=== PATIENT | female | born 1935 | race Caucasian/White ===

== ENCOUNTER 2016-09-25 17:58 | Inpatient (IN) ==
[2016-09-25] MEDS ORDERED: PANTOPRAZOLE 40 MG VIAL IV STA (21:19)
[2016-09-25] MEDS ORDERED: SODIUM CHLORIDE 0.9% 1,000 ML IV STA (21:19)
[2016-09-25] MEDS ORDERED: ONDANSETRON 4 MG/2 ML VIAL IV STA (21:19)
[2016-09-25] MEDS ORDERED: DICYCLOMINE 20 MG/2 ML AMP IM ONE ×2 (21:19→22:34)
--- NOTE | 2016-09-25 21:25 | Emergency Department Note ---
Arrival - Arrival Chief Complaint: Weakness Stated Complaint: in bed all day/weak/possible impaction ED Nursing Triage Note: pt c/o weakness, confusion, and ?impaction Last BM 5 days ago. Pt seen in ER yesterday for confusion. Mode of Arrival: Wheelchair Limitations: Altered Mental Status Source: Family Time Seen by Provider: 09/25/16 21:19 - History of Present Illness HPI Narrative: This 80-year-old white female presents for the second, 24 hours with complaints of persistent disorientation and confusion associated with visual hallucinations. Likewise she continues to have complaints of abdominal cramping and nausea but no vomiting as well as flare of her external hemorrhoids. The patient was seen here yesterday with an extensive workup with a normal head CT at that time as well as an ultrasound report of the right lower extremity which revealed no DVT but a Jiménez's cyst and plain films that reflected the possibility of constipation. Although it was felt that Bactrim was giving her hallucinations, with cessation of the drug the family states she has not cleared. They have discussed this with Dr. Love who referred the patient back to the emergency room. Onset (ago): day(s) (Patient presents several days post onset of symptoms) Allergies/Adverse Reactions: Allergies Allergy/AdvReac Type Severity Reaction Status Date / Time Shrimp Allergy ITCHING Verified 09/24/16 10:29 Home Medications: Home Medications Medication Instructions Recorded Confirmed Type Acebutolol [Sectral] 400 mg PO BID 11/23/14 09/25/16 History Baclofen Tab [Lioresal] 10 mg PO TID 11/23/14 09/25/16 History Clopidogrel [Plavix] 75 mg PO DAILY 11/23/14 09/25/16 History Estradiol Tab [Estrace Tab] 2 mg PO DAILY 11/23/14 09/25/16 History HYDROcodone/ACETAMIN 10-325 [[place] 1 tablet PO TID PRN 11/23/14 09/25/16 History 10-325] Morphine Sulfate [Morphine Sulfate 15 mg PO BID 11/23/14 09/25/16 History ER] Omeprazole [Prilosec] 20 mg PO DAILY 11/23/14 09/25/16 History Simvastatin [Zocor] 10 mg PO DAILY 11/23/14 09/25/16 History dilTIAZem HCl [Cartia XT] 120 mg PO DAILY 11/23/14 09/25/16 History metFORMIN [Glucophage] 500 mg PO BID W/MEALS 11/23/14 09/25/16 History Glimepiride 4 mg PO BID 08/13/16 09/25/16 History hydroCHLOROthiazide 25 mg PO DAILY PRN 08/13/16 09/25/16 History [Hydrochlorothiazide] Insulin Aspart [NovoLOG FlexPen] 15 unit SUBCUT BID 09/03/16 09/25/16 History Insulin Glargine,Hum.rec.anlog 40 unit SUBCUT BEDTIME 09/03/16 09/25/16 History [Toujeo SoloStar] Insulin Detemir [Levemir FlexPen] 40 unit SUBCUT QPM 09/24/16 09/25/16 History Review of System - Review of System 12 point system: reviewed and no additional remarkable complaints except as stated - Review of System Gastrointestinal: Present: as per HPI Neurological: Present: as per HPI Medical,Surgical,& Family Hx - Medical History Cardio: History of: Hypertension Psychological: History of: Depression Neurology: History of: Cerebrovascular Accident HEENT: History of: Eye Problem (cataract) Endocrine: History of: Diabetes Mellitus (IDDM), Dyslipidemia Gastrointestinal: History of: GERD Musculoskeletal: History of: Back/Neck Problems, Musculoskeletal Problems Hematology: History of: Anemia Other: History of: MRSA - Surgical History HEENT Surgeries: Surgical HX of: Eye Surgery (cataracts) Abdominal Surgeries: Surgical HX of: Abdominal Surgery, Appendectomy, Cholecystectomy, Colonoscopy, EGD Reproductive Surgeries: Surgical HX of;: Gynecologic Surgery, Hysterectomy Orthopedic Surgeries: Surgical HX of;: Total Hip Replacement - Family History Family History: Reports;: Family Cancer (brother, sister), Family Diabetes ( mother), Family Heart Disease (mother and dad), Family Hypertension - Social History Smoking Status: Never smoker Exam Physical Examination: GENERAL: Well developed, well nourished elderly white female groaning on the gurney but in no acute distress. HEENT: Normocephalic. No trauma. Moist mucous membranes. EOMI. PERRLA. ENT NML NECK: Supple. No adenopathy. CARDIAC: Regular. No murmurs. Heart rate 71 CHEST: Clear to auscultation. No respiratory distress. O2 sat 96% ABDOMEN: Soft. Diffusely tender with hyperactive bowel sounds. EXTREMITIES: No trauma. Normal ROM. No pedal edema. Area of cellulitis right lower extremity medially SKIN: No diaphoresis. No rash. NEURO: Alert. Oriented to person place but not so time motor sensory vibratory intact. No focal deficits. Vital Signs: Vital Signs Temperature 97.3 F L 09/25/16 23:56 Pulse Rate 71 09/25/16 23:56 Respiratory Rate 22 09/25/16 23:58 Blood Pressure 110/53 09/25/16 23:56 O2 Sat by Pulse Oximetry 96 09/25/16 18:00 Course - Reevaluation(s) Reevaluation #1: Discussed with family the results of her studies and the need for hospitalization to straighten out metal confusion and constipation. - Consultations Consultation #1: Discussed with Dr. Langston who will admit for Dr. Ramirez. Results - Labs CBC & BMP: 09/25/16 21:43 09/25/16 21:43 Labs: I reviewed the laboratory and noted the azotemic numbers - Impressions EKG: Sinus rhythm at 78 with normal FL interval and QRS duration. Diffuse ST depression and T-wave inversion along the lateral wall. No acute injury pattern noted. - Diagnostic Findings Procedure: CT Abdomen and Pelvis: image reviewed by me, report reviewed by me ( Constipation with possible fecal impaction as well as colonic diverticula.) Disposition Clinical Impression: Constipation, Altered mental status, Renal azotemia Case discussed with: patient's family Disposition: Still a Patient Time of Disposition: 00:49
[2016-09-25 21:59] LABS: Basophils # 0.1 10*3/uL (0.0-0.2); Basophils % 0.5 % (0.0-0.8); Eosinophils # 0.2 10*3/uL (0.0-0.87); Eosinophils % 1.7 % (0.00-10.9); Hematocrit 30.5 VOL% (35.7-47.0); Hemoglobin 9.4 GM/DL (12.0-16.0); Immature Granulocytes % 0.3 %; Immature Granulocytes Absolute 0.03 #; Lymphocytes # 1.7 10*3/uL (1.4-4.0); Lymphocytes % 18.4 % (21.3-54.2); Mean Corpuscular HGB Conc 30.8 GM/DL (32-36); Mean Corpuscular Hemoglobin 25 PG (27-34); Mean Corpuscular Volume 80.9 FL (87-102); Mean Platelet Volume 10.4 FL (9.6-12.0); Monocytes % 10.2 % (1.7-12.7); Neutrophils # 6.4 10*3/uL (1.4-7.4); Neutrophils % 68.9 % (38.7-73.9); Platelet Count 249 T/CUMM (130-400); Red Blood Count 3.77 MC/CUMM (3.8-5.5); Red Cell Distribution Width 15.6 % (9.3-17.3); White Blood Count 9.3 T/CUMM (4-12)
[2016-09-25 22:22] LABS: Alanine Aminotransferase 11 U/L (13-56); Albumin 3.2 G/DL (3.4-5.0); Alkaline Phosphatase 57 U/L (45-117); Amylase 17 U/L (25-115); Aspartate Amino Transferase 13 U/L (0-37); Blood Urea Nitrogen 26 MG/DL (7-18); Calcium 8.4 MG/DL (8.5-10.1); Glucose 181 MG/DL (74-106); Osmolality,Calculated 284.7 MOS/KG (273-304); Potassium 5.3 MMOL/L (3.5-5.1); Sodium 138 MMOL/L (136-145); Total Protein 6.5 G/DL (6.4-8.3); Troponin I Only < 0.015 NG/ML (0.00-0.045)
[2016-09-25 22:28] LABS: Lactic Acid 2.5 MMOL/L (0.4-2.0)
[2016-09-25] MEDS ORDERED: ONDANSETRON 4 MG/2 ML VIAL ONE (22:34)
[2016-09-25] MEDS ORDERED: PANTOPRAZOLE 40 MG VIAL IV ONE (22:34)
--- NOTE | 2016-09-25 22:43 | EKG Report ---
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
[2016-09-26] MEDS ORDERED: GLUCAGON 1 MG VIAL IM PRN (00:51)
[2016-09-26] MEDS ORDERED: ONDANSETRON 4 MG/2 ML VIAL IV PRN (00:51)
[2016-09-26] MEDS ORDERED: DEXTROSE 50% 25 GM/50 ML VIAL IV PRN (00:51)
[2016-09-26] MEDS: SODIUM CHLORIDE 0.9% 1,000 ML IV SCH ×3 (02:26→18:59)
--- NOTE | 2016-09-26 06:37 | CT Report ---
Exam: CT abdomen pelvis wo con Date: 09/25/2016 9:45 PM Comparison: 02/19/2010 Indication: Abdominal pain constipation Total DLP: 447.1 mGy*cm Technical: The study was initially reviewed by [facility]. Images were obtained from the lung bases to the iliac crest continuation through the pelvis without intravenous contrast with axial sagittal coronal imaging available for review. Dose reduction was performed with decreasing kv and mA and automated exposure Findings: Lung bases: Small right pleural effusion. Mild scarring in the lung velazquez bilaterally. Vascular calcification in the aortic valve Liver and Spleen: Unremarkable Gallbladder and Pancreas: Previous cholecystectomy. The pancreas is unremarkable. Adrenals: Unremarkable Kidneys: No obvious stones present. There is a low density mass in the left kidney measuring approximately 2.9 cm Stomach: Incomplete distended with air-fluid and debris with a large hiatal hernia present Retroperitoneum: Small tiny calcified nodes in the periaortic region. Aorta and IVC: Vascular plaque in aorta iliac vessels without aneurysm present. The aorta and IVC without contrast or not otherwise evaluated. Bowel and Mesentery: Diverticulosis change present. Extensive stool and debris present within the colon particularly in the rectosigmoid colon. Pelvis: Bladder: Incompletely distended with fluid Arrieta catheter suspected in the bladder. Fluid: No free fluid identified. Lymph nodes: No enlarged lymph nodes. Pelvic organs: Previous hysterectomy suspected phleboliths are present. Osseous structures: Left total hip prosthesis is present. Degenerative changes present thoracolumbar spine with vacuum phenomena at L5-S1. Impression: 1. Constipation obstipation with diverticulosis without obvious diverticulitis 2. Prior hysterectomy suspected 3. Previous cholecystectomy 4. Left total hip prosthesis present. 5. Minimal dependent right pleural effusion 6. Hiatal hernia measuring up to 6 cm PROCEDURE INTERPRETED AT [facility] DEPARTMENT OF RADIOLOGY Final Report Signed by: Dr. Teodoro Rankin
[2016-09-26] MEDS ORDERED: hydroCHLOROthiazide 25 MG TABLET PO PRN (07:27)
--- NOTE | 2016-09-26 07:55 | Family Practice History&Phys ---
Assessment and Plan (1) Fecal impaction in rectum Status: Acute Assessment and plan: 09/26/2016: Soapsuds enemas will be ordered. I have started her on Linzess. Current Visit: Yes (2) Altered mental status Status: Resolved Assessment and plan: 09/26/2016: Patient's sensorium has cleared. Current Visit: Yes History of Present Illness Chief complaint: Abdominal pain and constipation History of present illness: Ms. Barahona is a 80 year old female Patient 80-year-old white female presents emergency room complaining of persistent constipation with abdominal and rectal pain. Patient found to have soft fecal impaction. She is on pain medications which has been long-standing. Patient was admitted my services for further evaluation. According to her daughter she has been quite confused and disoriented but finally agreed to come to the hospital last night as her perineal pain was worsening. She has not had any fever or chills. Her daughter has not seen any evidence of blood in her stool and she did not have any respiratory or urinary symptoms. Home Medications Medication Instructions Recorded Confirmed Type Acebutolol [Sectral] 400 mg PO BID 11/23/14 09/26/16 History Baclofen Tab [Lioresal] 10 mg PO TID 11/23/14 09/26/16 History Clopidogrel [Plavix] 75 mg PO DAILY 11/23/14 09/26/16 History Estradiol Tab [Estrace Tab] 2 mg PO DAILY 11/23/14 09/26/16 History HYDROcodone/ACETAMIN 10-325 [[place] 1 tablet PO TID PRN 11/23/14 09/26/16 History 10-325] Morphine Sulfate [Morphine Sulfate 15 mg PO BID 11/23/14 09/26/16 History ER] Omeprazole [Prilosec] 20 mg PO DAILY 11/23/14 09/26/16 History Simvastatin [Zocor] 10 mg PO DAILY 11/23/14 09/26/16 History dilTIAZem HCl [Cartia XT] 120 mg PO DAILY 11/23/14 09/26/16 History metFORMIN [Glucophage] 500 mg PO BID W/MEALS 11/23/14 09/26/16 History Glimepiride 4 mg PO BID 08/13/16 09/26/16 History hydroCHLOROthiazide 25 mg PO DAILY PRN 08/13/16 09/26/16 History [Hydrochlorothiazide] Insulin Glargine,Hum.rec.anlog 40 unit SUBCUT BEDTIME 09/03/16 09/26/16 History [Toujeo SoloStar] Insulin Detemir [Levemir FlexPen] 40 unit SUBCUT QPM 09/24/16 09/26/16 History Allergies Allergy/AdvReac Type Severity Reaction Status Date / Time Shrimp Allergy ITCHING Verified 09/24/16 10:29 - Constitutional Constitutional: Present: fatigue, weakness. Absent: chills, fever(s), weight gain, weight loss - EENT Eyes: Absent: blurry vision, loss of vision Ears: Absent: decreased hearing, ear pain Nose, mouth and throat: Absent: nasal congestion, sinus pressure, sore throat - Cardiovascular Cardiovascular: Absent: chest pain at rest, dyspnea, orthopnea, palpitations, PND - Respiratory Respiratory: Absent: cough, dyspnea, wheezing - Gastrointestinal Gastrointestinal: Present: abdominal pain, bloating, constipation, cramping. Absent: dyspepsia, hematemesis, hematochezia, melena, nausea, vomiting - Genitourinary Genitourinary: Absent: difficulty urinating, urinary frequency, urinary hesitancy - Musculoskeletal Musculoskeletal: Absent: arthralgias - Neurological Neurological: Absent: confusion, dizziness, focal weakness, numbness, paresthesias - Psychiatric Psychiatric: Absent: anxiety, confusion, depression - Endocrine Endocrine: Absent: fatigue, polydipsia, polyphagia - Hematologic/Lymphatic Hematologic/Lymphatic: Absent: easy bleeding, easy bruising Medical,Surgical,& Family Hx - Medical History Cardio: History of: Cardiac Dysrhythmia (afib), Hypertension Psychological: History of: Depression Neurology: History of: Cerebrovascular Accident HEENT: History of: Eye Problem (cataract) Endocrine: History of: Diabetes Mellitus (IDDM), Dyslipidemia Respiratory: History of: Bronchitis Genitourinary: History of: Recurring Urinary Tract Infections No history of: Kidney Stones Gastrointestinal: History of: Diverticulitis/ Diverticulosis, GERD, Hemorrhoids No history of: Gastrointestinal Bleed Musculoskeletal: History of: Back/Neck Problems, Musculoskeletal Problems Hematology: History of: Anemia Other: History of: MRSA - Surgical History HEENT Surgeries: Surgical HX of: Eye Surgery (cataracts) Patient denies: Tonsilectomy & Adenoidectomy Abdominal Surgeries: Surgical HX of: Abdominal Surgery, Appendectomy, Cholecystectomy, Colonoscopy, EGD Reproductive Surgeries: Surgical HX of;: Gynecologic Surgery, Hysterectomy Orthopedic Surgeries: Surgical HX of;: Total Hip Replacement (left) - Family History Family History: Reports;: Family Cancer (brother, sister), Family Diabetes ( mother), Family Heart Disease (mother and dad), Family Hypertension - Social History Smoking Status: Never smoker Frequency of Alcohol Use: None Type of Drug Use: None Exam - Constitutional Vitals: Period Temp Pulse Resp BP Sys/Saleh Pulse Ox Last 24 Hr 98.5 F-98.5 F 76-82 18-20 144-160/57-69 92-99 Exam: General: Objective patient is a well-developed white female in no acute distress. Patient is able to give good history. Patient does appear uncomfortable. HEENT: Pupils equal and reactive to light. Patent nares and airway Neck: No meningismus, adenopathy, thyromegaly. There are no auscultated carotid bruits. Cardiovascular: Regular rhythm. No murmurs or gallops Chest: Clear to auscultation without rales rhonchi wheezes. Abdomen: Soft nontender to palpation No masses, rebound, guarding or tenderness. Rectal exam reveals large soft impaction Neuro: Cranial nerves intact and DTRs and strength symmetric in all extremities. Dermatologic: No evidence of abnormal lesions or masses. Musculoskeletal: There is no joint swelling or tenderness or deformity. Extremities: Patient has a firm mass in her right medial thigh which is been present for months. This is nontender Results - Labs CBC & BMP: 09/25/16 21:43 09/25/16 21:43 Quality Measures - Stroke Symptom Onset Unknown: No
[2016-09-26] MEDS ORDERED: GLIMEPIRIDE 4 MG TABLET PO SCH (08:00)
[2016-09-26] MEDS ORDERED: metFORMIN 500 MG TABLET PO SCH (08:00)
[2016-09-26] MEDS: MORPHINE ER 15 MG TABLET PO SCH ×2 (08:56→21:19)
[2016-09-26] MEDS: ESTRADIOL 2 MG TABLET PO SCH (08:57)
[2016-09-26] MEDS: ACEBUTOLOL 400 MG CAPSULE PO SCH ×2 (08:57→21:18)
[2016-09-26] MEDS: PANTOPRAZOLE 40 MG TABLET PO SCH (08:57)
[2016-09-26] MEDS: BACLOFEN 10 MG TABLET PO SCH ×3 (08:57→21:18)
[2016-09-26] MEDS: CLOPIDOGREL 75 MG TABLET PO SCH (08:57)
[2016-09-26] MEDS: LINACLOTIDE 145 MCG CAPSULE PO SCH (08:58)
[2016-09-26] MEDS: DILTIAZEM CD 120 MG CAPSULE PO SCH (08:58)
[2016-09-26] MEDS ORDERED: DILTIAZEM 60 MG TABLET PO SCH (09:00)
[2016-09-26] MEDS ORDERED: INSULIN DETEMIR 40 UNIT SUBCUT SCH (19:00)
[2016-09-26] MEDS ORDERED: INSULIN DETEMIR 100 UNIT/ML SUBCUT SCH (21:00)
[2016-09-26] MEDS: INSULIN GLARGINE 100 UNIT/ML SUBCUT SCH (21:19)
[2016-09-26] MEDS: SIMVASTATIN 20 MG TABLET PO SCH (21:19)
[2016-09-27 01:29] LABS: Apearance,Urine CLEAR (Clear); Bacteria,Urine Occasional /HPF (Few); Bilirubin,Urine Negative (Negative); Blood, Urine Moderate mg/dL (Negative); Glucose,Urine (UA) 150 mg/dL (Negative); Ketones,Urine Negative (Negative); Mucus,Urine Occasional /LPF (Occasional); Nitrite,Urine Negative (Negative); Protein,Urine Negative; RBC,Urine 6 /HPF (0-4); Urine Color Yellow (Yellow); Urine Specific Gravity 1.009 (1.001-1.035); Urine Urobilinogen < 2.0 EU/DL (0.2-1.0); WBC,Urine 2 /HPF (0-6)
[2016-09-27] MEDS: SODIUM CHLORIDE 0.9% 1,000 ML IV SCH ×2 (02:36→08:15)
--- NOTE | 2016-09-27 07:42 | Family Practice Progress Note ---
Family Practice - PN: Subj Interval history: Patient's daughter tells me she had a fretful night. It sounds that she had less than gratifying results from her soapsuds enema and I am going to ask nursing staff repeat that also check her for impaction. Arrieta catheter was placed last night as she had residual urine volume of 317 cc. I suspect this may be due to her impaction. I will leave her Arrieta catheter in for today. She is complaining of some soreness in her mouth she is here with previous bouts of thrush. She is also states that he not on the medial aspect of her right thigh is becoming increasingly painful. I will asked Dr. Smith to see her again. Exam (Progress Note) - Constitutional Vitals: Period Temp Pulse Resp BP Sys/Saleh Pulse Ox Last 24 Hr 98.4 F-100.3 F 70-83 18-20 127-187/63-78 96-99 Exam: Objectively well-developed pleasant white female no acute distress. She is sleeping soundly when I entered the room. She states she still having some pain in her rectum. Cardiovascular: Heart rates regular without murmurs or gallops Respiratory: Lungs clear to auscultation bilaterally. Abdomen: Abdomen soft with suprapubic tenderness noted. Extremities: Patient has a very firm tender area to the medial aspect of her right thigh. I cannot say this is much changed from her previous visit. Results - Labs CBC & BMP: 09/25/16 21:43 09/25/16 21:43 Lab Results: I have reviewed the past 24 hour labs Assessment and Plan (1) Fecal impaction in rectum Status: Acute Assessment and plan: 09/26/2016: Soapsuds enemas will be ordered. I have started her on Linzess. 09/27/2016: Will repeat soapsuds enema Current Visit: Yes (2) Altered mental status Status: Resolved Assessment and plan: 09/26/2016: Patient's sensorium has cleared. 09/27/2016: This appears to have resolved. Current Visit: Yes Quality Measures - Stroke Symptom Onset Unknown: No
[2016-09-27] MEDS: MORPHINE ER 15 MG TABLET PO SCH ×2 (08:59→21:05)
[2016-09-27] MEDS: LINACLOTIDE 145 MCG CAPSULE PO SCH (08:59)
[2016-09-27] MEDS: BACLOFEN 10 MG TABLET PO SCH ×3 (09:00→21:05)
[2016-09-27] MEDS: ESTRADIOL 2 MG TABLET PO SCH (09:00)
[2016-09-27] MEDS: NYSTATIN 500,000 UNIT/5 ML UDCUP SWISH/SWAL SCH ×4 (09:01→21:04)
[2016-09-27] MEDS: ACEBUTOLOL 400 MG CAPSULE PO SCH ×2 (09:01→21:05)
[2016-09-27] MEDS: CLOPIDOGREL 75 MG TABLET PO SCH (09:01)
[2016-09-27] MEDS: DILTIAZEM CD 120 MG CAPSULE PO SCH (09:02)
[2016-09-27] MEDS: PANTOPRAZOLE 40 MG TABLET PO SCH (09:02)
--- NOTE | 2016-09-27 09:08 | Physician Query Form ---
CLICK EDIT DOCUMENT TO SELECT QUERY ANSWER --> OK --> SIGN Jennifer King RN, CCDS Certified Clinical Pocket Marker W) [phone] (f) [phone] [email or web address] PROVIDERS: Make your selection(s) from the choices in EACH section by typing an "x" and enter comments in the comment section. Please use your independent medical judgment in providing your response. This request does not imply that any particular answer is desired or expected. CLINICAL INDICATORS: (Providers should not edit this section) The medical record indicates that the patient was admitted with constipation, renal azotemia, creatinine of 2.40#, GFR of 19# and the patient was placed on IVF. Clarify which of the following most accurately represents the patient's renal status: ( ) Acute kidney injury (non-traumatic) ( ) Acute renal failure (x ) Acute renal failure with underlying Chronic Kidney Disease (CKD) - please provide stage below ( ) Acute renal failure with pathological renal lesion ( ) Acute renal failure with necrosis ( ) tubular ( ) medullary ( ) cortical ( ) CKD - please provide stage below ( ) End Stage Renal Disease ( ) Acute interstitial nephritis ( ) Hepatorenal syndrome ( ) Other, please specify: ( ) Clinically unable to determine Chronic Kidney Disease Stages Source: National Kidney Disease Foundation ( ) Stage I (eGFR > or = 90) ( ) Stage II (eGFR 60 - 89) ( ) Stage III (eGFR 30 - 59) (x ) Stage IV (eGFR 15 - 29) ( ) Stage V (eGFR < 15 or dialysis) COMMENTS: PLEASE ALSO DOCUMENT RESPONSE IN PROGRESS NOTES AND/OR DISCHARGE SUMMARY Use of terms such as suspected, likely, or probable (associated with a specific diagnosis that is being evaluated, monitored, or treated as if it exists) are acceptable and can be restated in the discharge summary if not ruled out. MTDD
--- NOTE | 2016-09-27 17:00 | General Surgery Consult Note ---
Assessment and Plan (1) Abscess of right thigh Status: Chronic Assessment and plan: The last culture obtained was negative. There is no surrounding cellulitis. At this point, I would consider this to be a seroma/resolving inflammatory process. She is likely to high risk to take to the operating room for excision , though this is an option if the mass fails to resolve. I'm not convinced that she needs antibiotics at this point. In light of the recent problems that are thought to have been related to Bactrim use, I would avoid Bactrim in the future. The patient is to follow-up with me in the wound center in approximately 2 weeks. The visit is actually for her (now-healed) right foot ulcer, but we will continue to follow this inflammatory process of the right thigh, as well. Current Visit: No History of Present Illness Chief complaint: swelling on thigh History of present illness: Ms. Barahona is a 80 year old female whom I have treated at Wound Center in the recent past. Her foot wound has been declared healed at her last visit, but we were scheduled for 1 more follow-up with her. She was admitted because of confusion, which was thought to be a side effect of the Bactrim that she has been placed on for cellulitis of the thigh. She did have an abscess of the thigh which actually began as a hematoma. At her last clinic visit we aspirated the seroma in this area, and it is culture negative to date. Cytology was also sent, but I do not have the results of that. I was asked to see her in follow-up evaluation of the right thigh swelling. Home Medications Medication Instructions Recorded Confirmed Type Acebutolol [Sectral] 400 mg PO BID 11/23/14 09/26/16 History Baclofen Tab [Lioresal] 10 mg PO TID 11/23/14 09/26/16 History Clopidogrel [Plavix] 75 mg PO DAILY 11/23/14 09/26/16 History Estradiol Tab [Estrace Tab] 2 mg PO DAILY 11/23/14 09/26/16 History HYDROcodone/ACETAMIN 10-325 [[place] 1 tablet PO TID PRN 11/23/14 09/26/16 History 10-325] Morphine Sulfate [Morphine Sulfate 15 mg PO BID 11/23/14 09/26/16 History ER] Omeprazole [Prilosec] 20 mg PO DAILY 11/23/14 09/26/16 History Simvastatin [Zocor] 10 mg PO DAILY 11/23/14 09/26/16 History dilTIAZem HCl [Cartia XT] 120 mg PO DAILY 11/23/14 09/26/16 History metFORMIN [Glucophage] 500 mg PO BID W/MEALS 11/23/14 09/26/16 History Glimepiride 4 mg PO BID 08/13/16 09/26/16 History hydroCHLOROthiazide 25 mg PO DAILY PRN 08/13/16 09/26/16 History [Hydrochlorothiazide] Insulin Detemir [Levemir FlexPen] 40 unit SUBCUT QPM 09/24/16 09/26/16 History Allergies Allergy/AdvReac Type Severity Reaction Status Date / Time Shrimp Allergy ITCHING Verified 09/24/16 10:29 Medical,Surgical,& Family Hx - Medical History Cardio: History of: Cardiac Dysrhythmia (afib), Hypertension Psychological: History of: Depression Neurology: History of: Cerebrovascular Accident HEENT: History of: Eye Problem (cataract) Endocrine: History of: Diabetes Mellitus (IDDM), Dyslipidemia Respiratory: History of: Bronchitis Genitourinary: History of: Recurring Urinary Tract Infections No history of: Kidney Stones Gastrointestinal: History of: Diverticulitis/ Diverticulosis, GERD, Hemorrhoids No history of: Gastrointestinal Bleed Musculoskeletal: History of: Back/Neck Problems, Musculoskeletal Problems Hematology: History of: Anemia Other: History of: MRSA - Surgical History HEENT Surgeries: Surgical HX of: Eye Surgery (cataracts) Patient denies: Tonsilectomy & Adenoidectomy Abdominal Surgeries: Surgical HX of: Abdominal Surgery, Appendectomy, Cholecystectomy, Colonoscopy, EGD Reproductive Surgeries: Surgical HX of;: Gynecologic Surgery, Hysterectomy Orthopedic Surgeries: Surgical HX of;: Total Hip Replacement (left) - Family History Family History: Reports;: Family Cancer (brother, sister), Family Diabetes ( mother), Family Heart Disease (mother and dad), Family Hypertension - Social History Smoking Status: Never smoker Frequency of Alcohol Use: None Type of Drug Use: None Exam - Constitutional Vitals: Period Temp Pulse Resp BP Sys/Saleh Pulse Ox Last 24 Hr 98.5 F-100.3 F 65-80 16-20 140-187/65-81 94-97 General appearance: no acute distress - Respiratory Respiratory exam: Present: clear to auscultation bilaterally. Absent: rales - Cardiovascular Cardiovascular exam: Present: RRR - Skin Skin exam: Present: other (there is a callus over the medial aspect of the right foot without evidence of underlying ulceration. There is swelling with mild fluctuance of the inner thigh measuring 3 cm x 4 cm. This is the site of the previous I&D.) Quality Measures - Stroke Symptom Onset Unknown: No Results - Labs CBC & BMP: 09/25/16 21:43 09/25/16 21:43
[2016-09-27] MEDS: SIMVASTATIN 20 MG TABLET PO SCH (21:05)
[2016-09-27] MEDS: INSULIN GLARGINE 100 UNIT/ML SUBCUT SCH (21:05)
--- NOTE | 2016-09-28 07:34 | Family Practice Progress Note ---
Family Practice - PN: Subj Interval history: Patient states she is feeling weak this morning. She did have a low blood sugar earlier and I have asked the nurses to repeat it. She did have her enema yesterday and got good results and finally her impaction has cleared. Her abdominal pain is much improved. She is not having any further confusion according to her daughter. Exam (Progress Note) - Constitutional Vitals: Period Temp Pulse Resp BP Sys/Saleh Pulse Ox Last 24 Hr 98.8 F-99.8 F 65-80 16-20 145-163/65-81 93-97 Exam: Objectively well-developed pleasant white female no acute distress. Patient states she is feeling poorly this morning Cardiovascular: Heart rates regular without murmurs or gallops Respiratory: Lungs clear to auscultation bilaterally. Abdomen: Abdomen soft with suprapubic tenderness noted. Extremities: Patient was seen by Dr. Smith yesterday concerning this firm mass in her right thigh. He requested continue observation only at this time. Results - Labs CBC & BMP: 09/25/16 21:43 09/25/16 21:43 Lab Results: I have reviewed the past 24 hour labs Assessment and Plan (1) Fecal impaction in rectum Status: Acute Assessment and plan: 09/26/2016: Soapsuds enemas will be ordered. I have started her on Linzess. 09/27/2016: Will repeat soapsuds enema 09/28/2016: Patient had good results with yesterday. Current Visit: Yes (2) Altered mental status Status: Resolved Assessment and plan: 09/26/2016: Patient's sensorium has cleared. 09/27/2016: This appears to have resolved. 09/28/2016: Patient is returned to her normal sensorium Current Visit: Yes Quality Measures - Stroke Symptom Onset Unknown: No
[2016-09-28 08:10] LABS: Basophils % 0.6 % (0.0-0.8); Eosinophils # 0.3 10*3/uL (0.0-0.87); Eosinophils % 4.2 % (0.00-10.9); Hematocrit 27.9 VOL% (35.7-47.0); Hemoglobin 8.6 GM/DL (12.0-16.0); Immature Granulocytes % 0.6 %; Immature Granulocytes Absolute 0.04 #; Lymphocytes # 1.5 10*3/uL (1.4-4.0); Lymphocytes % 23.6 % (21.3-54.2); Mean Corpuscular HGB Conc 30.8 GM/DL (32-36); Mean Corpuscular Hemoglobin 24 PG (27-34); Mean Corpuscular Volume 78.8 FL (87-102); Mean Platelet Volume 10.3 FL (9.6-12.0); Monocytes # 0.7 10*3/uL (0.11-0.8); Monocytes % 11.2 % (1.7-12.7); Neutrophils # 3.9 10*3/uL (1.4-7.4); Neutrophils % 59.8 % (38.7-73.9); Platelet Count 233 T/CUMM (130-400); Red Blood Count 3.54 MC/CUMM (3.8-5.5); Red Cell Distribution Width 15.9 % (9.3-17.3); White Blood Count 6.5 T/CUMM (4-12)
--- NOTE | 2016-09-28 08:26 | EKG Report ---
Stationary ECG Study [facility] Test Date: 09/28/2016 7:58:08 AM Pat Name: KWASI BUI Department: Room: 227 Gender: [place] [employer] Operator: MAYO : 1935 Requested by: Nestor Jacobs Order Number: [id number] Reading MD: YELITZA PELAEZ Intervals [place] Rate: 82 P: 72 CA: 178 QRS: 72 QRSD: 81 T: 47 QT: 377 QTc: 415 Interpretive Statements SINUS RHYTHM Electronically Signed On 09-28-16 11:44:02 CDT by YELITZA PELAEZ [email or web address]
[2016-09-28 08:43] LABS: Calcium 7.6 MG/DL (8.5-10.1); Magnesium 1.2 MG/DL (1.8-2.4); Osmolality,Calculated 279.3 MOS/KG (273-304); Potassium 4.2 MMOL/L (3.5-5.1)
[2016-09-28] MEDS: DILTIAZEM CD 120 MG CAPSULE PO SCH (08:45)
[2016-09-28] MEDS: NYSTATIN 500,000 UNIT/5 ML UDCUP SWISH/SWAL SCH ×5 (08:48→20:48)
[2016-09-28] MEDS: MORPHINE ER 15 MG TABLET PO SCH ×2 (08:49→20:47)
[2016-09-28] MEDS: PANTOPRAZOLE 40 MG TABLET PO SCH (08:49)
[2016-09-28] MEDS: ACEBUTOLOL 400 MG CAPSULE PO SCH ×2 (08:50→20:47)
[2016-09-28] MEDS: CLOPIDOGREL 75 MG TABLET PO SCH (08:50)
[2016-09-28] MEDS: ESTRADIOL 2 MG TABLET PO SCH (08:50)
[2016-09-28] MEDS: BACLOFEN 10 MG TABLET PO SCH ×3 (08:50→20:47)
[2016-09-28] MEDS: LINACLOTIDE 145 MCG CAPSULE PO SCH (08:50)
[2016-09-28] MEDS: SIMVASTATIN 20 MG TABLET PO SCH (20:48)
[2016-09-28] MEDS: INSULIN GLARGINE 100 UNIT/ML SUBCUT SCH (21:23)
[2016-09-29] MEDS ORDERED: ACETAMINOPHEN 500 MG TABLET PO PRN (01:36)
--- NOTE | 2016-09-29 05:39 | Discharge Summary ---
Hospital Course - Hospital Course Hospital Course: Patient is a 80-year-old white female admitted to the emergency room with acute sensorium changes. Certainly concerned that she may have had another infectious process as he recently been admitted with cellulitis. Patient however was found to have a fecal impaction physical exam and patient was treated with soapsuds enema until she was clear. Her abdominal pain and rectal pain resolved at that point. Patient's sensorium returned to her baseline. She was feeling poorly the day before admission and EKG and cardiac isoenzymes were negative. Patient will be discharged home today. Diagnosis - Discharge Diagnosis (1) Fecal impaction in rectum Status: Acute (2) Altered mental status Status: Resolved Discharge Plan - Discharge Data Disposition: Disch To Home/Self Care Condition at Discharge: Stable Discharge Diet: advance to your usual diet Activity: resume usual activities as tolerated Hygiene: no restrictions Weight Bearing at Discharge: weight bear as tolerated Contact your physician if you experience:: fever over 101 - Discharge Medications New Linaclotide [Linzess] 145 mcg PO AC BREAKFAST #30 capsule Continue Omeprazole [Prilosec] 20 mg PO DAILY Clopidogrel [Plavix] 75 mg PO DAILY Morphine Sulfate [Morphine Sulfate ER] 15 mg PO BID HYDROcodone/ACETAMIN 10-325 [[place] 10-325] 1 tablet PO TID PRN PRN Reason: Pain dilTIAZem HCl [Cartia XT] 120 mg PO DAILY Baclofen Tab [Lioresal] 10 mg PO TID Acebutolol [Sectral] 400 mg PO BID Estradiol Tab [Estrace Tab] 2 mg PO DAILY Simvastatin [Zocor] 10 mg PO DAILY hydroCHLOROthiazide [Hydrochlorothiazide] 25 mg PO DAILY PRN PRN Reason: FLUID Insulin Detemir [Levemir FlexPen] 40 unit SUBCUT QPM Glimepiride 4 mg PO BID Discontinued metFORMIN [Glucophage] 500 mg PO BID W/MEALS - Follow Up or Referral Follow Up: Lennox Love MD [Physician] - 2 Weeks - Forms/Instructions Exam - Constitutional Vitals: Period Temp Pulse Resp BP Sys/Saleh Pulse Ox Last 24 Hr 97.2 F-100 F 66-103 18-20 151-207/70-90 94-98 Exam: Objectively well-developed pleasant white female no acute distress. Patient states she is feeling better this morning and her headache has resolved. Cardiovascular: Heart rates regular without murmurs or gallops Respiratory: Lungs clear to auscultation bilaterally. Abdomen: Abdomen soft with suprapubic tenderness noted. Extremities: Indurated mass the right medial thigh is getting smaller and certainly less tender. There is no cellulitis. Discharge Results Labs on day of discharge: Labs from last 24 hours 09/28/16 09/28/16 09/28/16 20:53 15:20 12:42 WBC RBC Hgb Hct MCV MCH MCHC RDW Plt Count MPV Neut % (Auto) Lymph % (Auto) George % (Auto) Eos % (Auto) Baso % (Auto) Neut # (Auto) Lymph # (Auto) George # (Auto) Eos # (Auto) Baso # (Auto) Immature Gran % Nucleated RBC % Immature Gran # Nucleated RBCs # Sodium Potassium Chloride Carbon Dioxide Anion Gap BUN Creatinine GFR Calculation BUN/Creatinine Ratio Glucose POC Glucose 209 H 251 H 228 H Calculated Osmolality Calcium Magnesium 09/28/16 09/28/16 09/28/16 10:55 07:43 07:43 WBC 6.5 D RBC 3.54 L Hgb 8.6 L Hct 27.9 L MCV 78.8 L MCH 24 L MCHC 30.8 L RDW 15.9 Plt Count 233 MPV 10.3 Neut % (Auto) 59.8 Lymph % (Auto) 23.6 George % (Auto) 11.2 Eos % (Auto) 4.2 Baso % (Auto) 0.6 Neut # (Auto) 3.9 Lymph # (Auto) 1.5 George # (Auto) 0.7 Eos # (Auto) 0.3 Baso # (Auto) 0.0 Immature Gran % 0.6 Nucleated RBC % 0.0 Immature Gran # 0.04 Nucleated RBCs # 0.00 Sodium 141 Potassium 4.2 Chloride 109 H Carbon Dioxide 22 Anion Gap 14.2 BUN 9 Creatinine 0.90 GFR Calculation 62 BUN/Creatinine Ratio 10.00 Glucose 94 POC Glucose 283 H Calculated Osmolality 279.3 Calcium 7.6 L Magnesium 1.2 L 09/28/16 09/28/16 07:41 06:44 WBC RBC Hgb Hct MCV MCH MCHC RDW Plt Count MPV Neut % (Auto) Lymph % (Auto) George % (Auto) Eos % (Auto) Baso % (Auto) Neut # (Auto) Lymph # (Auto) George # (Auto) Eos # (Auto) Baso # (Auto) Immature Gran % Nucleated RBC % Immature Gran # Nucleated RBCs # Sodium Potassium Chloride Carbon Dioxide Anion Gap BUN Creatinine GFR Calculation BUN/Creatinine Ratio Glucose POC Glucose 103 48 L* Calculated Osmolality Calcium Magnesium DS: Provider Date of admission: 09/26/16 00:50 Primary care physician: . No PCP Attending physician on admission: Lennox Love MD Consults: 09/26/16 02:01 Consult to Pastoral Services [CONS] Routine Comment: Pastoral Screen: Request Property Staff Accountant Visit 09/27/16 07:22 Consult to Physician [CONS] Routine Comment: Consulting Provider: Thong Smith Discharging clinician: Lennox Love MD Expected date of discharge: 09/29/16
[2016-09-29] MEDS: DILTIAZEM CD 120 MG CAPSULE PO SCH (08:00)
[2016-09-29] MEDS: LINACLOTIDE 145 MCG CAPSULE PO SCH (08:00)
[2016-09-29] MEDS: ESTRADIOL 2 MG TABLET PO SCH (08:01)
[2016-09-29] MEDS: BACLOFEN 10 MG TABLET PO SCH (08:01)
[2016-09-29] MEDS: MORPHINE ER 15 MG TABLET PO SCH (08:01)
[2016-09-29] MEDS: NYSTATIN 500,000 UNIT/5 ML UDCUP SWISH/SWAL SCH (08:02)
[2016-09-29] MEDS: CLOPIDOGREL 75 MG TABLET PO SCH (08:02)
[2016-09-29] MEDS: PANTOPRAZOLE 40 MG TABLET PO SCH (08:02)
[2016-09-29] MEDS: ACEBUTOLOL 400 MG CAPSULE PO SCH (09:09)
[2016-09-29 09:58] VITALS: BP 165/88
== END 2016-09-29 11:37 | disposition home or self-care (01) | DRG 389 ==
LOC: N.ED 17:58 → N.EDINP 09-26 00:50 → N.2E 09-26 01:16
PROVIDERS: ADMIT Family Medicine; ATTEND Family Medicine

== ENCOUNTER 2016-10-13 20:45 | Inpatient (IN) ==
[2016-10-13] MEDS ORDERED: SODIUM CHLORIDE 0.9% 1,000 ML IV STA (21:18)
[2016-10-13] MEDS ORDERED: ONDANSETRON 4 MG/2 ML VIAL IV STA (21:18)
[2016-10-13] MEDS ORDERED: ONDANSETRON 4 MG/2 ML VIAL ONE (21:24)
--- NOTE | 2016-10-13 21:34 | Emergency Department Note ---
IObinna Kasabria, am scribing for, and in the presence of, Rayne Lopez DO 21 :26. IJohn Debra, DO, personally performed the services described in this documentation, ascribed by Neville Yeboah in my presence, and it is both accurate and complete . Arrival - Arrival Chief Complaint: Nausea/Vomiting/Diarrhea Stated Complaint: N/V ED Nursing Triage Note: C/C confusion, N/V started today. Pt was in hospital a week ago for impaction and dehydration. EMS gave Zofran 4mg. BS 179 IV 20G left hand Mode of Arrival: Stretcher Limitations: No Limitations Source: Patient Time Seen by Provider: 10/13/16 21:17 - History of Present Illness HPI Narrative: This is a 81 y/o white female presenting to the ED with c/o nausea and vomiting that onset this afternoon. Family states she was given Zofran for her nausea which did not help. Pt has not been eating and drinking today. Daughter brought the pt dinner and immediately vomited after smelling the food. Daughter also states she is unsure if the pt had a seizure because when she went back to check on her she was shaking on her right side. Pt then states she wanted to go see the daughter's father who has been for years. Her PMHx is consistent with HTN, diabetes, a fib, and depression. Consistency: constant Severity: moderate Allergies/Adverse Reactions: Allergies Allergy/AdvReac Type Severity Reaction Status Date / Time Shrimp Allergy ITCHING Verified 09/24/16 10:29 sulfamethoxazole Allergy Confusion Verified 10/13/16 21:04 [From Bactrim] trimethoprim [From Bactrim] Allergy Confusion Verified 10/13/16 21:04 Home Medications: Home Medications Medication Instructions Recorded Confirmed Type Acebutolol [Sectral] 400 mg PO BID 11/23/14 09/26/16 History Baclofen Tab [Lioresal] 10 mg PO TID 11/23/14 09/26/16 History Clopidogrel [Plavix] 75 mg PO DAILY 11/23/14 09/26/16 History Estradiol Tab [Estrace Tab] 2 mg PO DAILY 11/23/14 09/26/16 History HYDROcodone/ACETAMIN 10-325 [[place] 1 tablet PO TID PRN 11/23/14 09/26/16 History 10-325] Morphine Sulfate [Morphine Sulfate 15 mg PO BID 11/23/14 09/26/16 History ER] Omeprazole [Prilosec] 20 mg PO DAILY 11/23/14 09/26/16 History Simvastatin [Zocor] 10 mg PO DAILY 11/23/14 09/26/16 History dilTIAZem HCl [Cartia XT] 120 mg PO DAILY 11/23/14 09/26/16 History Glimepiride 4 mg PO BID 08/13/16 09/26/16 History hydroCHLOROthiazide 25 mg PO DAILY PRN 08/13/16 09/26/16 History [Hydrochlorothiazide] Insulin Detemir [Levemir FlexPen] 40 unit SUBCUT QPM 09/24/16 09/26/16 History Linaclotide [Linzess] 145 mcg PO AC BREAKFAST #30 capsule 09/29/16 Rx Review of System - Review of System 12 point system: reviewed and no additional remarkable complaints except as stated - Review of System Constitutional: Absent: chills, fever, weakness Eyes: Absent: vision change Head/Ears/Nose/Throat: Absent: nasal drainage Respiratory: Absent: cough, wheezing Cardiovascular: Absent: chest pain Gastrointestinal: Present: nausea, vomiting. Absent: abdominal pain, diarrhea Genitourinary female: Absent: dysuria Musculoskeletal: Absent: arm pain, back pain, leg pain, neck pain Skin: Absent: rash Neurological: Absent: headache, weakness, confusion, vertigo Psychiatric: Absent: anxiety Endocrine: Absent: fatigue Hematological/Lymphatic: Absent: easy bleeding Allergic/Immunologic: Absent: facial swelling Medical,Surgical,& Family Hx - Medical History Cardio: History of: Cardiac Dysrhythmia (afib), Hypertension Psychological: History of: Depression Neurology: History of: Cerebrovascular Accident HEENT: History of: Eye Problem (cataract) Endocrine: History of: Diabetes Mellitus (IDDM), Diabetes Mellitus (NIDDM), Dyslipidemia Respiratory: History of: Bronchitis Genitourinary: History of: Recurring Urinary Tract Infections No history of: Kidney Stones Gastrointestinal: History of: Diverticulitis/ Diverticulosis, GERD, Hemorrhoids No history of: Gastrointestinal Bleed Musculoskeletal: History of: Back/Neck Problems, Musculoskeletal Problems Hematology: History of: Anemia Other: History of: MRSA - Surgical History HEENT Surgeries: Surgical HX of: Eye Surgery (cataracts) Patient denies: Tonsilectomy & Adenoidectomy Abdominal Surgeries: Surgical HX of: Abdominal Surgery, Appendectomy, Cholecystectomy, Colonoscopy, EGD Reproductive Surgeries: Surgical HX of;: Gynecologic Surgery, Hysterectomy Orthopedic Surgeries: Surgical HX of;: Total Hip Replacement (left) - Family History Family History: Reports;: Family Cancer (brother, sister), Family Diabetes ( mother), Family Heart Disease (mother and dad), Family Hypertension - Social History Smoking Status: Never smoker Frequency of Alcohol Use: None Type of Drug Use: None Exam Vital Signs: Vital Signs Temperature 98.5 F 10/13/16 20:45 Pulse Rate 74 10/13/16 20:45 Respiratory Rate 18 10/13/16 20:45 Blood Pressure 121/99 10/13/16 20:45 O2 Sat by Pulse Oximetry 90 L 10/13/16 20:45 - General General appearance: alert, in no apparent distress - Head Head exam: Present: atraumatic, normocephalic, normal inspection - Eye Eye exam: Present: normal appearance, PERRL, EOMI - ENT ENT exam: Present: normal exam, normal oropharynx, mucous membranes moist, TM's normal bilaterally, normal external ear exam - Neck Neck exam: Present: normal inspection, full ROM, trachea midline. Absent: tenderness - Respiratory Respiratory exam: Present: normal lung sounds bilaterally - Cardiovascular Cardiovascular exam: Present: regular rate, normal rhythm, normal heart sounds - Abdominal Exam Abdominal exam: Present: soft, normal bowel sounds. Absent: distention, tenderness - Extremities Exam Extremities exam: Present: normal inspection, full ROM, normal capillary refill. Absent: tenderness, pedal edema, calf tenderness - Back Exam Back exam: Present: normal inspection, full ROM. Absent: tenderness - Neurological Exam Neurological exam: Present: alert, oriented X3, CN II-XII intact, normal gait, reflexes normal - Psychiatric Psychiatric exam: Present: normal affect, normal mood - Skin Skin exam: Present: warm, dry, intact, normal color. Absent: rash, diaphoresis Results - Labs CBC & BMP: 10/13/16 Unknown 10/13/16 21:27 Lab Results: I have reviewed the patients labs Labs: Laboratory Tests 10/13/16 10/13/16 10/13/16 21:27 21:27 Unknown WBC 7.5 RBC 3.86 Hgb 9.5 L Hct 30.6 L MCV 79.3 L MCH 25 L MCHC 31.0 L RDW 15.5 Plt Count 300 MPV 10.1 Neut % (Auto) 56.3 Lymph % (Auto) 27.3 [place] % (Auto) 12.1 Eos % (Auto) 2.9 Baso % (Auto) 0.7 Neut # (Auto) 4.2 Lymph # (Auto) 2.1 [place] # (Auto) 0.9 H Eos # (Auto) 0.2 Baso # (Auto) 0.1 Immature Gran % 0.7 Nucleated RBC % 0.0 Immature Gran # 0.05 Nucleated RBCs # 0.00 Sodium 141 Potassium 3.9 Chloride 105 Carbon Dioxide 25 Anion Gap 14.9 BUN 22 H Creatinine 1.10 H GFR Calculation 49 BUN/Creatinine Ratio 20.00 Glucose 170 H Calculated Osmolality 287.3 Calcium 8.3 L Total Bilirubin 0.50 AST 12 ALT 13 Alkaline Phosphatase 65 Total Protein 6.2 L Albumin 2.7 L Globulin 3.5 Albumin/Globulin Ratio 0.7 L Lipase 68.0 L Urine Color Yellow Urine Appearance Cloudy Urine pH 5.0 Ur Specific [place] 1.018 Urine Protein Negative Urine Glucose (UA) 150 Urine Ketones 5 Urine Blood Negative Urine Nitrate Negative Urine Bilirubin Negative Urine Urobilinogen 2.0 H Urine Leukocytes Large H Urine RBC 6 Urine WBC 169 Urine WBC Clumps Many Ur Squamous Epith Cells Occasional Urine Bacteria Moderate Hyaline Casts 4 Ur Culture Indicated? Results to follow Disposition Clinical Impression: Nausea & vomiting, Nausea & vomiting, UTI (urinary tract infection) Case discussed with: patient, patient's family Disposition: Still a Patient Condition: Stable Time of Disposition: 00:08
[2016-10-13 21:49] LABS: Basophils # 0.1 10*3/uL (0.0-0.2); Basophils % 0.7 % (0.0-0.8); Eosinophils # 0.2 10*3/uL (0.0-0.87); Eosinophils % 2.9 % (0.00-10.9); Hematocrit 30.6 VOL% (35.7-47.0); Hemoglobin 9.5 GM/DL (12.0-16.0); Immature Granulocytes % 0.7 %; Immature Granulocytes Absolute 0.05 #; Lymphocytes # 2.1 10*3/uL (1.4-4.0); Lymphocytes % 27.3 % (21.3-54.2); Mean Corpuscular Hemoglobin 25 PG (27-34); Mean Corpuscular Volume 79.3 FL (87-102); Mean Platelet Volume 10.1 FL (9.6-12.0); Monocytes # 0.9 10*3/uL (0.11-0.8); Monocytes % 12.1 % (1.7-12.7); Neutrophils # 4.2 10*3/uL (1.4-7.4); Neutrophils % 56.3 % (38.7-73.9); Platelet Count 300 T/CUMM (130-400); Red Blood Count 3.86 MC/CUMM (3.8-5.5); Red Cell Distribution Width 15.5 % (9.3-17.3); White Blood Count 7.5 T/CUMM (4-12)
[2016-10-13 22:07] LABS: Apearance,Urine CLOUDY (Clear); Bacteria,Urine Moderate /HPF (Few); Bilirubin,Urine Negative (Negative); Blood, Urine Negative (Negative); Glucose,Urine (UA) 150 mg/dL (Negative); Hyaline Casts,Urine 4 /LPF (0-3); Ketones,Urine 5 mg/dL (Negative); Nitrite,Urine Negative (Negative); Protein,Urine Negative; RBC,Urine 6 /HPF (0-4); Squamous Epithelial Cell,Urine Occasional /HPF (0-10); Urine Color Yellow (Yellow); Urine Specific Gravity 1.018 (1.001-1.035); WBC,Urine 169 /HPF (0-6)
[2016-10-13] MEDS ORDERED: METOCLOPRAMIDE 10 MG/2 ML VIAL ONE (22:16)
[2016-10-13] MEDS ORDERED: METOCLOPRAMIDE 10 MG/2 ML VIAL IV STA (22:16)
[2016-10-13] MEDS ORDERED: cefTRIAXone 1,000 MG in SODIUM CHLORIDE 0.9% 100 ML IV STA (22:21)
[2016-10-13 22:24] LABS: Albumin 2.7 G/DL (3.4-5.0); Bilirubin,Total 0.5 MG/DL (0.2-1.0); Calcium 8.3 MG/DL (8.5-10.1); Osmolality,Calculated 287.3 MOS/KG (273-304); Potassium 3.9 MMOL/L (3.5-5.1); Total Protein 6.2 G/DL (6.4-8.3)
[2016-10-13] MEDS ORDERED: cefTRIAXone 1,000 MG VIAL ONE (22:25)
[2016-10-13] MEDS ORDERED: ONDANSETRON 4 MG/2 ML VIAL IV PRN (23:56)
[2016-10-14] MEDS: LEVOFLOXACIN INJ 500 MG in PREMIX 1 EACH IV SCH (02:58)
[2016-10-14] MEDS: SODIUM CHLORIDE 0.9% 1,000 ML IV SCH ×3 (02:58→20:05)
[2016-10-14 05:37] LABS: Basophils # 0.1 10*3/uL (0.0-0.2); Basophils % 0.7 % (0.0-0.8); Eosinophils # 0.2 10*3/uL (0.0-0.87); Eosinophils % 3.6 % (0.00-10.9); Hematocrit 27.8 VOL% (35.7-47.0); Hemoglobin 8.4 GM/DL (12.0-16.0); Immature Granulocytes % 0.3 %; Immature Granulocytes Absolute 0.02 #; Lymphocytes # 2.4 10*3/uL (1.4-4.0); Lymphocytes % 35.8 % (21.3-54.2); Mean Corpuscular HGB Conc 30.2 GM/DL (32-36); Mean Corpuscular Hemoglobin 24 PG (27-34); Mean Corpuscular Volume 78.8 FL (87-102); Mean Platelet Volume 9.7 FL (9.6-12.0); Monocytes # 0.9 10*3/uL (0.11-0.8); Neutrophils # 3.1 10*3/uL (1.4-7.4); Neutrophils % 45.6 % (38.7-73.9); Platelet Count 293 T/CUMM (130-400); Red Blood Count 3.53 MC/CUMM (3.8-5.5); Red Cell Distribution Width 15.6 % (9.3-17.3); White Blood Count 6.7 T/CUMM (4-12)
[2016-10-14 06:09] LABS: Hypochromasia 1+
[2016-10-14 06:10] LABS: Ovalocytes Slight; Platelet Estimate Adequate
[2016-10-14 06:18] LABS: Albumin 2.3 G/DL (3.4-5.0); Bilirubin,Total 0.4 MG/DL (0.2-1.0); Calcium 7.9 MG/DL (8.5-10.1); Osmolality,Calculated 289.1 MOS/KG (273-304); Potassium 4.4 MMOL/L (3.5-5.1); Total Protein 5.2 G/DL (6.4-8.3)
[2016-10-14] MEDS: METOCLOPRAMIDE 10 MG/2 ML VIAL IV PRN (06:21)
--- NOTE | 2016-10-14 08:20 | CT Report ---
CT abdomen pelvis wo con Indication: Intractable nausea and vomiting, abdominal pain Comparison: Prior CT abdomen and pelvis 09/15/2016 Technique: CT of the abdomen and pelvis was performed without administration of intravenous contrast. Coronal and sagittal reformatted images were additionally created and submitted for review. The total DLP is 417 mGy*cm. Dose reduction: This CT exam was performed using one or more of the following dose reduction techniques: Automated exposure control, automated adjustment of the mA and/or KV according to patient size, or use of iterative reconstruction technique. Findings: Minimal posterior basilar atelectatic changes are noted. There is also mild interlobular septal thickening suggesting a degree of mild interstitial edema. There is no pleural or pericardial effusion.. ABDOMEN: Liver/Gallbladder: Prior cholecystectomy. No biliary ductal dilatation. Unenhanced liver is grossly within normal limits. Spleen: No acute findings. Pancreas: Near complete fat replacement of the pancreas is noted. Adrenals: Within normal limits in appearance. Kidneys: No hydronephrosis. Exophytic hypodense lesion lower pole left kidney is unchanged from prior and may represent a cyst. Bowel/mesentery: Small bowel is nondilated. There is a moderate-sized hiatal hernia. Limited fluid/air within the abdomen. Multiple colonic diverticula are noted primarily at the descending colon and sigmoid colon. There is also minimal mucosal thickening in the region of a few diverticula primarily within the left hemiabdomen/left lower quadrant and a mild degree of underlying diverticulitis or colitis cannot be excluded. Appendix is not identified. There are no secondary signs of acute appendicitis. There is no mesenteric adenopathy. Somewhat prominent stool burden within the distal sigmoid colon/rectum is also noted. Retroperitoneum: No evidence of aortic aneurysm or significant retroperitoneal adenopathy. PELVIS: No free fluid. Bladder appears grossly within normal limits for degree of distention. Moderate stool in the distal colon/rectum. Extensive streak artifact from left hip total arthroplasty hardware limits evaluation of some soft tissues. No adenopathy is evident. BONES: No acute or suspicious osseous abnormalities are identified. Multilevel mild degenerative changes noted within the lower lumbar spine. Grade 2 anterolisthesis L4 relative L5. Advanced facet arthropathy at L5-S1. IMPRESSION: 1. Extensive distal descending/sigmoid colon diverticulosis. Minimal mucosal thickening in the sigmoid colon is also suggested. Early diverticulitis are infectious/inflammatory colitis cannot be excluded. This is a change from the preliminary report. However, the patient was admitted and, therefore, the final report will be available during inpatient admission. 2. Moderate-sized hiatal hernia. Findings suggestive of mild-moderate fecal stasis/constipation. Preliminary report by virtual radiologic. 10/14/2016 8:08 AM PROCEDURE INTERPRETED AT [facility] DEPARTMENT OF RADIOLOGY Final Report Signed by: Carmelo Orosco
[2016-10-14] MEDS: DOCUSATE SODIUM 100 MG CAPSULE PO SCH ×2 (08:53→21:38)
[2016-10-14] MEDS: PANTOPRAZOLE 40 MG TABLET PO SCH (08:53)
--- NOTE | 2016-10-14 10:00 | XRay Report ---
XR abdomen complete w decub Clinical Information: Abdominal Pain intractable nausea vomiting Comparison: None Findings: Bowel gas pattern is nonspecific and within normal limits. No abnormally dilated small bowel loops are identified to suggest obstruction. There is no free air identified. Somewhat prominent fecal material is noted throughout colon, which is otherwise nondilated. No abnormal focal soft tissue masses or calcific densities are identified in the abdomen or pelvis. Right upper quadrant soft tissue jin are noted. Lung bases appear predominantly clear. There is no acute osseous abnormality. Left hip arthroplasty hardware is noted. No suspicious osseous lesions are identified. Impression: No acute radiographic abnormality in the abdomen. A moderate degree of fecal stasis/constipation is suspected. Correlate with CT abdomen and pelvis for additional findings. PROCEDURE INTERPRETED AT [facility] [place] DEPARTMENT OF RADIOLOGY Final Report Signed by: Carmelo Orosco
--- NOTE | 2016-10-14 11:07 | Internal Med History&Physical ---
Assessment and Plan (1) UTI (urinary tract infection) Status: Acute Assessment and plan: 81-year-old female admitted to acute care * Change in mental status. Probably secondary to UTI and or fecal impaction. * Fecal impaction. It will be removed * Urinary tract infection. Continue IV antibiotics * Diabetes. Will start her on sliding scale. * Chronic pain syndrome. She has not taken her pain medications in the last day or so. Will try to avoid it if possible * Anemia. Will evaluate with iron studies and ferritin * Hypertension. Blood pressure is stable * Discussed with patient and her daughters Current Visit: Yes (2) Anemia Status: Acute Current Visit: Yes (3) Diabetes Status: Acute Current Visit: Yes (4) Hypertension Status: Acute Current Visit: Yes (5) A-fib Status: Acute Current Visit: Yes (6) Fecal impaction in rectum Status: Acute Current Visit: No History of Present Illness Chief complaint: Nausea vomiting and diarrhea History of present illness: Ms. Barahona is a 81 year old female with history of multiple medical problems including hypertension, diabetes, A. fib, depression, diabetic neuropathy, chronic pain syndrome who was brought to the emergency room with confusion and nausea and vomiting. She was also having diarrhea according to family members. Patient has been in and out of hospital recently with several admissions. She was found to have a urinary tract infection and possible impaction. Patient is much more clear this morning. She is extremely weak. She denies any chest pain or shortness of breath. She denies any nausea or vomiting today. 2 of her daughters are present in the room with her. They say that she has been quite weak for some time. Home Medications Medication Instructions Recorded Confirmed Type Acebutolol [Sectral] 400 mg PO BID 11/23/14 09/26/16 History Baclofen Tab [Lioresal] 10 mg PO TID 11/23/14 09/26/16 History Clopidogrel [Plavix] 75 mg PO DAILY 11/23/14 09/26/16 History Estradiol Tab [Estrace Tab] 2 mg PO DAILY 11/23/14 09/26/16 History HYDROcodone/ACETAMIN 10-325 [[place] 1 tablet PO TID PRN 11/23/14 09/26/16 History 10-325] Morphine Sulfate [Morphine Sulfate 15 mg PO BID 11/23/14 09/26/16 History ER] Omeprazole [Prilosec] 20 mg PO DAILY 11/23/14 09/26/16 History Simvastatin [Zocor] 10 mg PO DAILY 11/23/14 09/26/16 History dilTIAZem HCl [Cartia XT] 120 mg PO DAILY 11/23/14 09/26/16 History Glimepiride 4 mg PO BID 08/13/16 09/26/16 History hydroCHLOROthiazide 25 mg PO DAILY PRN 08/13/16 09/26/16 History [Hydrochlorothiazide] Insulin Detemir [Levemir FlexPen] 40 unit SUBCUT QPM 09/24/16 09/26/16 History Linaclotide [Linzess] 145 mcg PO AC BREAKFAST #30 capsule 09/29/16 Rx Allergies Allergy/AdvReac Type Severity Reaction Status Date / Time Shrimp Allergy ITCHING Verified 09/24/16 10:29 sulfamethoxazole Allergy Confusion Verified 10/13/16 21:04 [From Bactrim] trimethoprim [From Bactrim] Allergy Confusion Verified 10/13/16 21:04 Medical,Surgical,& Family Hx - Medical History Cardio: History of: Cardiac Dysrhythmia (afib), Hypertension No history of: CHF, [place] Psychological: History of: Depression Neurology: History of: Cerebrovascular Accident No history of: Dementia HEENT: History of: Eye Problem (cataract) Endocrine: History of: Diabetes Mellitus (IDDM), Diabetes Mellitus (NIDDM), Dyslipidemia Respiratory: History of: Bronchitis Genitourinary: History of: Recurring Urinary Tract Infections No history of: Kidney Stones Gastrointestinal: History of: Diverticulitis/ Diverticulosis, GERD, Hemorrhoids , GI Problems (Chronic constipation) No history of: Gastrointestinal Bleed Musculoskeletal: History of: Back/Neck Problems, Musculoskeletal Problems Hematology: History of: Anemia Other: History of: MRSA - Surgical History Cardiac Surgeries: Patient Denies: Cardiac Catheterization HEENT Surgeries: Surgical HX of: Eye Surgery (cataracts) Patient denies: Tonsilectomy & Adenoidectomy Abdominal Surgeries: Surgical HX of: Abdominal Surgery, Appendectomy, Cholecystectomy, Colonoscopy, EGD Reproductive Surgeries: Surgical HX of;: Gynecologic Surgery, Hysterectomy Orthopedic Surgeries: Surgical HX of;: Total Hip Replacement (left) - Family History Family History: Reports;: Family Cancer (brother, sister), Family Diabetes ( mother), Family Heart Disease (mother and dad), Family Hypertension - Social History Smoking Status: Never smoker Frequency of Alcohol Use: None Type of Drug Use: None Marital Status: Single Lives With:: Alone (Her daughter is staying with her) Functional capacity: uses cane/walker 12 point system: reviewed and no additional remarkable complaints except as stated (As mentioned in HPI) Exam - Constitutional Vitals: Period Temp Pulse Resp BP Sys/Saleh Pulse Ox Last 24 Hr 98.1 F-99.1 F 56-84 16-18 111-162/54-99 90-96 Exam: Examination: GENERAL: NAD. HEENT: PERRLA. EOMI. Mucous membranes are moist. NECK: Neck is supple. No JVD. No carotid bruit. No thyromegaly. CVS: Regular rate and rhythm. S1 and S2 are normal. RESPIRATORY: Lungs are clear. Few rales at the bases ABDOMEN: Soft and nontender. Bowel sounds are present. No hepatosplenomegaly. EXT: No edema. Peripheral pulses are present. CUSTOMER SALES ADVISOR: Patient is awake, alert and oriented to time place and person. Cranial nerves II through XII are grossly intact. Motor strength is 3-4/5 SKIN: Warm and dry. MSK: No obvious deformity. Results - Labs CBC & BMP: 10/14/16 05:22 10/14/16 05:22 Lab Results: I have reviewed the past 24 hour labs
--- NOTE | 2016-10-14 11:34 | XRay Report ---
Exam: XR chest 1V portable Indication: Shortness of breath Comparison study: 08/13/2016 Findings: The heart, mediastinum and bony structures are stable from prior. Cardiomegaly appears similar to prior. Mild diffuse interstitial prominence is noted which may represent a degree of underlying scarring and/or interstitial edema changes. There is no focal consolidation, pneumothorax or pleural effusion identified. Impression: No focal consolidation. Suggestion of underlying interstitial scarring changes and/or superimposed interstitial edema. PROCEDURE INTERPRETED AT [facility] DEPARTMENT OF RADIOLOGY Final Report Signed by: Carmelo Orosco
[2016-10-14 11:36] LABS: % Iron Saturation 8.2 % (18-50)
[2016-10-14 11:50] LABS: Folate 12.8 NG/ML (5.4-24.0)
[2016-10-14] MEDS: BACLOFEN 10 MG TABLET PO SCH ×2 (14:23→21:38)
[2016-10-14] MEDS ORDERED: INSULIN GLARGINE 100 UNIT/ML SUBCUT SCH (19:00)
[2016-10-14] MEDS: MORPHINE ER 15 MG TABLET PO SCH (21:38)
[2016-10-14] MEDS: metFORMIN 500 MG TABLET PO SCH ×2 (21:38→21:44)
[2016-10-14] MEDS: GLIMEPIRIDE 4 MG TABLET PO SCH (21:39)
[2016-10-14] MEDS: ACEBUTOLOL 400 MG CAPSULE PO SCH (21:39)
[2016-10-14] MEDS: INSULIN LISPRO 100 UNIT/ML SUBCUT SCH (21:39)
[2016-10-14] MEDS: INSULIN GLARGINE 100 UNIT/ML SUBCUT SCH ×2 (21:39→21:43)
[2016-10-15] MEDS: LEVOFLOXACIN INJ 500 MG in PREMIX 1 EACH IV SCH (00:27)
[2016-10-15] MEDS: hydroCHLOROthiazide 25 MG TABLET PO PRN (02:21)
[2016-10-15] MEDS: SODIUM CHLORIDE 0.9% 1,000 ML IV SCH ×4 (04:15→16:53)
[2016-10-15] MEDS: ACETAMINOPHEN 325 MG TABLET PO PRN (05:36)
[2016-10-15 07:03] LABS: Basophils # 0.1 10*3/uL (0.0-0.2); Basophils % 1.2 % (0.0-0.8); Eosinophils # 0.3 10*3/uL (0.0-0.87); Eosinophils % 4.3 % (0.00-10.9); Hematocrit 30.9 VOL% (35.7-47.0); Hemoglobin 9.2 GM/DL (12.0-16.0); Immature Granulocytes % 0.5 %; Immature Granulocytes Absolute 0.03 #; Lymphocytes # 1.9 10*3/uL (1.4-4.0); Lymphocytes % 32.2 % (21.3-54.2); Mean Corpuscular HGB Conc 29.8 GM/DL (32-36); Mean Corpuscular Hemoglobin 24 PG (27-34); Mean Corpuscular Volume 80.1 FL (87-102); Mean Platelet Volume 9.7 FL (9.6-12.0); Monocytes # 0.7 10*3/uL (0.11-0.8); Neutrophils % 49.8 % (38.7-73.9); Platelet Count 301 T/CUMM (130-400); Red Blood Count 3.86 MC/CUMM (3.8-5.5); Red Cell Distribution Width 15.5 % (9.3-17.3)
[2016-10-15 07:27] LABS: Calcium 7.9 MG/DL (8.5-10.1); Potassium 3.5 MMOL/L (3.5-5.1)
--- NOTE | 2016-10-15 07:32 | Internal Med Progress Note ---
Assessment and Plan (1) UTI (urinary tract infection) Status: Acute Assessment and plan: 81-year-old female admitted to acute care * Change in mental status. Resolved * Fecal impaction. Removed * Urinary tract infection. Continue IV antibiotics. Cultures are pending * Diabetes. Will start her on sliding scale. * Chronic pain syndrome. Continue current treatment * Anemia. Will evaluate with iron studies and ferritin * Hypertension. Blood pressure is stable * Discussed with patient and her daughters Current Visit: Yes (2) Anemia Status: Acute Current Visit: Yes (3) Diabetes Status: Acute Current Visit: Yes (4) Hypertension Status: Acute Current Visit: Yes (5) A-fib Status: Acute Current Visit: Yes (6) Fecal impaction in rectum Status: Acute Current Visit: No Internal Medicine - PN: Subj Interval history: She is feeling better this morning. She had a headache last night. Her blood pressure was high Exam (Progress Note) - Constitutional Vitals: Period Temp Pulse Resp BP Sys/Saleh Pulse Ox Last 24 Hr 97.2 F-100.1 F 56-91 18-22 145-205/76-105 94-99 Exam: Examination: GENERAL: NAD. HEENT: PERRLA. EOMI. NECK: Neck is supple. CVS: Regular rate and rhythm. RESPIRATORY: Lungs are clear. ABDOMEN: Soft and nontender. EXT: No edema. Peripheral pulses are present. SLURRY TANK TENDER: Nonfocal MSK: No obvious deformity. Results - Labs CBC & BMP: 10/15/16 06:47 10/14/16 05:22 Lab Results: I have reviewed the past 24 hour labs
[2016-10-15 07:36] LABS: Elliptocytes Few; Eosinophils 7 % (0-10); Hypochromasia 1+; Lymphocytes 30 % (20-55); Platelet Estimate Adequate; Segmented Neutrophils 57 % (50-85); Total Cells Counted 100
[2016-10-15] MEDS: LINACLOTIDE 145 MCG CAPSULE PO SCH (08:33)
[2016-10-15] MEDS: DOCUSATE SODIUM 100 MG CAPSULE PO SCH ×2 (08:33→20:54)
[2016-10-15] MEDS: ACEBUTOLOL 400 MG CAPSULE PO SCH ×2 (08:46→20:54)
[2016-10-15] MEDS: DILTIAZEM CD 120 MG CAPSULE PO SCH (08:47)
[2016-10-15] MEDS: GLIMEPIRIDE 4 MG TABLET PO SCH ×2 (08:47→20:53)
[2016-10-15] MEDS: MORPHINE ER 15 MG TABLET PO SCH ×2 (08:47→18:36)
[2016-10-15] MEDS: metFORMIN 500 MG TABLET PO SCH ×2 (08:47→20:53)
[2016-10-15] MEDS: CLOPIDOGREL 75 MG TABLET PO SCH (08:47)
[2016-10-15] MEDS: PANTOPRAZOLE 40 MG TABLET PO SCH ×2 (08:47→08:48)
[2016-10-15] MEDS: BACLOFEN 10 MG TABLET PO SCH ×3 (08:47→20:53)
[2016-10-15] MEDS: ESTRADIOL 2 MG TABLET PO SCH (08:47)
[2016-10-15] MEDS: SIMVASTATIN 10 MG TABLET PO SCH (08:47)
[2016-10-15] MEDS: THIAMINE 200 MG/2 ML VIAL IM SCH (08:48)
[2016-10-15] MEDS: INSULIN LISPRO 100 UNIT/ML SUBCUT SCH ×2 (09:21→20:54)
[2016-10-15] MEDS: INSULIN GLARGINE 100 UNIT/ML SUBCUT SCH (20:54)
[2016-10-15] MEDS: DESITIN 4OZ/NYSTATIN 15 GRAM MIXTURE PASTE TOP SCH (20:55)
[2016-10-16] MEDS: SODIUM CHLORIDE 0.9% 1,000 ML IV SCH (00:55)
[2016-10-16] MEDS: LEVOFLOXACIN INJ 500 MG in PREMIX 1 EACH IV SCH (01:17)
[2016-10-16] MEDS: MORPHINE ER 15 MG TABLET PO SCH ×2 (06:03→20:52)
--- NOTE | 2016-10-16 07:34 | Family Practice Progress Note ---
Family Practice - PN: Subj Interval history: Patient states she is feeling better this morning daughter offers that she is certainly less confused. She is complaining of some abdominal pain but she denies any dysuria or frequency. Her urine cultures positive for gram-positive cocci. ID and sensitivities pending. I note she had low-grade temperature on admission but that has since subsided. She states she was nauseated initially that too is improved and she is ready for breakfast. Exam (Progress Note) - Constitutional Vitals: Period Temp Pulse Resp BP Sys/Saleh Pulse Ox Last 24 Hr 97.5 F-98.9 F 55-75 18-20 128-158/66-81 95-99 Exam: Objective well-developed white female who is awake alert and able give good history. She is not confused this morning. Cardiovascular: Heart rates regular with 3/6 systolic ejection murmur left base Respiratory: The lungs are clear to auscultation bilaterally. Abdomen: Abdomen soft and nontender to palpation. Extremities: She has no calf swelling and there is no cellulitis. Indurated area on the medial aspect of her right thigh is reducing in size Results - Labs CBC & BMP: 10/15/16 06:47 10/15/16 06:47 Lab Results: I have reviewed the past 24 hour labs Assessment and Plan (1) Altered mental status Status: Resolved Assessment and plan: 10/16/2016: Patient is definitely improved Current Visit: No (2) UTI (urinary tract infection) Status: Acute Assessment and plan: 10/16/2016: Positive gram-positive cocci on cultures, ID and sensitivity is pending Current Visit: Yes
[2016-10-16] MEDS: LINACLOTIDE 145 MCG CAPSULE PO SCH (10:36)
[2016-10-16] MEDS: BACLOFEN 10 MG TABLET PO SCH ×3 (10:36→20:51)
[2016-10-16] MEDS: CLOPIDOGREL 75 MG TABLET PO SCH (10:37)
[2016-10-16] MEDS: metFORMIN 500 MG TABLET PO SCH ×2 (10:37→20:51)
[2016-10-16] MEDS: ESTRADIOL 2 MG TABLET PO SCH (10:37)
[2016-10-16] MEDS: DOCUSATE SODIUM 100 MG CAPSULE PO SCH ×2 (10:39→20:58)
[2016-10-16] MEDS: DILTIAZEM CD 120 MG CAPSULE PO SCH (10:39)
[2016-10-16] MEDS: ACEBUTOLOL 400 MG CAPSULE PO SCH ×2 (10:39→20:51)
[2016-10-16] MEDS: SIMVASTATIN 10 MG TABLET PO SCH (10:39)
[2016-10-16] MEDS: GLIMEPIRIDE 4 MG TABLET PO SCH ×2 (10:40→20:51)
[2016-10-16] MEDS: THIAMINE 200 MG/2 ML VIAL IM SCH (10:41)
[2016-10-16] MEDS: PANTOPRAZOLE 40 MG TABLET PO SCH ×2 (10:41)
[2016-10-16] MEDS: DESITIN 4OZ/NYSTATIN 15 GRAM MIXTURE PASTE TOP SCH ×2 (10:56→20:57)
[2016-10-16] MEDS: INSULIN LISPRO 100 UNIT/ML SUBCUT SCH ×2 (13:24→20:50)
[2016-10-16] MEDS: INSULIN GLARGINE 100 UNIT/ML SUBCUT SCH (20:49)
[2016-10-17] MEDS: LEVOFLOXACIN INJ 500 MG in PREMIX 1 EACH IV SCH (00:50)
[2016-10-17] MEDS: SODIUM CHLORIDE 0.9% 1,000 ML IV SCH (00:50)
[2016-10-17] MEDS: MORPHINE ER 15 MG TABLET PO SCH ×2 (06:43→18:54)
[2016-10-17] MEDS ORDERED: GLUCAGON 1 MG VIAL IM PRN (07:27)
[2016-10-17] MEDS ORDERED: DEXTROSE 50% 25 GM/50 ML VIAL IV PRN (07:27)
--- NOTE | 2016-10-17 07:29 | Family Practice Progress Note ---
Family Practice - PN: Subj Interval history: Patient had a good night according to her daughter but did have some confusion. She is on IV Levaquin and her urine culture showed strep epidermidis that was resistant to Levaquin. I switched her over to IV Ancef today. Her daughter reports that she still hypoxic when she comes off her oxygen really did not see anything on her chest x-ray that would explain this. Will ask pulmonary to see her and I am going to repeat her chest x-ray today. She is not having any further fever or chills. Patient states she is ready for some regular food. Exam (Progress Note) - Constitutional Vitals: Period Temp Pulse Resp BP Sys/Saleh Pulse Ox Last 24 Hr 97.1 F-98.8 F 61-78 18-22 114-163/51-78 90-99 Exam: Objective well-developed white female who is awake alert and able give good history. She is not confused this morning though her daughter states she was last night. Cardiovascular: Heart rates regular with 3/6 systolic ejection murmur left base Respiratory: The lungs are clear to auscultation bilaterally. Abdomen: Abdomen soft and nontender to palpation. Neuro: Patient's sensorium is returned to baseline. Results - Labs CBC & BMP: 10/15/16 06:47 10/15/16 06:47 Lab Results: I have reviewed the past 24 hour labs Assessment and Plan (1) Altered mental status Status: Resolved Assessment and plan: 10/16/2016: Patient is definitely improved 10/17/2016: Patient has returned to her baseline. Current Visit: No (2) UTI (urinary tract infection) Status: Acute Assessment and plan: 10/16/2016: Positive gram-positive cocci on cultures, ID and sensitivity is pending 10/17/2016: Urine culture shows staph epidermidis. We will switch her antibiotics to a appropriate medication. Current Visit: Yes
--- NOTE | 2016-10-17 08:28 | XRay Report ---
Exam: Chest 2 views Date: October 17, 2016 at 8:14 AM Comparison: Chest one view portable October 14, 2016 Reason: Hypoxia Findings: There is borderline cardiomegaly. The interstitial markings are slightly prominent bilaterally. This could represent minimal pulmonary edema. No pneumothorax is identified, but there may be minimal right pleural fluid. The osseous structures appear stable. Surgical clips are noted at the right abdomen. Impression: 1. Borderline cardiomegaly. 2. The interstitial markings are slightly prominent bilaterally. This could reflect minimal pulmonary edema. PROCEDURE INTERPRETED AT [facility] DEPARTMENT OF RADIOLOGY Final Report Signed by: Dr. Janak Schuler
[2016-10-17] MEDS: INSULIN LISPRO 100 UNIT/ML SUBCUT SCH ×6 (09:09→20:25)
--- NOTE | 2016-10-17 09:32 | Pulmonology Consult Note ---
Assessment and Plan (1) Dyspnea Status: Acute Assessment and plan: Patient reportedly has been hypoxemic when off oxygen. The latest O2 sats recorded all look okay. However I am concerned she may have an element of congestive heart failure based on her interstitial edema on chest x-ray, and crackles and murmurs on physical exam. Dr. Vega follows her. We need to get cardiology to see her. Need an updated echocardiogram and BNP. Current Visit: Yes (2) Diabetic ulcer of right foot Status: Acute Assessment and plan: Managed by wound care. Current Visit: No (3) Fecal impaction in rectum Status: Acute Assessment and plan: Previously removed. Current Visit: No (4) Altered mental status Status: Resolved Assessment and plan: Seems to be better except that she gets worse at night. Current Visit: No (5) UTI (urinary tract infection) Status: Acute Assessment and plan: Staph epi does not normally cause her urinary tract infection. Current Visit: Yes (6) A-fib Status: Acute Assessment and plan: Rate is controlled. Current Visit: Yes History of Present Illness Chief complaint: Shortness of breath History of present illness: Ms. Barahona is a 81 year old female who was admitted with an apparent urinary tract infection and fecal impaction. She complains now of dyspnea on exertion. Also get short of breath of her oxygen is taken off. This started a couple of weeks back. She reportedly was in the hospital with dehydration and was given some IV fluids at that time. She is followed by Dr. grant for cardiac rhythm problems. She does not know of any history of heart failure or angina or valvular heart disease. She is a former smoker but quit over 30 years ago. No known history of any chronic lung disease such as asthma or emphysema. She has some chronic swelling of her right leg and abnormality of her right foot. No known history of phlebitis. Home Medications Medication Instructions Recorded Confirmed Type Acebutolol [Sectral] 400 mg PO BID 11/23/14 10/14/16 History Baclofen Tab [Lioresal] 10 mg PO TID 11/23/14 10/14/16 History Clopidogrel [Plavix] 75 mg PO DAILY 11/23/14 10/14/16 History Estradiol Tab [Estrace Tab] 2 mg PO DAILY 11/23/14 10/14/16 History HYDROcodone/ACETAMIN 10-325 [[place] 1 tablet PO TID PRN 11/23/14 10/14/16 History 10-325] Morphine Sulfate [Morphine Sulfate 15 mg PO BID 11/23/14 10/14/16 History ER] Omeprazole [Prilosec] 20 mg PO DAILY 11/23/14 10/14/16 History Simvastatin [Zocor] 10 mg PO DAILY 11/23/14 10/14/16 History dilTIAZem HCl [Cartia XT] 120 mg PO DAILY 11/23/14 10/14/16 History Glimepiride 4 mg PO BID 08/13/16 10/14/16 History hydroCHLOROthiazide 25 mg PO DAILY PRN 08/13/16 10/14/16 History [Hydrochlorothiazide] Insulin Detemir [Levemir FlexPen] 40 unit SUBCUT QPM 09/24/16 10/14/16 History Linaclotide [Linzess] 145 mcg PO AC BREAKFAST #30 capsule 09/29/16 10/14/16 Rx Insulin Aspart [NovoLOG FlexPen] 15 mg SUBCUT BID 10/14/16 10/14/16 History metFORMIN [Glucophage] 500 mg PO BID 10/14/16 10/14/16 History Allergies Allergy/AdvReac Type Severity Reaction Status Date / Time Shrimp Allergy ITCHING Verified 09/24/16 10:29 sulfamethoxazole Allergy Confusion Verified 10/13/16 21:04 [From Bactrim] trimethoprim [From Bactrim] Allergy Confusion Verified 10/13/16 21:04 12 point system: reviewed and no additional remarkable complaints except as stated - Constitutional Constitutional: Present: daytime sleepiness - Cardiovascular Cardiovascular: Present: dyspnea, dyspnea on exertion - Respiratory Respiratory: Present: dyspnea, dyspnea on exertion - Gastrointestinal Gastrointestinal: Present: constipation - Genitourinary Genitourinary: Present: dysuria - Neurological Neurological: Present: confusion Exam (Pulmonay) H&P - Constitutional Vitals: Period Temp Pulse Resp BP Sys/Saleh Pulse Ox Last 24 Hr 97.1 F-98.8 F 61-78 18-22 114-169/51-78 90-99 Exam: Vital signs normal except for systolic blood pressure in the 160s. Pupils react to light. Throat is clear. Neck supple no bruits. Chest shows some basilar crackles. Heart normal rate and rhythm with systolic murmur at the right base and left sternal border. I do hear a faint diastolic murmur at the right base as well. Abdomen soft nontender no masses. Bowel sounds present. Extremities no clubbing cyanosis. Trace of edema in the right leg. Calves nontender. Medical,Surgical,& Family Hx - Medical History Cardio: History of: Cardiac Dysrhythmia (afib), Hypertension No history of: CHF, [place] Psychological: History of: Depression Neurology: History of: Cerebrovascular Accident No history of: Dementia HEENT: History of: Eye Problem (cataract) Endocrine: History of: Diabetes Mellitus (IDDM), Diabetes Mellitus (NIDDM), Dyslipidemia Respiratory: History of: Bronchitis Genitourinary: History of: Recurring Urinary Tract Infections No history of: Kidney Stones Gastrointestinal: History of: Diverticulitis/ Diverticulosis, GERD, Hemorrhoids , GI Problems (Chronic constipation) No history of: Gastrointestinal Bleed Musculoskeletal: History of: Back/Neck Problems, Musculoskeletal Problems Hematology: History of: Anemia Other: History of: MRSA - Surgical History Cardiac Surgeries: Patient Denies: Cardiac Catheterization HEENT Surgeries: Surgical HX of: Eye Surgery (cataracts) Patient denies: Tonsilectomy & Adenoidectomy Abdominal Surgeries: Surgical HX of: Abdominal Surgery, Appendectomy, Cholecystectomy, Colonoscopy, EGD Reproductive Surgeries: Surgical HX of;: Gynecologic Surgery, Hysterectomy Orthopedic Surgeries: Surgical HX of;: Total Hip Replacement (left) - Family History Family History: Reports;: Family Cancer (brother, sister), Family Diabetes ( mother), Family Heart Disease (mother and dad), Family Hypertension - Social History Smoking Status: Never smoker Frequency of Alcohol Use: None Type of Drug Use: None Results - Labs CBC & BMP: 10/15/16 06:47 10/15/16 06:47 Lab Results: I have reviewed the past 24 hour labs - Diagnostic Findings Procedure: Chest x-ray: image reviewed by me (Heart size slightly enlarged. Mild interstitial edema.)
[2016-10-17] MEDS: ACEBUTOLOL 400 MG CAPSULE PO SCH ×2 (09:46→20:20)
[2016-10-17] MEDS: CLOPIDOGREL 75 MG TABLET PO SCH (09:46)
[2016-10-17] MEDS: DILTIAZEM CD 120 MG CAPSULE PO SCH (09:46)
[2016-10-17] MEDS: PANTOPRAZOLE 40 MG TABLET PO SCH ×2 (09:47→10:34)
[2016-10-17] MEDS: SIMVASTATIN 10 MG TABLET PO SCH (09:47)
[2016-10-17] MEDS: ESTRADIOL 2 MG TABLET PO SCH (09:47)
[2016-10-17] MEDS: DOCUSATE SODIUM 100 MG CAPSULE PO SCH ×2 (09:47→20:21)
[2016-10-17] MEDS: GLIMEPIRIDE 4 MG TABLET PO SCH ×2 (09:47→20:20)
[2016-10-17] MEDS: BACLOFEN 10 MG TABLET PO SCH ×3 (09:47→20:20)
[2016-10-17] MEDS: LINACLOTIDE 145 MCG CAPSULE PO SCH (09:48)
[2016-10-17] MEDS: THIAMINE 200 MG/2 ML VIAL IM SCH (09:54)
[2016-10-17] MEDS: metFORMIN 500 MG TABLET PO SCH ×2 (10:34→20:20)
[2016-10-17] MEDS: DESITIN 4OZ/NYSTATIN 15 GRAM MIXTURE PASTE TOP SCH ×2 (10:35→20:24)
[2016-10-17 10:46] LABS: ABG Base Excess -2.3 MMOL/L (-2.5-2.5); ABG HCO3 22.5 MMOL/L (20-26); ABG Oxygen Saturation 98.4 % (95-100); ABG PCO2 36.5 MM HG (35-48); ABG PH 7.393 (7.35-7.45); ABG TCO2 20.6 MMOL/L (23-27); Allen Test Positive
--- NOTE | 2016-10-17 15:04 | ECHO Report ---
Manjula Barahona Exam Date: 10/17/2016 11:27 Referring Physician: Technologist: Dee Salter Age: 81 Ht (in): 67 Wt (lb): 156 Gender: F Exam Location: [facility] Echo Indications: anemia, diabetes, sob, dyspnea, afib, HTN, UTI BP: 169 / 78 HR: 74 Rhythm: Sinus Technical Quality: Fair IMPRESSIONS Mild concentric left ventricular hypertrophy with diastolic dysfunction. Left ventricular ejection fraction is estimated at 60-65 %. Normal right ventricular size. Normal right atrial size. Severely increased left atrial diameter. Mild mitral valve sclerosis. Mild mitral valve regurgitation. Mild aortic valve stenosis. Aortic valve area is 1.8 cm. Aortic valve mean gradient is 13 mmHg. Morphologically normal tricuspid valve. Moderate tricuspid valve regurgitation. Tricuspid regurgitation velocities suggest a PAP of 52 mmHg. Morphologically normal pulmonic valve. No pericardial effusion. Normal size aortic root and proximal ascending aorta. MEASUREMENTS (Male / Female) Normal Values 2D ECHO LV Diastolic Diameter PLAX 4.4 cm 4.2 - 5.9 / 3.9 - 5.3 cm LV Systolic Diameter PLAX 2.6 cm LV Fractional Shortening PLAX 39.9 % IVS Diastolic Thickness 1.2 cm 0.6 - 1.0 / 0.6 - 0.9 cm LVPW Diastolic Thickness 1.1 cm 0.6 - 1.0 / 0.6 - 0.9 cm RV Internal Dim ED PLAX 2.7 cm Aortic Root Diameter 2.5 cm LA Systolic Diameter LX 4.8 cm 3.0 - 4.0 / 2.7 - 3.8 cm DOPPLER TR Peak Velocity 324.0 cm/s TR Peak Gradient 42.0 mmHg FINDINGS Left Ventricle Mild concentric left ventricular hypertrophy with diastolic dysfunction. Left ventricular ejection fraction is estimated at 60-65 %. Right Ventricle Normal right ventricular size. Right Atrium Normal right atrial size. Left Atrium Severely increased left atrial diameter. Mitral Valve Mild mitral valve sclerosis. Mild mitral valve regurgitation. Aortic Valve Mild aortic valve stenosis. Aortic valve area is 1.8 cm. Aortic valve mean gradient is 13 mmHg. Tricuspid Valve Morphologically normal tricuspid valve. Moderate tricuspid valve regurgitation. Tricuspid regurgitation velocities suggest a PAP of 52 mmHg. Pulmonic Valve Morphologically normal pulmonic valve. Pericardium No pericardial effusion. Aorta Normal size aortic root and proximal ascending aorta. Loi Gan MD (Electronically Signed) Final Date: 17 October 2016 15:03
--- NOTE | 2016-10-17 15:15 | Cardiology Consult Note ---
Butch Hayward Vanessa, RN, am scribing for, and in the presence of, Loi Gan MD 15:15. Assessment and Plan - Time spent with patient Time spent with patient: Greater than 30 minutes (Due to assessment, planning, documentation, medication review) (1) Dyspnea Status: Acute Assessment and plan: Reportedly hypoxemic when supplemental nasal cannula oxygen is removed. She is in no acute respiratory distress during exam with 5 L/NC. ABGs obtained on room air reviewed. Current Visit: Yes (2) Diabetes Status: Chronic Assessment and plan: Continue current plan of care. Current Visit: Yes (3) Anemia Status: Chronic Assessment and plan: This is stable. Current Visit: Yes (4) Hypertension Status: Chronic Assessment and plan: Suboptimally controlled at this time. Current Visit: Yes (5) UTI (urinary tract infection) Status: Acute Assessment and plan: Urine culture positive for Staphylococcus epidermidis. She is receiving antibiotics. Current Visit: Yes (6) History of PAT (paroxysmal atrial tachycardia) Status: Chronic Assessment and plan: Well controlled on Cartia XT and Sectral Current Visit: Yes History of Present Illness - Data of Consult Patient: known to practice within the last 3 years Consult date: 10/17/16 Requesting Physician: Santi Hutson Primary care physician: Sanna Estevez - Consult Narrative History of present illness: PRIMARY CARDIAC CATHETERIZATION TECHNOLOGIST: DR. MONROE PCP: DR. SANNA ESTEVEZ CARDIOLOGY CONSULT NOTE: RULE OUT CHF Ms. Barahona is a 81 year old white female with risk factors significant for: Diabetes, hypertension, dyslipidemia, former tobacco use. Past medical history includes paroxysmal atrial tachycardia, moderate aortic stenosis, GERD, anxiety , and chronic pain for which she takes [place] and morphine as needed. Her PAT has been well controlled on Cartia XT and Sectral 400 mg twice daily. Patient was just recently admitted to the hospital last week and treated for fecal impaction and dehydration. She was also hospitalized in August and treated for cellulitis and abscess of the right thigh. She has now presented to [facility] ED on October 13 with complaints of nausea and vomiting with onset earlier that afternoon, and she was noted to have a low-grade fever. Patient was also experiencing some confusion as she was requesting to see her who has been for quite a while. Patient was admitted to [facility] floor per internal medicine for hydration, treatment of nausea, vomiting, and UTI. Since admission, her confusion has overall improved as she has received treatment for UTI. Urine culture positive for Staphylococcus epidermidis. Nausea and vomiting has improved, and her diet has been able to be advanced. Family reports she has been hypoxemic with supplemental oxygen is removed. Documented oxygen saturation levels look good and are in the mid to upper 90s. Chest x- ray with interstitial edema. Pulmonology has been consulted, and cardiology has been asked to see her to rule out an element of congestive heart failure. BNP this morning is 150. Echocardiogram has been obtained, and we will review this. Patient seen and interviewed. Her daughter is present at bedside with her. Upon exam, she has not been experiencing any chest pain. Patient does report some "heart fluttering" that sometimes "feels like a weight on my chest" . She is unable to identify any aggravating or alleviating factors. Reports she does get up to walk as she can to improve this, but she is not sure if she experiences any relief. Patient is somewhat of a poor historian, but in speaking with her, she does not appear to be experiencing any overt orthopnea, PND, palpitations, or increase in lower extremity edema recently. Bilateral lower extremities with trace pretibial edema, slightly greater in right lower extremity than left lower extremity. Patient's daughter reports patient is essentially confined to a wheelchair as she has trouble bearing weight on her right foot due to a diabetic ulcer of the right heel and she is unable to put much weight on that leg. Pulse is 70s and regular by exam. Systolic BP elevated and averaging 150-170 mmHg. Diastolic ranging 70-80 mmHg. Labs reviewed. ABGs earlier this morning on room air with PO2 110, total CO2 20.6. Most recent previous echocardiogram was in January 2014 with LV ejection fraction 60%, mild MR, mild TR with PA pressure 58 mmHg, thickened calcified aortic valve with aortic valve area 2.19 cm. Echo today demonstrates little worsening in her aortic stenosis now with a valve area measuring 1.8 cm range. She is gradually improving and her volume status has improved significantly. We will plan continuing follow-up and pushing a little harder as far as blood pressure control is concerned. CC: Sanna Estevez MD - Home Medications and Allergies Home Medications: Home Medications Medication Instructions Recorded Confirmed Type Acebutolol [Sectral] 400 mg PO BID 11/23/14 10/14/16 History Baclofen Tab [Lioresal] 10 mg PO TID 11/23/14 10/14/16 History Clopidogrel [Plavix] 75 mg PO DAILY 11/23/14 10/14/16 History Estradiol Tab [Estrace Tab] 2 mg PO DAILY 11/23/14 10/14/16 History HYDROcodone/ACETAMIN 10-325 [Etna 1 tablet PO TID PRN 11/23/14 10/14/16 History 10-325] Morphine Sulfate [Morphine Sulfate 15 mg PO BID 11/23/14 10/14/16 History ER] Omeprazole [Prilosec] 20 mg PO DAILY 11/23/14 10/14/16 History Simvastatin [Zocor] 10 mg PO DAILY 11/23/14 10/14/16 History dilTIAZem HCl [Cartia XT] 120 mg PO DAILY 11/23/14 10/14/16 History Glimepiride 4 mg PO BID 08/13/16 10/14/16 History hydroCHLOROthiazide 25 mg PO DAILY PRN 08/13/16 10/14/16 History [Hydrochlorothiazide] Insulin Detemir [Levemir FlexPen] 40 unit SUBCUT QPM 09/24/16 10/14/16 History Linaclotide [Linzess] 145 mcg PO AC BREAKFAST #30 capsule 09/29/16 10/14/16 Rx Insulin Aspart [NovoLOG FlexPen] 15 mg SUBCUT BID 10/14/16 10/14/16 History metFORMIN [Glucophage] 500 mg PO BID 10/14/16 10/14/16 History Allergies/Adverse Reactions: Allergies Allergy/AdvReac Type Severity Reaction Status Date / Time Shrimp Allergy ITCHING Verified 09/24/16 10:29 sulfamethoxazole Allergy Confusion Verified 10/13/16 21:04 [From Bactrim] trimethoprim [From Bactrim] Allergy Confusion Verified 10/13/16 21:04 - Constitutional Constitutional: Present: as per HPI - EENT Eyes: Present: as per HPI Nose, mouth and throat: Present: as per HPI - Cardiovascular Cardiovascular: Present: as per HPI - Respiratory Respiratory: Present: as per HPI - Gastrointestinal Gastrointestinal: Present: as per HPI - Genitourinary Genitourinary: Present: as per HPI - Musculoskeletal Musculoskeletal: Present: as per HPI - Neurological Neurological: Present: as per HPI - Psychiatric Psychiatric: Present: as per HPI - Endocrine Endocrine: Present: as per HPI - Hematologic/Lymphatic Hematologic/Lymphatic: Present: as per HPI Medical,Surgical,& Family Hx - Medical History Cardio: History of: Cardiac Dysrhythmia (PAT), Hypertension No history of: CHF, [place] Psychological: History of: Anxiety Disorders, Depression Neurology: History of: Cerebrovascular Accident No history of: Dementia, Seizures, TIA HEENT: History of: Eye Problem (cataract) Endocrine: History of: Diabetes Mellitus (IDDM), Diabetes Mellitus (NIDDM), Dyslipidemia Respiratory: History of: Bronchitis No history of: Obstructive Sleep Apnea Genitourinary: History of: Recurring Urinary Tract Infections No history of: Kidney Stones Gastrointestinal: History of: Diverticulitis/ Diverticulosis, GERD, Hemorrhoids , GI Problems (Chronic constipation) No history of: Gastrointestinal Bleed Musculoskeletal: History of: Back/Neck Problems, Musculoskeletal Problems Hematology: History of: Anemia Other: History of: MRSA - Surgical History Cardiac Surgeries: Patient Denies: Cardiac Catheterization HEENT Surgeries: Surgical HX of: Eye Surgery (cataracts) Patient denies: Tonsilectomy & Adenoidectomy Abdominal Surgeries: Surgical HX of: Abdominal Surgery, Appendectomy, Cholecystectomy, Colonoscopy, EGD Reproductive Surgeries: Surgical HX of;: Gynecologic Surgery, Hysterectomy Orthopedic Surgeries: Surgical HX of;: Total Hip Replacement (left) - Family History Family History: Reports;: Family Cancer (brother, sister), Family Diabetes ( mother), Family Heart Disease (mother and dad), Family Hypertension - Social History Smoking Status: Never smoker Frequency of Alcohol Use: None Type of Drug Use: None Physical Examination Vital Signs Temp Pulse Resp BP Pulse Ox 98.5 F 73 18 121/99 90 L 10/13/16 20:45 10/13/16 20:45 10/13/16 20:45 10/13/16 20:45 10/13/16 20:45 General: Present: No Apparent Distress, Other (Frail, chronically ill) HEENT: Present: PERRL, Mucus Membranes Dry Neck: Present: Supple Neck, Midline Trachea, No JVD/HJR, No Masses, No Bruit Cardiac: Present: Reg Rate and Rhythm, Systolic Murmur. Absent: Tachycardia, Bradycardia Lungs: Present: Oxygen, No Wheezes, Other (Crackles bibasilarly) Neuro: Present: Weakness, Grossly Intact. Absent: Numbness, Resting Tremor, Essential Tremor Abdomen: Present: Soft, Active Bowel Sounds. Absent: Ascites, Tender, Firm Skin: Present: Other (Healing, calloused area right foot related to previous ulcer.). Absent: Rash Musculoskeletal: Present: Decreased Range of Motion, No Fluid Collection Extremities: Present: No Clubbing, No Cyanosis, Edema (Trace pretibial, greater in RLE than LLE), Capillary Refill (Normal) Result/EKG - Labs CBC & BMP: 10/15/16 06:47 10/15/16 06:47 Lab Results: I have reviewed the past 24 hour labs Labs: Laboratory Results - last 24 hr 10/16/16 10/16/16 10/17/16 15:59 18:21 07:10 ABG pH ABG pCO2 ABG pO2 ABG HCO3 ABG Total CO2 ABG O2 Saturation ABG Base Excess FiO2 POC Glucose 80 87 59 L B-Natriuretic Peptide 10/17/16 10/17/16 10/17/16 10:13 10:35 11:40 ABG pH 7.393 ABG pCO2 36.5 ABG pO2 110.0 H ABG HCO3 22.5 ABG Total CO2 20.6 L ABG O2 Saturation 98.4 ABG Base Excess -2.3 FiO2 28.00 POC Glucose 210 H B-Natriuretic Peptide 150 H - Diagnostic Findings Procedure: Chest x-ray: image reviewed by me, report reviewed by me - EKG EKG results: interpreted by me, no acute changes EKG shows: sinus rhythm Malik Hayward Wesley, MD, personally performed the services described in this documentation, ascribed by Leeanna Rae RN in my presence, and it is both accurate and complete 515 .
[2016-10-17] MEDS: INSULIN GLARGINE 100 UNIT/ML SUBCUT SCH (18:58)
[2016-10-18 05:54] LABS: Basophils # 0.1 10*3/uL (0.0-0.2); Basophils % 0.7 % (0.0-0.8); Eosinophils # 0.5 10*3/uL (0.0-0.87); Eosinophils % 6.6 % (0.00-10.9); Hematocrit 28.5 VOL% (35.7-47.0); Hemoglobin 8.7 GM/DL (12.0-16.0); Immature Granulocytes % 0.4 %; Immature Granulocytes Absolute 0.03 #; Lymphocytes # 2.9 10*3/uL (1.4-4.0); Lymphocytes % 40.9 % (21.3-54.2); Mean Corpuscular HGB Conc 30.5 GM/DL (32-36); Mean Corpuscular Hemoglobin 24 PG (27-34); Mean Corpuscular Volume 80.1 FL (87-102); Mean Platelet Volume 9.7 FL (9.6-12.0); Monocytes # 0.9 10*3/uL (0.11-0.8); Monocytes % 13.1 % (1.7-12.7); Neutrophils # 2.7 10*3/uL (1.4-7.4); Neutrophils % 38.3 % (38.7-73.9); Platelet Count 252 T/CUMM (130-400); Red Blood Count 3.56 MC/CUMM (3.8-5.5); Red Cell Distribution Width 15.6 % (9.3-17.3)
[2016-10-18 06:26] LABS: Eosinophils 9 % (0-10); Hypochromasia 1+; Lymphocytes 39 % (20-55); Ovalocytes Slight; Platelet Estimate Adequate; Segmented Neutrophils 42 % (50-85); Total Cells Counted 100
[2016-10-18 06:28] LABS: Calcium 7.7 MG/DL (8.5-10.1); Magnesium 1.7 MG/DL (1.8-2.4); Risk Ratio 2.51; VLDL CHOLESTEROL 48.8 MG/DL
[2016-10-18] MEDS: MORPHINE ER 15 MG TABLET PO SCH ×2 (06:42→18:32)
--- NOTE | 2016-10-18 07:06 | Family Practice Progress Note ---
Family Practice - PN: Subj Interval history: Patient states she had a good night and she is not dyspneic as long she is on oxygen. I told her arterial blood gases look good and it is my understanding she was on room air. Her daughter told me that she was on 5 L of oxygen at the time the ABGs were drawn. I have ordered stat ABGs are this morning and have stopped her O2. Cardiac evaluation was unremarkable and nothing on chest x-ray would explain her hypoxia. Her sensorium is back to her normal. Exam (Progress Note) - Constitutional Vitals: Period Temp Pulse Resp BP Sys/Saleh Pulse Ox Last 24 Hr 97.1 F-99.2 F 64-85 18-20 104-174/52-84 95-98 Exam: Objective well-developed white female who is awake alert and able give good history. Her sensorium is back to her normal. Cardiovascular: Heart rates regular with 3/6 systolic ejection murmur left base Respiratory: The lungs are clear to auscultation bilaterally. Abdomen: Abdomen soft and nontender to palpation. Neuro: Patient's sensorium is returned to baseline. Results - Labs CBC & BMP: 10/18/16 05:24 10/18/16 05:24 Lab Results: I have reviewed the past 24 hour labs Assessment and Plan (1) Altered mental status Status: Resolved Assessment and plan: 10/16/2016: Patient is definitely improved 10/17/2016: Patient has returned to her baseline. 10/18/2016: Patient is at her baseline Current Visit: No (2) UTI (urinary tract infection) Status: Acute Assessment and plan: 10/16/2016: Positive gram-positive cocci on cultures, ID and sensitivity is pending 10/17/2016: Urine culture shows staph epidermidis. We will switch her antibiotics to a appropriate medication. 10/18/2016: Patient is on appropriate antibiotic therapy Current Visit: Yes (3) Hypoxia Status: Acute Assessment and plan: 10/18/2016: Patient's cardiac workup was negative. We will get ABGs this morning on room air. Current Visit: Yes
[2016-10-18] MEDS: INSULIN LISPRO 100 UNIT/ML SUBCUT SCH ×6 (07:30→20:31)
[2016-10-18 08:50] LABS: ABG Base Excess -0.9 MMOL/L (-2.5-2.5); ABG HCO3 23.5 MMOL/L (20-26); ABG Oxygen Saturation 91.1 % (95-100); ABG PCO2 32.8 MM HG (35-48); ABG PH 7.446 (7.35-7.45); ABG PO2 59.1 MM HG (80-95); ABG TCO2 20.7 MMOL/L (23-27)
--- NOTE | 2016-10-18 09:16 | Pulmonology Progress Note ---
Pulmonary - PN: Subj Interval history: This 81-year-old white female was seen by me yesterday because of shortness of breath. She has been diuresed and IV fluids stopped. Room air O2 saturations measuring in the low 90s. I had ordered room air ABGs yesterday and they were done on nasal oxygen. Dr. Love is ordered a repeat on room air this morning. I do not think she has any significant lung disease. Her echo showed evidence of left heart disease with aortic stenosis, diastolic dysfunction with LVH, and a very enlarged left atrium suggesting chronic atrial fibrillation. At the present time she is not in fibrillation. She does have pulmonary hypertension that I think is secondary to left heart disease. At any rate she is improved. I will sign off. Please call if needed further. Exam (Progress Note) - Constitutional Vitals: Period Temp Pulse Resp BP Sys/Saleh Pulse Ox Last 24 Hr 97.6 F-99.2 F 64-85 18-20 104-174/52-84 91-98 Exam: Patient is awake and alert. Off oxygen. Pupils react to light. Throat is clear. Neck supple no bruits. Chest shows some minimal bibasilar crackles. Heart normal rate and rhythm with grade 1/6 systolic murmur at right base. Abdomen soft nontender no masses. Extremities no clubbing cyanosis or edema. Calves nontender. Results - Labs CBC & BMP: 10/18/16 05:24 10/18/16 05:24 Lab Results: I have reviewed the past 24 hour labs Assessment and Plan (1) Dyspnea Status: Acute Assessment and plan: Patient reportedly has been hypoxemic when off oxygen. The latest O2 sats recorded all look okay. However I am concerned she may have an element of congestive heart failure based on her interstitial edema on chest x-ray, and crackles and murmurs on physical exam. Dr. Vega follows her. We need to get cardiology to see her. Need an updated echocardiogram and BNP. 10/18/2016 does have an element of congestive heart failure secondary to diastolic dysfunction and aortic stenosis as well as arrhythmias. Defer to cardiology. Current Visit: Yes (2) Diabetic ulcer of right foot Status: Acute Assessment and plan: Managed by wound care. Current Visit: No (3) Fecal impaction in rectum Status: Acute Assessment and plan: Previously removed. Current Visit: No (4) Altered mental status Status: Resolved Assessment and plan: Seems to be better except that she gets worse at night. 10/18/2016 mental status appears much improved. Current Visit: No (5) UTI (urinary tract infection) Status: Acute Assessment and plan: Staph epi does not normally cause her urinary tract infection. Current Visit: Yes (6) A-fib Status: Acute Assessment and plan: Rate is controlled. 10/18/2016 apparently has paroxysmal atrial fibrillation. However she does have an enlarged left atrium on echo. This would suggest chronic disease. Again defer to cardiology. Current Visit: Yes
[2016-10-18] MEDS: DILTIAZEM CD 240 MG CAPSULE PO SCH (09:23)
[2016-10-18] MEDS: GLIMEPIRIDE 4 MG TABLET PO SCH ×2 (09:24→20:31)
[2016-10-18] MEDS: LINACLOTIDE 145 MCG CAPSULE PO SCH (09:25)
[2016-10-18] MEDS: SIMVASTATIN 10 MG TABLET PO SCH (09:27)
[2016-10-18] MEDS: CLOPIDOGREL 75 MG TABLET PO SCH (09:28)
[2016-10-18] MEDS: metFORMIN 500 MG TABLET PO SCH ×2 (09:28→20:31)
[2016-10-18] MEDS: PANTOPRAZOLE 40 MG TABLET PO SCH ×2 (09:28→09:29)
[2016-10-18] MEDS: ACEBUTOLOL 400 MG CAPSULE PO SCH ×2 (09:28→20:31)
[2016-10-18] MEDS: BACLOFEN 10 MG TABLET PO SCH ×3 (09:28→20:31)
[2016-10-18] MEDS: DOCUSATE SODIUM 100 MG CAPSULE PO SCH ×2 (09:29→20:30)
[2016-10-18] MEDS: DESITIN 4OZ/NYSTATIN 15 GRAM MIXTURE PASTE TOP SCH ×2 (09:33→20:41)
[2016-10-18] MEDS: ESTRADIOL 2 MG TABLET PO SCH (09:36)
--- NOTE | 2016-10-18 15:05 | Gastrointestinal Consult Note ---
<Silvana Ferrari - Last Filed: 10/18/16 15:03> Assessment and Plan (1) Dysphagia Status: Acute Assessment and plan: 10/18-History of dysphagia to solids, liquids and at times pills. Hx of esophageal dilation in past w/o improvement. Uncertain as to last EGD (at [facility]) . Recent swallow evaluation (August) with no signs of aspiration. Plan and addendum to follow by Dr Mancuso. Current Visit: No History of Present Illness Chief complaint: Dysphagia History of present illness: Ms. Barahona is a 81 year old female who was admitted to the hospital with onset of nausea, vomiting and diarrhea 4 days ago. Patient has a prior history of hypertension, diabetes, atrial fibrillation, diabetic neuropathy, and chronic pain syndrome. Patient has had frequent hospitalizations over the last several months for similar complaints. On admission she was found to have a UTI and questionable impaction however. She also had a CT of abdomen at that time with findings of extensive descending/sigmoid diverticulosis and minimal mucosal thickening with early diverticulitis, moderate size hiatal hernia. She also developed some shortness of breath and pulmonology consulted with patient at that time and felt to have pulmonary hypertension secondary to left heart disease. She also has had some episodes of diarrhea with negative stool studies , however this has improved. During this admission, patient has complaints of continued dysphagia. Pt states that she has had a history of dysphagia in the past with dilations however states the most recent dilations have not helped. She has complaints of when she eats that food feels like it "sticks" and does not go down. She denies any nausea or vomiting associated with this. She denies any abdominal pain. She denies any recent weight loss. She denies any GERD symptoms and states her Prilosec does help with this. She states that she has trouble with solids, pills and at times cold liquids. She was told in the past that she was not a candidate to have surgery to correct this. She is on Plavix with a history of atrial fibrillation and this is being continued at this time. Home Medications Medication Instructions Recorded Confirmed Type Acebutolol [Sectral] 400 mg PO BID 11/23/14 10/14/16 History Baclofen Tab [Lioresal] 10 mg PO TID 11/23/14 10/14/16 History Clopidogrel [Plavix] 75 mg PO DAILY 11/23/14 10/14/16 History Estradiol Tab [Estrace Tab] 2 mg PO DAILY 11/23/14 10/14/16 History HYDROcodone/ACETAMIN 10-325 [Jean 1 tablet PO TID PRN 11/23/14 10/14/16 History 10-325] Morphine Sulfate [Morphine Sulfate 15 mg PO BID 11/23/14 10/14/16 History ER] Omeprazole [Prilosec] 20 mg PO DAILY 11/23/14 10/14/16 History Simvastatin [Zocor] 10 mg PO DAILY 11/23/14 10/14/16 History dilTIAZem HCl [Cartia XT] 120 mg PO DAILY 11/23/14 10/14/16 History Glimepiride 4 mg PO BID 08/13/16 10/14/16 History hydroCHLOROthiazide 25 mg PO DAILY PRN 08/13/16 10/14/16 History [Hydrochlorothiazide] Insulin Detemir [Levemir FlexPen] 40 unit SUBCUT QPM 09/24/16 10/14/16 History Linaclotide [Linzess] 145 mcg PO AC BREAKFAST #30 capsule 09/29/16 10/14/16 Rx Insulin Aspart [NovoLOG FlexPen] 15 mg SUBCUT BID 10/14/16 10/14/16 History metFORMIN [Glucophage] 500 mg PO BID 10/14/16 10/14/16 History Allergies Allergy/AdvReac Type Severity Reaction Status Date / Time Shrimp Allergy ITCHING Verified 09/24/16 10:29 sulfamethoxazole Allergy Confusion Verified 10/13/16 21:04 [From Bactrim] trimethoprim [From Bactrim] Allergy Confusion Verified 10/13/16 21:04 Medical,Surgical,& Family Hx - Medical History Cardio: History of: Cardiac Dysrhythmia (PAT), Hypertension No history of: CHF, [place] Psychological: History of: Anxiety Disorders, Depression Neurology: History of: Cerebrovascular Accident No history of: Dementia, Seizures, TIA HEENT: History of: Eye Problem (cataract) Endocrine: History of: Diabetes Mellitus (IDDM), Diabetes Mellitus (NIDDM), Dyslipidemia Respiratory: History of: Bronchitis No history of: Obstructive Sleep Apnea Genitourinary: History of: Recurring Urinary Tract Infections No history of: Kidney Stones Gastrointestinal: History of: Diverticulitis/ Diverticulosis, GERD, Hemorrhoids , GI Problems (Chronic constipation) No history of: Gastrointestinal Bleed Musculoskeletal: History of: Back/Neck Problems, Musculoskeletal Problems Hematology: History of: Anemia Other: History of: MRSA - Surgical History Cardiac Surgeries: Patient Denies: Cardiac Catheterization HEENT Surgeries: Surgical HX of: Eye Surgery (cataracts) Patient denies: Tonsilectomy & Adenoidectomy Abdominal Surgeries: Surgical HX of: Abdominal Surgery, Appendectomy, Cholecystectomy, Colonoscopy, EGD Reproductive Surgeries: Surgical HX of;: Gynecologic Surgery, Hysterectomy Orthopedic Surgeries: Surgical HX of;: Total Hip Replacement (left) - Family History Family History: Reports;: Family Cancer (brother, sister), Family Diabetes ( mother), Family Heart Disease (mother and dad), Family Hypertension - Social History Smoking Status: Never smoker Frequency of Alcohol Use: None Type of Drug Use: None 12 point system: reviewed and no additional remarkable complaints except as stated - Constitutional Constitutional: Present: as per HPI - EENT Eyes: Present: as per HPI Ears: Present: as per HPI Nose, mouth and throat: Present: as per HPI, dysphagia - Cardiovascular Cardiovascular: Present: as per HPI - Respiratory Respiratory: Present: as per HPI - Gastrointestinal Gastrointestinal: Present: as per HPI, dysphagia - Genitourinary Genitourinary: Present: as per HPI - Musculoskeletal Musculoskeletal: Present: as per HPI - Neurological Neurological: Present: as per HPI - Psychiatric Psychiatric: Present: as per HPI - Endocrine Endocrine: Present: as per HPI - Hematologic/Lymphatic Hematologic/Lymphatic: Present: as per HPI Exam - Constitutional Vitals: Period Temp Pulse Resp BP Sys/Saleh Pulse Ox Last 24 Hr 97.6 F-99.2 F 64-88 18-20 104-174/52-84 91-98 General appearance: normal weight, no acute distress - Head Head exam: Present: normal inspection, normocephalic - Eye Eye exam: Present: other (lids and conjunctiva unremarkable). Absent: scleral icterus - ENT ENT exam: Present: normal exam, normal oropharynx - Neck Neck exam: Present: normal inspection - Respiratory Respiratory exam: Present: clear to auscultation bilaterally. Absent: rales, rhonchi, wheezes - Cardiovascular Cardiovascular exam: Present: regular rate and rhythm. Absent: diastolic murmur , JVD, systolic murmur - GI/Abdominal GI/Abdominal exam: Present: normal bowel sounds, soft. Absent: ascites, distended, mass, organomegaly, tenderness - Extremities Exam Extremities exam: Present: normal inspection, full ROM - Back Exam Back exam: Present: normal inspection - Neurological Exam Neurological exam: Present: alert, oriented X3 - Psychiatric Psychiatric exam: Present: normal affect, normal mood - Skin Skin exam: Present: normal color, warm, dry Results - Labs CBC & BMP: 10/18/16 05:24 10/18/16 05:24 Lab Results: I have reviewed the past 24 hour labs - Diagnostic Findings Procedure: CT Abdomen and Pelvis: report reviewed by ga <Jeff Mancuso - Last Filed: 10/18/16 19:36> History of Present Illness History of present illness: Ms. Barahona is a 81 year old female Exam - Constitutional Vitals: Period Temp Pulse Resp BP Sys/Saleh Pulse Ox Last 24 Hr 97.6 F-99.1 F 70-88 18-20 119-174/59-84 91-98 Results - Labs CBC & BMP: 10/18/16 05:24 10/18/16 05:24
--- NOTE | 2016-10-18 15:56 | Cardiology Progress Note ---
Butch Hayward Vanessa, RN, am scribing for, and in the presence of, Loi Gan MD 15:56. Assessment and Plan - Time spent with patient Time spent with patient: Greater than 30 minutes (1) Dyspnea Status: Acute Assessment and plan: Oxygen saturation levels are in the low 90s while on room air. ABGs to be obtained this morning while she is on room air. Current Visit: Yes (2) Diabetes Status: Chronic Assessment and plan: Continue current plan of care. Current Visit: Yes (3) Anemia Status: Chronic Assessment and plan: This is stable. Current Visit: Yes (4) Hypertension Status: Chronic Assessment and plan: Suboptimally controlled at this time. Current Visit: Yes (5) UTI (urinary tract infection) Status: Acute Assessment and plan: Urine culture positive for Staphylococcus epidermidis. She is receiving appropriate antibiotics. Current Visit: Yes (6) History of PAT (paroxysmal atrial tachycardia) Status: Chronic Assessment and plan: Well controlled on Cartia XT and Sectral Current Visit: Yes Cardiology - PN: Subj Interval history: PRIMARY SURGICAL GARMENT FITTER: DR. MONROE PCP: DR. SANNA ESTEVEZ SUMMARY: Ms. Barahona is a 81 year old white female with risk factors significant for: Diabetes, hypertension, dyslipidemia, former tobacco use. Past medical history includes paroxysmal atrial tachycardia, moderate aortic stenosis, GERD, anxiety , and chronic pain for which she takes Gerton and morphine as needed. Her PAT has been well controlled on Cartia XT and Sectral 400 mg twice daily. Patient was just recently admitted to the hospital last week and treated for fecal impaction and dehydration. She was also hospitalized in August and treated for cellulitis and abscess of the right thigh. She has now presented to [facility] ED on October 13 with complaints of nausea and vomiting with onset earlier that afternoon, and she was noted to have a low-grade fever. Patient was also experiencing some confusion as she was requesting to see her who has been for quite a while. Patient was admitted to [facility] floor per internal medicine for hydration, treatment of nausea, vomiting, and UTI. Since admission, her confusion has overall improved as she has received treatment for UTI. Urine culture positive for Staphylococcus epidermidis. Nausea and vomiting has improved, and her diet has been able to be advanced. Family reports she has been hypoxemic with supplemental oxygen is removed. Documented oxygen saturation levels look good and are in the mid to upper 90s. Chest x- ray with interstitial edema. Pulmonology has been consulted, and cardiology has been asked to see her to rule out an element of congestive heart failure. Most recent previous echocardiogram was in January 2014 with LV ejection fraction 60%, mild MR, mild TR with PA pressure 58 mmHg, thickened calcified aortic valve with aortic valve area 2.19 cm. Echo obtained on October 17 demonstrated a little worsening in her aortic stenosis now with an aortic valve area measuring 1.8 cm range. LV ejection fraction of 60-65%, moderate TR with PA pressure 52 mmHg. October: This morning, patient is awake and alert, she is pleasant. Reports that she is feeling better this morning. She is on room air at time of exam, and does not appear to be in respiratory distress. It is noted in the chart that her oxygen saturation levels on room air are low 90s at this time. Apparently there was some confusion when ABGs were obtained yesterday, and they were actually obtained while patient was using 5 L/NC versus room air. ABGs to be repeated on room air, and those results are noted. Reports some chest tightness and describes it as "gas pain", and this discomfort is reproducible upon palpation in left and right chest wall areas. Cardizem increased to 240 mg daily yesterday, and BP and pulse have tolerated this well. Systolic BP today ranging 140-175 mmHg. Patient is relatively comfortable requiring oxygen most of the time. Her oxygen sats drop off with O2. I think she is nearing maximal hospital benefit and likely will be discharged the next several days. She may require home oxygen depending on her room air O2 sats on. Exam (Progress Note) - Constitutional Vitals: Period Temp Pulse Resp BP Sys/Saleh Pulse Ox Last 24 Hr 97.6 F-99.2 F 64-85 18-20 104-174/52-84 91-98 Exam: General: Present: No Apparent Distress, Other (Frail, chronically ill) HEENT: Present: PERRL, Mucus Membranes Dry Neck: Present: Supple Neck, Midline Trachea, No JVD/HJR, No Masses, No Bruit Cardiac: Present: Reg Rate and Rhythm, Systolic Murmur. Absent: Tachycardia, Bradycardia Lungs: Present: Oxygen, No Wheezes, Other (Crackles bibasilarly) Neuro: Present: Weakness, Grossly Intact. Absent: Numbness, Resting Tremor, Essential Tremor Abdomen: Present: Soft, Active Bowel Sounds. Absent: Ascites, Tender, Firm Skin: Present: Other (Healing, calloused area right foot related to previous ulcer.). Absent: Rash Musculoskeletal: Present: Decreased Range of Motion, No Fluid Collection Extremities: Present: No Clubbing, No Cyanosis, Edema (Trace bilateral lower extremity edema with right greater than left, nonpitting.) Result/EKG - Labs CBC & BMP: 10/18/16 05:24 10/18/16 05:24 Lab Results: I have reviewed the past 24 hour labs Labs: Laboratory Results - last 24 hr 10/17/16 10/17/16 10/17/16 10:13 10:35 11:40 WBC RBC Hgb Hct MCV MCH MCHC RDW Plt Count MPV Neut % (Auto) Lymph % (Auto) [place] % (Auto) Eos % (Auto) Baso % (Auto) Neut # (Auto) Lymph # (Auto) [place] # (Auto) Eos # (Auto) Baso # (Auto) Total Counted Immature Gran % Nucleated RBC % Immature Gran # Segmented Neutrophils Lymphocytes Monocytes Eosinophils Basophils Nucleated RBCs # Platelet Estimate Hypochromasia Ovalocytes Morphology Comment ABG pH 7.393 ABG pCO2 36.5 ABG pO2 110.0 H ABG HCO3 22.5 ABG Total CO2 20.6 L ABG O2 Saturation 98.4 ABG Base Excess -2.3 FiO2 28.00 Sodium Potassium Chloride Carbon Dioxide Anion Gap BUN Creatinine GFR Calculation BUN/Creatinine Ratio Glucose POC Glucose 210 H Calculated Osmolality Calcium Magnesium B-Natriuretic Peptide 150 H Triglycerides Cholesterol LDL Cholesterol VLDL Cholesterol HDL Cholesterol Heart Disease Risk Ratio 10/17/16 10/17/16 10/17/16 15:46 17:36 18:35 WBC RBC Hgb Hct MCV MCH MCHC RDW Plt Count MPV Neut % (Auto) Lymph % (Auto) [place] % (Auto) Eos % (Auto) Baso % (Auto) Neut # (Auto) Lymph # (Auto) [place] # (Auto) Eos # (Auto) Baso # (Auto) Total Counted Immature Gran % Nucleated RBC % Immature Gran # Segmented Neutrophils Lymphocytes Monocytes Eosinophils Basophils Nucleated RBCs # Platelet Estimate Hypochromasia Ovalocytes Morphology Comment ABG pH ABG pCO2 ABG pO2 ABG HCO3 ABG Total CO2 ABG O2 Saturation ABG Base Excess FiO2 Sodium Potassium Chloride Carbon Dioxide Anion Gap BUN Creatinine GFR Calculation BUN/Creatinine Ratio Glucose POC Glucose 96 53 L 152 H Calculated Osmolality Calcium Magnesium B-Natriuretic Peptide Triglycerides Cholesterol LDL Cholesterol VLDL Cholesterol HDL Cholesterol Heart Disease Risk Ratio 10/18/16 10/18/16 10/18/16 05:24 05:24 06:54 WBC 7.0 RBC 3.56 L Hgb 8.7 L Hct 28.5 L MCV 80.1 L MCH 24 L MCHC 30.5 L RDW 15.6 Plt Count 252 MPV 9.7 Neut % (Auto) 38.3 L Lymph % (Auto) 40.9 [place] % (Auto) 13.1 H Eos % (Auto) 6.6 Baso % (Auto) 0.7 Neut # (Auto) 2.7 Lymph # (Auto) 2.9 [place] # (Auto) 0.9 H Eos # (Auto) 0.5 Baso # (Auto) 0.1 Total Counted 100 Immature Gran % 0.4 Nucleated RBC % 0.0 Immature Gran # 0.03 Segmented Neutrophils 42 L Lymphocytes 39 Monocytes 9 Eosinophils 9 Basophils 1.0 H Nucleated RBCs # 0.00 Platelet Estimate Adequate Hypochromasia 1+ Ovalocytes Slight Morphology Comment ABG pH ABG pCO2 ABG pO2 ABG HCO3 ABG Total CO2 ABG O2 Saturation ABG Base Excess FiO2 Sodium 143 Potassium 4.0 Chloride 109 H Carbon Dioxide 25 Anion Gap 13.0 BUN 12 Creatinine 0.90 GFR Calculation 64 BUN/Creatinine Ratio 13.00 Glucose 87 POC Glucose 89 Calculated Osmolality 283.0 Calcium 7.7 L Magnesium 1.7 L B-Natriuretic Peptide Triglycerides 244 H Cholesterol 118 LDL Cholesterol 54.0 VLDL Cholesterol 48.8 HDL Cholesterol 47 Heart Disease Risk Ratio 2.51 10/18/16 10/18/16 07:18 08:45 WBC RBC Hgb Hct MCV MCH MCHC RDW Plt Count MPV Neut % (Auto) Lymph % (Auto) [place] % (Auto) Eos % (Auto) Baso % (Auto) Neut # (Auto) Lymph # (Auto) [place] # (Auto) Eos # (Auto) Baso # (Auto) Total Counted Immature Gran % Nucleated RBC % Immature Gran # Segmented Neutrophils Lymphocytes Monocytes Eosinophils Basophils Nucleated RBCs # Platelet Estimate Hypochromasia Ovalocytes Morphology Comment ABG pH 7.446 ABG pCO2 32.8 L ABG pO2 59.1 L ABG HCO3 23.5 ABG Total CO2 20.7 L ABG O2 Saturation 91.1 L ABG Base Excess -0.9 FiO2 21.00 Sodium Potassium Chloride Carbon Dioxide Anion Gap BUN Creatinine GFR Calculation BUN/Creatinine Ratio Glucose POC Glucose 103 Calculated Osmolality Calcium Magnesium B-Natriuretic Peptide Triglycerides Cholesterol LDL Cholesterol VLDL Cholesterol HDL Cholesterol Heart Disease Risk Ratio - EKG EKG results: interpreted by me, no acute changes IMalik Wesley, MD, personally performed the services described in this documentation, ascribed by Leeanna Rae RN in my presence, and it is both accurate and complete [id number] .
[2016-10-18] MEDS: INSULIN GLARGINE 100 UNIT/ML SUBCUT SCH (18:28)
[2016-10-18] MEDS: ACETAMINOPHEN 325 MG TABLET PO PRN (20:30)
[2016-10-19 05:30] LABS: Basophils # 0.1 10*3/uL (0.0-0.2); Basophils % 0.8 % (0.0-0.8); Eosinophils # 0.6 10*3/uL (0.0-0.87); Hematocrit 28.8 VOL% (35.7-47.0); Hemoglobin 8.8 GM/DL (12.0-16.0); Immature Granulocytes % 0.2 %; Immature Granulocytes Absolute 0.02 #; Lymphocytes # 3.7 10*3/uL (1.4-4.0); Lymphocytes % 44.8 % (21.3-54.2); Mean Corpuscular HGB Conc 30.6 GM/DL (32-36); Mean Corpuscular Hemoglobin 24 PG (27-34); Mean Corpuscular Volume 79.3 FL (87-102); Mean Platelet Volume 10.1 FL (9.6-12.0); Monocytes # 1.1 10*3/uL (0.11-0.8); Monocytes % 12.8 % (1.7-12.7); Neutrophils # 2.8 10*3/uL (1.4-7.4); Neutrophils % 34.4 % (38.7-73.9); Platelet Count 272 T/CUMM (130-400); Red Blood Count 3.63 MC/CUMM (3.8-5.5); Red Cell Distribution Width 15.6 % (9.3-17.3); White Blood Count 8.3 T/CUMM (4-12)
[2016-10-19 05:55] LABS: Eosinophils 6 % (0-10); Hypochromasia 1+; Lymphocytes 50 % (20-55); Ovalocytes Slight; Platelet Estimate Adequate; Segmented Neutrophils 36 % (50-85); Total Cells Counted 100
[2016-10-19 06:01] LABS: Calcium 7.9 MG/DL (8.5-10.1); Magnesium 1.6 MG/DL (1.8-2.4)
[2016-10-19] MEDS: INSULIN LISPRO 100 UNIT/ML SUBCUT SCH ×6 (08:03→21:23)
[2016-10-19] MEDS: LINACLOTIDE 145 MCG CAPSULE PO SCH ×2 (08:03→10:34)
--- NOTE | 2016-10-19 08:58 | Family Practice Progress Note ---
Family Practice - PN: Subj Interval history: Patient seen this morning. She is alert in no acute distress. Her blood sugars did fall through the night down to 40s and she continues on the current regimen of diabetic medications but I am going to decrease the Amaryl to 2 mg twice a day down from 4 mg. She is scheduled for barium swallow today and we will evaluate this. I am also going to get an oxygen sat study to see if she qualifies for home O2 Exam (Progress Note) - Constitutional Vitals: Period Temp Pulse Resp BP Sys/Saleh Pulse Ox Last 24 Hr 97.6 F-98.9 F 63-88 16-20 109-153/59-77 91-96 Exam: Generally stable no acute distress. Is alert and oriented answers all questions HEENT neck is supple trachea midline Lungs generally clear anteriorly Cardiovascular there is 1/6 systolic ejection murmur Abdomen soft nondistended Neurologically intact fully at this time Results - Labs CBC & BMP: 10/19/16 04:24 10/19/16 04:24
--- NOTE | 2016-10-19 10:00 | Fluoroscopy Report ---
FL barium swallow Indication: Dysphagia, suspected motility disorder Comparison: None Technique: Barium swallow performed under fluoroscopic guidance after oral ingestion of barium. 60 total images. Fluoroscopy time 2 minutes 20 seconds. Findings: Barium tablet noted which initially stopped in the distal thoracic esophagus but cleared into the stomach after multiple swallows of water/barium. 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 Mild narrowing suggested at the gastroesophageal junction with some anterior indentation of the gastroesophageal junction suggested. Recommend endoscopy to exclude neoplasm. Small to moderate hiatal hernia noted. IMPRESSION: As above. PROCEDURE INTERPRETED AT [facility] DEPARTMENT OF RADIOLOGY Final Report Signed by: Dr Carlos Ford
--- NOTE | 2016-10-19 10:34 | Gastrointestinal Progress Note ---
<Silvana Ferrari - Last Filed: 10/19/16 10:31> Assessment and Plan (1) Dysphagia Status: Acute Assessment and plan: 10/19-barium swallow results noted as below. Consult dietitian for dietary recommendations. Okay to restart diet. Plan an addendum to follow by Dr. Mancuso. 10/18-History of dysphagia to solids, liquids and at times pills. Hx of esophageal dilation in past w/o improvement. Uncertain as to last EGD (at [facility]) . Recent swallow evaluation (August) with no signs of aspiration. Plan and addendum to follow by Dr Mancuso. Current Visit: No Gastroenterology - PN: Subj Interval history: CC: Dysphagia Patient is seen awake and alert with daughter at bedside. States she had an uneventful night. Denies any abdominal pain, nausea or vomiting. States she was able to tolerate a small amount of her diet last night. She had barium swallow with tablet this morning and noted to show initially stopped it distal thoracic esophagus however after multiple swallows was cleared. Tertiary contractions consistent with presbyesophagus and mild narrowing at GE junction, moderate hiatal hernia. Abdomen is soft, nontender. ROS: Denies shortness of breath or chest pain Exam (Progress Note) - Constitutional Vitals: Period Temp Pulse Resp BP Sys/Saleh Pulse Ox Last 24 Hr 97.6 F-98.9 F 63-88 16-20 109-153/59-77 91-96 General appearance: normal weight, no acute distress - Head Head exam: Present: normal inspection, normocephalic - Eye Eye exam: Present: other (Lids and conjunctive are unremarkable). Absent: scleral icterus - ENT ENT exam: Present: normal exam, normal oropharynx - Neck Neck exam: Present: normal inspection - Respiratory Respiratory exam: Present: clear to auscultation bilaterally. Absent: rales, rhonchi, wheezes - Cardiovascular Cardiovascular exam: Present: regular rate and rhythm. Absent: diastolic murmur , JVD, systolic murmur - GI/Abdominal GI/Abdominal exam: Present: normal bowel sounds, soft. Absent: ascites, distended, mass, organomegaly, tenderness - Extremities Exam Extremities exam: Present: normal inspection, full ROM - Back Exam Back exam: Present: normal inspection - Neurological Exam Neurological exam: Present: alert, oriented X3 - Psychiatric Psychiatric exam: Present: normal affect, normal mood - Skin Skin exam: Present: normal color, warm, dry Results - Labs CBC & BMP: 10/19/16 04:24 10/19/16 04:24 Lab Results: I have reviewed the past 24 hour labs <Jeff Mancuso - Last Filed: 10/19/16 19:00> Exam (Progress Note) - Constitutional Vitals: Period Temp Pulse Resp BP Sys/Saleh Pulse Ox Last 24 Hr 97.6 F-98.9 F 63-84 16-20 109-161/63-82 90-96 Results - Labs CBC & BMP: 10/19/16 04:24 10/19/16 04:24
[2016-10-19] MEDS: BACLOFEN 10 MG TABLET PO SCH ×3 (10:35→21:17)
[2016-10-19] MEDS: CLOPIDOGREL 75 MG TABLET PO SCH (10:35)
[2016-10-19] MEDS: DILTIAZEM CD 240 MG CAPSULE PO SCH (10:35)
[2016-10-19] MEDS: ACEBUTOLOL 400 MG CAPSULE PO SCH ×2 (10:35→21:17)
[2016-10-19] MEDS: hydroCHLOROthiazide 25 MG TABLET PO PRN (10:35)
[2016-10-19] MEDS: ESTRADIOL 2 MG TABLET PO SCH (10:35)
[2016-10-19] MEDS: PANTOPRAZOLE 40 MG TABLET PO SCH ×2 (10:35→10:36)
[2016-10-19] MEDS: metFORMIN 500 MG TABLET PO SCH ×2 (10:35→21:17)
[2016-10-19] MEDS: MORPHINE ER 15 MG TABLET PO SCH ×2 (10:36→21:18)
[2016-10-19] MEDS: SIMVASTATIN 10 MG TABLET PO SCH (10:36)
[2016-10-19] MEDS: DOCUSATE SODIUM 100 MG CAPSULE PO SCH ×2 (10:36→21:17)
[2016-10-19] MEDS: GLIMEPIRIDE 2 MG TABLET PO SCH ×2 (10:36→21:17)
[2016-10-19] MEDS: METOCLOPRAMIDE 10 MG/2 ML VIAL IV PRN (10:37)
[2016-10-19] MEDS: DESITIN 4OZ/NYSTATIN 15 GRAM MIXTURE PASTE TOP SCH ×2 (10:37→21:23)
--- NOTE | 2016-10-19 16:45 | CT Report ---
History is hypoxemia and short of breath 1 mm images obtained at 10 mm intervals interpreted at high-resolution algorithm in the prone and supine positioning There is a moderate-sized lateral hernia present. Small bilateral pleural effusions have developed since an abdomen CT of 10/13/2016 Overall lung volumes are normal No cystic changes identified Calcified right lung granuloma present There is a small area of reticular nodular and groundglass opacity in the posterior aspect of the right upper lobe. Interstitial markings otherwise felt to be within normal limits. Nodular density is presumably averaging with vasculature no bronchiectasis seen Impression: 1. Small bilateral pleural effusions 2. Minimal reticular and groundglass opacities in a small area in the right upper lobe possibly minimal infiltrates. Clinical correlation requested 3. Hiatal hernia The CT exam was performed using one or more of the following dose reduction techniques: Automated exposure control, adjustment of the mA and/or kV according to patient size, or use of iterative reconstruction technique. PROCEDURE INTERPRETED AT [facility] DEPARTMENT OF RADIOLOGY Final Report Signed by: Dr. Odalys Dorantes
[2016-10-19] MEDS: INSULIN GLARGINE 100 UNIT/ML SUBCUT SCH (18:46)
[2016-10-20 05:57] LABS: Basophils # 0.1 10*3/uL (0.0-0.2); Basophils % 0.8 % (0.0-0.8); Eosinophils # 0.6 10*3/uL (0.0-0.87); Eosinophils % 8.6 % (0.00-10.9); Hematocrit 28.2 VOL% (35.7-47.0); Hemoglobin 8.7 GM/DL (12.0-16.0); Immature Granulocytes % 0.4 %; Immature Granulocytes Absolute 0.03 #; Lymphocytes # 2.6 10*3/uL (1.4-4.0); Lymphocytes % 36.2 % (21.3-54.2); Mean Corpuscular HGB Conc 30.9 GM/DL (32-36); Mean Corpuscular Hemoglobin 24 PG (27-34); Mean Corpuscular Volume 78.8 FL (87-102); Monocytes # 0.9 10*3/uL (0.11-0.8); Monocytes % 12.4 % (1.7-12.7); Neutrophils % 41.6 % (38.7-73.9); Platelet Count 245 T/CUMM (130-400); Red Blood Count 3.58 MC/CUMM (3.8-5.5); Red Cell Distribution Width 15.6 % (9.3-17.3); White Blood Count 7.2 T/CUMM (4-12)
[2016-10-20 06:31] LABS: Calcium 7.6 MG/DL (8.5-10.1); Magnesium 1.4 MG/DL (1.8-2.4); Osmolality,Calculated 281.1 MOS/KG (273-304); Potassium 3.6 MMOL/L (3.5-5.1)
[2016-10-20] MEDS: MORPHINE ER 15 MG TABLET PO SCH (06:41)
[2016-10-20] MEDS: metFORMIN 500 MG TABLET PO SCH (08:25)
[2016-10-20] MEDS: ACEBUTOLOL 400 MG CAPSULE PO SCH (08:25)
[2016-10-20] MEDS: DOCUSATE SODIUM 100 MG CAPSULE PO SCH (08:25)
[2016-10-20] MEDS: DILTIAZEM CD 240 MG CAPSULE PO SCH (08:25)
[2016-10-20] MEDS: INSULIN LISPRO 100 UNIT/ML SUBCUT SCH ×3 (08:25→12:00)
[2016-10-20] MEDS: LINACLOTIDE 145 MCG CAPSULE PO SCH (08:25)
[2016-10-20] MEDS: PANTOPRAZOLE 40 MG TABLET PO SCH ×2 (08:25→08:26)
[2016-10-20] MEDS: ESTRADIOL 2 MG TABLET PO SCH (08:25)
[2016-10-20] MEDS: SIMVASTATIN 10 MG TABLET PO SCH (08:25)
[2016-10-20] MEDS: GLIMEPIRIDE 2 MG TABLET PO SCH (08:25)
[2016-10-20] MEDS: BACLOFEN 10 MG TABLET PO SCH (08:25)
[2016-10-20] MEDS: DESITIN 4OZ/NYSTATIN 15 GRAM MIXTURE PASTE TOP SCH (08:26)
--- NOTE | 2016-10-20 08:42 | Discharge Summary ---
Hospital Course - Hospital Course Hospital Course: 81-year-old has been in the hospital off and on for several months now. She came in most recently with nausea and vomiting. She had a decreased appetite and some confusion. She had recently been in for an impaction and dehydration. She was found to have a mild urinary tract infection with gram-positive cocci. She was placed on antibiotics. She did have a cardiac workup which was negative. Alter metal status did slowly improve and it was felt today that she could go home however she does get very hypoxemic without her oxygen. Nebs were initiated they did not work well and she gets very short of breath with exertion without oxygen. Her sats have dropped down into the 86 is without O2. We are going to get her on home O2 Specialty Discharge - Follow Up or Referrals Follow up with: Jeff Mancuso MD [Physician] - (follow up or set appt Sunday for EGD we are holding patients Plavix for this test and then need to resume) Lennox Love MD [Physician] - 11/07/16 10:00 am Teodoro Perrin MD [Physician] - 10/25/16 10:15 am Discharge Plan - Discharge Data Disposition: Disch To Home/Self Care Condition at Discharge: Stable Discharge Diet: advance to your usual diet Activity: resume usual activities as tolerated, other (home oxygen has been ordered O2 sats 86 percent) Hygiene: no restrictions Weight Bearing at Discharge: weight bear as tolerated Driving: not until seen by doctor Contact your physician if you experience:: fever over 101, Nausea/Vomiting, Shortness of breath - Discharge Medications New Diltiazem Cd Cap [Cardizem CD] 240 mg PO DAILY #30 capsule HYDROcodone/ACETAMIN 10-325 [Silvis 10-325] 1 tablet PO TID PRN tablet PRN Reason: Pain Continue hydroCHLOROthiazide [Hydrochlorothiazide] 25 mg PO DAILY PRN PRN Reason: FLUID Insulin Detemir [Levemir FlexPen] 40 unit SUBCUT QPM Linaclotide [Linzess] 145 mcg PO AC BREAKFAST #30 capsule metFORMIN [Glucophage] 500 mg PO BID Acebutolol [Sectral] 400 mg PO BID #60 capsule Insulin Aspart [NovoLOG FlexPen] 15 mg SUBCUT BID Changed Glimepiride 2 mg PO BID #60 tablet Discontinued Clopidogrel [Plavix] 75 mg PO DAILY No Action Omeprazole [Prilosec] 20 mg PO DAILY Morphine Sulfate [Morphine Sulfate ER] 15 mg PO BID HYDROcodone/ACETAMIN 10-325 [Silvis 10-325] 1 tablet PO TID PRN PRN Reason: Pain dilTIAZem HCl [Cartia XT] 120 mg PO DAILY Baclofen Tab [Lioresal] 10 mg PO TID Acebutolol [Sectral] 400 mg PO BID Estradiol Tab [Estrace Tab] 2 mg PO DAILY Simvastatin [Zocor] 10 mg PO DAILY - Follow Up or Referral Follow Up: Jeff Mancuso MD [Physician] - (follow up or set appt Sunday for EGD we are holding patients Plavix for this test and then need to resume) Lennox Love MD [Physician] - 11/07/16 10:00 am Teodoro Perrin MD [Physician] - 10/25/16 10:15 am - Forms/Instructions Exam - Constitutional Vitals: Period Temp Pulse Resp BP Sys/Saleh Pulse Ox Last 24 Hr 98.1 F-99.1 F 63-84 16-20 112-161/57-82 90-97 Discharge Results Labs on day of discharge: Labs from last 24 hours 10/20/16 10/20/16 10/20/16 07:30 05:30 05:30 WBC 7.2 RBC 3.58 L Hgb 8.7 L Hct 28.2 L MCV 78.8 L MCH 24 L MCHC 30.9 L RDW 15.6 Plt Count 245 MPV 10.0 Neut % (Auto) 41.6 Lymph % (Auto) 36.2 [place] % (Auto) 12.4 Eos % (Auto) 8.6 Baso % (Auto) 0.8 Neut # (Auto) 3.0 Lymph # (Auto) 2.6 [place] # (Auto) 0.9 H Eos # (Auto) 0.6 Baso # (Auto) 0.1 Immature Gran % 0.4 Nucleated RBC % 0.0 Immature Gran # 0.03 Nucleated RBCs # 0.00 Sodium 142 Potassium 3.6 Chloride 108 H Carbon Dioxide 24 Anion Gap 13.6 BUN 12 Creatinine 0.90 GFR Calculation 63 BUN/Creatinine Ratio 13.00 Glucose 76 POC Glucose 88 Calculated Osmolality 281.1 Calcium 7.6 L Magnesium 1.4 L 10/19/16 10/19/1610/19/17 19:52 15:18 11:36 WBC RBC Hgb Hct MCV MCH MCHC RDW Plt Count MPV Neut % (Auto) Lymph % (Auto) [place] % (Auto) Eos % (Auto) Baso % (Auto) Neut # (Auto) Lymph # (Auto) [place] # (Auto) Eos # (Auto) Baso # (Auto) Immature Gran % Nucleated RBC % Immature Gran # Nucleated RBCs # Sodium Potassium Chloride Carbon Dioxide Anion Gap BUN Creatinine GFR Calculation BUN/Creatinine Ratio Glucose POC Glucose 261 H 270 H 266 H Calculated Osmolality Calcium Magnesium DS: Provider Date of admission: 10/13/16 23:56 Primary care physician: . No PCP Attending physician on admission: Lennox Love MD Consults: 10/13/16 23:56 Consult to Case Mgmt/Social Srvs [CONS] Routine Reason for Case Mgmt/Social Srvs: Discharge Planning Home Health Other Consult Comment: home oxygen 10/14/16 02:05 Consult to Pastoral Services [CONS] Routine Comment: Pastoral Screen: Request Jewel Sawyer Visit Pastoral Screen Source of Request: Family 10/16/16 07:22 Consult to Physical Therapy [CONS] Routine Reason for Physical Therapy: Gait Training 10/17/16 07:25 Consult to Physician [CONS] Routine Comment: Consulting Provider: Santi Hutson Person Notified: MELIZA Date Notified: 10/17/16 Time Notified: 08:45 10/17/16 09:38 Consult to Physician [CONS] Routine Comment: ? CHF. followed by Dr. Vega Consulting Provider: Cardiology - [facility] Consult to Specialist Group: Cardiology When should Consulting Provider be notified: Vilma Person Notified: YI Date Notified: 10/17/16 Time Notified: 09:42 10/18/16 13:33 Consult to Physician [CONS] Routine Comment: Consulting Provider: Jeff Mancuso 10/19/16 10:36 Consult to Dietitian [CONS] Routine Reason for Dietitian: Diet Recommendations Consult Comment: Hx of dysphagia, achalasia symptoms Discharging clinician: Bruce White DO
[2016-10-20] MEDS ORDERED: MAGNESIUM CHLORIDE 64 MG TABLET PO SCH (09:00)
[2016-10-20 13:25] VITALS: BP 151/77
== END 2016-10-20 15:30 | disposition home health service (06) | DRG 690 ==
LOC: EDUNIT# → EDBD → N.ED 20:45 → N.EDINP 23:56 → N.2E 10-14 00:48
PROVIDERS: ADMIT Family Medicine; ATTEND Family Medicine

== ENCOUNTER 2016-11-04 21:43 | Observation (INO) ==
[2016-11-04] MEDS ORDERED: SODIUM CHLORIDE 0.9% 1,000 ML IV STA (22:38)
--- NOTE | 2016-11-04 22:43 | Emergency Department Note ---
Annie Hayward Brittany, am scribing for, and in the presence of, Roddy Briggs MD 22: 39. Brigitte Hayward Andrew, MD, personally performed the services described in this documentation, ascribed by Gladis Valencia in my presence, and it is both accurate and complete . Arrival - Arrival Chief Complaint: Shortness of Breath Stated Complaint: SOB/LOW HR ED Nursing Triage Note: C/O Not feeling well/shortness of breath/low blood pressure and heart rate at home. Onset earlier today. Took pain meds (morphine) - around 1800 today- heart rate 49 and BP 79/50 at 1830 tonight. Pt states that she was hurting in her chest and feeling funny prior to taking the morphine. Pt is on home oxygen at 2 liters Mode of Arrival: Wheelchair Limitations: No Limitations Source: Patient, Family - History of Present Illness HPI Narrative: This is a 81 y/o white female,who presents to the ED for further evaluation of bradycardia which started earlier this morning. She notes chest heaviness with the bradycardia. Her family states pt's heart rate is normally in the 60s and occasionally in the 50s, but today they noticed it to be in the 40s. She reports she is currently on 2 liters of home O2. She notes nausea and weakness as well. Pt has no other complaints/pain in the ED at this time. Pt has a PMHx of A-fib, HTN, CVA, IDDM, dyslipidemia, back/neck problems, recurring UTIs, diverticulitis, GERD, and anemia. PT has had an appendectomy, colonoscopy, EGD, hysterectomy, cholecystectomy, EGD, and left total hip replacement. Pt has a family medical Hx of heart disease, cancer, diabetes, and HTN. Pt denies a social Hx. Onset (ago): hour(s) (Earlier today) Consistency: constant Severity: moderate Date of Last Menstrual Period: Hysterectomy Allergies/Adverse Reactions: Allergies Allergy/AdvReac Type Severity Reaction Status Date / Time Shrimp Allergy ITCHING Verified 09/24/16 10:29 sulfamethoxazole Allergy Confusion Verified 10/13/16 21:04 [From Bactrim] trimethoprim [From Bactrim] Allergy Confusion Verified 10/13/16 21:04 Home Medications: Home Medications Medication Instructions Recorded Confirmed Type Baclofen Tab [Lioresal] 10 mg PO TID 11/23/14 11/04/16 History Estradiol Tab [Estrace Tab] 2 mg PO DAILY 11/23/14 11/04/16 History Morphine Sulfate [Morphine Sulfate 15 mg PO BID 11/23/14 11/04/16 History ER] Omeprazole [Prilosec] 20 mg PO DAILY 11/23/14 11/04/16 History Simvastatin [Zocor] 10 mg PO DAILY 11/23/14 11/04/16 History hydroCHLOROthiazide 25 mg PO DAILY PRN 08/13/16 11/04/16 History [Hydrochlorothiazide] Insulin Detemir [Levemir FlexPen] 40 unit SUBCUT QPM 09/24/16 11/04/16 History Linaclotide [Linzess] 145 mcg PO AC BREAKFAST #30 capsule 09/29/16 11/04/16 Rx Insulin Aspart [NovoLOG FlexPen] 15 mg SUBCUT BID 10/14/16 11/04/16 History metFORMIN [Glucophage] 500 mg PO BID 10/14/16 11/04/16 History Acebutolol [Sectral] 400 mg PO BID #60 capsule 10/20/16 11/04/16 Rx Diltiazem Cd Cap [Cardizem CD] 240 mg PO DAILY #30 capsule 10/20/16 11/04/16 Rx Glimepiride 2 mg PO BID #60 tablet 10/20/16 11/04/16 Rx HYDROcodone/ACETAMIN 10-325 [[place] 1 tablet PO TID PRN tablet 10/20/16 Rx 10-325] Review of System - Review of System 12 point system: reviewed and no additional remarkable complaints except as stated - Review of System Constitutional: Present: weakness Cardiovascular: Present: chest pain, other (Bradycardia) Gastrointestinal: Present: nausea Medical,Surgical,& Family Hx - Medical History Cardio: History of: Cardiac Dysrhythmia (PAT), Hypertension No history of: CHF, [place] Psychological: History of: Anxiety Disorders, Depression Neurology: History of: Cerebrovascular Accident No history of: Dementia, Seizures, TIA HEENT: History of: Eye Problem (cataract) Endocrine: History of: Diabetes Mellitus (IDDM), Dyslipidemia Respiratory: History of: Bronchitis No history of: Obstructive Sleep Apnea Genitourinary: History of: Recurring Urinary Tract Infections No history of: Kidney Stones Gastrointestinal: History of: Diverticulitis/ Diverticulosis, GERD, Hemorrhoids , GI Problems (Chronic constipation) No history of: Gastrointestinal Bleed Musculoskeletal: History of: Back/Neck Problems, Musculoskeletal Problems Hematology: History of: Anemia Other: History of: MRSA - Surgical History Cardiac Surgeries: Patient Denies: Cardiac Catheterization HEENT Surgeries: Surgical HX of: Eye Surgery (cataracts) Patient denies: Tonsilectomy & Adenoidectomy Abdominal Surgeries: Surgical HX of: Abdominal Surgery, Appendectomy, Cholecystectomy, Colonoscopy, EGD Reproductive Surgeries: Surgical HX of;: Gynecologic Surgery, Hysterectomy Orthopedic Surgeries: Surgical HX of;: Total Hip Replacement (left) - Family History Family History: Reports;: Family Cancer (brother, sister), Family Diabetes ( mother), Family Heart Disease (mother and dad), Family Hypertension - Social History Smoking Status: Never smoker Frequency of Alcohol Use: None Type of Drug Use: None Exam Vital Signs: Vital Signs Temperature 98.7 F 11/05/16 01:30 Pulse Rate 75 11/05/16 01:30 Respiratory Rate 18 11/05/16 01:30 Blood Pressure 185/76 11/05/16 01:30 O2 Sat by Pulse Oximetry 93 L 11/05/16 01:30 - General General appearance: alert, in no apparent distress - Head Head exam: Present: atraumatic, normocephalic, normal inspection - Eye Eye exam: Present: normal appearance, PERRL, EOMI. Absent: nystagmus, miosis, mydriasis - ENT ENT exam: Present: normal exam, normal oropharynx, mucous membranes moist, TM's normal bilaterally, normal external ear exam - Neck Neck exam: Present: normal inspection, full ROM, trachea midline. Absent: tenderness, meningismus, lymphadenopathy, thyromegaly - Chest Chest inspection: Present: normal inspection, symmetric chest wall rise. Absent : tenderness, rash, abscess - Respiratory Respiratory exam: Present: normal lung sounds bilaterally. Absent: rales, respiratory distress, rhonchi, stridor, wheezes - Cardiovascular Cardiovascular exam: Present: normal rhythm, bradycardia, normal heart sounds, murmur. Absent: rubs, gallop, clicks, JVD - Abdominal Exam Abdominal exam: Present: soft, normal bowel sounds. Absent: distention, tenderness, guarding, rebound, rigidity - Rectal Exam Rectal exam: Present: deferred - Extremities Exam Extremities exam: Present: normal capillary refill, pedal edema (A trace of BLE) . Absent: tenderness, joint swelling, calf tenderness - Back Exam Back exam: Present: normal inspection, full ROM. Absent: tenderness, muscle spasm, rashes - Neurological Exam Neurological exam: Present: alert, oriented X3, CN II-XII intact. Absent: motor sensory deficit - Psychiatric Psychiatric exam: Present: normal affect, normal mood. Absent: depressed, agitated, anxious, flat affect, manic - Skin Skin exam: Present: warm, dry, intact, normal color. Absent: rash, cyanosis, diaphoresis, erythema, pallor, mottled Course Course Narrative: EKG with sinus bradycardia, no acute ischemic changes. Labs unremarkable. Plan to admit to tele on Dr. Love' service. Results - Labs CBC & BMP: 11/04/16 22:42 11/04/16 22:42 Disposition Clinical Impression: Symptomatic bradycardia Case discussed with: patient, patient's family Disposition: Still a Patient Condition: Stable
[2016-11-04 23:23] LABS: Basophils % 0.6 % (0.0-0.8); Eosinophils # 0.2 10*3/uL (0.0-0.87); Eosinophils % 3.2 % (0.00-10.9); Hematocrit 26.9 VOL% (35.7-47.0); Immature Granulocytes % 0.3 %; Immature Granulocytes Absolute 0.02 #; Lymphocytes # 1.9 10*3/uL (1.4-4.0); Lymphocytes % 30.8 % (21.3-54.2); Mean Corpuscular HGB Conc 29.7 GM/DL (32-36); Mean Corpuscular Hemoglobin 24 PG (27-34); Mean Corpuscular Volume 79.4 FL (87-102); Mean Platelet Volume 10.1 FL (9.6-12.0); Monocytes # 0.7 10*3/uL (0.11-0.8); Monocytes % 11.1 % (1.7-12.7); Neutrophils # 3.4 10*3/uL (1.4-7.4); Platelet Count 288 T/CUMM (130-400); Red Blood Count 3.39 MC/CUMM (3.8-5.5); Red Cell Distribution Width 15.7 % (9.3-17.3); White Blood Count 6.2 T/CUMM (4-12)
[2016-11-04 23:42] LABS: Alanine Aminotransferase 14 U/L (13-56); Albumin 2.8 G/DL (3.4-5.0); Alkaline Phosphatase 56 U/L (45-117); Aspartate Amino Transferase 14 U/L (0-37); Blood Urea Nitrogen 20 MG/DL (7-18); Calcium 8.3 MG/DL (8.5-10.1); Glucose 285 MG/DL (74-106); Magnesium 1.8 MG/DL (1.8-2.4); Osmolality,Calculated 287.7 MOS/KG (273-304); Potassium 4.4 MMOL/L (3.5-5.1); Sodium 138 MMOL/L (136-145); Total Protein 6.3 G/DL (6.4-8.3); Troponin I Only < 0.015 NG/ML (0.00-0.045)
[2016-11-05] MEDS ORDERED: ONDANSETRON 4 MG/2 ML VIAL IV PRN (00:45)
[2016-11-05] MEDS ORDERED: ACETAMINOPHEN 325 MG TABLET PO PRN (00:45)
[2016-11-05] MEDS ORDERED: hydroCHLOROthiazide 25 MG TABLET PO PRN (06:49)
--- NOTE | 2016-11-05 06:53 | EKG Report ---
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
[2016-11-05] MEDS ORDERED: MORPHINE ER 15 MG TABLET PO SCH (07:00)
--- NOTE | 2016-11-05 07:30 | Family Practice History&Phys ---
Assessment and Plan (1) Chest pain Status: Acute Assessment and plan: 11/05/2016: Cardiac isoenzymes have been ordered. 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 Current Visit: Yes (2) Hypoxia Status: Acute Current Visit: No History of Present Illness Chief complaint: Weakness and chest pain History of present illness: Ms. Barahona is a 81 year old female Patient 81-year-old white female who apparently developed substernal chest pain sometime after midnight. This apparently had been going on for several hours but she had tried to conceal it from her family as she knew they would bring her to the hospital. Patiently apparently developed a flaw in this deception and she was discovered and reluctantly brought to the emergency room. She apparently was bradycardic at some point but that had resolved by the time she had an EKG performed in the emergency room. She states she is not having any chest pain and her initial cardiac isoenzymes were negative. She states she is very tired this morning but she had very little sleep. She denies any radiation of this discomfort but it did cause some shortness of breath. She had no nausea, vomiting or diaphoresis. Home Medications Medication Instructions Recorded Confirmed Type Baclofen Tab [Lioresal] 10 mg PO BID 11/23/14 11/05/16 History Estradiol Tab [Estrace Tab] 2 mg PO DAILY 11/23/14 11/04/16 History Morphine Sulfate [Morphine Sulfate 15 mg PO ONCE 11/23/14 11/05/16 History ER] Omeprazole [Prilosec] 20 mg PO DAILY 11/23/14 11/04/16 History Simvastatin [Zocor] 10 mg PO DAILY 11/23/14 11/04/16 History hydroCHLOROthiazide 25 mg PO DAILY PRN 08/13/16 11/04/16 History [Hydrochlorothiazide] Insulin Detemir [Levemir FlexPen] 40 unit SUBCUT QPM 09/24/16 11/04/16 History Linaclotide [Linzess] 145 mcg PO AC BREAKFAST #30 capsule 09/29/16 11/04/16 Rx Insulin Aspart [NovoLOG FlexPen] 15 mg SUBCUT BID 10/14/16 11/04/16 History Acebutolol [Sectral] 400 mg PO BID #60 capsule 10/20/16 11/04/16 Rx Diltiazem Cd Cap [Cardizem CD] 240 mg PO DAILY #30 capsule 10/20/16 11/04/16 Rx Glimepiride 2 mg PO BID #60 tablet 10/20/16 11/04/16 Rx HYDROcodone/ACETAMIN 10-325 [[place] 1 tablet PO TID PRN tablet 10/20/16 Rx 10-325] Clopidogrel [Plavix] 75 mg PO DAILY 11/05/16 11/05/16 History cephALEXin [Keflex] 500 mg PO BID 11/05/16 11/05/16 History Allergies Allergy/AdvReac Type Severity Reaction Status Date / Time Shrimp Allergy ITCHING Verified 09/24/16 10:29 sulfamethoxazole Allergy Confusion Verified 10/13/16 21:04 [From Bactrim] trimethoprim [From Bactrim] Allergy Confusion Verified 10/13/16 21:04 - Constitutional Constitutional: Present: fatigue, weakness. Absent: chills, fever(s), lethargy - EENT Eyes: Absent: blurry vision, loss of vision Ears: Absent: decreased hearing, ear pain Nose, mouth and throat: Absent: hoarseness, nasal congestion, sinus pressure, sore throat - Cardiovascular Cardiovascular: Present: chest pain at rest, dyspnea on exertion, other ( Bradycardia). Absent: diaphoresis, orthopnea, palpitations, PND - Respiratory Respiratory: Present: dyspnea on exertion. Absent: cough, wheezing - Gastrointestinal Gastrointestinal: Absent: abdominal pain, diarrhea, dyspepsia, dysphagia, hematemesis, hematochezia, melena, nausea, vomiting - Genitourinary Genitourinary: Absent: dysuria, hematuria, urinary hesitancy, urinary incontinence - Musculoskeletal Musculoskeletal: Absent: arthralgias, back pain - Neurological Neurological: Absent: abnormal speech, confusion, focal weakness, numbness, paresthesias - Psychiatric Psychiatric: Absent: anxiety, depression - Endocrine Endocrine: Present: fatigue. Absent: polydipsia, polyphagia - Hematologic/Lymphatic Hematologic/Lymphatic: Absent: easy bleeding, easy bruising Medical,Surgical,& Family Hx - Medical History Cardio: History of: Cardiac Dysrhythmia (PAT), Hypertension No history of: CHF, [place] Psychological: History of: Anxiety Disorders, Depression Neurology: History of: Cerebrovascular Accident No history of: Dementia, Seizures, TIA HEENT: History of: Eye Problem (cataract) Endocrine: History of: Diabetes Mellitus (IDDM), Dyslipidemia Respiratory: History of: Bronchitis No history of: Obstructive Sleep Apnea Genitourinary: History of: Recurring Urinary Tract Infections No history of: Kidney Stones Gastrointestinal: History of: Diverticulitis/ Diverticulosis, GERD, Hemorrhoids , GI Problems (Chronic constipation) No history of: Gastrointestinal Bleed Musculoskeletal: History of: Amputation (right toe), Back/Neck Problems, Musculoskeletal Problems Hematology: History of: Anemia Other: History of: MRSA - Surgical History Cardiac Surgeries: Patient Denies: Cardiac Catheterization HEENT Surgeries: Surgical HX of: Eye Surgery (cataracts) Patient denies: Tonsilectomy & Adenoidectomy Abdominal Surgeries: Surgical HX of: Abdominal Surgery, Appendectomy, Cholecystectomy, Colonoscopy, EGD Reproductive Surgeries: Surgical HX of;: Gynecologic Surgery, Hysterectomy Orthopedic Surgeries: Surgical HX of;: Total Hip Replacement (left) - Family History Family History: Reports;: Family Cancer (brother, sister), Family Diabetes ( mother), Family Heart Disease (mother and dad), Family Hypertension - Social History Smoking Status: Never smoker Frequency of Alcohol Use: None Type of Drug Use: None Exam - Constitutional Vitals: Period Temp Pulse Resp BP Sys/Saleh Pulse Ox Last 24 Hr 98.4 F-98.8 F 56-75 14-20 125-185/56-79 92-98 Exam: General: Objective patient is a well-developed white female in no acute distress. She was sleeping soundly when I entered the room and obtained the history from the family. She had little to offer to the history given by the family and she was indulgent to their attempts to provide her thoughts and feelings. HEENT: Pupils equal and reactive to light. Patent nares and airway Neck: No meningismus, adenopathy, thyromegaly. There are no auscultated carotid bruits. Cardiovascular: Irregular rhythm. No murmurs or gallops Chest: Clear to auscultation without rales rhonchi wheezes. Abdomen: Soft nontender to palpation No masses, rebound, guarding or tenderness. Neuro: Cranial nerves intact and DTRs and strength symmetric in all extremities. Dermatologic: No evidence of abnormal lesions or masses. Musculoskeletal: There is no joint swelling or tenderness or deformity. Extremities: There is no calf swelling or tenderness. Results - Labs CBC & BMP: 11/04/16 22:42 11/04/16 22:42 Lab Results: I have reviewed the past 24 hour labs - EKG EKG shows: bradycardia (Sinus bradycardia with heart rate 56 bpm) - Diagnostic Findings Procedure: Chest x-ray: report reviewed by me (No acute abnormality seen.)
[2016-11-05 08:00] LABS: Troponin I Only < 0.015 NG/ML (0.00-0.045)
--- NOTE | 2016-11-05 09:03 | XRay Report ---
Portable chest Date: 11/04/2016 Clinical history: Shortness of breath Comparison: 10/17/2016 Technique: Portable AP sitting chest Findings: The heart is minimally enlarged with calcification in aortic knob. The pulmonary vasculature is more prominent with progressive parenchymal findings especially at the lung bases. Stable mediastinum with degenerative changes. Postoperative findings in the right shoulder with prior cholecystectomy. Impression: The heart is larger in size with mild CHF. PROCEDURE INTERPRETED AT [facility] DEPARTMENT OF RADIOLOGY Final Report Signed by: Dr. Pauly Rodriguez
[2016-11-05] MEDS: BACLOFEN 10 MG TABLET PO SCH ×2 (09:27→21:11)
[2016-11-05] MEDS: ESTRADIOL 2 MG TABLET PO SCH (09:27)
[2016-11-05] MEDS: GLIMEPIRIDE 2 MG TABLET PO SCH ×2 (09:28→21:11)
[2016-11-05] MEDS: PANTOPRAZOLE 40 MG TABLET PO SCH ×2 (09:28→09:29)
[2016-11-05] MEDS: DOCUSATE SODIUM 100 MG CAPSULE PO SCH ×2 (09:28→21:11)
[2016-11-05] MEDS: SIMVASTATIN 10 MG TABLET PO SCH (09:28)
[2016-11-05] MEDS: CLOPIDOGREL 75 MG TABLET PO SCH (09:28)
[2016-11-05] MEDS: INSULIN LISPRO 100 UNIT/ML SUBCUT SCH ×2 (09:29→21:11)
--- NOTE | 2016-11-05 09:29 | Cardiology Consult Note ---
Assessment and Plan - Time spent with patient Time spent with patient: Greater than 30 minutes (Examination, interview, chart review and documentation) (1) Chest pain Status: Chronic Assessment and plan: This is been a recurrent problem. This sounds noncardiac and the patient is noncommittal to the quality and character is very difficult to decipher without any significant descriptive terminology other than "pain." With coaching from her children we did get one time that it was a squeezing pain. I really am not sure how accurate this description is with all the conversation that was going on in the room. She is anemic which is concerning and would suggest possibly a GI etiology her EKG is unremarkable. Bradycardia might suggest underlying coronary problems as well. Her first 2 sets of biomarkers are negative. With her history of PAT she is on very high doses of sec trial and diltiazem. Hopefully this is noncardiac we will also get stool specimens for blood. Current Visit: Yes (2) Symptomatic bradycardia Status: Acute Assessment and plan: Possibly related to medication errors and/or decline need for medication will monitor while she is on those here and may need to decrease these. She has a history of paroxysmal atrial tachycardia. Continue to monitor. Current Visit: Yes (3) Diabetic ulcer of right foot Status: Chronic Current Visit: No (4) Dysphagia Status: Acute Assessment and plan: This seems to be chronic and given her anemia may need endoscopy I am not sure if she has had this done recently. Current Visit: No (5) Dyspnea Status: Acute Current Visit: No (6) Diabetes Status: Chronic Current Visit: No Qualifiers: Diabetes mellitus type: type 2 (7) History of PAT (paroxysmal atrial tachycardia) Status: Chronic Current Visit: No (8) Hypertension Status: Chronic Current Visit: No History of Present Illness - Data of Consult Patient: known to practice within the last 3 years Consult date: 11/05/16 Requesting Physician: Lennox Love Primary care physician: Lennox Love - Consult Narrative Reason for consult: Bradycardia and chest pain History of present illness: Ms. Barahona is a 81 year old female patient whose primary care physician is Dr. Lennox Love and primary hi ranger operator is Dr. Charanjit Vega. She has been in the hospital multiple times over the last few months. Her children are at the bedside and are very free to answer the questions that I asked the patient about her symptoms and the events of yesterday. I have also reviewed Dr. Parra 's note. There appear to be 2 issues that brought the patient to the hospital I am not clear which was the primary those 2 issues are chest discomfort and bradycardia. Her daughter state that her monitor set her heart rate was slow and irregular. The patient states that she had been having "chest pain" for several hours before they noticed her heart rate being slow and brought her to the emergency room. The patient is actually unable to tell me what kind of pain that she had she would just keep using the word pain at one time she did say that it felt like a squeezing pain. Apparently she was nauseated but not diaphoretic. There appeared to be no factors that made this better or made this worse. She was recently in the hospital with "heart failure" with preserved ejection fraction. She also tells me that she has a lifelong history of "irregular heartbeat" and "heart failure" but states she has never had a left heart catheterization. She has been battling an ulcer on her right lower foot. She is also experienced a significant amount of diarrhea several days prior to coming in the hospital but now has not had any in approximately 72 hours. She is pain-free. Her first 2 sets of biomarkers are negative and her EKGs are nondiagnostic. She is in sinus rhythm at 56 bpm this time. The children state that the patient's heart rate has been bouncing around. She denies any confusion or mixup with her medicines and states that she has been taking them exactly as listed. CC: Lennox Love MD - Home Medications and Allergies Home Medications: Home Medications Medication Instructions Recorded Confirmed Type Baclofen Tab [Lioresal] 10 mg PO BID 11/23/14 11/05/16 History Estradiol Tab [Estrace Tab] 2 mg PO DAILY 11/23/14 11/04/16 History Morphine Sulfate [Morphine Sulfate 15 mg PO ONCE 11/23/14 11/05/16 History ER] Omeprazole [Prilosec] 20 mg PO DAILY 11/23/14 11/04/16 History Simvastatin [Zocor] 10 mg PO DAILY 11/23/14 11/04/16 History hydroCHLOROthiazide 25 mg PO DAILY PRN 08/13/16 11/04/16 History [Hydrochlorothiazide] Insulin Detemir [Levemir FlexPen] 40 unit SUBCUT QPM 09/24/16 11/04/16 History Linaclotide [Linzess] 145 mcg PO AC BREAKFAST #30 capsule 09/29/16 11/04/16 Rx Insulin Aspart [NovoLOG FlexPen] 15 mg SUBCUT BID 10/14/16 11/04/16 History Acebutolol [Sectral] 400 mg PO BID #60 capsule 10/20/16 11/04/16 Rx Diltiazem Cd Cap [Cardizem CD] 240 mg PO DAILY #30 capsule 10/20/16 11/04/16 Rx Glimepiride 2 mg PO BID #60 tablet 10/20/16 11/04/16 Rx HYDROcodone/ACETAMIN 10-325 [[place] 1 tablet PO TID PRN tablet 10/20/16 Rx 10-325] Clopidogrel [Plavix] 75 mg PO DAILY 11/05/16 11/05/16 History cephALEXin [Keflex] 500 mg PO BID 11/05/16 11/05/16 History Allergies/Adverse Reactions: Allergies Allergy/AdvReac Type Severity Reaction Status Date / Time Shrimp Allergy ITCHING Verified 09/24/16 10:29 sulfamethoxazole Allergy Confusion Verified 10/13/16 21:04 [From Bactrim] trimethoprim [From Bactrim] Allergy Confusion Verified 10/13/16 21:04 - Constitutional Constitutional: Present: frequent falls. Absent: anorexia, chills, fever(s), night sweats, weight gain, weight loss - EENT Eyes: Absent: blurry vision, diplopia Ears: Absent: ear discharge Nose, mouth and throat: Present: headache(s). Absent: dysphagia, sore throat, throat swelling - Cardiovascular Cardiovascular: Present: chest pain at rest, dyspnea, dyspnea on exertion, edema , palpitations. Absent: chest pain with activity, orthopnea, PND - Respiratory Respiratory: Present: cough (Nonproductive and scant), dyspnea, dyspnea on exertion. Absent: wheezing, snoring - Gastrointestinal Gastrointestinal: Present: dyspepsia. Absent: change in bowel habits, constipation, cramping, dysphagia - Genitourinary Genitourinary: Absent: abnormal vaginal bleeding - Musculoskeletal Musculoskeletal: Present: arthralgias - Neurological Neurological: Present: abnormal gait - Psychiatric Psychiatric: Absent: anxiety, depression - Endocrine Endocrine: Absent: cold intolerance, heat intolerance - Hematologic/Lymphatic Hematologic/Lymphatic: Present: easy bruising. Absent: easy bleeding Medical,Surgical,& Family Hx - Medical History Cardio: History of: Cardiac Dysrhythmia (PAT), Hypertension No history of: CHF, MS Psychological: History of: Anxiety Disorders, Depression Neurology: History of: Cerebrovascular Accident No history of: Dementia, Seizures, TIA HEENT: History of: Eye Problem (cataract) Endocrine: History of: Diabetes Mellitus (IDDM), Dyslipidemia Respiratory: History of: Bronchitis No history of: Obstructive Sleep Apnea Genitourinary: History of: Recurring Urinary Tract Infections No history of: Kidney Stones Gastrointestinal: History of: Diverticulitis/ Diverticulosis, GERD, Hemorrhoids , GI Problems (Chronic constipation) No history of: Gastrointestinal Bleed Musculoskeletal: History of: Amputation (right toe), Back/Neck Problems, Musculoskeletal Problems Hematology: History of: Anemia Other: History of: MRSA - Surgical History Cardiac Surgeries: Patient Denies: Cardiac Catheterization HEENT Surgeries: Surgical HX of: Eye Surgery (cataracts) Patient denies: Tonsilectomy & Adenoidectomy Abdominal Surgeries: Surgical HX of: Abdominal Surgery, Appendectomy, Cholecystectomy, Colonoscopy, EGD Reproductive Surgeries: Surgical HX of;: Gynecologic Surgery, Hysterectomy Orthopedic Surgeries: Surgical HX of;: Total Hip Replacement (left) - Family History Family History: Reports;: Family Cancer (brother, sister), Family Diabetes ( mother), Family Heart Disease (mother and dad), Family Hypertension - Social History Smoking Status: Never smoker Frequency of Alcohol Use: None Type of Drug Use: None Marital Status: Functional capacity: uses cane/walker Physical Examination Vital Signs Temp Pulse Resp BP Pulse Ox 98.6 F 56 L 16 125/56 98 11/04/16 21:49 11/04/16 21:49 11/04/16 21:49 11/04/16 21:49 11/04/16 21:49 General: Present: Appears Well HEENT: Absent: Jaundice, Pallor Neck: Present: Supple Neck, Midline Trachea Cardiac: Present: Reg Rate and Rhythm (Right is about 60 when I listen to her.) , S1/S2, Audible Murmur (Systolic murmur at the left lower sternal border actually think this is tricuspid regurgitation that radiates anteriorly) Lungs: Present: Normal Exam Neuro: Present: Cranial Nerve 2-12 Intact Abdomen: Present: Soft, Active Bowel Sounds Skin: Present: Clear, Rash Extremities: Absent: Edema (Right foot is dressed at the ulcer site I did not undress), Clubbing, Cyanosis Result/EKG - Labs CBC & BMP: 11/04/16 22:42 11/04/16 22:42 Labs: Laboratory Results - last 24 hr 11/04/16 11/04/16 11/04/16 22:42 22:42 22:42 WBC 6.2 RBC 3.39 L Hgb 8.0 L Hct 26.9 L MCV 79.4 L MCH 24 L MCHC 29.7 L RDW 15.7 Plt Count 288 MPV 10.1 Neut % (Auto) 54.0 Lymph % (Auto) 30.8 [place] % (Auto) 11.1 Eos % (Auto) 3.2 Baso % (Auto) 0.6 Neut # (Auto) 3.4 Lymph # (Auto) 1.9 [place] # (Auto) 0.7 Eos # (Auto) 0.2 Baso # (Auto) 0.0 Immature Gran % 0.3 Nucleated RBC % 0.0 Immature Gran # 0.02 Nucleated RBCs # 0.00 Sodium 138 Potassium 4.4 Chloride 104 Carbon Dioxide 24 Anion Gap 14.4 BUN 20 H Creatinine 1.30 H GFR Calculation 35 BUN/Creatinine Ratio 15.00 Glucose 285 H POC Glucose Calculated Osmolality 287.7 Calcium 8.3 L Magnesium 1.8 Total Bilirubin 0.90 AST 14 ALT 14 Alkaline Phosphatase 56 Total Creatine Kinase CK-MB (CK-2) Troponin I < 0.015 B-Natriuretic Peptide 369 H Total Protein 6.3 L Albumin 2.8 L Globulin 3.5 Albumin/Globulin Ratio 0.8 L 11/05/16 11/05/16 07:06 07:25 WBC RBC Hgb Hct MCV MCH MCHC RDW Plt Count MPV Neut % (Auto) Lymph % (Auto) [place] % (Auto) Eos % (Auto) Baso % (Auto) Neut # (Auto) Lymph # (Auto) [place] # (Auto) Eos # (Auto) Baso # (Auto) Immature Gran % Nucleated RBC % Immature Gran # Nucleated RBCs # Sodium Potassium Chloride Carbon Dioxide Anion Gap BUN Creatinine GFR Calculation BUN/Creatinine Ratio Glucose POC Glucose 172 H Calculated Osmolality Calcium Magnesium Total Bilirubin AST ALT Alkaline Phosphatase Total Creatine Kinase 57 CK-MB (CK-2) 3.8 H Troponin I < 0.015 B-Natriuretic Peptide Total Protein Albumin Globulin Albumin/Globulin Ratio - EKG EKG results: interpreted by me (Sinus bradycardia without diagnostic EKG changes )
[2016-11-05] MEDS: LINACLOTIDE 145 MCG CAPSULE PO SCH (09:30)
[2016-11-05] MEDS ORDERED: hydrALAZINE 20 MG/1 ML VIAL IV PRN (09:40)
[2016-11-05 10:59] LABS: Troponin I Only < 0.015 NG/ML (0.00-0.045)
[2016-11-05] MEDS: cephALEXin 500 MG CAPSULE PO SCH ×2 (12:03→18:28)
[2016-11-05] MEDS: LOSARTAN 25 MG TABLET PO SCH (12:03)
[2016-11-05 13:35] LABS: Troponin I Only < 0.015 NG/ML (0.00-0.045)
[2016-11-05 16:18] LABS: Troponin I Only < 0.015 NG/ML (0.00-0.045)
[2016-11-05] MEDS ORDERED: INSULIN GLARGINE 100 UNIT/ML SUBCUT ONE (17:59)
[2016-11-05] MEDS ORDERED: INSULIN GLARGINE 100 UNIT/ML SUBCUT SCH (19:00)
[2016-11-05] MEDS ORDERED: ACEBUTOLOL 400 MG CAPSULE PO SCH (21:00)
[2016-11-05] MEDS: ACEBUTOLOL 200 MG CAPSULE PO SCH (21:11)
[2016-11-06] MEDS ORDERED: DEXTROSE 50% 25 GM/50 ML VIAL IV ONE (00:02)
[2016-11-06] MEDS ORDERED: SODIUM CHLORIDE 0.9% 1,000 ML IV SCH (00:30)
[2016-11-06 00:38] LABS: Basophils # 0.1 10*3/uL (0.0-0.2); Basophils % 0.8 % (0.0-0.8); Eosinophils # 0.7 10*3/uL (0.0-0.87); Eosinophils % 7.2 % (0.00-10.9); Hematocrit 30.2 VOL% (35.7-47.0); Hemoglobin 9.5 GM/DL (12.0-16.0); Immature Granulocytes % 0.6 %; Immature Granulocytes Absolute 0.06 #; Lymphocytes # 5.1 10*3/uL (1.4-4.0); Lymphocytes % 49.5 % (21.3-54.2); Mean Corpuscular HGB Conc 31.5 GM/DL (32-36); Mean Corpuscular Hemoglobin 25 PG (27-34); Mean Corpuscular Volume 79.5 FL (87-102); Mean Platelet Volume 9.9 FL (9.6-12.0); Monocytes # 1.1 10*3/uL (0.11-0.8); Monocytes % 10.9 % (1.7-12.7); Neutrophils # 3.2 10*3/uL (1.4-7.4); Platelet Count 357 T/CUMM (130-400); Red Cell Distribution Width 15.7 % (9.3-17.3); White Blood Count 10.3 T/CUMM (4-12)
[2016-11-06 01:08] LABS: Albumin 2.9 G/DL (3.4-5.0); Bilirubin,Total 0.5 MG/DL (0.2-1.0); Calcium 8.8 MG/DL (8.5-10.1); Partial Thromboplastin Time 22.4 SECS (0-40); Potassium 3.6 MMOL/L (3.5-5.1); Total Protein 6.3 G/DL (6.4-8.3)
[2016-11-06] MEDS: cephALEXin 500 MG CAPSULE PO SCH ×3 (01:16→12:32)
[2016-11-06 01:45] LABS: Eosinophils 5 % (0-10); Lymphocytes 48 % (20-55); Segmented Neutrophils 35 % (50-85); Total Cells Counted 100
[2016-11-06 01:46] LABS: Platelet Estimate Normal
--- NOTE | 2016-11-06 06:17 | CT Report ---
Exam: CT scan of brain without contrast Date: 11/06/2016 Indication: CVA stroke alert Comparison Patient's classification: Inpatient Technical: Images were obtained from the skull base to the vertex without the use of intravenous contrast. Dose reduction was performed with decreasing kv and mA and automated exposure Total DLP: 914.6 mGy*cm Findings: The study was initially reviewed by [facility]. Small vessel changes are present in the periventricular subcortical white matter regions with mild enlargement of ventricles present. The paranasal sinuses globes and sella are unremarkable. The mastoids are intact. The vertebral and internal carotid arteries reveal vascular plaque present. Impression: 1. Small vessel ischemic changes present. 2. Generalized cortical atrophy 3. Mild enlargement of ventricles 4. No acute hemorrhage infarction or mass effect. PROCEDURE INTERPRETED AT [facility] DEPARTMENT OF RADIOLOGY Final Report Signed by: Dr. Teodoro Rankin
--- NOTE | 2016-11-06 07:33 | Discharge Summary ---
Hospital Course - Hospital Course Hospital Course: Patient 81-year-old white female presented emergency room with bradycardia and some chest pain. Patient states this is now resolved and she is ready to go back home. Patient states she does not have any nausea, vomiting or diaphoresis. She had negative cardiac isoenzymes and was seen by cardiology who did not recommend any further diagnostic studies at this time. Patient denies any other problems at present. Patient will be discharged home today and I will follow her up in the office in 1 month's time. Diagnosis - Discharge Diagnosis (1) Chest pain Status: Chronic (2) Hypoxia Status: Acute Discharge Plan - Discharge Data Disposition: Disch To Home/Self Care Condition at Discharge: Stable Discharge Diet: advance to your usual diet Activity: resume usual activities as tolerated Hygiene: no restrictions Weight Bearing at Discharge: full weight bearing Contact your physician if you experience:: fever over 101 - Discharge Medications New Acetaminophen Tab [Tylenol Tab] 650 mg PO Q6H PRN tablet PRN Reason: Fever > 100.4 Or Headache Losartan [Cozaar] 25 mg PO DAILY tablet Acebutolol [Sectral] 200 mg PO BID capsule Continue Omeprazole [Prilosec] 20 mg PO DAILY Morphine Sulfate [Morphine Sulfate ER] 15 mg PO ONCE Baclofen Tab [Lioresal] 10 mg PO BID Estradiol Tab [Estrace Tab] 2 mg PO DAILY Simvastatin [Zocor] 10 mg PO DAILY hydroCHLOROthiazide [Hydrochlorothiazide] 25 mg PO DAILY PRN PRN Reason: FLUID Insulin Detemir [Levemir FlexPen] 40 unit SUBCUT QPM Linaclotide [Linzess] 145 mcg PO AC BREAKFAST #30 capsule Acebutolol [Sectral] 400 mg PO BID #60 capsule Diltiazem Cd Cap [Cardizem CD] 240 mg PO DAILY #30 capsule Glimepiride 2 mg PO BID #60 tablet HYDROcodone/ACETAMIN 10-325 [[employer] 10-325] 1 tablet PO TID PRN tablet PRN Reason: Pain Insulin Aspart [NovoLOG FlexPen] 15 mg SUBCUT BID Clopidogrel [Plavix] 75 mg PO DAILY cephALEXin [Keflex] 500 mg PO BID - Follow Up or Referral Follow Up: Lennox Love MD [Physician] - 1 Month - Forms/Instructions Exam - Constitutional Vitals: Period Temp Pulse Resp BP Sys/Saleh Pulse Ox Last 24 Hr 97.8 F-99.5 F 71-105 17-30 135-192/54-102 91-95 Exam: Objective a well-developed white female is awake alert in her normal self. She is smiling and states she is not any discomfort and she is anxious to be discharged. Cardiovascular: Heart rates irregular but there is no murmurs or gallops. Respiratory: The lungs clear to auscultation bilaterally. Abdomen: Abdomen soft and nontender to palpation. Discharge Results Labs on day of discharge: Labs from last 24 hours 11/06/16 11/06/16 11/06/16 02:52 01:16 00:35 WBC RBC Hgb Hct MCV MCH MCHC RDW Plt Count MPV Neut % (Auto) Lymph % (Auto) [place] % (Auto) Eos % (Auto) Baso % (Auto) Neut # (Auto) Lymph # (Auto) [place] # (Auto) Eos # (Auto) Baso # (Auto) Total Counted Immature Gran % Nucleated RBC % Immature Gran # Segmented Neutrophils Lymphocytes Monocytes Eosinophils Basophils Nucleated RBCs # Platelet Estimate Pappenheimer Bodies INR PT Patient/Control Mix Circ Anticoag PTT Sodium Potassium Chloride Carbon Dioxide Anion Gap BUN Creatinine GFR Calculation BUN/Creatinine Ratio Glucose POC Glucose 193 H 118 H 134 H Calculated Osmolality Calcium Total Bilirubin AST ALT Alkaline Phosphatase Total Creatine Kinase CK-MB (CK-2) Troponin I Total Protein Albumin Globulin Albumin/Globulin Ratio 11/06/16 11/06/16 11/06/16 00:22 00:22 00:22 WBC 10.3 D RBC 3.80 Hgb 9.5 L Hct 30.2 L MCV 79.5 L MCH 25 L MCHC 31.5 L RDW 15.7 Plt Count 357 D MPV 9.9 Neut % (Auto) 31.0 L Lymph % (Auto) 49.5 [place] % (Auto) 10.9 Eos % (Auto) 7.2 Baso % (Auto) 0.8 Neut # (Auto) 3.2 Lymph # (Auto) 5.1 H [place] # (Auto) 1.1 H Eos # (Auto) 0.7 Baso # (Auto) 0.1 Total Counted 100 Immature Gran % 0.6 Nucleated RBC % 0.0 Immature Gran # 0.06 Segmented Neutrophils 35 L Lymphocytes 48 Monocytes 11 Eosinophils 5 Basophils 1.0 H Nucleated RBCs # 0.00 Platelet Estimate Normal Pappenheimer Bodies Drilling Assistant INR 1.0 PT Patient/Control Mix 10.0 Circ Anticoag PTT 22.4 Sodium 143 Potassium 3.6 Chloride 108 H Carbon Dioxide 28 Anion Gap 10.6 BUN 13 Creatinine 0.80 GFR Calculation 72 BUN/Creatinine Ratio 16.00 Glucose 22 L* POC Glucose Calculated Osmolality 280.0 Calcium 8.8 Total Bilirubin 0.50 AST 13 ALT 13 Alkaline Phosphatase 59 Total Creatine Kinase CK-MB (CK-2) Troponin I Total Protein 6.3 L Albumin 2.9 L Globulin 3.4 Albumin/Globulin Ratio 0.8 L 11/06/16 11/05/16 11/05/16 00:01 19:47 16:50 WBC RBC Hgb Hct MCV MCH MCHC RDW Plt Count MPV Neut % (Auto) Lymph % (Auto) [place] % (Auto) Eos % (Auto) Baso % (Auto) Neut # (Auto) Lymph # (Auto) [place] # (Auto) Eos # (Auto) Baso # (Auto) Total Counted Immature Gran % Nucleated RBC % Immature Gran # Segmented Neutrophils Lymphocytes Monocytes Eosinophils Basophils Nucleated RBCs # Platelet Estimate Pappenheimer Bodies INR PT Patient/Control Mix Circ Anticoag PTT Sodium Potassium Chloride Carbon Dioxide Anion Gap BUN Creatinine GFR Calculation BUN/Creatinine Ratio Glucose POC Glucose 34 L* 339 H 295 H Calculated Osmolality Calcium Total Bilirubin AST ALT Alkaline Phosphatase Total Creatine Kinase CK-MB (CK-2) Troponin I Total Protein Albumin Globulin Albumin/Globulin Ratio 11/05/16 11/05/16 11/05/16 15:43 12:59 11:48 WBC RBC Hgb Hct MCV MCH MCHC RDW Plt Count MPV Neut % (Auto) Lymph % (Auto) [place] % (Auto) Eos % (Auto) Baso % (Auto) Neut # (Auto) Lymph # (Auto) [place] # (Auto) Eos # (Auto) Baso # (Auto) Total Counted Immature Gran % Nucleated RBC % Immature Gran # Segmented Neutrophils Lymphocytes Monocytes Eosinophils Basophils Nucleated RBCs # Platelet Estimate Pappenheimer Bodies INR PT Patient/Control Mix Circ Anticoag PTT Sodium Potassium Chloride Carbon Dioxide Anion Gap BUN Creatinine GFR Calculation BUN/Creatinine Ratio Glucose POC Glucose 155 H Calculated Osmolality Calcium Total Bilirubin AST ALT Alkaline Phosphatase Total Creatine Kinase 49 52 CK-MB (CK-2) 3.7 H 3.6 Troponin I < 0.015 < 0.015 Total Protein Albumin Globulin Albumin/Globulin Ratio 11/05/16 11/05/16 11/05/16 10:08 07:25 07:06 WBC RBC Hgb Hct MCV MCH MCHC RDW Plt Count MPV Neut % (Auto) Lymph % (Auto) [place] % (Auto) Eos % (Auto) Baso % (Auto) Neut # (Auto) Lymph # (Auto) [place] # (Auto) Eos # (Auto) Baso # (Auto) Total Counted Immature Gran % Nucleated RBC % Immature Gran # Segmented Neutrophils Lymphocytes Monocytes Eosinophils Basophils Nucleated RBCs # Platelet Estimate Pappenheimer Bodies INR PT Patient/Control Mix Circ Anticoag PTT Sodium Potassium Chloride Carbon Dioxide Anion Gap BUN Creatinine GFR Calculation BUN/Creatinine Ratio Glucose POC Glucose 172 H Calculated Osmolality Calcium Total Bilirubin AST ALT Alkaline Phosphatase Total Creatine Kinase 57 57 CK-MB (CK-2) 4.0 H 3.8 H Troponin I < 0.015 < 0.015 Total Protein Albumin Globulin Albumin/Globulin Ratio Cardiac isoenzymes remained normal. DS: Provider Date of admission: 11/05/16 00:45 Primary care physician: . No PCP Attending physician on admission: Lennox Love MD Consults: 11/05/16 00:45 Consult to Case Mgmt/Social Srvs [CONS] Routine Reason for Case Mgmt/Social Srvs: Discharge Planning 11/05/16 00:47 Consult to Physician [CONS] Routine Comment: Consulting Provider: Cardiology - [facility] When should Consulting Provider be notified: In am Consult to Specialist Group: Cardiology When should Consulting Provider be notified: In am Person Notified: [email or web address] Date Notified: 11/05/16 Time Notified: 07:14 11/05/16 02:22 Consult to Pastoral Services [CONS] Routine Comment: Pastoral Screen: Request Data Warehouse Consultant Visit Pastoral Screen Source of Request: Patient Discharging clinician: Lennox Love MD Expected date of discharge: 11/06/16
[2016-11-06] MEDS: GLIMEPIRIDE 2 MG TABLET PO SCH (08:33)
[2016-11-06] MEDS: LINACLOTIDE 145 MCG CAPSULE PO SCH (08:34)
[2016-11-06] MEDS: PANTOPRAZOLE 40 MG TABLET PO SCH ×2 (08:34→10:17)
[2016-11-06] MEDS: DOCUSATE SODIUM 100 MG CAPSULE PO SCH (08:34)
[2016-11-06] MEDS: CLOPIDOGREL 75 MG TABLET PO SCH (08:35)
[2016-11-06] MEDS: BACLOFEN 10 MG TABLET PO SCH (08:35)
[2016-11-06] MEDS: ACEBUTOLOL 200 MG CAPSULE PO SCH (08:35)
[2016-11-06] MEDS: INSULIN LISPRO 100 UNIT/ML SUBCUT SCH (08:35)
[2016-11-06] MEDS: LOSARTAN 25 MG TABLET PO SCH (08:35)
[2016-11-06] MEDS: SIMVASTATIN 10 MG TABLET PO SCH (08:35)
[2016-11-06] MEDS: ESTRADIOL 2 MG TABLET PO SCH (08:37)
--- NOTE | 2016-11-06 09:01 | Cardiology Progress Note ---
Cardiology - PN: Subj Interval history: Cardiology note Awake and alert Telemetry shows sinus rhythm in the 80s Blood pressure 164/84 in the right arm by me. Rhythm regular with systolic ejection murmur upper right sternal border Decreased breath sounds but clear Abdomen soft benign Daughter Nadine and son Devendra at the bedside. Discharge today as planned. We will arrange Lexiscan cardiac stress test next week in office Daughter will follow blood pressure and heart rate readings Exam (Progress Note) - Constitutional Vitals: Period Temp Pulse Resp BP Sys/Saleh Pulse Ox Last 24 Hr 97.8 F-99.5 F 71-105 17-30 135-194/54-102 91-95 Result/EKG - Labs CBC & BMP: 11/06/16 00:22 11/06/16 00:22 Labs: Laboratory Results - last 24 hr 11/05/16 11/05/16 11/05/16 10:08 11:48 12:59 WBC RBC Hgb Hct MCV MCH MCHC RDW Plt Count MPV Neut % (Auto) Lymph % (Auto) [place] % (Auto) Eos % (Auto) Baso % (Auto) Neut # (Auto) Lymph # (Auto) [place] # (Auto) Eos # (Auto) Baso # (Auto) Total Counted Immature Gran % Nucleated RBC % Immature Gran # Segmented Neutrophils Lymphocytes Monocytes Eosinophils Basophils Nucleated RBCs # Platelet Estimate Pappenheimer Bodies INR PT Patient/Control Mix Circ Anticoag PTT Sodium Potassium Chloride Carbon Dioxide Anion Gap BUN Creatinine GFR Calculation BUN/Creatinine Ratio Glucose POC Glucose 155 H Calculated Osmolality Calcium Total Bilirubin AST ALT Alkaline Phosphatase Total Creatine Kinase 57 52 CK-MB (CK-2) 4.0 H 3.6 Troponin I < 0.015 < 0.015 Total Protein Albumin Globulin Albumin/Globulin Ratio 11/05/16 11/05/16 11/05/16 15:43 16:50 19:47 WBC RBC Hgb Hct MCV MCH MCHC RDW Plt Count MPV Neut % (Auto) Lymph % (Auto) [place] % (Auto) Eos % (Auto) Baso % (Auto) Neut # (Auto) Lymph # (Auto) [place] # (Auto) Eos # (Auto) Baso # (Auto) Total Counted Immature Gran % Nucleated RBC % Immature Gran # Segmented Neutrophils Lymphocytes Monocytes Eosinophils Basophils Nucleated RBCs # Platelet Estimate Pappenheimer Bodies INR PT Patient/Control Mix Circ Anticoag PTT Sodium Potassium Chloride Carbon Dioxide Anion Gap BUN Creatinine GFR Calculation BUN/Creatinine Ratio Glucose POC Glucose 295 H 339 H Calculated Osmolality Calcium Total Bilirubin AST ALT Alkaline Phosphatase Total Creatine Kinase 49 CK-MB (CK-2) 3.7 H Troponin I < 0.015 Total Protein Albumin Globulin Albumin/Globulin Ratio 11/06/16 11/06/16 11/06/16 00:01 00:22 00:22 WBC 10.3 D RBC 3.80 Hgb 9.5 L Hct 30.2 L MCV 79.5 L MCH 25 L MCHC 31.5 L RDW 15.7 Plt Count 357 D MPV 9.9 Neut % (Auto) 31.0 L Lymph % (Auto) 49.5 [place] % (Auto) 10.9 Eos % (Auto) 7.2 Baso % (Auto) 0.8 Neut # (Auto) 3.2 Lymph # (Auto) 5.1 H [place] # (Auto) 1.1 H Eos # (Auto) 0.7 Baso # (Auto) 0.1 Total Counted 100 Immature Gran % 0.6 Nucleated RBC % 0.0 Immature Gran # 0.06 Segmented Neutrophils 35 L Lymphocytes 48 Monocytes 11 Eosinophils 5 Basophils 1.0 H Nucleated RBCs # 0.00 Platelet Estimate Normal Pappenheimer Bodies Lead Business Systems Analyst INR 1.0 PT Patient/Control Mix 10.0 Circ Anticoag PTT 22.4 Sodium Potassium Chloride Carbon Dioxide Anion Gap BUN Creatinine GFR Calculation BUN/Creatinine Ratio Glucose POC Glucose 34 L* Calculated Osmolality Calcium Total Bilirubin AST ALT Alkaline Phosphatase Total Creatine Kinase CK-MB (CK-2) Troponin I Total Protein Albumin Globulin Albumin/Globulin Ratio 11/06/16 11/06/16 11/06/16 00:22 00:35 01:16 WBC RBC Hgb Hct MCV MCH MCHC RDW Plt Count MPV Neut % (Auto) Lymph % (Auto) [place] % (Auto) Eos % (Auto) Baso % (Auto) Neut # (Auto) Lymph # (Auto) [place] # (Auto) Eos # (Auto) Baso # (Auto) Total Counted Immature Gran % Nucleated RBC % Immature Gran # Segmented Neutrophils Lymphocytes Monocytes Eosinophils Basophils Nucleated RBCs # Platelet Estimate Pappenheimer Bodies INR PT Patient/Control Mix Circ Anticoag PTT Sodium 143 Potassium 3.6 Chloride 108 H Carbon Dioxide 28 Anion Gap 10.6 BUN 13 Creatinine 0.80 GFR Calculation 72 BUN/Creatinine Ratio 16.00 Glucose 22 L* POC Glucose 134 H 118 H Calculated Osmolality 280.0 Calcium 8.8 Total Bilirubin 0.50 AST 13 ALT 13 Alkaline Phosphatase 59 Total Creatine Kinase CK-MB (CK-2) Troponin I Total Protein 6.3 L Albumin 2.9 L Globulin 3.4 Albumin/Globulin Ratio 0.8 L 11/06/16 11/06/16 02:52 08:06 WBC RBC Hgb Hct MCV MCH MCHC RDW Plt Count MPV Neut % (Auto) Lymph % (Auto) [place] % (Auto) Eos % (Auto) Baso % (Auto) Neut # (Auto) Lymph # (Auto) [place] # (Auto) Eos # (Auto) Baso # (Auto) Total Counted Immature Gran % Nucleated RBC % Immature Gran # Segmented Neutrophils Lymphocytes Monocytes Eosinophils Basophils Nucleated RBCs # Platelet Estimate Pappenheimer Bodies INR PT Patient/Control Mix Circ Anticoag PTT Sodium Potassium Chloride Carbon Dioxide Anion Gap BUN Creatinine GFR Calculation BUN/Creatinine Ratio Glucose POC Glucose 193 H 182 H Calculated Osmolality Calcium Total Bilirubin AST ALT Alkaline Phosphatase Total Creatine Kinase CK-MB (CK-2) Troponin I Total Protein Albumin Globulin Albumin/Globulin Ratio Specialty Discharge - Follow Up or Referrals Follow up with: Lennox Love MD [Physician] - 1 Month
[2016-11-06 12:18] VITALS: BP 192/89
== END 2016-11-06 13:40 | disposition home or self-care (01) ==
LOC: N.ED 21:43 → N.EDINP 21:43 → N.TELES 11-05 01:14
PROVIDERS: ADMIT Family Medicine; ATTEND Family Medicine

== ENCOUNTER 2016-11-12 13:21 | Inpatient (IN) ==
[2016-11-12] MEDS ORDERED: SODIUM CHLORIDE 0.9% 500 ML IV STA (13:45)
[2016-11-12] MEDS ORDERED: ONDANSETRON 4 MG/2 ML VIAL IV STA (13:45)
--- NOTE | 2016-11-12 13:50 | Emergency Department Note ---
Arrival - Arrival Chief Complaint: Syncope Stated Complaint: syncopial episode ED Nursing Triage Note: pt got up out of bed and took 2 steps and felt weak, family assisted pt back to bed and she passed out. Mode of Arrival: Stretcher Limitations: No Limitations Source: Patient, Family (Patient presents 18 hours post onset of symptoms) Time Seen by Provider: 11/12/16 13:44 - History of Present Illness HPI Narrative: This 81-year-old white female presents per the family member with problems of labile blood pressure for the last 18 hours culminating this morning when the patient was suddenly feeling dizzy and was helped back to bed whereupon she had a syncopal episode. The family member states the patient became very pale with shallow breathing for several minutes before returning to consciousness. Other than feeling dizzy, the patient had no other significant presyncopal symptoms. She denied sweats, chest pain, shortness of breath, headache, slurred speech, visual changes, or focal deficits. She did have a period of nausea which has just about abated since the episode. Of note the patient has an erratic heart rate as well as her labile hypertension and was to be evaluated for a pacemaker this very week. Of note, the patient does have a chronic respiratory condition , the etiology of which the family does not know, for which she is on home O2 for the last month. Currently the patient appears in no acute distress but as stated feels slightly nauseated and weak. Onset (ago): hour(s) (Patient presents 18 hours post onset of symptoms) Allergies/Adverse Reactions: Allergies Allergy/AdvReac Type Severity Reaction Status Date / Time Shrimp Allergy ITCHING Verified 09/24/16 10:29 sulfamethoxazole Allergy Confusion Verified 10/13/16 21:04 [From Bactrim] trimethoprim [From Bactrim] Allergy Confusion Verified 10/13/16 21:04 Home Medications: Home Medications Medication Instructions Recorded Confirmed Type Baclofen Tab [Lioresal] 10 mg PO BID 11/23/14 11/05/16 History Estradiol Tab [Estrace Tab] 2 mg PO DAILY 11/23/14 11/04/16 History Morphine Sulfate [Morphine Sulfate 15 mg PO ONCE 11/23/14 11/05/16 History ER] Omeprazole [Prilosec] 20 mg PO DAILY 11/23/14 11/04/16 History Simvastatin [Zocor] 10 mg PO DAILY 11/23/14 11/04/16 History hydroCHLOROthiazide 25 mg PO DAILY PRN 08/13/16 11/04/16 History [Hydrochlorothiazide] Insulin Detemir [Levemir FlexPen] 40 unit SUBCUT QPM 09/24/16 11/04/16 History Linaclotide [Linzess] 145 mcg PO AC BREAKFAST #30 capsule 09/29/16 11/04/16 Rx Insulin Aspart [NovoLOG FlexPen] 15 mg SUBCUT BID 10/14/16 11/04/16 History Acebutolol [Sectral] 400 mg PO BID #60 capsule 10/20/16 11/04/16 Rx Diltiazem Cd Cap [Cardizem CD] 240 mg PO DAILY #30 capsule 10/20/16 11/04/16 Rx Glimepiride 2 mg PO BID #60 tablet 10/20/16 11/04/16 Rx HYDROcodone/ACETAMIN 10-325 [[place] 1 tablet PO TID PRN tablet 10/20/16 Rx 10-325] Clopidogrel [Plavix] 75 mg PO DAILY 11/05/16 11/05/16 History cephALEXin [Keflex] 500 mg PO BID 11/05/16 11/05/16 History Acebutolol [Sectral] 200 mg PO BID capsule 11/06/16 Rx Acetaminophen Tab [Tylenol Tab] 650 mg PO Q6H PRN tablet 11/06/16 Rx Losartan [Cozaar] 25 mg PO DAILY tablet 11/06/16 Rx Review of System - Review of System 12 point system: reviewed and no additional remarkable complaints except as stated - Review of System Constitutional: Present: as per HPI Respiratory: Present: as per HPI Cardiovascular: Present: as per HPI Gastrointestinal: Present: as per HPI Neurological: Present: as per HPI Medical,Surgical,& Family Hx - Medical History Cardio: History of: Cardiac Dysrhythmia (PAT), Hypertension, Cardiovascular Problems (heart murmur) No history of: CHF, [place] Psychological: History of: Anxiety Disorders, Depression Neurology: History of: Cerebrovascular Accident No history of: Dementia, Seizures, TIA HEENT: History of: Eye Problem (cataract) Endocrine: History of: Diabetes Mellitus (IDDM), Diabetes Mellitus (NIDDM), Dyslipidemia Respiratory: History of: Bronchitis No history of: Obstructive Sleep Apnea Genitourinary: History of: Recurring Urinary Tract Infections No history of: Kidney Stones Gastrointestinal: History of: Diverticulitis/ Diverticulosis, GERD, Hemorrhoids , GI Problems (Chronic constipation) No history of: Gastrointestinal Bleed Musculoskeletal: History of: Amputation (right toe), Back/Neck Problems, Musculoskeletal Problems Hematology: History of: Anemia Other: History of: MRSA - Surgical History Cardiac Surgeries: Patient Denies: Cardiac Catheterization HEENT Surgeries: Surgical HX of: Eye Surgery (cataracts) Patient denies: Tonsilectomy & Adenoidectomy Abdominal Surgeries: Surgical HX of: Abdominal Surgery, Appendectomy, Cholecystectomy, Colonoscopy, EGD Reproductive Surgeries: Surgical HX of;: Gynecologic Surgery, Hysterectomy Orthopedic Surgeries: Surgical HX of;: Total Hip Replacement (left) - Family History Family History: Reports;: Family Cancer (brother, sister), Family Diabetes ( mother), Family Heart Disease (mother and dad), Family Hypertension - Social History Smoking Status: Never smoker Frequency of Alcohol Use: None Type of Drug Use: None Exam Physical Examination: GENERAL: Well developed, well nourished elderly white female in no acute distress. HEENT: Normocephalic. No trauma. Moist mucous membranes. EOMI. PERRLA. ENT NML NECK: Supple. No adenopathy. CARDIAC: Regular. No murmurs. Heart rate 47 CHEST: Clear to auscultation. No respiratory distress. O2 sat 91% ABDOMEN: Soft. Nontender. Active bowel sounds. EXTREMITIES: No trauma. Normal ROM. No pedal edema. SKIN: No diaphoresis. No rash. Healed foot ulcers right foot NEURO: Alert. Oriented 3. Motor, sensory, vibratory intact. No focal deficits. Vital Signs: Vital Signs Temperature 97.9 F 11/12/16 13:35 Pulse Rate 47 L 11/12/16 13:35 Respiratory Rate 18 11/12/16 13:35 Blood Pressure 91/47 11/12/16 13:35 O2 Sat by Pulse Oximetry 91 L 11/12/16 13:27 Course - Reevaluation(s) Reevaluation #1: Advised family the need for hospitalization given her drop in hematocrit and her evidence of congestive failure. - Consultations Consultation #1: Discussed with Dr. Sandra Cui who will admit for Dr. Love for further evaluation treatment. Results - Labs CBC & BMP: 11/12/16 14:19 11/12/16 14:19 Labs: I have reviewed the laboratory and noted the marked drop in hematocrit as well as the elevated BNP. - Impressions EKG: Sinus bradycardia at 46 with normal [place] interval and QRS duration but prolonged QT. Diffuse low voltage and ST flattening with no acute injury pattern noted. - Diagnostic Findings Procedure: Chest x-ray: image reviewed by me, report reviewed by me ( Cardiomegaly with evidence of congestive failure) Disposition Clinical Impression: Anemia, Bradycardia, Congestive heart failure Case discussed with: patient, patient's family Disposition: Still a Patient Condition: Guarded Time of Disposition: 15:45
[2016-11-12] MEDS ORDERED: ONDANSETRON 4 MG/2 ML VIAL ONE (14:02)
--- NOTE | 2016-11-12 14:09 | CT Report ---
History: Syncope Date: 11/12/2016 Study: CT head without contrast Comparison exam: November 06, [address] sections were obtained through the head without IV contrast. This CT exam was performed using one or more the following dose reduction techniques: Automated exposure control, adjustment of the MA and/or KV according to patient size, or use of iterative reconstruction technique. The ventricles are midline in position without evidence of hydrocephalus. There is mild cerebral atrophy. There is no mass or parenchymal hemorrhage. There is no gross CT evidence of acute cortical stroke. There is a small amount of ill-defined low density in the periventricular white matter without mass effect compatible with changes of small vessel disease. There is no extra-axial hematoma. There is mild to moderate distal carotid artery calcification. The paranasal sinuses and mastoid air cells are clear. There is no acute abnormality of the bony calvarium.. Impression: No acute intracranial process. Chronic ischemic changes. No significant interval change PROCEDURE INTERPRETED AT [facility] DEPARTMENT OF RADIOLOGY Final Report Signed by: Dr. Alexandra Perrin
--- NOTE | 2016-11-12 14:57 | XRay Report ---
History: Shortness of breath Date: 11/12/2016 Study: Chest x-ray AP portable Comparison exam: November 04, 2016 chest x-ray There is continued cardiomegaly. The pulmonary vasculature is slightly prominent. There is no mediastinal mass. There is some hazy opacity in the lung bases, left more than right, which likely represents some mild bibasilar pulmonary edema. There is a small left pleural effusion. Osseous structures are unchanged. Impression: Cardiomegaly and evidence of CHF with some mild bibasilar pulmonary edema PROCEDURE INTERPRETED AT [facility] DEPARTMENT OF RADIOLOGY Final Report Signed by: Dr. Alexandra Perrin
[2016-11-12 14:59] LABS: Basophils % 0.5 % (0.0-0.8); Eosinophils # 0.4 10*3/uL (0.0-0.87); Eosinophils % 5.2 % (0.00-10.9); Hematocrit 25.8 VOL% (35.7-47.0); Hemoglobin 7.7 GM/DL (12.0-16.0); Immature Granulocytes % 0.2 %; Immature Granulocytes Absolute 0.02 #; Lymphocytes % 24.5 % (21.3-54.2); Mean Corpuscular HGB Conc 29.8 GM/DL (32-36); Mean Corpuscular Hemoglobin 24 PG (27-34); Mean Corpuscular Volume 80.6 FL (87-102); Mean Platelet Volume 10.3 FL (9.6-12.0); Monocytes # 0.8 10*3/uL (0.11-0.8); Monocytes % 9.7 % (1.7-12.7); Neutrophils # 4.9 10*3/uL (1.4-7.4); Neutrophils % 59.9 % (38.7-73.9); Platelet Count 247 T/CUMM (130-400); Red Cell Distribution Width 15.9 % (9.3-17.3); White Blood Count 8.2 T/CUMM (4-12)
[2016-11-12 15:11] LABS: PT Patient Result 10.3 SECS
[2016-11-12 15:30] LABS: Alanine Aminotransferase 12 U/L (13-56); Albumin 2.5 G/DL (3.4-5.0); Alkaline Phosphatase 47 U/L (45-117); Aspartate Amino Transferase 12 U/L (0-37); Bilirubin,Total < 0.39 MG/DL (0.2-1.0); Blood Urea Nitrogen 16 MG/DL (7-18); Calcium 8.2 MG/DL (8.5-10.1); Glucose 205 MG/DL (74-106); Osmolality,Calculated 287.3 MOS/KG (273-304); Sodium 141 MMOL/L (136-145); Total Protein 5.5 G/DL (6.4-8.3); Troponin I Only < 0.015 NG/ML (0.00-0.045)
[2016-11-12] MEDS ORDERED: DEXTROSE 50% 25 GM/50 ML VIAL IV PRN (15:47)
[2016-11-12] MEDS ORDERED: GLUCAGON 1 MG VIAL IM PRN (15:47)
[2016-11-12] MEDS ORDERED: ONDANSETRON 4 MG/2 ML VIAL IV PRN (15:47)
[2016-11-12] MEDS ORDERED: HYDROmorphone 2 MG/1 ML VIAL IV PRN (15:47)
[2016-11-12] MEDS ORDERED: INSULIN LISPRO 100 UNIT/ML SUBCUT SCH (17:00)
[2016-11-12] MEDS: ALBUTEROL/IPRATROPIUM 3 ML NEB RESP TX SCH ×2 (17:08→20:45)
[2016-11-12] MEDS: INSULIN REGULAR 100 UNIT/ML SUBCUT SCH (17:41)
--- NOTE | 2016-11-12 18:12 | Internal Med History&Physical ---
Assessment and Plan (1) Hypotension Problem details: drug induced and secondary to anemia Status: Acute Current Visit: Yes (2) Hypoxia Status: Chronic Current Visit: Yes (3) Symptomatic bradycardia Status: Acute Current Visit: Yes (4) Anemia Status: Chronic Current Visit: Yes (5) Diabetes Status: Chronic Current Visit: Yes Qualifiers: Diabetes mellitus type: type 2 Diabetes mellitus complication status: with kidney complications Diabetes mellitus complication detail: with chronic kidney disease Diabetes mellitus emt intermediate insulin use: with halfway use Chronic kidney disease stage: stage 3 (moderate) Qualified Code(s): E11.22 - Type 2 diabetes mellitus with diabetic chronic kidney disease; N18.3 - Chronic kidney disease, stage 3 (moderate); Z79.4 - intermediate card tender (current) use of insulin History of Present Illness Chief complaint: syncopal episode; weakness History of present illness: Ms. Barahona is a 81 year old female patient of Dr. Lennox Love with history of DM, dyslipidemia, cardiac dysrhythmia, HTN, hypoxia and on home oxygen, stroke, chronic renal insufficiency, anemia chronic disease, bradycardia, chronic fatigue, OA, recurrent UTI, acid reflux, chronic constipation, who presented to ER with significant anemia and hypotension. Chest x-ray indicates mild pulmonary edema/CHF. She was to be evaluated for need of pacemaker for symptomatic bradycardia. She is on Acebutolol for cardiac dysrhythmia. ECHO in October showed LVEF 60-65% with diastolic dysfunction and moderate pulmonary hypertension. Will consult Dr. Vega who follows her in clinic. Will consult Dr. Ramsey for evaluation of possible underlying sleep apnea. Will consult Dr. Perrin to further evaluate anemia for GI bleed. She has been on Plavix. Home Medications Medication Instructions Recorded Confirmed Type Baclofen Tab [Lioresal] 10 mg PO BID 11/23/14 11/12/16 History Estradiol Tab [Estrace Tab] 2 mg PO DAILY 11/23/14 11/12/16 History Morphine Sulfate [Morphine Sulfate 15 mg PO BID 11/23/14 11/12/16 History ER] Omeprazole [Prilosec] 20 mg PO DAILY 11/23/14 11/12/16 History Simvastatin [Zocor] 10 mg PO QPM 11/23/14 11/12/16 History hydroCHLOROthiazide 25 mg PO DAILY PRN 08/13/16 11/12/16 History [Hydrochlorothiazide] Insulin Aspart [NovoLOG FlexPen] 15 mg SUBCUT BID 10/14/16 11/12/16 History Diltiazem Cd Cap [Cardizem CD] 240 mg PO DAILY #30 capsule 10/20/16 11/12/16 Rx HYDROcodone/ACETAMIN 10-325 [[place] 1 tablet PO TID PRN tablet 10/20/16 Rx 10-325] Clopidogrel [Plavix] 75 mg PO DAILY 11/05/16 11/12/16 History cephALEXin [Keflex] 500 mg PO QID 11/05/16 11/12/16 History Acebutolol [Sectral] 200 mg PO BID capsule 11/06/16 11/12/16 Rx Acetaminophen Tab [Tylenol Tab] 650 mg PO Q6H PRN tablet 11/06/16 11/12/16 Rx Losartan [Cozaar] 25 mg PO DAILY tablet 11/06/16 11/12/16 Rx Glimepiride 4 mg PO DAILY 11/12/16 11/12/16 History Insulin Glargine,Hum.rec.anlog 40 unit SUBCUT BEDTIME 11/12/16 11/12/16 History [Lauren Morrow] Allergies Allergy/AdvReac Type Severity Reaction Status Date / Time Shrimp Allergy ITCHING Verified 09/24/16 10:29 sulfamethoxazole Allergy Confusion Verified 10/13/16 21:04 [From Bactrim] trimethoprim [From Bactrim] Allergy Confusion Verified 10/13/16 21:04 Medical,Surgical,& Family Hx - Medical History Cardio: History of: Cardiac Dysrhythmia (PAT), Hypertension, Cardiovascular Problems (heart murmur) No history of: CHF, [place] Psychological: History of: Anxiety Disorders, Depression Neurology: History of: Cerebrovascular Accident No history of: Dementia, Seizures, TIA HEENT: History of: Eye Problem (cataract) Endocrine: History of: Diabetes Mellitus (IDDM), Dyslipidemia Respiratory: History of: Bronchitis No history of: Obstructive Sleep Apnea Genitourinary: History of: Recurring Urinary Tract Infections No history of: Kidney Stones Gastrointestinal: History of: Diverticulitis/ Diverticulosis, GERD, Hemorrhoids , GI Problems (Chronic constipation) No history of: Gastrointestinal Bleed Musculoskeletal: History of: Amputation (right toe), Back/Neck Problems, Musculoskeletal Problems Hematology: History of: Anemia Other: History of: MRSA - Surgical History Cardiac Surgeries: Patient Denies: Cardiac Catheterization HEENT Surgeries: Surgical HX of: Eye Surgery (cataracts) Patient denies: Tonsilectomy & Adenoidectomy Abdominal Surgeries: Surgical HX of: Abdominal Surgery, Appendectomy, Cholecystectomy, Colonoscopy, EGD Reproductive Surgeries: Surgical HX of;: Gynecologic Surgery, Hysterectomy Orthopedic Surgeries: Surgical HX of;: Total Hip Replacement (left) - Family History Family History: Reports;: Family Cancer (brother, sister), Family Diabetes ( mother), Family Heart Disease (mother and dad), Family Hypertension - Social History Smoking Status: Never smoker Frequency of Alcohol Use: None Type of Drug Use: None - Constitutional Constitutional: Present: fatigue, lethargy, weakness - Cardiovascular Cardiovascular: Present: dyspnea on exertion, lightheadedness - Musculoskeletal Musculoskeletal: Present: arthralgias Exam - Constitutional Vitals: Period Temp Pulse Resp BP Sys/Saleh Pulse Ox Last 24 Hr 97.1 F-97.9 F 47-84 16-20 91-97/47-53 90-91 General appearance: no acute distress - Head Head exam: Present: normocephalic - Eye Eye exam: Present: EOMI - Respiratory Respiratory exam: Present: decreased breath sounds (both bases). Absent: rhonchi, wheezes - Cardiovascular Cardiovascular exam: Present: bradycardia - GI/Abdominal GI/Abdominal exam: Present: normal bowel sounds, soft. Absent: tenderness - Extremities Exam Extremities exam: Absent: edema - Neurological Exam Neurological exam: Present: alert - Psychiatric Psychiatric exam: Present: normal mood - Skin Skin exam: Present: warm, dry Results - Labs CBC & BMP: 11/12/16 14:19 11/12/16 14:19 - EKG EKG shows: bradycardia - Diagnostic Findings Procedure: Chest x-ray: report reviewed by me, image reviewed by me, CT: report reviewed by me
[2016-11-12] MEDS ORDERED: traMADol 50 MG TABLET PO PRN (18:24)
[2016-11-12] MEDS ORDERED: SODIUM CHLORIDE 0.9% 250 ML IV PRN (18:29)
[2016-11-12] MEDS: SIMVASTATIN 10 MG TABLET PO SCH (20:58)
[2016-11-12] MEDS ORDERED: INSULIN GLARGINE HUM REC ANLOG 40 UNIT SUBCUT SCH (21:00)
[2016-11-12] MEDS ORDERED: INSULIN GLARGINE 100 UNIT/ML SUBCUT SCH (21:00)
[2016-11-12] MEDS ORDERED: BACLOFEN 10 MG TABLET PO SCH (21:00)
[2016-11-12] MEDS: MORPHINE 2 MG/1 ML SYRINGE IV PRN (23:42)
[2016-11-13] MEDS: ALBUTEROL/IPRATROPIUM 3 ML NEB RESP TX SCH ×4 (01:06→19:54)
--- NOTE | 2016-11-13 06:06 | EKG Report ---
Stationary ECG Study [facility] ER Test Date: 11/12/2016 2:25:46 PM Pat Name: KWASI BUI Department: Room: 286 Gender: F Product Specialist: : [id number] Requested by: Jani Roman Order Number: [id number] Reading MD: TG MORRIS Intervals [place] Rate: 46 P: 81 [place]: 197 QRS: 31 QRSD: 89 T: 25 QT: 535 QTc: 494 Interpretive Statements SINUS BRADYCARDIA LOW QRS VOLTAGE IN EXTREMITY LEADS PROLONGED QT INTERVAL Electronically Signed On 11-13-16 08:51:59 CDT by TG MORRIS [email or web address]
[2016-11-13] MEDS: INSULIN LISPRO 100 UNIT/ML SUBCUT SCH ×4 (06:34→20:44)
[2016-11-13] MEDS: MORPHINE 2 MG/1 ML SYRINGE IV PRN ×2 (06:40→10:15)
[2016-11-13] MEDS: INSULIN REGULAR 100 UNIT/ML SUBCUT SCH ×2 (07:41→15:55)
[2016-11-13 07:54] LABS: Basophils # 0.1 10*3/uL (0.0-0.2); Basophils % 0.9 % (0.0-0.8); Eosinophils # 0.4 10*3/uL (0.0-0.87); Eosinophils % 5.6 % (0.00-10.9); Hematocrit 34.3 VOL% (35.7-47.0); Immature Granulocytes % 0.5 %; Immature Granulocytes Absolute 0.03 #; Lymphocytes # 1.9 10*3/uL (1.4-4.0); Lymphocytes % 30.1 % (21.3-54.2); Mean Corpuscular HGB Conc 31.8 GM/DL (32-36); Mean Corpuscular Hemoglobin 25 PG (27-34); Mean Platelet Volume 9.8 FL (9.6-12.0); Monocytes # 0.8 10*3/uL (0.11-0.8); Monocytes % 12.8 % (1.7-12.7); Neutrophils # 3.2 10*3/uL (1.4-7.4); Neutrophils % 50.1 % (38.7-73.9); Platelet Count 226 T/CUMM (130-400); Red Cell Distribution Width 15.9 % (9.3-17.3); White Blood Count 6.4 T/CUMM (4-12)
[2016-11-13 08:01] LABS: Hemoglobin 10.9 GM/DL (12.0-16.0); Red Blood Count 4.29 MC/CUMM (3.8-5.5)
[2016-11-13 08:29] LABS: Albumin 2.7 G/DL (3.4-5.0); Calcium 8.5 MG/DL (8.5-10.1); Osmolality,Calculated 275.7 MOS/KG (273-304); Potassium 4.4 MMOL/L (3.5-5.1)
[2016-11-13] MEDS ORDERED: LOSARTAN 25 MG TABLET PO SCH ×2 (09:00→10:14)
[2016-11-13] MEDS: PANTOPRAZOLE 40 MG TABLET PO SCH (09:22)
[2016-11-13] MEDS: DILTIAZEM CD 240 MG CAPSULE PO SCH (09:22)
[2016-11-13] MEDS: ESTRADIOL 2 MG TABLET PO SCH (09:22)
[2016-11-13] MEDS: GLIMEPIRIDE 4 MG TABLET PO SCH (09:22)
[2016-11-13] MEDS ORDERED: ceFAZolin 1,000 MG VIAL IRRIG ONE (11:18)
[2016-11-13] MEDS ORDERED: hydrALAZINE 20 MG/1 ML VIAL IV PRN (11:54)
[2016-11-13] MEDS ORDERED: LOSARTAN 25 MG TABLET PO ONE (12:03)
--- NOTE | 2016-11-13 12:13 | Cardiology Consult Note ---
Assessment and Plan - Time spent with patient Time spent with patient: Greater than 30 minutes (due to assessment, plan, and documentation) (1) Syncope Status: Acute Assessment and plan: See plan of care listed below. Current Visit: Yes (2) Sick sinus syndrome Status: Acute Assessment and plan: See plan of care listed below. Current Visit: Yes (3) PAF (paroxysmal atrial fibrillation) Status: Acute Assessment and plan: See plan of care listed below. Current Visit: Yes (4) History of PAT (paroxysmal atrial tachycardia) Status: Chronic Assessment and plan: See plan of care listed below. Current Visit: No (5) Hypertension Status: Chronic Assessment and plan: See plan of care listed below. Current Visit: No (6) Hyperlipidemia Status: Chronic Assessment and plan: See plan of care listed below. Current Visit: Yes (7) Anemia Status: Chronic Assessment and plan: See plan of care listed below. Current Visit: Yes (8) Diabetes Status: Chronic Assessment and plan: See plan of care listed below. Current Visit: Yes Qualifiers: Diabetes mellitus type: type 2 Diabetes mellitus complication status: with kidney complications Diabetes mellitus complication detail: with chronic kidney disease Diabetes mellitus chcf insulin use: with wallcovering hanger use Chronic kidney disease stage: stage 3 (moderate) Qualified Code(s): E11.22 - Type 2 diabetes mellitus with diabetic chronic kidney disease; N18.3 - Chronic kidney disease, stage 3 (moderate); Z79.4 - senior care (current) use of insulin (9) Chronic renal insufficiency Status: Chronic Assessment and plan: See plan of care listed below. Current Visit: Yes History of Present Illness - Data of Consult Patient: known to practice within the last 3 years Consult date: 11/12/16 Requesting Physician: Jani Martin Primary care physician: Lennox Love - Consult Narrative Reason for consult: syncope, weakness History of present illness: Wall Covering Contractor: Dr. Vega PCP: Dr. Lennox Love Ms. Barahona is a 81 year old female with a history of paroxysmal atrial tachycardia, hypertension, hyperlipidemia, diabetes mellitus, prior stroke, chronic renal insufficiency, anemia of chronic disease, osteoarthritis, GERD, hypoxia with chronic home oxygen. Risk factors are significant for: age, hypertension, hyperlipidemia, diabetes, sedentary lifestyle. Last echocardiogram on 10/17/16 revealed mild LVH with diastolic dysfunction, EF of 60- 65%, severely increased left atrial diameter, mild MR, mild aortic stenosis, moderate TR with PAP 52 mmHg. Ms. Barahona presented to the emergency room yesterday after experiencing a syncopal episode. She has had several recurrent admissions in the past couple of months for PAT, symptomatic bradycardia, and chest pain. She was scheduled for a nuclear stress test at [facility] on November 16. For the past several weeks she has been having numerous presyncopal episodes; however, yesterday was the first time that she actually passed out. Her daughters Whitley Mccoy, and Fay are at the bedside and to me that yesterday about 1215 she got out of the bed and took a few steps but then had to step back and sit down in the bed. Before they could ask her what was wrong, she fell backwards on the bed and the report she was unresponsive for 3-4 minutes. She did not lose control of bowel or bladder function. When she came to, her daughters checked her vital signs and noted that her diastolic blood pressure was in the 40s and her heart rate was 43. Upon arrival to the emergency room her heart rate was 47 and her blood pressure was 91/47. Her daughters tell me that her blood pressure had been running high for the past few days with systolic blood pressure in the 190s. Her heart rate usually runs 70s. She has frequent palpitations and is able to tell when she is going to have one of these "episodes" she gets very dizzy and weak and has to sit down. On admission, she was noted to be anemic with H&H of 7.7 and 25.8. She has received 2 units of packed red blood cells. Stool for occult blood has been negative. GI has been consulted and would like to perform upper endoscopy with her cardiac issues are more stable. She will need to be off of her Plavix for 5 days. She has had no further syncopal spells since arriving. She has had palpitations and felt weak yesterday evening. Upon review of her groundwater monitoring technician, she was noted to have a 3.2 second pause followed by a 2.4 second pause around 1845 yesterday afternoon and what appears to be paroxysmal atrial fibrillation. Assessment/Plan: 1. Syncope - Patient had symptomatic bradycardia with syncopal episode yesterday. Patient will be scheduled for dual chamber PM implantation with Dr. Nicole this afternoon. 2. Sick sinus syndrome - After discussing with Dr. Nicole, given patient's history of difficult to control PAT and her symptomatic bradycardia with pauses , she will be scheduled for dual chamber pacemaker implantation with Dr. Nicole this afternoon. Will hold NPO. 3. PAT/PAF - Continue Cardizem and monitor. Patient's heart rates have been stable today in the 70s and 80s. 4. Hypertension -suboptimally controlled at present. Have increased her dose of Cozaar to 50 mg p.o. daily. Will also order some hydralazine as needed and I suspect we will continue having to adjust her home medications. 5. Hyperlipidemia -continue lipid-lowering agent. 6. Anemia -GI has been consulted. She received 2 units of packed red blood cells yesterday and H&H is much improved. 7. Diabetes -she is on Accu-Cheks before meals and at bedtime with sliding scale insulin. 8. Chronic renal insufficiency -creatinine 1.2 on admission, now down to 0.9 with GFR 63. CC: Lennox Love MD - Home Medications and Allergies Home Medications: Home Medications Medication Instructions Recorded Confirmed Type Baclofen Tab [Lioresal] 10 mg PO BID 11/23/14 11/12/16 History Estradiol Tab [Estrace Tab] 2 mg PO DAILY 11/23/14 11/12/16 History Morphine Sulfate [Morphine Sulfate 15 mg PO BID 11/23/14 11/12/16 History ER] Omeprazole [Prilosec] 20 mg PO DAILY 11/23/14 11/12/16 History Simvastatin [Zocor] 10 mg PO QPM 11/23/14 11/12/16 History hydroCHLOROthiazide 25 mg PO DAILY PRN 08/13/16 11/12/16 History [Hydrochlorothiazide] Insulin Aspart [NovoLOG FlexPen] 15 mg SUBCUT BID 10/14/16 11/12/16 History Diltiazem Cd Cap [Cardizem CD] 240 mg PO DAILY #30 capsule 10/20/16 11/12/16 Rx HYDROcodone/ACETAMIN 10-325 [[place] 1 tablet PO TID PRN tablet 10/20/16 Rx 10-325] Clopidogrel [Plavix] 75 mg PO DAILY 11/05/16 11/12/16 History cephALEXin [Keflex] 500 mg PO QID 11/05/16 11/12/16 History Acebutolol [Sectral] 200 mg PO BID capsule 11/06/16 11/12/16 Rx Acetaminophen Tab [Tylenol Tab] 650 mg PO Q6H PRN tablet 11/06/16 11/12/16 Rx Losartan [Cozaar] 25 mg PO DAILY tablet 11/06/16 11/12/16 Rx Glimepiride 4 mg PO DAILY 11/12/16 11/12/16 History Insulin Glargine,Hum.rec.anlog 40 unit SUBCUT BEDTIME 11/12/16 11/12/16 History [Lauren Morrow] Allergies/Adverse Reactions: Allergies Allergy/AdvReac Type Severity Reaction Status Date / Time Shrimp Allergy ITCHING Verified 09/24/16 10:29 sulfamethoxazole Allergy Confusion Verified 10/13/16 21:04 [From Bactrim] trimethoprim [From Bactrim] Allergy Confusion Verified 10/13/16 21:04 Review of systems: - Constitutional: Present: headache(s), weakness, As per HPI. Absent: anorexia , chills, daytime sleepiness, excessive sweating, fever(s), frequent falls, increased appetite, lethargy, malaise, night sweats, stops breathing during sleep, weight gain, weight loss, fatigue. - EENT Eyes: Present: As per HPI. Absent: blurry vision, diplopia, loss of vision Ears: Present: As per HPI. Absent: decreased hearing, ear discharge, ear pain Nose, mouth and throat: Present: As per HPI. Absent: dysphagia, epistaxis, headache(s), hoarseness, lip swelling, nasal congestion, neck mass, neck pain, sinus pressure, sore throat, throat swelling, tongue swelling, vertigo - Cardiovascular: Present: edema, palpitations, lightheadedness, as per HPI. Absent: chest pain at rest, chest pain with activity, dyspnea, dyspnea on exertion, claudication, diaphoresis, radiating jaw, neck or arm pain, orthopnea , PND - Respiratory: Present: as per HPI. Absent: dyspnea, dyspnea on exertion, cough , hemoptysis, wheezing, snoring, pain on inspiration - Gastrointestinal: Present: As per HPI. Absent: abdominal pain, bloating, change in bowel habits, constipation, diarrhea, heartburn, hematemesis, hematochezia, loose stools, melena, nausea, vomiting - Genitourinary: Present: As per HPI. Absent: difficulty urinating, dysuria, flank pain, hematuria, nocturia, urinary frequency, urinary incontinence - Musculoskeletal: Present: As per HPI. Absent: arthralgias, back pain, joint swelling, limited range of motion, muscle cramps, muscle weakness, myalgias - Neurological: Present: dizziness, gait instability (uses walker), As per HPI. Absent: abnormal speech, behavioral changes, confusion, convulsions, disequilibrium, focal weakness, frequent falls, headache(s), memory loss, numbness, paresthesias, radicular pain, syncope, tremor(s) - Psychiatric: Present: As per HPI. Absent: anxiety, confusion, depression, panic attacks - Endocrine: Present: As per HPI. Absent: cold intolerance, fatigue, heat intolerance, polydipsia, polyphagia - Hematologic/Lymphatic: Present: As per HPI. Absent: easy bleeding, easy bruising, lymphadenopathy Medical,Surgical,& Family Hx - Medical History Cardio: History of: Cardiac Dysrhythmia (PAT), Hypertension, Cardiovascular Problems (heart murmur) No history of: CHF, AR Psychological: History of: Anxiety Disorders, Depression Neurology: History of: Cerebrovascular Accident No history of: Dementia, Seizures, TIA HEENT: History of: Eye Problem (cataract) Endocrine: History of: Diabetes Mellitus (IDDM), Diabetes Mellitus (NIDDM), Dyslipidemia Respiratory: History of: Bronchitis No history of: Obstructive Sleep Apnea Genitourinary: History of: Recurring Urinary Tract Infections No history of: Kidney Stones Gastrointestinal: History of: Diverticulitis/ Diverticulosis, GERD, Hemorrhoids , GI Problems (Chronic constipation) No history of: Gastrointestinal Bleed Musculoskeletal: History of: Amputation (right toe), Back/Neck Problems, Musculoskeletal Problems Hematology: History of: Anemia Other: History of: MRSA - Surgical History Cardiac Surgeries: Patient Denies: Cardiac Catheterization HEENT Surgeries: Surgical HX of: Eye Surgery (cataracts) Patient denies: Tonsilectomy & Adenoidectomy Abdominal Surgeries: Surgical HX of: Abdominal Surgery, Appendectomy, Cholecystectomy, Colonoscopy, EGD Reproductive Surgeries: Surgical HX of;: Gynecologic Surgery, Hysterectomy Orthopedic Surgeries: Surgical HX of;: Total Hip Replacement (left) - Family History Family History: Reports;: Family Cancer (brother, sister), Family Diabetes ( mother), Family Heart Disease (mother and dad), Family Hypertension - Social History Smoking Status: Never smoker Frequency of Alcohol Use: None Type of Drug Use: None Marital Status: Lives With:: Children Functional capacity: uses cane/walker Physical Examination Vital Signs Temp Pulse Resp BP Pulse Ox 97.9 F 47 L 20 91/47 91 L 11/12/16 13:27 11/12/16 13:27 11/12/16 13:27 11/12/16 13:27 11/12/16 13:27 Exam: General appearance: Pleasant and cooperative. Normal weight, no acute distress. - Head Head exam: Present: normal inspection, normocephalic, atraumatic. Absent: hematoma, laceration - Eye Eye exam: Present: EOMI. Absent: conjunctival injection, nystagmus, periorbital swelling, scleral icterus, laceration to eyelids Pupils: Present: PERRL. Absent: constricted, dilated, fixed, irregular, unequal - ENT ENT exam: Present: normal exam, normal external ear exam - Neck Neck exam: Present: normal inspection. Absent: lymphadenopathy, meningismus, tenderness, thyromegaly - Respiratory Respiratory exam: Present: Scant bibasilar rales posteriorly, otherwise clear to auscultation bilaterally. Absent: accessory muscle use, chest wall tenderness - Cardiovascular Cardiovascular exam: Present: regular rate and rhythm, systolic murmur. Absent : gallop, rubs - GI/Abdominal GI/Abdominal exam: Present: normal bowel sounds, soft. Absent: distended, firm , guarding, hernia, mass, tenderness, rebound. - Extremities Exam Extremities exam: Present: normal inspection, normal capillary refill. Upper extremity pulses 2+. Lower extremity pulses 2+. 1+ pitting edema to BLE. Absent : calf tenderness -Musculoskeletal Exam Musculoskeletal: Present: No Fluid Collection, No Pain, Normal Range of Motion - Back Exam Back exam: Present: normal inspection. Absent: muscle spasm, vertebral tenderness - Neurological Exam Neurological exam: Present: alert, oriented X3, grossly intact without resting or essential tremor - Psychiatric Psychiatric exam: Present: normal affect, normal mood - Skin Skin exam: Present: normal color, warm, dry, intact. Absent: cyanosis, diaphoretic, rash, urticaria Result/EKG - Labs CBC & BMP: 11/13/16 07:43 11/13/16 07:43 Lab Results: I have reviewed the past 24 hour labs Labs: Laboratory Results - last 24 hr 11/12/16 11/12/16 11/12/16 14:19 14:19 14:19 WBC 8.2 RBC 3.20 L Hgb 7.7 L Hct 25.8 L MCV 80.6 L MCH 24 L MCHC 29.8 L RDW 15.9 Plt Count 247 MPV 10.3 Neut % (Auto) 59.9 Lymph % (Auto) 24.5 Hubbard % (Auto) 9.7 Eos % (Auto) 5.2 Baso % (Auto) 0.5 Neut # (Auto) 4.9 Lymph # (Auto) 2.0 Hubbard # (Auto) 0.8 Eos # (Auto) 0.4 Baso # (Auto) 0.0 Immature Gran % 0.2 Nucleated RBC % 0.0 Immature Gran # 0.02 Nucleated RBCs # 0.00 INR 1.0 PT Patient/Control Mix 10.3 Sodium 141 Potassium 5.0 Chloride 108 H Carbon Dioxide 25 Anion Gap 13.0 BUN 16 Creatinine 1.20 H GFR Calculation 43 BUN/Creatinine Ratio 13.00 Glucose 205 H POC Glucose Calculated Osmolality 287.3 Calcium 8.2 L Total Bilirubin < 0.39 AST 12 ALT 12 L Alkaline Phosphatase 47 Total Creatine Kinase 35 D CK-MB (CK-2) 2.2 Troponin I < 0.015 B-Natriuretic Peptide Total Protein 5.5 L Albumin 2.5 L Globulin 3.0 Albumin/Globulin Ratio 0.8 L Blood Type Antibody Screen Crossmatch Blood Bank Comment 11/12/16 11/12/16 11/12/16 14:19 14:19 14:19 WBC RBC Hgb Hct MCV MCH MCHC RDW Plt Count MPV Neut % (Auto) Lymph % (Auto) Hubbard % (Auto) Eos % (Auto) Baso % (Auto) Neut # (Auto) Lymph # (Auto) Hubbard # (Auto) Eos # (Auto) Baso # (Auto) Immature Gran % Nucleated RBC % Immature Gran # Nucleated RBCs # INR PT Patient/Control Mix Sodium Potassium Chloride Carbon Dioxide Anion Gap BUN Creatinine GFR Calculation BUN/Creatinine Ratio Glucose POC Glucose Calculated Osmolality Calcium Total Bilirubin AST ALT Alkaline Phosphatase Total Creatine Kinase CK-MB (CK-2) Troponin I B-Natriuretic Peptide 266 H Total Protein Albumin Globulin Albumin/Globulin Ratio Blood Type O POSITIVE O POSITIVE Antibody Screen Negative Cancelled Crossmatch See Detail Blood Bank Comment Cancelled 11/12/16 11/13/16 11/13/16 17:35 07:33 07:43 WBC 6.4 RBC 4.29 D Hgb 10.9 L D Hct 34.3 L MCV 80.0 L MCH 25 L MCHC 31.8 L RDW 15.9 Plt Count 226 MPV 9.8 Neut % (Auto) 50.1 Lymph % (Auto) 30.1 Hubbard % (Auto) 12.8 H Eos % (Auto) 5.6 Baso % (Auto) 0.9 H Neut # (Auto) 3.2 Lymph # (Auto) 1.9 Hubbard # (Auto) 0.8 Eos # (Auto) 0.4 Baso # (Auto) 0.1 Immature Gran % 0.5 Nucleated RBC % 0.0 Immature Gran # 0.03 Nucleated RBCs # 0.00 INR PT Patient/Control Mix Sodium Potassium Chloride Carbon Dioxide Anion Gap BUN Creatinine GFR Calculation BUN/Creatinine Ratio Glucose POC Glucose 237 H 130 H Calculated Osmolality Calcium Total Bilirubin AST ALT Alkaline Phosphatase Total Creatine Kinase CK-MB (CK-2) Troponin I B-Natriuretic Peptide Total Protein Albumin Globulin Albumin/Globulin Ratio Blood Type Antibody Screen Crossmatch Blood Bank Comment 11/13/16 11/13/16 07:43 07:43 WBC RBC Hgb Hct MCV MCH MCHC RDW Plt Count MPV Neut % (Auto) Lymph % (Auto) Hubbard % (Auto) Eos % (Auto) Baso % (Auto) Neut # (Auto) Lymph # (Auto) Hubbard # (Auto) Eos # (Auto) Baso # (Auto) Immature Gran % Nucleated RBC % Immature Gran # Nucleated RBCs # INR PT Patient/Control Mix Sodium 138 Potassium 4.4 Chloride 106 Carbon Dioxide 25 Anion Gap 11.4 BUN 14 Creatinine 0.90 GFR Calculation 63 BUN/Creatinine Ratio 15.00 Glucose 106 POC Glucose Calculated Osmolality 275.7 Calcium 8.5 Total Bilirubin 1.00 AST 11 ALT 13 Alkaline Phosphatase 51 Total Creatine Kinase CK-MB (CK-2) Troponin I B-Natriuretic Peptide 626 H Total Protein 6.0 L Albumin 2.7 L Globulin 3.3 Albumin/Globulin Ratio 0.8 L Blood Type Antibody Screen Crossmatch Blood Bank Comment - EKG EKG results: interpreted by me, sinus rhythm
[2016-11-13 13:28] LABS: Apearance,Urine Slightly Hazy (Clear); Bacteria,Urine Occasional /HPF (Few); Bilirubin,Urine Negative (Negative); Blood, Urine Negative (Negative); Glucose,Urine (UA) >=500 mg/dL (Negative); Ketones,Urine Negative (Negative); Nitrite,Urine Negative (Negative); Protein,Urine Negative; RBC,Urine <1 /HPF (0-4); Squamous Epithelial Cell,Urine Occasional /HPF (0-10); Urine Color Colorless (Yellow); Urine Specific Gravity 1.002 (1.001-1.035); Urine Urobilinogen < 2.0 EU/DL (0.2-1.0); WBC,Urine <1 /HPF (0-6)
[2016-11-13] MEDS ORDERED: LIDOCAINE 1% 20 ML VIAL ONE (13:39)
[2016-11-13] MEDS ORDERED: HEPARIN/NACL 0.9% 2 UNITS/ML 500 ML IV ONE (13:39)
[2016-11-13] MEDS ORDERED: fentaNYL 100 MCG/2 ML VIAL ONE ×2 (13:55→14:28)
[2016-11-13] MEDS ORDERED: MIDAZOLAM 2 MG/2 ML VIAL ONE ×2 (13:55→14:28)
[2016-11-13] MEDS ORDERED: ceFAZolin 1,000 MG VIAL ONE (13:55)
--- NOTE | 2016-11-13 14:20 | History and Physical Update ---
Sedation H&P Update - History and Physical H&P was reviewed, the patient examined and there: are no changes in the patients condition since last H&P was completed. - Dictation Physical: refer to H&P completed by admitting physician - Physical Exam Mental Status: alert and oriented Heart: regular rate and rhythm Lung: clear to auscultation Abdomen: within normal limits Vitals: within normal limits - Sedation Plan for Sedation: moderate Patient Consent: Procedure disscussed with patient and patinet has consented., Risks and benefits were discussed with patient,including infection,, bleeding, injury to surrounding structures, seizure, temporary nerve, Patient understands and accepts potential risks/benefits and agrees to ASA Class: III Airway Assessment: Class II: Soft palate, uvula, fauces visible
[2016-11-13] MEDS ORDERED: TISSUE ADHESIVE 1 EACH APPLICATOR TOP ONE (14:22)
--- NOTE | 2016-11-13 15:18 | Internal Med Progress Note ---
Assessment and Plan (1) Syncope Status: Acute Assessment and plan: scheduled for pacemaker placement today Current Visit: Yes (2) PAF (paroxysmal atrial fibrillation) Status: Acute Current Visit: Yes (3) Symptomatic bradycardia Status: Acute Current Visit: Yes (4) Anemia Status: Chronic Assessment and plan: Follow GI consult recommendations. Current Visit: Yes (5) Chronic renal insufficiency Status: Chronic Assessment and plan: Follow daily labs, BUN/creatinine stable today 14/0.9 Current Visit: Yes (6) Diabetes Status: Chronic Assessment and plan: Will do sliding scale insulin, DC Humalog and Humulin, home medication for now. Patient had hypoglycemic episode yesterday. Current Visit: Yes Qualifiers: Diabetes mellitus type: type 2 Diabetes mellitus complication status: with kidney complications Diabetes mellitus complication detail: with chronic kidney disease Diabetes mellitus terminal worker insulin use: with senior care use Chronic kidney disease stage: stage 3 (moderate) Qualified Code(s): E11.22 - Type 2 diabetes mellitus with diabetic chronic kidney disease; N18.3 - Chronic kidney disease, stage 3 (moderate); Z79.4 - residential (current) use of insulin (7) Hyperlipidemia Status: Chronic Current Visit: Yes Internal Medicine - PN: Subj Interval history: Patient seen and examined in the telemetry floor. PCP: Dr. Lennox Love, pt has history of DM, dyslipidemia, cardiac dysrhythmia, HTN, hypoxia with home oxygen, h/o stroke, chronic renal insufficiency, HAs presented to ER with syncopal episodes, noticed to have significant anemia and hypotension. IS need of pacemaker for symptomatic bradycardia. Already on Acebutolol for cardiac dysrhythmia. Her H&H was 7.7/25.8 at the time of admission and received 2 units of packed red blood cells. Patient does not give any complaints of fever nausea vomiting chest pain, shortness of breath she feels flushed in the face and feels warm to the face and neck area. Her daughter mentioned who was at the bedside, patient used to take morphine extended release 3 times a day as an outpatient, requesting for adjustment of the opioid pain medications while in the hospital stay. Exam (Progress Note) - Constitutional Vitals: Period Temp Pulse Resp BP Sys/Saleh Pulse Ox Last 24 Hr 96.8 F-99.3 F 65-94 12-20 97-216/53-95 90-98 Exam: GENERAL APPEARANCE: alert and oriented, pleasant, elderly white female patient. Lying in the bed. HEENT: normal. Face area is flushed feels warm compared with the rest of the torso. EYES: extraocular movement intact (EOMI), conjunctiva clear, normal. NECK/THYROID: neck supple, full range of motion, no cervical lymphadenopathy, no thyromegaly. HEART: Irregular heart rate, LUNGS: clear to auscultation bilaterally, no wheezes, rales, rhonchi. ABDOMEN: soft, nontender, nondistended, no organomegaly , bowel sounds present. EXTREMITIES: no edema. NEUROLOGIC: alert and oriented, cranial nerves 2-12 grossly intact, Results - Labs CBC & BMP: 11/13/16 07:43 11/13/16 07:43 Lab Results: I have reviewed the past 24 hour labs
--- NOTE | 2016-11-13 15:32 | Cardiac Pacemaker ---
- Preoperative diagnosis Date of Procedure:: 11/13/16 Preoperative Diagnosis: Documented nonreversible symptomatic bradycardia due to , sinus node dysfunction Pre-op Diagnosis: +paf, symptomatic tachybrady, syncope Post-op diagnosis: same Procedure: PROCEDURE SUMMARY DDD pacemaker implant from left axillary vein access. PLAN Bed rest for 4 hours. Routine post pacemaker implant site care and activity restrictions. Do not remove pressure dressing until AM. Portable CXR, EKG stat. CXR PA/Lat, device interrogation in AM. Ancef 1g iv. q8h x2. PROCEDURE Informed consent was obtained and a timeout was performed prior to the procedure. The patient was continuously monitored by ECG, pulse oxymetry and NIBP. 1g iv. Ancef was administered prior to the procedure for antibiotic prophylaxis. Moderate conscious sedation was initiated and maintained with iv. Versed and Fentanyl, for 65 minutes. The left pectoral area was meticulously prepared with ChloroPrep surgical scrub. Sterile draping was applied and Ioban was used to cover the operation site. The image intensifier was draped with a sterile bag and positioned over the patient's chest. A left subclavian venogram was obtained with 10 cc. iv contrast. The left axillary and subclavian veins and the SVC were patent. After infiltration with 1% lidocaine, an incision was made in the left infraclavicular area, parallel to the deltopectoral groove. The incision was carried down to the level of the pectoral fascia. A subcutaneous pocket was then created with electrocautery and blunt dissection. Hemostasis was then achieved with electrocautery. A micropuncture needle was used to access the left axillary vein under fluoroscopic guidance. The microfilament was used to introduce the micropuncture sheath, which the was used to introduce and advance a long hydrophylic guidewire into the inferior vena cava. A 9 Fr sheath was introduced over the guidewire. The dilator was removed. The right ventricular pacemaker lead was introduced through the sheath. The sheath was then peeled away. The curved stylet was used to move the lead into the right ventricular outflow tract. The stylet was then replaced with a straight stylet and the lead was moved into a stable position on the right ventricular septum. Adequate sensing and pacing threshold was confirmed. The active fixation mechanism was then deployed. Stable signal and pacing threshold was noted, with decrease in pacing impedance. No extracardiac stimulation was noted with high output pacing. The lead was then anchored to the subcutaneous tissue with 2-0 nonabsorbable suture, using the anchoring sleeve near the point of entry to the vein. Another 9 Fr sheath was introduced over the retained guidewire. The dilator was removed. The right atrial pacemaker lead was introduced through the sheath. The sheath was then peeled away. A straight stylet was used to move the lead into the right atrium. The stylet was then replaced with a curved J stylet and the lead was moved into a stable position in the right atrial appendage. Adequate sensing and pacing threshold was confirmed. The active fixation mechanism was then deployed. Stable signal and pacing threshold was noted, with decrease in pacing impedance. No extracardiac stimulation was noted with high output pacing. The lead was then anchored to the subcutaneous tissue with 2-0 nonabsorbable suture, using the anchoring sleeve near the point of entry to the vein. The retained guidewire was removed. The pacemaker generator was attached to the leads and sealed in the prescribed manner. The wound was flushed with Ancef . The generator was placed into the pocket and tied to the pectoral fascia using 2-0 nonabsorbable suture. Stable lead positions were confirmed with fluoroscopy. The wound was closed using a double layer of 2-0 absorbable Vicryl sutures, followed by a subcuticular running suture with 4-0 Monocryl, then Exofin. A sterile, then a pressure dressing was applied. The device was then interrogated and programmed as detailed below. Device Type SN Location Med[employer]onic Advisa DR DDD pacemaker [id number] Left infraclavicular Lead Position Type SN P/R Threshold Impedance RA RA appendage Med[employer]onic 5076-52 [id number] 1.5 mV 2.3 V @ 0.5 ms 627 Ohm RV RV septum Med[employer]onic 5076-58 [id number] 4.4 mV 0.9 V @ 0.5 ms 759 Ohm Bradycardia settings MVPR 60/110 The implanted system is MRI conditional. Anesthesia: moderate conscious sedation Surgeon / Physician: Gibson Nicole Field Application Engineer: other (Dawood) Estimated blood loss: minimal Specimens: none sent Condition: stable Disposition: floor - Medications / Follow-up
--- NOTE | 2016-11-13 15:51 | XRay Report ---
XR chest 1V portable Indication: Lead placement. Chest one view: Comparison yesterday. Dual-chamber pacemaker is now present. Heart size remains upper limits normal with continued calcification of the thoracic aorta. Interstitial prominence of the lungs persists. Lung volumes are decreased with central pulmonary vascular crowding. No infiltrate. No pneumothorax. Impression: New pacemaker device. Worsening pulmonary hypoinflation. PROCEDURE INTERPRETED AT [facility] DEPARTMENT OF RADIOLOGY Final Report Signed by: Hunter Burgess M.D.
[2016-11-13] MEDS: oxyCODONE/ACETAMINOPHEN 5-325 MG TABLET PO PRN ×2 (17:26→23:38)
[2016-11-13] MEDS: MORPHINE ER 15 MG TABLET PO PRN (20:43)
[2016-11-13] MEDS: SIMVASTATIN 10 MG TABLET PO SCH (20:44)
[2016-11-13] MEDS: CARVEDILOL 6.25 MG TABLET PO SCH (20:44)
--- NOTE | 2016-11-13 20:46 | Gastrointestinal Consult Note ---
Assessment and Plan (1) Dysphagia Status: Acute Assessment and plan: Will plan repeat EGD and dilatation once her cardiac situation has been clarified and we are unable to hold her Plavix for 5 days to permit dilatation. At this point would continue with proton pump inhibitor treatment and antireflux precautions. Avoid nonsteroidals. Patient has requested transfer to my service for GI care and I will continue to follow plan EGD once the above criteria has been established. Current Visit: No (2) Anemia Status: Chronic Assessment and plan: No evidence of ongoing GI blood loss is present. She does have some renal insufficiency and some portion of this may be more business development representative anemia of chronic disease. We discussed pros and cons of colonoscopy but she is not inclined to proceed with this given her age and in the absence of active bleeding think this is reasonable. Certainly the necessity of Plavix will need to be reconsidered in light of ongoing anemia. At this point will continue to observe. Monitor H&H and transfuse as required Current Visit: Yes History of Present Illness Chief complaint: Dysphagia History of present illness: Ms. Barahona is a 81 year old female Who was admitted with anemia and weakness. Patient has a history of pulmonary hypertension chronic renal insufficiency requiring home O2. She is on chronic Plavix therapy as well. She was noted to have a hematocrit of 25% on admission and was transfused 2 units packed red blood cells now at 34. No reported bleeding observed and had EGD and dilatation done 4-[address] Perrin I do not have record of that at this time. He also has a history of bradycardia and consideration of pacemaker placement is ongoing Home Medications Medication Instructions Recorded Confirmed Type Baclofen Tab [Lioresal] 10 mg PO BID 11/23/14 11/12/16 History Estradiol Tab [Estrace Tab] 2 mg PO DAILY 11/23/14 11/12/16 History Morphine Sulfate [Morphine Sulfate 15 mg PO BID 11/23/14 11/12/16 History ER] Omeprazole [Prilosec] 20 mg PO DAILY 11/23/14 11/12/16 History Simvastatin [Zocor] 10 mg PO QPM 11/23/14 11/12/16 History hydroCHLOROthiazide 25 mg PO DAILY PRN 08/13/16 11/12/16 History [Hydrochlorothiazide] Insulin Aspart [NovoLOG FlexPen] 15 mg SUBCUT BID 10/14/16 11/12/16 History Diltiazem Cd Cap [Cardizem CD] 240 mg PO DAILY #30 capsule 10/20/16 11/12/16 Rx HYDROcodone/ACETAMIN 10-325 [[place]assine 1 tablet PO TID PRN tablet 10/20/16 Rx 10-325] Clopidogrel [Plavix] 75 mg PO DAILY 11/05/16 11/12/16 History cephALEXin [Keflex] 500 mg PO QID 11/05/16 11/12/16 History Acebutolol [Sectral] 200 mg PO BID capsule 11/06/16 11/12/16 Rx Acetaminophen Tab [Tylenol Tab] 650 mg PO Q6H PRN tablet 11/06/16 11/12/16 Rx Losartan [Cozaar] 25 mg PO DAILY tablet 11/06/16 11/12/16 Rx Glimepiride 4 mg PO DAILY 11/12/16 11/12/16 History Insulin Glargine,Hum.rec.anlog 40 unit SUBCUT BEDTIME 11/12/16 11/12/16 History [Lauren Morrow] Allergies Allergy/AdvReac Type Severity Reaction Status Date / Time Shrimp Allergy ITCHING Verified 09/24/16 10:29 sulfamethoxazole Allergy Confusion Verified 10/13/16 21:04 [From Bactrim] trimethoprim [From Bactrim] Allergy Confusion Verified 10/13/16 21:04 Medical,Surgical,& Family Hx - Medical History Cardio: History of: Cardiac Dysrhythmia (PAT), Hypertension, Cardiovascular Problems (heart murmur) No history of: CHF, GA Psychological: History of: Anxiety Disorders, Depression Neurology: History of: Cerebrovascular Accident No history of: Dementia, Seizures, TIA HEENT: History of: Eye Problem (cataract) Endocrine: History of: Diabetes Mellitus (IDDM), Diabetes Mellitus (NIDDM), Dyslipidemia Respiratory: History of: Bronchitis No history of: Obstructive Sleep Apnea Genitourinary: History of: Recurring Urinary Tract Infections No history of: Kidney Stones Gastrointestinal: History of: Diverticulitis/ Diverticulosis, GERD, Hemorrhoids , GI Problems (Chronic constipation) No history of: Gastrointestinal Bleed Musculoskeletal: History of: Amputation (right toe), Back/Neck Problems, Musculoskeletal Problems Hematology: History of: Anemia Other: History of: MRSA - Surgical History Cardiac Surgeries: Patient Denies: Cardiac Catheterization HEENT Surgeries: Surgical HX of: Eye Surgery (cataracts) Patient denies: Tonsilectomy & Adenoidectomy Abdominal Surgeries: Surgical HX of: Abdominal Surgery, Appendectomy, Cholecystectomy, Colonoscopy, EGD Reproductive Surgeries: Surgical HX of;: Gynecologic Surgery, Hysterectomy Orthopedic Surgeries: Surgical HX of;: Total Hip Replacement (left) - Family History Family History: Reports;: Family Cancer (brother, sister), Family Diabetes ( mother), Family Heart Disease (mother and dad), Family Hypertension - Social History Smoking Status: Never smoker Frequency of Alcohol Use: None Type of Drug Use: None 12 point system: reviewed and no additional remarkable complaints except as stated - Constitutional Constitutional: Present: anorexia, fatigue, frequent falls - EENT Nose, mouth and throat: Present: dysphagia - Cardiovascular Cardiovascular: Present: dyspnea, dyspnea on exertion, palpitations - Respiratory Respiratory: Present: dyspnea, dyspnea on exertion - Gastrointestinal Gastrointestinal: Present: dysphagia, heartburn - Endocrine Endocrine: Present: fatigue Exam - Constitutional Vitals: Period Temp Pulse Resp BP Sys/Saleh Pulse Ox Last 24 Hr 96.8 F-99.3 F 60-94 12-20 104-216/49-95 88-98 General appearance: normal weight, no acute distress - Head Head exam: Present: normal inspection, normocephalic, atraumatic - Eye Eye exam: Present: EOMI, other (No icterus) Pupils: Present: JUAN A. Absent: dilated (/) - ENT ENT exam: Present: normal oropharynx - Neck Neck exam: Present: normal inspection (/). Absent: lymphadenopathy (///), thyromegaly - Respiratory Respiratory exam: Present: clear to auscultation bilaterally. Absent: accessory muscle use, rales - Cardiovascular Cardiovascular exam: Present: regular rate and rhythm. Absent: systolic murmur - GI/Abdominal GI/Abdominal exam: Present: normal bowel sounds, soft. Absent: ascites, mass - Extremities Exam Extremities exam: Present: normal inspection, normal capillary refill, full ROM Results - Labs CBC & BMP: 11/13/16 07:43 11/13/16 07:43 Lab Results: I have reviewed the past 24 hour labs Quality Measures - VTE Contraindication to Pharmacological VTE Prophylaxis: High Risk of Bleeding
[2016-11-14] MEDS: ALBUTEROL/IPRATROPIUM 3 ML NEB RESP TX SCH ×3 (00:21→13:23)
[2016-11-14] MEDS: oxyCODONE/ACETAMINOPHEN 5-325 MG TABLET PO PRN ×2 (05:00→12:07)
[2016-11-14 05:06] LABS: Basophils # 0.1 10*3/uL (0.0-0.2); Basophils % 0.8 % (0.0-0.8); Eosinophils # 0.3 10*3/uL (0.0-0.87); Hematocrit 32.7 VOL% (35.7-47.0); Hemoglobin 10.4 GM/DL (12.0-16.0); Immature Granulocytes % 0.3 %; Immature Granulocytes Absolute 0.02 #; Lymphocytes # 1.9 10*3/uL (1.4-4.0); Lymphocytes % 29.7 % (21.3-54.2); Mean Corpuscular HGB Conc 31.8 GM/DL (32-36); Mean Corpuscular Hemoglobin 25 PG (27-34); Mean Platelet Volume 10.4 FL (9.6-12.0); Monocytes # 0.9 10*3/uL (0.11-0.8); Monocytes % 14.5 % (1.7-12.7); Neutrophils # 3.2 10*3/uL (1.4-7.4); Neutrophils % 50.7 % (38.7-73.9); Platelet Count 212 T/CUMM (130-400); Red Blood Count 4.09 MC/CUMM (3.8-5.5); Red Cell Distribution Width 16.1 % (9.3-17.3); White Blood Count 6.3 T/CUMM (4-12)
[2016-11-14 05:34] LABS: Osmolality,Calculated 281.4 MOS/KG (273-304); Potassium 4.2 MMOL/L (3.5-5.1)
--- NOTE | 2016-11-14 07:04 | EKG Report ---
Stationary ECG Study [facility] Test Date: 11/13/2016 4:34:34 PM Pat Name: KWASI BUI Department: Room: 286 Gender: F Manager Desktop: CT : 1935 Requested by: Tg Nicole Order Number: [id number] Reading MD: TG NICOLE Intervals [place] Rate: 79 P: 77 MO: 177 QRS: 14 QRSD: 130 T: -11 QT: 427 QTc: 461 Interpretive Statements SINUS RHYTHM WITH SINUS ARRHYTHMIA INDETERMINATE AXIS Right bundle branch block ST DEVIATION AND MODERATE T-WAVE ABNORMALITY, CONSIDER ANTEROLATERAL ISCHEMIA Electronically Signed On 11-14-16 07:47:34 CDT by TG NICOLE [email or web address]
[2016-11-14] MEDS: INSULIN REGULAR 100 UNIT/ML SUBCUT SCH (08:53)
[2016-11-14] MEDS: INSULIN LISPRO 100 UNIT/ML SUBCUT SCH (08:54)
--- NOTE | 2016-11-14 08:58 | XRay Report ---
2 view chest. Indication: Lead placement. Comparison: November 13, 2016. The heart is borderline enlarged. Cardiac hardware is in satisfactory position. The pulmonary vasculature is prominent. There is atelectasis at the left lung base. There are small bilateral pleural effusions. The osseous structures remain stable. Impression: Cardiomegaly, venous congestion, and small bilateral pleural effusions. PROCEDURE INTERPRETED AT [facility] DEPARTMENT OF RADIOLOGY Final Report Signed by: Dr. Yulisa Dorantes
[2016-11-14] MEDS ORDERED: LOSARTAN 50 MG TABLET PO SCH (09:00)
--- NOTE | 2016-11-14 09:15 | Internal Med Progress Note ---
Assessment and Plan (1) Syncope Status: Acute Assessment and plan: Improved, cardiac pacemaker in place, tolerated procedure well Current Visit: Yes (2) PAF (paroxysmal atrial fibrillation) Status: Acute Assessment and plan: Continue recommendations as per leaf blender Current Visit: Yes (3) Symptomatic bradycardia Status: Acute Current Visit: Yes (4) Anemia Status: Chronic Assessment and plan: Follow GI consult recommendations. Current Visit: Yes (5) Chronic renal insufficiency Status: Chronic Assessment and plan: Improved BUN/creatinine Today 12/0.8 Current Visit: Yes (6) Diabetes Status: Chronic Assessment and plan: Continue insulin Current Visit: Yes Qualifiers: Diabetes mellitus type: type 2 Diabetes mellitus complication status: with kidney complications Diabetes mellitus complication detail: with chronic kidney disease Diabetes mellitus fdc insulin use: with fdc use Chronic kidney disease stage: stage 3 (moderate) Qualified Code(s): E11.22 - Type 2 diabetes mellitus with diabetic chronic kidney disease; N18.3 - Chronic kidney disease, stage 3 (moderate); Z79.4 - alf (current) use of insulin (7) Hyperlipidemia Status: Chronic Current Visit: Yes Internal Medicine - PN: Subj Interval history: Patient seen and examined in the telemetry floor. Accompanied with family members at the bedside. PCP: Dr. Lennox Love, No overnight events reported by the nurse on history given by the patient and caregivers. Pacemaker placed for symptomatic bradycardia yesterday. Tolerated the procedure well. Patient is feeling way better than yesterday. Patient does not give any complaints of fever nausea, vomiting , shortness of breath, Complaining of chest pain around the surgery area. Intensity 6/10. Exam (Progress Note) - Constitutional Vitals: Period Temp Pulse Resp BP Sys/Saleh Pulse Ox Last 24 Hr 96.9 F-98.8 F 60-94 16-20 104-216/49-92 88-98 Exam: GENERAL APPEARANCE: alert and oriented, pleasant, elderly white female patient. Lying in the bed. HEENT: normal. EYES: extraocular movement intact (EOMI), conjunctiva clear, normal. NECK/THYROID: neck supple, full range of motion, no cervical lymphadenopathy, no thyromegaly. HEART: Regular rate of 65, with murmur, LUNGS: clear to auscultation bilaterally, no wheezes, rales, rhonchi. ABDOMEN: soft, nontender, nondistended, no organomegaly , bowel sounds present. EXTREMITIES: no edema. NEUROLOGIC: alert and oriented, cranial nerves 2-12 grossly intact, Results - Labs CBC & BMP: 11/14/16 04:06 11/14/16 04:06 Lab Results: I have reviewed the past 24 hour labs - Diagnostic Findings Procedure: Chest x-ray: report reviewed by me (From 11/14/2016, cardiomegaly, venous congestion, and small bilateral) Quality Measures - VTE Contraindication to Pharmacological VTE Prophylaxis: High Risk of Bleeding
[2016-11-14] MEDS: DILTIAZEM CD 240 MG CAPSULE PO SCH (09:45)
[2016-11-14] MEDS: ESTRADIOL 2 MG TABLET PO SCH (09:45)
[2016-11-14] MEDS: PANTOPRAZOLE 40 MG TABLET PO SCH (09:46)
[2016-11-14] MEDS: GLIMEPIRIDE 4 MG TABLET PO SCH (09:46)
[2016-11-14] MEDS: CARVEDILOL 6.25 MG TABLET PO SCH (09:46)
[2016-11-14] MEDS: MORPHINE ER 15 MG TABLET PO PRN (09:47)
--- NOTE | 2016-11-14 09:49 | Cardiology Progress Note ---
Assessment and Plan - Time spent with patient Time spent with patient: Less than 30 minutes (1) Syncope Status: Acute Assessment and plan: See plan of care listed below. Current Visit: Yes (2) Sick sinus syndrome Status: Acute Assessment and plan: See plan of care listed below. Current Visit: Yes (3) PAF (paroxysmal atrial fibrillation) Status: Acute Assessment and plan: See plan of care listed below. Current Visit: Yes (4) History of PAT (paroxysmal atrial tachycardia) Status: Chronic Assessment and plan: See plan of care listed below. Current Visit: No (5) Hypertension Status: Chronic Assessment and plan: See plan of care listed below. Current Visit: No (6) Hyperlipidemia Status: Chronic Assessment and plan: See plan of care listed below. Current Visit: Yes (7) Anemia Status: Chronic Assessment and plan: See plan of care listed below. Current Visit: Yes (8) Diabetes Status: Chronic Assessment and plan: See plan of care listed below. Current Visit: Yes Qualifiers: Diabetes mellitus type: type 2 Diabetes mellitus complication status: with kidney complications Diabetes mellitus complication detail: with chronic kidney disease Diabetes mellitus senior software development engineer insulin use: with senior software development engineer use Chronic kidney disease stage: stage 3 (moderate) Qualified Code(s): E11.22 - Type 2 diabetes mellitus with diabetic chronic kidney disease; N18.3 - Chronic kidney disease, stage 3 (moderate); Z79.4 - USP (current) use of insulin (9) Chronic renal insufficiency Status: Chronic Assessment and plan: See plan of care listed below. Current Visit: Yes (10) Status post cardiac pacemaker procedure Status: Acute Assessment and plan: See plan of care listed below. Current Visit: Yes Cardiology - PN: Subj Interval history: Biodiesel Engineering Manager: Dr. Vega PCP: Dr. Lennox Love SUMMARY: Ms. Barahona is a 81 year old female who presented to the ER after a syncopal episode. She has had several recurrent admissions in the past couple of months for PAT, symptomatic bradycardia, and chest pain. Upon review of her cafeteria monitor, she was noted to have a 3.2 second pause followed by a 2.4 second pause around 1845 yesterday afternoon and what appears to be paroxysmal atrial fibrillation. She was subsequently taken to the blood bank laboratory technologist for implantation of a dual chamber pacemaker for sick sinus syndrome by Dr. Nicole. NOVEMBER 14, 2016: Ms. Barahona is doing well this morning. She has had no tachyarrhythmias through the night. Pacemaker interrogation looks good. Chest xray shows appropriate lead placement. The patient's daughters had numerous questions regarding post operative care which I spent greater than 20 minutes discussing. She is feeling much better and has had no further presyncopal episodes. Assessment/Plan: 1. Syncope - Patient had symptomatic bradycardia with syncopal episode and underwent placement of DCPM by Dr. Nicole. She has had no further presyncopal or syncopal episodes thus far. 2. Sick sinus syndrome - Now S/P dual chamber pacemaker on 11/13/[address] Nicole. Patient is now in NSR with some atrial pacing. 3. PAT/PAF - Continue Cardizem, beta jerrica, and monitor. Patient's heart rates have been stable today in the 70s and 80s. 4. Hypertension - Better controlled on current therapy. We may need to further increase her beta jerrica; however, she has been very sensitive to medications in the past per her daughters' reports. 5. Hyperlipidemia -continue lipid-lowering agent. 6. Anemia -GI has been consulted. She received 2 units of packed red blood cells and H&H is much improved. 7. Diabetes -she is on Accu-Cheks before meals and at bedtime with sliding scale insulin. 8. Chronic renal insufficiency -creatinine 1.2 on admission, now down to 0.8 with GFR 72. Exam (Progress Note) - Constitutional Vitals: Period Temp Pulse Resp BP Sys/Saleh Pulse Ox Last 24 Hr 96.9 F-98.8 F 60-94 16-20 104-216/49-92 88-98 Exam: General appearance: Pleasant and cooperative. Normal weight, no acute distress. - Head Head exam: Present: normal inspection, normocephalic, atraumatic. Absent: hematoma, laceration - Eye Eye exam: Present: EOMI. Absent: conjunctival injection, nystagmus, periorbital swelling, scleral icterus, laceration to eyelids Pupils: Present: PERRL. Absent: constricted, dilated, fixed, irregular, unequal - ENT ENT exam: Present: normal exam, normal external ear exam - Neck Neck exam: Present: normal inspection. Absent: lymphadenopathy, meningismus, tenderness, thyromegaly - Respiratory Respiratory exam: Present: Scant bibasilar rales posteriorly, otherwise clear to auscultation bilaterally. Absent: accessory muscle use, chest wall tenderness - Cardiovascular Cardiovascular exam: Present: regular rate and rhythm, systolic murmur. Absent : gallop, rubs - GI/Abdominal GI/Abdominal exam: Present: normal bowel sounds, soft. Absent: distended, firm , guarding, hernia, mass, tenderness, rebound. - Extremities Exam Extremities exam: Present: normal inspection, normal capillary refill. Upper extremity pulses 2+. Lower extremity pulses 2+. 1+ pitting edema to BLE. Absent : calf tenderness -Musculoskeletal Exam Musculoskeletal: Present: No Fluid Collection, No Pain, Normal Range of Motion - Back Exam Back exam: Present: normal inspection. Absent: muscle spasm, vertebral tenderness - Neurological Exam Neurological exam: Present: alert, oriented X3, grossly intact without resting or essential tremor - Psychiatric Psychiatric exam: Present: normal affect, normal mood - Skin Skin exam: Present: normal color, warm, dry, intact. Absent: cyanosis, diaphoretic, rash, urticaria Left chest wall dressing: dry and intact. No hematoma present. Mild pain at site. Result/EKG - Labs CBC & BMP: 11/14/16 04:06 11/14/16 04:06 Lab Results: I have reviewed the past 24 hour labs Labs: Laboratory Results - last 24 hr 11/13/16 11/13/16 11/14/16 13:00 15:56 04:06 WBC 6.3 RBC 4.09 Hgb 10.4 L Hct 32.7 L MCV 80.0 L MCH 25 L MCHC 31.8 L RDW 16.1 Plt Count 212 MPV 10.4 Neut % (Auto) 50.7 Lymph % (Auto) 29.7 Sunflower % (Auto) 14.5 H Eos % (Auto) 4.0 Baso % (Auto) 0.8 Neut # (Auto) 3.2 Lymph # (Auto) 1.9 Sunflower # (Auto) 0.9 H Eos # (Auto) 0.3 Baso # (Auto) 0.1 Immature Gran % 0.3 Nucleated RBC % 0.0 Immature Gran # 0.02 Nucleated RBCs # 0.00 Sodium Potassium Chloride Carbon Dioxide Anion Gap BUN Creatinine GFR Calculation BUN/Creatinine Ratio Glucose POC Glucose 189 H Calculated Osmolality Calcium Magnesium Urine Color Colorless Urine Appearance Slightly hazy Urine pH 8.0 Ur Specific [place] 1.002 Urine Protein Negative Urine Glucose (UA) >=500 Urine Ketones Negative Urine Blood Negative Urine Nitrate Negative Urine Bilirubin Negative Urine Urobilinogen < 2.0 H Urine Leukocytes Negative Urine RBC <1 Urine WBC <1 Ur Squamous Epith Cells Occasional Urine Bacteria Occasional Ur Culture Indicated? Not indicated 11/14/16 04:06 WBC RBC Hgb Hct MCV MCH MCHC RDW Plt Count MPV Neut % (Auto) Lymph % (Auto) Sunflower % (Auto) Eos % (Auto) Baso % (Auto) Neut # (Auto) Lymph # (Auto) Sunflower # (Auto) Eos # (Auto) Baso # (Auto) Immature Gran % Nucleated RBC % Immature Gran # Nucleated RBCs # Sodium 140 Potassium 4.2 Chloride 105 Carbon Dioxide 26 Anion Gap 13.2 BUN 12 Creatinine 0.80 GFR Calculation 72 BUN/Creatinine Ratio 15.00 Glucose 151 H POC Glucose Calculated Osmolality 281.4 Calcium 8.0 L Magnesium 2.0 Urine Color Urine Appearance Urine pH Ur Specific [place] Urine Protein Urine Glucose (UA) Urine Ketones Urine Blood Urine Nitrate Urine Bilirubin Urine Urobilinogen Urine Leukocytes Urine RBC Urine WBC Ur Squamous Epith Cells Urine Bacteria Ur Culture Indicated? - EKG EKG results: interpreted by me, sinus rhythm (with occasional atrial pacing) Quality Measures - VTE Contraindication to Pharmacological VTE Prophylaxis: High Risk of Bleeding
--- NOTE | 2016-11-14 11:24 | Event Note ---
Chief complaint dysphagia Patient had a pacemaker placed yesterday for symptomatic bradycardia and she has done well other than some pain at the site of pacemaker placement. We have discussed that at this point would like to wait about 6 weeks prior to proceeding with EGD and dilatation as she does not have significant severe symptoms at this point. We will need to hold her blood thinners 5 days prior. At this point we tentatively schedule this for December 27 and they will call earlier if symptoms worsen. We have again discussed pros and cons of colonoscopy the patient is not inclined to proceed with colonoscopy at this time she has no active bleeding or weight loss. Given her advanced age and other comorbid problems certainly the risk of colonoscopy may exceed the benefit and they will discuss this further and will re-address this at time of her upper endoscopy. Review of systems-pain at pacemaker site but otherwise no shortness of breath or pain reported. On exam she is alert and oriented 3 she is in no acute distress lying supine in the bed sclerae anicteric lids conjunctiva was unremarkable Oropharynx is benign Neck is supple no JVD no thyromegaly Lungs clear to auscultation no respiratory distress Heart regular rate rhythm no murmur no edema Abdomen soft nondistended nontender no masses no hepatosplenomegaly normal bowel sounds Extremities no clubbing cyanosis or edema all 4 extremities. Recommendations: We will plan EGD as an outpatient on December 27 at [facility] at 8:30 AM hold blood thinners 5 days prior. Nothing to eat or drink after midnight. They will call if we need to change our scheduled date. Continue PPI and antireflux precautions she will drink plenty of fluids in the interval. Okay to discharge from my standpoint call if needed
--- NOTE | 2016-11-14 11:32 | Discharge Summary ---
Hospital Course - Hospital Course Hospital Course: PCP Dr. Love. 81 year old female patient admitted from the ER for labile blood pressure causing syncopal episodes. Found to have, bradycardia, anemia, . pt has history of DM, dyslipidemia, cardiac dysrhythmia, HTN, hypoxia with home oxygen, h/o stroke, chronic renal insufficiency, Chest x-ray indicated mild pulmonary edema/CHF. Her H&H was 7.7/25.8 at the time of admission and received 2 units of packed red blood cells. Cardiology consult was done, found to have sick sinus syndrome, tachybradycardia ,, documented conversion pauses. dual-chamber pacemaker implant done on 11/13/2016. After which patient's symptoms improved significantly. Beta blockers were also added. Antihypertensives where adjusted as needed. GI consult was done for anemia. Was managed medically for dysphagia. No evidence of ongoing GI blood loss was present at the time of the hospital stay, anemia could be from anemia of chronic disease, some renal insufficiency. Possible need of follow-up with GI as outpatient. Diagnosis - Discharge Diagnosis (1) Syncope Status: Resolved (2) PAF (paroxysmal atrial fibrillation) Status: Acute (3) Symptomatic bradycardia Status: Acute (4) Anemia Status: Chronic (5) Chronic renal insufficiency Status: Chronic (6) Diabetes Status: Chronic (7) Hyperlipidemia Status: Chronic Specialty Discharge - Follow Up or Referrals Follow up with: Gibson Nicole MD [Physician] - 11/23/16 1:50 pm (WILL CALL WITH DATE AND TIME OF APPT. ) Lennox Love MD [Physician] - 11/27/16 1:30 pm (WILL CALL WITH DATE AND TIME OF APPT. ) Discharge Plan - Discharge Data Disposition: Disch To Home/Self Care Condition at Discharge: Stable Discharge Diet: heart healthy, low salt diet Activity: resume usual activities as tolerated Hygiene: no restrictions - Discharge Medications Continue Omeprazole [Prilosec] 20 mg PO DAILY Morphine Sulfate [Morphine Sulfate ER] 15 mg PO BID Estradiol Tab [Estrace Tab] 2 mg PO DAILY Simvastatin [Zocor] 10 mg PO QPM hydroCHLOROthiazide [Hydrochlorothiazide] 25 mg PO DAILY PRN PRN Reason: FLUID Diltiazem Cd Cap [Cardizem CD] 240 mg PO DAILY #30 capsule HYDROcodone/ACETAMIN 10-325 [[place] 10-325] 1 tablet PO TID PRN tablet PRN Reason: Pain Losartan [Cozaar] 25 mg PO DAILY tablet Glimepiride 4 mg PO DAILY cephALEXin [Keflex] 500 mg PO QID #15 Insulin Aspart [NovoLOG FlexPen] 15 mg SUBCUT BID Clopidogrel [Plavix] 75 mg PO DAILY Insulin Glargine,Hum.rec.anlog [Toujeo SoloStar] 40 unit SUBCUT BEDTIME Discontinued Baclofen Tab [Lioresal] 10 mg PO BID Acetaminophen Tab [Tylenol Tab] 650 mg PO Q6H PRN tablet PRN Reason: Fever > 100.4 Or Headache Acebutolol [Sectral] 200 mg PO BID capsule - Follow Up or Referral Follow Up: Gibson Nicole MD [Physician] - 11/23/16 1:50 pm (WILL CALL WITH DATE AND TIME OF APPT. ) Lennox Love MD [Physician] - 11/27/16 1:30 pm (WILL CALL WITH DATE AND TIME OF APPT. ) - Forms/Instructions Instructions: Pacemaker (DC), Bradycardia (DC), Anemia (DC) Exam - Constitutional Vitals: Period Temp Pulse Resp BP Sys/Saleh Pulse Ox Last 24 Hr 96.9 F-98.8 F 60-94 16-20 104-216/49-92 88-98 Exam: GENERAL APPEARANCE: alert and oriented, pleasant, elderly white female patient. Lying in the bed. HEENT: normal. EYES: extraocular movement intact (EOMI), conjunctiva clear, normal. NECK/THYROID: neck supple, full range of motion, no cervical lymphadenopathy, no thyromegaly. HEART: Regular rate of 65, with murmur, LUNGS: clear to auscultation bilaterally, no wheezes, rales, rhonchi. ABDOMEN: soft, nontender, nondistended, no organomegaly , bowel sounds present. EXTREMITIES: no edema. NEUROLOGIC: alert and oriented, cranial nerves 2-12 grossly intact, Discharge Results Procedures and tests throughout hospitalization: Pending Orders 11/12/16 16:24 Occult Blood, Stool Stat 11/13/16 13:44 CL pacemaker Routine Labs on day of discharge: Labs from last 24 hours 11/14/16 11/14/16 11/13/16 04:06 04:06 15:56 WBC 6.3 RBC 4.09 Hgb 10.4 L Hct 32.7 L MCV 80.0 L MCH 25 L MCHC 31.8 L RDW 16.1 Plt Count 212 MPV 10.4 Neut % (Auto) 50.7 Lymph % (Auto) 29.7 [place] % (Auto) 14.5 H Eos % (Auto) 4.0 Baso % (Auto) 0.8 Neut # (Auto) 3.2 Lymph # (Auto) 1.9 [place] # (Auto) 0.9 H Eos # (Auto) 0.3 Baso # (Auto) 0.1 Immature Gran % 0.3 Nucleated RBC % 0.0 Immature Gran # 0.02 Nucleated RBCs # 0.00 Sodium 140 Potassium 4.2 Chloride 105 Carbon Dioxide 26 Anion Gap 13.2 BUN 12 Creatinine 0.80 GFR Calculation 72 BUN/Creatinine Ratio 15.00 Glucose 151 H POC Glucose 189 H Calculated Osmolality 281.4 Calcium 8.0 L Magnesium 2.0 Urine Color Urine Appearance Urine pH Ur Specific [place] Urine Protein Urine Glucose (UA) Urine Ketones Urine Blood Urine Nitrate Urine Bilirubin Urine Urobilinogen Urine Leukocytes Urine RBC Urine WBC Ur Squamous Epith Cells Urine Bacteria Ur Culture Indicated? 11/13/16 13:00 WBC RBC Hgb Hct MCV MCH MCHC RDW Plt Count MPV Neut % (Auto) Lymph % (Auto) [place] % (Auto) Eos % (Auto) Baso % (Auto) Neut # (Auto) Lymph # (Auto) [place] # (Auto) Eos # (Auto) Baso # (Auto) Immature Gran % Nucleated RBC % Immature Gran # Nucleated RBCs # Sodium Potassium Chloride Carbon Dioxide Anion Gap BUN Creatinine GFR Calculation BUN/Creatinine Ratio Glucose POC Glucose Calculated Osmolality Calcium Magnesium Urine Color Colorless Urine Appearance Slightly hazy Urine pH 8.0 Ur Specific [place] 1.002 Urine Protein Negative Urine Glucose (UA) >=500 Urine Ketones Negative Urine Blood Negative Urine Nitrate Negative Urine Bilirubin Negative Urine Urobilinogen < 2.0 H Urine Leukocytes Negative Urine RBC <1 Urine WBC <1 Ur Squamous Epith Cells Occasional Urine Bacteria Occasional Ur Culture Indicated? Not indicated DS: Provider Date of admission: 11/12/16 15:45 Primary care physician: . No PCP Attending physician on admission: Lennox Love MD Consults: 11/12/16 15:54 Consult to Physician [CONS] Routine Comment: Symptomatic bradycardia Consulting Provider: Bartolome Vega Consult to Specialist Group: Cardiology Person Notified: PIO Date Notified: 11/13/16 Time Notified: 08:15 11/12/16 19:12 Consult to Physician [CONS] Routine Comment: anemia; on Plavix Consulting Provider: Teodoro Perrin Person Notified: NAGA Date Notified: 11/13/16 Time Notified: 09:25 Consult Notification Comment: TEXTED TO [facility] AT [address] SOLITARIO BUT [facility] IS OFF TIL Sunday11/12/16 19:13 Consult to Physician [CONS] Routine Comment: hypoxia and pulmonary hypertension; rule out NAYELI Consulting Provider: Deedee Ramsey 11/13/16 07:20 Consult to Sleep Center [CONS] Routine Reason for Sleep Center: Sleep Center Physician Consult Comment: R/O NAYELI Discharging clinician: Rafiq Larry MD
[2016-11-14 11:43] VITALS: BP 160/76
--- NOTE | 2016-11-16 14:15 | Physician Query Form ---
CLICK EDIT DOCUMENT TO SELECT QUERY ANSWER --> OK --> SIGN Jennifer King RN, CCDS Certified Clinical Coping Machine Assembler W) [phone] (f) [phone] [email or web address]: Make your selection(s) from the choices in EACH section by typing an "x" and enter comments in the comment section. Please use your independent medical judgment in providing your response. This request does not imply that any particular answer is desired or expected. CLINICAL INDICATORS: (Providers should not edit this section) The medical record indicates that the patient was admitted with SSS, "chronic respiratory condition, the etiology of which the family does not know, for which she is on home O2 for the last month" and patient was placed on 2-3 liters while in the hospital. Based on the above, could you clarify the appropriate diagnosis, if significant , that supports the above abnormalities and additional evaluation, monitoring, and/or treatment rendered: (x ) Patient was being monitored or treated for chronic respiratory failure ( ) Patient was not being monitored or treated for chronic respiratory failure ( ) Other, please specify: ( ) Clinically unable to determine COMMENTS: PLEASE ALSO DOCUMENT RESPONSE IN PROGRESS NOTES AND/OR DISCHARGE SUMMARY Use of terms such as suspected, likely, or probable (associated with a specific diagnosis that is being evaluated, monitored, or treated as if it exists) are acceptable and can be restated in the discharge summary if not ruled out. MTDD
== END 2016-11-14 14:43 | disposition home health service (06) | DRG 243 ==
LOC: EDUNIT# → EDBD → N.ED 13:21 → N.EDINP 15:45 → N.TELEN 17:14
PROVIDERS: ADMIT Family Medicine; ATTEND Family Medicine

== ENCOUNTER 2016-11-17 12:50 | Inpatient (IN) ==
--- NOTE | 2016-11-17 13:25 | EKG Report ---
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
--- NOTE | 2016-11-17 13:25 | Emergency Department Note ---
Arrival - Arrival Chief Complaint: Syncope Stated Complaint: recent pacemaker/heart rate too high ED Nursing Triage Note: pt had syncopal episode yesterday. reports that pt took o2 off yesterday and when she got up she passed out and then took o2 off again while talking on phone and passed out again when she got up. reports bp was high at home. pt had pacemaker placed last week for bradycardia and her heart stopped. Mode of Arrival: Wheelchair Limitations: No Limitations Source: Patient Time Seen by Provider: 11/17/16 13:20 - History of Present Illness HPI Narrative: This 81-year-old white female presents with complaints of recurrent syncopal episodes and labile blood pressure for which she was evaluated 2 days ago in the ER. Likewise the week before that she had been admitted for pacemaker to correct these problems. Obviously that has not worked too well. The patient is a very poor historian and the family can only give observations. Evidently she has no chest pain or shortness of breath but when these situations occur she goes out cold for several minutes. Currently she appears stable and in no acute distress. Onset (ago): day(s) (Patient presents with 2 days of recurrent syncopal episodes and labile blood pressure) Allergies/Adverse Reactions: Allergies Allergy/AdvReac Type Severity Reaction Status Date / Time Shrimp Allergy ITCHING Verified 09/24/16 10:29 sulfamethoxazole Allergy Confusion Verified 10/13/16 21:04 [From Bactrim] trimethoprim [From Bactrim] Allergy Confusion Verified 10/13/16 21:04 Home Medications: Home Medications Medication Instructions Recorded Confirmed Type Estradiol Tab [Estrace Tab] 2 mg PO DAILY 11/23/14 11/17/16 History Morphine Sulfate [Morphine Sulfate 15 mg PO DAILY 11/23/14 11/17/16 History ER] Omeprazole [Prilosec] 20 mg PO DAILY 11/23/14 11/17/16 History Simvastatin [Zocor] 10 mg PO QPM 11/23/14 11/17/16 History hydroCHLOROthiazide 25 mg PO DAILY PRN 08/13/16 11/17/16 History [Hydrochlorothiazide] Insulin Aspart [NovoLOG FlexPen] 15 mg SUBCUT BID 10/14/16 11/17/16 History HYDROcodone/ACETAMIN 10-325 [White 1 tablet PO TID PRN tablet 10/20/16 Rx 10-325] Clopidogrel [Plavix] 75 mg PO DAILY 11/05/16 11/17/16 History Glimepiride 4 mg PO DAILY 11/12/16 11/17/16 History Insulin Glargine,Hum.rec.anlog 40 unit SUBCUT BEDTIME 11/12/16 11/17/16 History [Lauren TrujillooStar] cephALEXin [Keflex] 500 mg PO QID #15 11/14/16 11/17/16 Rx Losartan [Cozaar] 25 mg PO DAILY 11/17/16 11/17/16 History dilTIAZem HCl [Cartia XT] 120 mg PO DAILY 11/17/16 11/17/16 History Review of System - Review of System 12 point system: reviewed and no additional remarkable complaints except as stated - Review of System Constitutional: Present: as per HPI Respiratory: Present: cough Gastrointestinal: Present: as per HPI Neurological: Present: as per HPI Medical,Surgical,& Family Hx - Medical History Cardio: History of: Cardiac Dysrhythmia (PAT), Hypertension, Pacemaker (placed november 2016) No history of: CHF, SD Psychological: History of: Anxiety Disorders, Depression Neurology: History of: Cerebrovascular Accident No history of: Dementia, Seizures, TIA HEENT: History of: Eye Problem (cataract) Endocrine: History of: Diabetes Mellitus (IDDM), Dyslipidemia Respiratory: History of: Bronchitis No history of: Obstructive Sleep Apnea Genitourinary: History of: Recurring Urinary Tract Infections No history of: Kidney Stones Gastrointestinal: History of: Diverticulitis/ Diverticulosis, GERD, Hemorrhoids , GI Problems (Chronic constipation) No history of: Gastrointestinal Bleed Musculoskeletal: History of: Amputation (right toe), Back/Neck Problems, Musculoskeletal Problems Hematology: History of: Anemia Other: History of: MRSA - Surgical History Cardiac Surgeries: Patient Denies: Cardiac Catheterization HEENT Surgeries: Surgical HX of: Eye Surgery (cataracts) Patient denies: Tonsilectomy & Adenoidectomy Abdominal Surgeries: Surgical HX of: Abdominal Surgery, Appendectomy, Cholecystectomy, Colonoscopy, EGD Reproductive Surgeries: Surgical HX of;: Gynecologic Surgery, Hysterectomy Orthopedic Surgeries: Surgical HX of;: Total Hip Replacement (left) - Family History Family History: Reports;: Family Cancer (brother, sister), Family Diabetes ( mother), Family Heart Disease (mother and dad), Family Hypertension - Social History Smoking Status: Never smoker Exam Physical Examination: GENERAL: Well developed, well nourished elderly white female in no acute distress. HEENT: Normocephalic. No trauma. Moist mucous membranes. EOMI. PERRLA. ENT NML NECK: Supple. No adenopathy. CARDIAC: Regular. No murmurs. Heart rate 79 CHEST: Clear to auscultation. No respiratory distress. O2 sat 95% ABDOMEN: Soft. Nontender. Active bowel sounds. EXTREMITIES: No trauma. Normal ROM. No pedal edema. SKIN: No diaphoresis. No rash. NEURO: Alert. Oriented 3, motor, sensory, vibratory intact. No focal deficits. Vital Signs: Vital Signs Temperature 97.8 F 11/17/16 12:54 Pulse Rate 81 11/17/16 12:54 Respiratory Rate 20 11/17/16 12:54 Blood Pressure 123/68 11/17/16 12:54 O2 Sat by Pulse Oximetry 95 11/17/16 12:54 Course - Reevaluation(s) Reevaluation #1: I have advised patient she may very well have to come back in the hospital again. - Consultations Consultation #1: Discussed with Dr. Emanuel of the situation he will see the patient in the ER. Dr. Nicole will admit patient for further evaluation treatment. Results - Impressions EKG: Sinus rhythm normal FL interval and QRS duration. Probable old anterior SD. No acute injury pattern noted Disposition Clinical Impression: Arrhythmia, Recent pacemaker, Recurrent syncope, Labile blood pressure Case discussed with: patient, patient's family Disposition: Still a Patient Condition: Guarded Time of Disposition: 13:56
--- NOTE | 2016-11-17 13:51 | Cardiology History & Physical ---
Assessment and Plan (1) Syncope Status: Resolved Assessment and plan: 81-year-old female, presenting with syncope. 4 days after dual-chamber pacemaker implantation for SSS, tachybradycardia. Difficult to control hypertension, dementia, hyperlipidemia, diabetes mellitus, COPD. -Await results of labs, head CT -Interrogate pacemaker. -Admit to telemetry. -Hypertension. I suspect she also has orthostatic hypotension, likely due to either diuretics or neurological issues. This was difficult to control in the past and even with the pacemaker, this seems to be quite symptomatic. If blood pressure allows, we will plan to stop the diuretics at this time and manage her other antihypertensive, we will obtain neurological consult consult when available -Oxygen. She is not hypoxic. Was started on continuous oxygen a month ago. Will obtain pulmonary consult, whether it is still needed. She had diastolic CHF in the past, which resolved. -Check carotid ultrasound. -PT consult -H/o PAF. She is still not a candidate for anticoagulation, falls, dementia, high bleeding risk, frail Current Visit: No (2) Anemia Status: Chronic Current Visit: No (3) Diabetes Status: Chronic Current Visit: No Qualifiers: Diabetes mellitus type: type 2 Diabetes mellitus complication status: with kidney complications Diabetes mellitus complication detail: with chronic kidney disease Diabetes mellitus parts counterman insulin use: with alf use Chronic kidney disease stage: stage 3 (moderate) Qualified Code(s): E11.22 - Type 2 diabetes mellitus with diabetic chronic kidney disease; N18.3 - Chronic kidney disease, stage 3 (moderate); Z79.4 - oil heaterman (current) use of insulin (4) Hypertension Status: Chronic Current Visit: No (5) A-fib Status: Acute Current Visit: No (6) Dyspnea Status: Acute Current Visit: No (7) History of PAT (paroxysmal atrial tachycardia) Status: Chronic Current Visit: No (8) Symptomatic bradycardia Status: Acute Current Visit: No (9) Status post cardiac pacemaker procedure Status: Acute Current Visit: No History of Present Illness Chief complaint: syncope History of present illness: Ms. Barahona is a 81 year old female with h/o SSS/tachybrady/PAF, symptomatic conversion pauses, syncope. She underwent a dual-chamber pacemaker implantation 4 days ago. She also has history of hypertension, hyperlipidemia, dementia, anemia, COPD. She was using continuous oxygen for approximately a months, at 2 L nasal cannula. She is quite frail and was deemed high risk for anticoagulation in the past. She was recovering at home, but today, had a syncopal spell again. Her blood pressure was quite difficult to control her prior hospital stay and was up to 200 systolic. At home, the blood pressure was still elevated, today, while she was eating, she took for oxygen. Then, she stood up and started walking and after several steps, she again fell. It is uncertain whether she had any loss of consciousness. The blood pressure was still again very elevated, above 200. She had some L conjunctival bleed the day before this happened. She did not have any fever. The pacemaker site is healing well, there is no hematoma tenderness. She had no fevers. Per family, she had good p.o. intake and they were compliant with medications. The patient is a bit demented and is unable to provide meaningful history. Home Medications Medication Instructions Recorded Confirmed Type Estradiol Tab [Estrace Tab] 2 mg PO DAILY 11/23/14 11/17/16 History Morphine Sulfate [Morphine Sulfate 15 mg PO DAILY 11/23/14 11/17/16 History ER] Omeprazole [Prilosec] 20 mg PO DAILY 11/23/14 11/17/16 History Simvastatin [Zocor] 10 mg PO QPM 11/23/14 11/17/16 History hydroCHLOROthiazide 25 mg PO DAILY PRN 08/13/16 11/17/16 History [Hydrochlorothiazide] Insulin Aspart [NovoLOG FlexPen] 15 mg SUBCUT BID 10/14/16 11/17/16 History HYDROcodone/ACETAMIN 10-325 [[place] 1 tablet PO TID PRN tablet 10/20/16 Rx 10-325] Clopidogrel [Plavix] 75 mg PO DAILY 11/05/16 11/17/16 History Glimepiride 4 mg PO DAILY 11/12/16 11/17/16 History Insulin Glargine,Hum.rec.anlog 40 unit SUBCUT BEDTIME 11/12/16 11/17/16 History [Lauren SoloStshawn] cephALEXin [Keflex] 500 mg PO QID #15 11/14/16 11/17/16 Rx Losartan [Cozaar] 25 mg PO DAILY 11/17/16 11/17/16 History dilTIAZem HCl [Cartia XT] 120 mg PO DAILY 11/17/16 11/17/16 History Allergies Allergy/AdvReac Type Severity Reaction Status Date / Time Shrimp Allergy ITCHING Verified 09/24/16 10:29 sulfamethoxazole Allergy Confusion Verified 10/13/16 21:04 [From Bactrim] trimethoprim [From Bactrim] Allergy Confusion Verified 10/13/16 21:04 12 point system: reviewed and no additional remarkable complaints except as stated Medical,Surgical,& Family Hx - Medical History Cardio: History of: Cardiac Dysrhythmia (PAT), Hypertension, Pacemaker (placed november 2016) No history of: CHF, [place] Psychological: History of: Anxiety Disorders, Depression Neurology: History of: Cerebrovascular Accident No history of: Dementia, Seizures, TIA HEENT: History of: Eye Problem (cataract) Endocrine: History of: Diabetes Mellitus (IDDM), Dyslipidemia Respiratory: History of: Bronchitis No history of: Obstructive Sleep Apnea Genitourinary: History of: Recurring Urinary Tract Infections No history of: Kidney Stones Gastrointestinal: History of: Diverticulitis/ Diverticulosis, GERD, Hemorrhoids , GI Problems (Chronic constipation) No history of: Gastrointestinal Bleed Musculoskeletal: History of: Amputation (right toe), Back/Neck Problems, Musculoskeletal Problems Hematology: History of: Anemia Other: History of: MRSA - Surgical History Cardiac Surgeries: Patient Denies: Cardiac Catheterization HEENT Surgeries: Surgical HX of: Eye Surgery (cataracts) Patient denies: Tonsilectomy & Adenoidectomy Abdominal Surgeries: Surgical HX of: Abdominal Surgery, Appendectomy, Cholecystectomy, Colonoscopy, EGD Reproductive Surgeries: Surgical HX of;: Gynecologic Surgery, Hysterectomy Orthopedic Surgeries: Surgical HX of;: Total Hip Replacement (left) - Family History Family History: Reports;: Family Cancer (brother, sister), Family Diabetes ( mother), Family Heart Disease (mother and dad), Family Hypertension - Social History Smoking Status: Never smoker Cardiology Physical Exam - Constitutional Vitals: Vital Signs Temp Pulse Resp BP Pulse Ox 97.8 F 81 20 123/68 95 11/17/16 12:54 11/17/16 12:54 11/17/16 12:54 11/17/16 12:54 11/17/16 12:54 Intake and Output 11/16/16 11/17/16 11/17/16 23:59 07:59 15:59 Other: Weight 68.492 kg Patient Weight 11/17/16 23:59 Weight 68.492 kg General appearance: normal weight, no acute distress - Head Head exam: Present: normal inspection, normocephalic - Eye Eye exam: Present: conjunctival injection. Absent: periorbital swelling, scleral icterus, laceration to eyelids Pupils: Present: normal accommodation. Absent: dilated - ENT ENT exam: Present: normal external ear exam - Neck Neck exam: Present: normal inspection - Respiratory Respiratory exam: Present: clear to auscultation bilaterally. Absent: wheezes - Cardiovascular Cardiovascular exam: Present: regular rate and rhythm, systolic murmur - GI/Abdominal GI/Abdominal exam: Present: normal bowel sounds. Absent: distended - Extremities Exam Extremities exam: Present: normal inspection, normal capillary refill. Absent: edema - Back Exam Back exam: Present: normal inspection - Neurological Exam Neurological exam: Present: alert, oriented X3 - Psychiatric Psychiatric exam: Present: normal affect, normal mood - Skin Skin exam: Present: normal color, warm. Absent: cyanosis Result/EKG - Labs Lab Results: I have reviewed the past 24 hour labs - EKG EKG results: interpreted by me
--- NOTE | 2016-11-17 13:52 | CT Report ---
CT head/brain wo con Indication: Syncope. CT BRAIN WITHOUT CONTRAST DLP: 915 mGy*cm. One or more of the following dose reduction techniques was used: Automated exposure control, adjustment of the mA and/or kV according the patient size, or use of iterative reconstruction techniques. Comparison: 11/12/2016. Date of admission: 11/17/2016. Technique: Axial noncontrast CT images of the brain were obtained. Findings: No acute hemorrhage, mass or mass effect. Generalized atrophy and patchy periventricular white matter hypodensity is present throughout both convexities. Cortical rizzo-white junction and structures of the basal ganglia are well-defined. No bone lesions are shown. Internal auditory canals are symmetric. Visualized sinuses and mastoid air cells are clear. Calcified atheromatous disease of the [place] noted. Impression: No acute intracranial pathology. Generalized atrophy and changes consistent with microvascular disease. No change from 5 days ago. PROCEDURE INTERPRETED AT [facility] DEPARTMENT OF RADIOLOGY Final Report Signed by: Hunter Burgess M.D.
[2016-11-17 13:54] LABS: INR 0.9; PT Patient Result 9.4 SECS
--- NOTE | 2016-11-17 13:54 | XRay Report ---
Exam: XR chest 1V portable Date: 11/17/2016 1:20 PM Indication: Shortness of breath Comparison: 11/14/2016 Technical: AP portable Findings: Cardiomegaly present with a left-sided cardiac pacing device with atrial ventricular leads. Previous cortical anchor screws over the right shoulder with calcification of the rotator cuff tendons supraspinatus tendon region. Surgical clips present in the mid abdomen. ASVD is present. Tiny low volume effusions and mild alveolar interstitial densities are present. Minimal thickening minor fissure. No pneumothorax. Impression: 1. Cardiomegaly with stable appearance the cardiac pacing device with improving aeration and decreasing alveolar interstitial edema and effusions when compared to previous study with incomplete resolution. 2. Previous rotator cuff surgery on the right PROCEDURE INTERPRETED AT [facility] DEPARTMENT OF RADIOLOGY Final Report Signed by: Dr. Teodoro Rankin
[2016-11-17] MEDS ORDERED: DEXTROSE 50% 25 GM/50 ML VIAL IV PRN (13:55)
[2016-11-17] MEDS ORDERED: ONDANSETRON 4 MG/2 ML VIAL IV PRN (13:55)
[2016-11-17] MEDS ORDERED: MAGNESIUM SULF RIDER 4 GM in PREMIX 1 EACH IV PRN (13:55)
[2016-11-17] MEDS ORDERED: MAGNESIUM SULF RIDER 2 GM in PREMIX 1 EACH IV PRN (13:55)
[2016-11-17] MEDS ORDERED: GLUCAGON 1 MG VIAL IM PRN (13:55)
[2016-11-17] MEDS ORDERED: ACETAMINOPHEN 325 MG TABLET PO PRN (13:55)
[2016-11-17] MEDS ORDERED: ZALEPLON 5 MG CAPSULE PO PRN (13:55)
[2016-11-17] MEDS ORDERED: DOCUSATE SODIUM 100 MG CAPSULE PO PRN (13:55)
[2016-11-17 14:01] LABS: Alanine Aminotransferase 11 U/L (13-56); Albumin 2.8 G/DL (3.4-5.0); Alkaline Phosphatase 57 U/L (45-117); Aspartate Amino Transferase 17 U/L (0-37); Blood Urea Nitrogen 17 MG/DL (7-18); Calcium 8.9 MG/DL (8.5-10.1); Glucose 227 MG/DL (74-106); Osmolality,Calculated 281.8 MOS/KG (273-304); Potassium 4.5 MMOL/L (3.5-5.1); Sodium 137 MMOL/L (136-145); Total Protein 6.5 G/DL (6.4-8.3); Troponin I Only < 0.015 NG/ML (0.00-0.045)
--- NOTE | 2016-11-17 14:37 | Ultrasound Report ---
Bilateral carotid Doppler. Grayscale, color-flow, and spectral analysis performed and interpreted. Indication: Syncope. Minimal if any atherosclerotic changes are visible. The right internal carotid artery peak systolic velocity is 70 cm/s, with an IC/CC ratio of 1.1. The left internal carotid artery peak systolic velocity is 79 cm/s, with an IC/CC ratio of 1.1. There is antegrade flow within each vertebral artery. Impression: Using NASCET criteria, findings consistent with less than 50% stenosis bilaterally. PROCEDURE INTERPRETED AT [facility] DEPARTMENT OF RADIOLOGY Final Report Signed by: Dr. Yulisa Dorantes
[2016-11-17] MEDS: ENOXAPARIN 40 MG/0.4 ML SYRINGE SUBCUT SCH (16:22)
[2016-11-17 17:01] LABS: Basophils # 0.1 10*3/uL (0.0-0.2); Basophils % 0.6 % (0.0-0.8); Eosinophils # 0.3 10*3/uL (0.0-0.87); Eosinophils % 3.6 % (0.00-10.9); Hemoglobin 11.4 GM/DL (12.0-16.0); Immature Granulocytes % 0.2 %; Immature Granulocytes Absolute 0.02 #; Lymphocytes % 23.2 % (21.3-54.2); Mean Corpuscular HGB Conc 31.7 GM/DL (32-36); Mean Corpuscular Hemoglobin 26 PG (27-34); Mean Corpuscular Volume 81.6 FL (87-102); Mean Platelet Volume 9.7 FL (9.6-12.0); Monocytes # 0.8 10*3/uL (0.11-0.8); Monocytes % 9.6 % (1.7-12.7); Neutrophils # 5.4 10*3/uL (1.4-7.4); Neutrophils % 62.8 % (38.7-73.9); Platelet Count 195 T/CUMM (130-400); Red Blood Count 4.41 MC/CUMM (3.8-5.5); Red Cell Distribution Width 16.3 % (9.3-17.3); White Blood Count 8.5 T/CUMM (4-12)
[2016-11-17] MEDS: SIMVASTATIN 10 MG TABLET PO SCH (18:16)
[2016-11-17] MEDS: INSULIN GLARGINE 100 UNIT/ML SUBCUT SCH (20:01)
[2016-11-17] MEDS: INSULIN LISPRO 100 UNIT/ML SUBCUT SCH (20:54)
[2016-11-18] MEDS: oxyCODONE/ACETAMINOPHEN 5-325 MG TABLET PO PRN ×3 (01:54→18:32)
[2016-11-18 06:14] LABS: Basophils # 0.1 10*3/uL (0.0-0.2); Basophils % 0.7 % (0.0-0.8); Eosinophils # 0.4 10*3/uL (0.0-0.87); Eosinophils % 6.3 % (0.00-10.9); Hematocrit 34.3 VOL% (35.7-47.0); Hemoglobin 10.8 GM/DL (12.0-16.0); Immature Granulocytes % 0.3 %; Immature Granulocytes Absolute 0.02 #; Lymphocytes # 2.3 10*3/uL (1.4-4.0); Lymphocytes % 34.3 % (21.3-54.2); Mean Corpuscular HGB Conc 31.5 GM/DL (32-36); Mean Corpuscular Hemoglobin 25 PG (27-34); Mean Corpuscular Volume 80.1 FL (87-102); Mean Platelet Volume 10.4 FL (9.6-12.0); Monocytes # 0.8 10*3/uL (0.11-0.8); Monocytes % 11.7 % (1.7-12.7); Neutrophils # 3.2 10*3/uL (1.4-7.4); Neutrophils % 46.7 % (38.7-73.9); Platelet Count 205 T/CUMM (130-400); Red Blood Count 4.28 MC/CUMM (3.8-5.5); Red Cell Distribution Width 16.3 % (9.3-17.3); White Blood Count 6.8 T/CUMM (4-12)
[2016-11-18 06:51] LABS: Calcium 8.3 MG/DL (8.5-10.1); Osmolality,Calculated 283.4 MOS/KG (273-304)
[2016-11-18] MEDS ORDERED: LOSARTAN 25 MG TABLET PO SCH (09:00)
[2016-11-18] MEDS ORDERED: PHENYLEPH/MINERAL OIL/PETROLAT 57 GM TUBE TOP PRN (09:47)
[2016-11-18] MEDS: PANTOPRAZOLE 40 MG TABLET PO SCH (09:53)
[2016-11-18] MEDS: ESTRADIOL 2 MG TABLET PO SCH (09:53)
[2016-11-18] MEDS: MORPHINE ER 15 MG TABLET PO SCH (09:53)
[2016-11-18] MEDS: DILTIAZEM CD 120 MG CAPSULE PO SCH (09:53)
[2016-11-18] MEDS: GLIMEPIRIDE 4 MG TABLET PO SCH (09:53)
[2016-11-18] MEDS: CLOPIDOGREL 75 MG TABLET PO SCH (09:53)
[2016-11-18] MEDS: INSULIN LISPRO 100 UNIT/ML SUBCUT SCH ×2 (09:54→22:07)
--- NOTE | 2016-11-18 12:47 | Cardiology Progress Note ---
Assessment and Plan (1) Syncope Status: Resolved Assessment and plan: 81-year-old female, presenting with syncope. Dual-chamber pacemaker implantation for SSS, tachybradycardia. Difficult to control hypertension, dementia, hyperlipidemia, diabetes mellitus, COPD. -No evidence of hypoglycemia, recent CVA, arrhythmia. I suspect her persistent dizziness, orthostatic issues, syncope is due neurological origin, worsened by high-dose opioid use. She has severe back pain/arthritis, followed by pain management, weaning of her regimen was planned. -PT evaluation -Blood pressure is normal, on her usual regimen. I am going to hold off diuretics and accept mild elevation in baseline blood pressure, if this makes her symptoms better. -She will need to follow-up with her primary care physician, pain specialist, hopefully, we can cut back on her opioids. -She will also need neurological evaluation. Carotid ultrasound did not show significant stenosis. -H/o PAF. She is still not a candidate for anticoagulation, falls, dementia, high bleeding risk, frail -If remains stable, plan to discharge home tomorrow -Recheck orthostatic vitals Current Visit: No (2) Anemia Status: Chronic Current Visit: No (3) Diabetes Status: Chronic Current Visit: No Qualifiers: Diabetes mellitus type: type 2 Diabetes mellitus complication status: with kidney complications Diabetes mellitus complication detail: with chronic kidney disease Diabetes mellitus joint terminal attack controller insulin use: with joint terminal attack controller use Chronic kidney disease stage: stage 3 (moderate) Qualified Code(s): E11.22 - Type 2 diabetes mellitus with diabetic chronic kidney disease; N18.3 - Chronic kidney disease, stage 3 (moderate); Z79.4 - joint terminal attack controller (current) use of insulin (4) Hypertension Status: Chronic Current Visit: No (5) A-fib Status: Acute Current Visit: No (6) Dyspnea Status: Acute Current Visit: No (7) History of PAT (paroxysmal atrial tachycardia) Status: Chronic Current Visit: No (8) Symptomatic bradycardia Status: Acute Current Visit: No (9) Status post cardiac pacemaker procedure Status: Acute Current Visit: No Cardiology - PN: Subj Interval history: She is feeling better. Still feeling occasional dizzy, lightheaded. No significant carotid artery stenosis. Still having recurrent pain issues, despite high-dose opioids, which is her chronic regimen Exam (Progress Note) - Constitutional Vitals: Period Temp Pulse Resp BP Sys/Saleh Pulse Ox Last 24 Hr 96.9 F-98.9 F 60-81 12-20 122-188/67-83 95-98 General appearance: normal weight, over weight - Head Head exam: Present: normal inspection, normocephalic - Eye Eye exam: Absent: conjunctival injection, scleral icterus Pupils: Absent: dilated - ENT ENT exam: Present: normal external ear exam - Neck Neck exam: Present: normal inspection - Respiratory Respiratory exam: Present: clear to auscultation bilaterally - Cardiovascular Cardiovascular exam: Present: regular rate and rhythm. Absent: JVD - GI/Abdominal GI/Abdominal exam: Present: normal bowel sounds. Absent: distended - Extremities Exam Extremities exam: Present: normal inspection, normal capillary refill. Absent: edema - Back Exam Back exam: Present: normal inspection - Neurological Exam Neurological exam: Present: alert, oriented X3 - Psychiatric Psychiatric exam: Present: normal affect, normal mood - Skin Skin exam: Present: normal color, warm. Absent: cyanosis Result/EKG - Labs CBC & BMP: 11/18/16 05:40 11/18/16 05:40 Lab Results: I have reviewed the past 24 hour labs Labs: Laboratory Results - last 24 hr 11/17/16 11/17/16 11/17/16 13:26 13:26 13:26 WBC RBC Hgb Hct MCV MCH MCHC RDW Plt Count MPV Neut % (Auto) Lymph % (Auto) Pierce % (Auto) Eos % (Auto) Baso % (Auto) Neut # (Auto) Lymph # (Auto) Pierce # (Auto) Eos # (Auto) Baso # (Auto) Immature Gran % Nucleated RBC % Immature Gran # Nucleated RBCs # INR 0.9 PT Patient/Control Mix 9.4 Sodium 137 Potassium 4.5 Chloride 103 Carbon Dioxide 25 Anion Gap 13.5 BUN 17 Creatinine 0.80 GFR Calculation 70 BUN/Creatinine Ratio 21.00 H Glucose 227 H POC Glucose Calculated Osmolality 281.8 Calcium 8.9 Magnesium Total Bilirubin 0.50 AST 17 ALT 11 L Alkaline Phosphatase 57 Total Creatine Kinase 50 D CK-MB (CK-2) 2.7 Troponin I < 0.015 B-Natriuretic Peptide 280 H Total Protein 6.5 Albumin 2.8 L Globulin 3.7 H Albumin/Globulin Ratio 0.7 L 11/17/16 11/17/16 11/17/16 15:22 16:48 20:13 WBC 8.5 D RBC 4.41 Hgb 11.4 L Hct 36.0 MCV 81.6 L MCH 26 L MCHC 31.7 L RDW 16.3 Plt Count 195 MPV 9.7 Neut % (Auto) 62.8 Lymph % (Auto) 23.2 Pierce % (Auto) 9.6 Eos % (Auto) 3.6 Baso % (Auto) 0.6 Neut # (Auto) 5.4 Lymph # (Auto) 2.0 Pierce # (Auto) 0.8 Eos # (Auto) 0.3 Baso # (Auto) 0.1 Immature Gran % 0.2 Nucleated RBC % 0.0 Immature Gran # 0.02 Nucleated RBCs # 0.00 INR PT Patient/Control Mix Sodium Potassium Chloride Carbon Dioxide Anion Gap BUN Creatinine GFR Calculation BUN/Creatinine Ratio Glucose POC Glucose 225 H 243 H Calculated Osmolality Calcium Magnesium Total Bilirubin AST ALT Alkaline Phosphatase Total Creatine Kinase CK-MB (CK-2) Troponin I B-Natriuretic Peptide Total Protein Albumin Globulin Albumin/Globulin Ratio 11/18/16 11/18/16 11/18/16 05:40 05:40 07:37 WBC 6.8 RBC 4.28 Hgb 10.8 L Hct 34.3 L MCV 80.1 L MCH 25 L MCHC 31.5 L RDW 16.3 Plt Count 205 MPV 10.4 Neut % (Auto) 46.7 Lymph % (Auto) 34.3 Pierce % (Auto) 11.7 Eos % (Auto) 6.3 Baso % (Auto) 0.7 Neut # (Auto) 3.2 Lymph # (Auto) 2.3 Pierce # (Auto) 0.8 Eos # (Auto) 0.4 Baso # (Auto) 0.1 Immature Gran % 0.3 Nucleated RBC % 0.0 Immature Gran # 0.02 Nucleated RBCs # 0.00 INR PT Patient/Control Mix Sodium 140 Potassium 4.0 Chloride 104 Carbon Dioxide 25 Anion Gap 15.0 BUN 15 Creatinine 0.80 GFR Calculation 71 BUN/Creatinine Ratio 18.00 Glucose 170 H POC Glucose 142 H Calculated Osmolality 283.4 Calcium 8.3 L Magnesium 2.0 Total Bilirubin AST ALT Alkaline Phosphatase Total Creatine Kinase CK-MB (CK-2) Troponin I B-Natriuretic Peptide Total Protein Albumin Globulin Albumin/Globulin Ratio 11/18/16 11:57 WBC RBC Hgb Hct MCV MCH MCHC RDW Plt Count MPV Neut % (Auto) Lymph % (Auto) Pierce % (Auto) Eos % (Auto) Baso % (Auto) Neut # (Auto) Lymph # (Auto) Pierce # (Auto) Eos # (Auto) Baso # (Auto) Immature Gran % Nucleated RBC % Immature Gran # Nucleated RBCs # INR PT Patient/Control Mix Sodium Potassium Chloride Carbon Dioxide Anion Gap BUN Creatinine GFR Calculation BUN/Creatinine Ratio Glucose POC Glucose 138 H Calculated Osmolality Calcium Magnesium Total Bilirubin AST ALT Alkaline Phosphatase Total Creatine Kinase CK-MB (CK-2) Troponin I B-Natriuretic Peptide Total Protein Albumin Globulin Albumin/Globulin Ratio - EKG EKG results: interpreted by me
[2016-11-18] MEDS: ENOXAPARIN 40 MG/0.4 ML SYRINGE SUBCUT SCH (15:21)
--- NOTE | 2016-11-18 16:17 | Pulmonology Consult Note ---
Assessment and Plan (1) Hypoxia Status: Chronic Assessment and plan: It is unclear to me why the patient needs oxygen. Her imaging is not consistent with ILD, she has a very remote smoking history, although she could have a severely low DLCO I supposed. She would need outpatient PFTs to confirm this. No evidence of emphysema. Either way, there does not appear to be a life threatening cause and this had been ongoing for awhile. Would continue her oxygen as previously prescribed and have her see pulmonary as an outpatient Current Visit: No History of Present Illness History of present illness: Consulted by cardiology to determine whether patient needs continued oxygen use. Patient seen and examined this morning. Her daughter was present and answered most of the questions. She reportedly had an episode of syncope at home. The daughter staets that the patient was talking on the phone and not wearing her oxygen (usually on 2L NC), then walked over to her chair and passed out. Daughter thinks its because she didnt have her oxygen on. She came to quicky, did not hit her head. Daughter reports several recent hospitalizations for various issues, and at some point she was placed on oxygen. It is not clear if she has seen a pulmnologist but she had a high res chest CT that appeared normal Home Medications Medication Instructions Recorded Confirmed Type Estradiol Tab [Estrace Tab] 2 mg PO DAILY 11/23/14 11/17/16 History Morphine Sulfate [Morphine Sulfate 15 mg PO DAILY 11/23/14 11/17/16 History ER] Omeprazole [Prilosec] 20 mg PO DAILY 11/23/14 11/17/16 History Simvastatin [Zocor] 10 mg PO QPM 11/23/14 11/17/16 History hydroCHLOROthiazide 25 mg PO DAILY PRN 08/13/16 11/17/16 History [Hydrochlorothiazide] Insulin Aspart [NovoLOG FlexPen] 15 mg SUBCUT BID 10/14/16 11/17/16 History HYDROcodone/ACETAMIN 10-325 [[place] 1 tablet PO TID PRN tablet 10/20/16 Rx 10-325] Clopidogrel [Plavix] 75 mg PO DAILY 11/05/16 11/17/16 History Glimepiride 4 mg PO DAILY 11/12/16 11/17/16 History Insulin Glargine,Hum.rec.anlog 40 unit SUBCUT BEDTIME 11/12/16 11/17/16 History [Lauren Morrow] cephALEXin [Keflex] 500 mg PO QID #15 11/14/16 11/17/16 Rx Losartan [Cozaar] 25 mg PO DAILY 11/17/16 11/17/16 History dilTIAZem HCl [Cartia XT] 120 mg PO DAILY 11/17/16 11/17/16 History Allergies Allergy/AdvReac Type Severity Reaction Status Date / Time Shrimp Allergy ITCHING Verified 09/24/16 10:29 sulfamethoxazole Allergy Confusion Verified 10/13/16 21:04 [From Bactrim] trimethoprim [From Bactrim] Allergy Confusion Verified 10/13/16 21:04 Exam (Pulmonay) H&P - Constitutional Vitals: Period Temp Pulse Resp BP Sys/Saleh Pulse Ox Last 24 Hr 96.9 F-98.9 F 60-66 12-20 123-188/67-81 95-98 General appearance: normal weight, no acute distress - Head Head exam: Present: normal inspection - Eye Eye exam: Present: EOMI - Respiratory Respiratory exam: Present: clear to auscultation bilaterally. Absent: accessory muscle use, stridor, wheezes - GI/Abdominal GI/Abdominal exam: Present: normal bowel sounds Medical,Surgical,& Family Hx - Medical History Cardio: History of: Cardiac Dysrhythmia (PAT), Hypertension, Pacemaker (placed november 2016) No history of: CHF, [place] Psychological: History of: Anxiety Disorders, Depression Neurology: History of: Cerebrovascular Accident No history of: Dementia, Seizures, TIA HEENT: History of: Eye Problem (cataract) Endocrine: History of: Diabetes Mellitus (IDDM), Dyslipidemia Respiratory: History of: Bronchitis No history of: Obstructive Sleep Apnea Genitourinary: History of: Recurring Urinary Tract Infections No history of: Kidney Stones Gastrointestinal: History of: Diverticulitis/ Diverticulosis, GERD, Hemorrhoids , GI Problems (Chronic constipation) No history of: Gastrointestinal Bleed Musculoskeletal: History of: Amputation (right toe), Back/Neck Problems, Musculoskeletal Problems Hematology: History of: Anemia Other: History of: MRSA - Surgical History Cardiac Surgeries: Patient Denies: Cardiac Catheterization HEENT Surgeries: Surgical HX of: Eye Surgery (cataracts) Patient denies: Tonsilectomy & Adenoidectomy Abdominal Surgeries: Surgical HX of: Abdominal Surgery, Appendectomy, Cholecystectomy, Colonoscopy, EGD Reproductive Surgeries: Surgical HX of;: Gynecologic Surgery, Hysterectomy Orthopedic Surgeries: Surgical HX of;: Total Hip Replacement (left) - Family History Family History: Reports;: Family Cancer (brother, sister), Family Diabetes ( mother), Family Heart Disease (mother and dad), Family Hypertension - Social History Smoking Status: Never smoker Frequency of Alcohol Use: None Type of Drug Use: None Results - Labs CBC & BMP: 11/18/16 05:40 11/18/16 05:40 Lab Results: I have reviewed the past 24 hour labs - Diagnostic Findings Procedure: Chest x-ray: image reviewed by me (reviewed images and report)
[2016-11-18] MEDS: SIMVASTATIN 10 MG TABLET PO SCH (18:30)
[2016-11-18] MEDS: INSULIN GLARGINE 100 UNIT/ML SUBCUT SCH (22:07)
[2016-11-19] MEDS: LOSARTAN 50 MG TABLET PO SCH ×2 (04:56→20:42)
[2016-11-19] MEDS: hydroCHLOROthiazide 25 MG TABLET PO SCH (04:57)
[2016-11-19 05:58] LABS: Basophils # 0.1 10*3/uL (0.0-0.2); Basophils % 1.3 % (0.0-0.8); Eosinophils # 0.6 10*3/uL (0.0-0.87); Eosinophils % 9.8 % (0.00-10.9); Hematocrit 36.3 VOL% (35.7-47.0); Hemoglobin 11.5 GM/DL (12.0-16.0); Immature Granulocytes % 0.3 %; Immature Granulocytes Absolute 0.02 #; Lymphocytes # 2.1 10*3/uL (1.4-4.0); Lymphocytes % 33.1 % (21.3-54.2); Mean Corpuscular HGB Conc 31.7 GM/DL (32-36); Mean Corpuscular Hemoglobin 26 PG (27-34); Mean Corpuscular Volume 80.5 FL (87-102); Mean Platelet Volume 10.2 FL (9.6-12.0); Monocytes # 0.8 10*3/uL (0.11-0.8); Monocytes % 12.4 % (1.7-12.7); Neutrophils # 2.7 10*3/uL (1.4-7.4); Neutrophils % 43.1 % (38.7-73.9); Platelet Count 198 T/CUMM (130-400); Red Blood Count 4.51 MC/CUMM (3.8-5.5); Red Cell Distribution Width 16.2 % (9.3-17.3); White Blood Count 6.2 T/CUMM (4-12)
[2016-11-19] MEDS: oxyCODONE/ACETAMINOPHEN 5-325 MG TABLET PO PRN ×3 (06:15→20:43)
[2016-11-19 06:27] LABS: Calcium 8.7 MG/DL (8.5-10.1); Osmolality,Calculated 278.4 MOS/KG (273-304); Potassium 4.2 MMOL/L (3.5-5.1)
[2016-11-19] MEDS: MORPHINE ER 15 MG TABLET PO SCH (10:27)
[2016-11-19] MEDS: DILTIAZEM CD 120 MG CAPSULE PO SCH (10:27)
[2016-11-19] MEDS: ESTRADIOL 2 MG TABLET PO SCH (10:27)
[2016-11-19] MEDS: PANTOPRAZOLE 40 MG TABLET PO SCH (10:27)
[2016-11-19] MEDS: GLIMEPIRIDE 4 MG TABLET PO SCH (10:27)
[2016-11-19] MEDS: CLOPIDOGREL 75 MG TABLET PO SCH (10:27)
[2016-11-19] MEDS: INSULIN LISPRO 100 UNIT/ML SUBCUT SCH ×2 (10:28→20:43)
[2016-11-19] MEDS ORDERED: GLUCAGON 1 MG VIAL IM PRN (10:42)
[2016-11-19] MEDS ORDERED: DEXTROSE 50% 25 GM/50 ML VIAL IV PRN (10:42)
--- NOTE | 2016-11-19 11:00 | Cardiology Progress Note ---
Assessment and Plan (1) Syncope Status: Resolved Assessment and plan: 81-year-old female, presenting with syncope. Dual-chamber pacemaker implantation for SSS, tachybradycardia. Difficult to control hypertension, dementia, hyperlipidemia, diabetes mellitus, COPD. -Syncope. No evidence of hypoglycemia, recent CVA, arrhythmia. I suspect her symptoms are multifactorial, can involve neurology, high-dose opioids, hypertension with orthostatic blood pressure issues. -Consult Dr. Dr. Love. Weaning of opioids was planned -Cont PT -Sliding-scale insulin. She is refusing Lantus. Will evaluate required insulin dose, so far, sugars are in acceptable range -Occasional blood pressure elevations, when she is in pain from her chronic pain issues. Cozaar was increased. I would continue diuretics at this time as she still has occasional dipti and blood pressure elevations, if orthostatic issues limited her function ability, we may need to come up with a regimen, without diuretics -Carotid ultrasound did not show significant stenosis. -H/o PAF. She is still not a candidate for anticoagulation, falls, dementia, high bleeding risk, frail -Recheck orthostatic vitals -Removed occlusive pacemaker dressing. The implant site is healing well. Please ask Franky to interrogate the pacemaker tomorrow, 1 weeks after the implant. She will need follow-up with EP, Dr. Nicole in 1 month. -Keep the implant site dry for 1 more day, may remove the sling tomorrow. Wear the sling only at night, for 3 more weeks. Do not elevate the left upper extremity above the shoulder level for 3 more weeks. Current Visit: No (2) Anemia Status: Chronic Current Visit: No (3) Diabetes Status: Chronic Current Visit: No Qualifiers: Diabetes mellitus type: type 2 Diabetes mellitus complication status: with kidney complications Diabetes mellitus complication detail: with chronic kidney disease Diabetes mellitus senior living insulin use: with senior living use Chronic kidney disease stage: stage 3 (moderate) Qualified Code(s): E11.22 - Type 2 diabetes mellitus with diabetic chronic kidney disease; N18.3 - Chronic kidney disease, stage 3 (moderate); Z79.4 - superintendent terminal (current) use of insulin (4) Hypertension Status: Chronic Current Visit: No (5) A-fib Status: Acute Current Visit: No (6) Dyspnea Status: Acute Current Visit: No (7) History of PAT (paroxysmal atrial tachycardia) Status: Chronic Current Visit: No (8) Symptomatic bradycardia Status: Acute Current Visit: No (9) Status post cardiac pacemaker procedure Status: Acute Current Visit: No Cardiology - PN: Subj Interval history: Her blood pressure became markedly elevated last night, after her chronic pain issues worsened. She also kept refusing her Lantus, as she was concerned about hypoglycemia. Blood sugars actually fairly well controlled during the stay. Exam (Progress Note) - Constitutional Vitals: Period Temp Pulse Resp BP Sys/Saleh Pulse Ox Last 24 Hr 97.6 F-98.3 F 60-70 16-20 123-193/67-90 96-99 General appearance: normal weight, over weight - Head Head exam: Present: normal inspection. Absent: normocephalic - Eye Eye exam: Absent: conjunctival injection, scleral icterus Pupils: Absent: dilated - ENT ENT exam: Present: normal external ear exam - Neck Neck exam: Present: normal inspection - Respiratory Respiratory exam: Present: clear to auscultation bilaterally - Cardiovascular Cardiovascular exam: Present: regular rate and rhythm, systolic murmur. Absent : JVD - GI/Abdominal GI/Abdominal exam: Present: normal bowel sounds - Extremities Exam Extremities exam: Present: normal inspection, normal capillary refill. Absent: edema - Back Exam Back exam: Present: normal inspection - Neurological Exam Neurological exam: Present: alert, oriented X3 - Psychiatric Psychiatric exam: Present: normal affect, normal mood - Skin Skin exam: Present: normal color, warm. Absent: cyanosis Result/EKG - Labs CBC & BMP: 11/19/16 05:26 11/19/16 05:26 Lab Results: I have reviewed the past 24 hour labs Labs: Laboratory Results - last 24 hr 11/18/16 11/18/16 11/18/16 07:37 11:57 15:50 WBC RBC Hgb Hct MCV MCH MCHC RDW Plt Count MPV Neut % (Auto) Lymph % (Auto) Loup % (Auto) Eos % (Auto) Baso % (Auto) Neut # (Auto) Lymph # (Auto) Loup # (Auto) Eos # (Auto) Baso # (Auto) Immature Gran % Nucleated RBC % Immature Gran # Nucleated RBCs # Sodium Potassium Chloride Carbon Dioxide Anion Gap BUN Creatinine GFR Calculation BUN/Creatinine Ratio Glucose POC Glucose 142 H 138 H 226 H Calculated Osmolality Calcium Magnesium 11/18/16 11/19/1617 21:00 05:26 05:26 WBC 6.2 RBC 4.51 Hgb 11.5 L Hct 36.3 MCV 80.5 L MCH 26 L MCHC 31.7 L RDW 16.2 Plt Count 198 MPV 10.2 Neut % (Auto) 43.1 Lymph % (Auto) 33.1 Loup % (Auto) 12.4 Eos % (Auto) 9.8 Baso % (Auto) 1.3 H Neut # (Auto) 2.7 Lymph # (Auto) 2.1 Loup # (Auto) 0.8 Eos # (Auto) 0.6 Baso # (Auto) 0.1 Immature Gran % 0.3 Nucleated RBC % 0.0 Immature Gran # 0.02 Nucleated RBCs # 0.00 Sodium 140 Potassium 4.2 Chloride 104 Carbon Dioxide 26 Anion Gap 14.2 BUN 14 Creatinine 0.70 GFR Calculation 84 BUN/Creatinine Ratio 20.00 Glucose 79 POC Glucose 227 H Calculated Osmolality 278.4 Calcium 8.7 Magnesium 2.0 11/19/16 07:42 WBC RBC Hgb Hct MCV MCH MCHC RDW Plt Count MPV Neut % (Auto) Lymph % (Auto) Loup % (Auto) Eos % (Auto) Baso % (Auto) Neut # (Auto) Lymph # (Auto) Loup # (Auto) Eos # (Auto) Baso # (Auto) Immature Gran % Nucleated RBC % Immature Gran # Nucleated RBCs # Sodium Potassium Chloride Carbon Dioxide Anion Gap BUN Creatinine GFR Calculation BUN/Creatinine Ratio Glucose POC Glucose 133 H Calculated Osmolality Calcium Magnesium - EKG EKG results: interpreted by nj Specialty Discharge - Follow Up or Referrals - Speciality Discharge Instructions Cardiology Instructions: FU with EPdr. Nicole in 1 month
[2016-11-19] MEDS: INSULIN REGULAR 100 UNIT/ML SUBCUT SCH ×3 (12:19→20:44)
[2016-11-19] MEDS: ENOXAPARIN 40 MG/0.4 ML SYRINGE SUBCUT SCH (16:35)
[2016-11-19] MEDS: SIMVASTATIN 10 MG TABLET PO SCH (18:15)
[2016-11-19] MEDS: INSULIN GLARGINE 100 UNIT/ML SUBCUT SCH (20:45)
[2016-11-20] MEDS: oxyCODONE/ACETAMINOPHEN 5-325 MG TABLET PO PRN ×4 (01:08→21:17)
--- NOTE | 2016-11-20 07:42 | Family Practice Progress Note ---
Family Practice - PN: Subj Interval history: Patient was admitted after having 2 syncopal episodes. She had her pacemaker interrogated which showed no evidence of malfunction. Patient told me that she did feel her heart racing right before these 2 events and they both occurred when she had just gotten up. So certainly she probably is having some orthostatic hypotension. I will order some orthostatic vital signs. Dr. Goncalves's been consulted concerning her pain medications and their contribution to her orthostasis. Patient denies any pain or discomfort and states she feels back to herself and is ready to go home. Exam (Progress Note) - Constitutional Vitals: Period Temp Pulse Resp BP Sys/Saleh Pulse Ox Last 24 Hr 97.8 F-98.5 F 60-70 14-20 131-173/61-83 94-99 Exam: Objectively well-developed white female no acute distress is able give good history and has a very clear sensorium. Cardiovascular: Heart rates regular with no murmurs or gallops. Respiratory: The lungs clear to auscultation bilaterally. Abdomen: Abdomen soft and nontender to palpation. Results - Labs CBC & BMP: 11/19/16 05:26 11/19/16 05:26 Lab Results: I have reviewed the past 24 hour labs Assessment and Plan (1) Syncope Status: Acute Assessment and plan: 11/20/2016: Orthostatic vital signs have been ordered. Dr. Goncalves to see her as well. Current Visit: Yes
--- NOTE | 2016-11-20 08:14 | Pulmonology Progress Note ---
Pulmonary - PN: Subj Interval history: This 81-year-old white female has had multiple admissions over the last 3 months. She has had syncope and now has a pacemaker. 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 Also has mild aortic stenosis. Has diastolic dysfunction. She was hypoxemic when she was here about a month ago and was on oxygen. After being diuresed her oxygen saturations came up. She does not have any chronic lung disease. As long as her congestive heart failure is controlled I do not think she needs oxygen. We will check an oxygen level on room air at rest, asleep, and with exercise and see if oxygen is still required. Exam (Progress Note) - Constitutional Vitals: Period Temp Pulse Resp BP Sys/Saleh Pulse Ox Last 24 Hr 97.8 F-98.5 F 60-68 14-20 131-189/61-83 94-99 Exam: Patient is alert but somewhat demented. Vital signs normal. Pupils react to light. Throat is clear. Neck supple no bruits. Chest shows some minimal basilar crackles. Heart normal rate, irregular rhythm with a grade 1/6 systolic murmur at the right base. Abdomen soft nontender no masses. Extremities no clubbing or cyanosis. No edema. Calves nontender. Results - Labs CBC & BMP: 11/19/16 05:26 11/19/16 05:26 Lab Results: I have reviewed the past 24 hour labs Assessment and Plan (1) Chronic diastolic (congestive) heart failure Status: Acute Assessment and plan: Previous echo has shown LVH mild aortic stenosis. She has atrial fibrillation. Has an enlarged left atrium. Pulmonary hypertension secondary to left heart disease. This is being managed by cardiology. I think this was the cause for her need for oxygen earlier. I do not think she has a chronic need for oxygen however we will check oximetry on room air. Need to check while she is asleep and exercising. Current Visit: Yes (2) Syncope Status: Acute Assessment and plan: Do not feel this is secondary to hypoxemia. Current Visit: Yes (3) A-fib Status: Acute Assessment and plan: Controlled rate. Managed by cardiology. Current Visit: No (4) Diabetes Status: Chronic Assessment and plan: Fair control of blood glucoses. Defer to primary care Current Visit: No Qualifiers: Diabetes mellitus type: type 2 Diabetes mellitus complication status: with kidney complications Diabetes mellitus complication detail: with chronic kidney disease Diabetes mellitus correction insulin use: with correction use Chronic kidney disease stage: stage 3 (moderate) Qualified Code(s): E11.22 - Type 2 diabetes mellitus with diabetic chronic kidney disease; N18.3 - Chronic kidney disease, stage 3 (moderate); Z79.4 - exterminator helper termite (current) use of insulin
[2016-11-20] MEDS: GLIMEPIRIDE 4 MG TABLET PO SCH (08:26)
[2016-11-20] MEDS: INSULIN LISPRO 100 UNIT/ML SUBCUT SCH ×2 (08:26→21:18)
[2016-11-20] MEDS: MORPHINE ER 15 MG TABLET PO SCH (08:27)
[2016-11-20] MEDS: ESTRADIOL 2 MG TABLET PO SCH (08:27)
[2016-11-20] MEDS: hydroCHLOROthiazide 25 MG TABLET PO SCH (08:27)
[2016-11-20] MEDS: LOSARTAN 50 MG TABLET PO SCH ×2 (08:27→21:18)
[2016-11-20] MEDS: DILTIAZEM CD 120 MG CAPSULE PO SCH (08:27)
[2016-11-20] MEDS: PANTOPRAZOLE 40 MG TABLET PO SCH (08:28)
[2016-11-20] MEDS: CLOPIDOGREL 75 MG TABLET PO SCH (08:28)
[2016-11-20] MEDS: INSULIN REGULAR 100 UNIT/ML SUBCUT SCH ×4 (10:42→21:18)
--- NOTE | 2016-11-20 11:09 | Cardiology Progress Note ---
<Renée Christiansen E - Last Filed: 11/20/16 12:50> Assessment and Plan - Time spent with patient Time spent with patient: Less than 30 minutes (1) Syncope Status: Acute Assessment and plan: See plan of care listed below. Current Visit: Yes (2) History of PAT (paroxysmal atrial tachycardia) Status: Chronic Assessment and plan: See plan of care listed below. Current Visit: No (3) Status post cardiac pacemaker procedure Status: Chronic Assessment and plan: See plan of care listed below. Current Visit: No (4) Hypertension Status: Chronic Assessment and plan: See plan of care listed below. Current Visit: No (5) Diabetes Status: Chronic Assessment and plan: See plan of care listed below. Current Visit: No Qualifiers: Diabetes mellitus type: type 2 Diabetes mellitus complication status: with kidney complications Diabetes mellitus complication detail: with chronic kidney disease Diabetes mellitus truck terminal manager insulin use: with truck terminal manager use Chronic kidney disease stage: stage 3 (moderate) Qualified Code(s): E11.22 - Type 2 diabetes mellitus with diabetic chronic kidney disease; N18.3 - Chronic kidney disease, stage 3 (moderate); Z79.4 - [facility] (current) use of insulin (6) Anemia Status: Chronic Assessment and plan: See plan of care listed below. Current Visit: No (7) Dyspnea Status: Acute Assessment and plan: See plan of care listed below. Current Visit: No Cardiology - PN: Subj Interval history: Retail Tire Sales Manager: Dr. Vega PCP: Dr. Love SUMMARY: Ms. Barahona is a 81-year-old female who presented with syncope 4 days after dual-chamber pacemaker implantation for sick sinus syndrome , tachybradycardia. She has history of difficult to control hypertension, dementia, hyperlipidemia, diabetes mellitus, and COPD. She is on continuous home O2. Her pacemaker was interrogated and was found to be functioning appropriately. Most recent echocardiogram on 10/17/16 revealed EF 60-65%. NOVEMBER 20, 2016 UPDATE: Ms. Barahona reports she is feeling a little bit better; however, she has not been out of bed very much since admission. Physical therapy came to work with her today and apparently when she got up she became hypotensive. Apparently, each of her syncopal or near syncopal episodes have occurred whenever she has gotten up out of bed. May consider florinef as treatement option for her orthostatic hypotension. Will further discuss with Dr. Gan and await additional recommendations. ASSESSMENT/ PLAN: 1. SYNCOPE - She is on numerous pain medications at home for chronic back pain. Dr. Goncalves has been consulted to see her to possibly try to wean her regimen. It's possible her high-dose opioid use is contributing or causing her persistent dizziness, orthostatic issues, and dizziness. Her daughter does express concern over weaning her mother from her pain medications and her being in constant pain. 2. HISTORY OF PAT - Currently in NSR with well controlled rate. 3. S/P PACEMAKER IMPLANT- This has been recently interrogated and found to be functioning appropriately. 4. HYPERTENSION - She has had numerous hypertensive episodes, but also has orthostasis. 5. DIABETES - Family medicine is now following. She is on accuchecks ACHS with sliding scale insulin. 6. ANEMIA 7. DYSPNEA - Pulmonology was consulted and she is being trialed without O2. Thus far, she has tolerated this well and has maintained SPO2 >94-95%. Exam (Progress Note) - Constitutional Vitals: Period Temp Pulse Resp BP Sys/Saleh Pulse Ox Last 24 Hr 97.8 F-98.5 F 60-68 14-20 113-189/54-83 94-99 Exam: General: Present: Appears Well, No Apparent Distress. Pleasant and cooperative. Appears comfortable. HEENT: Present: PERRL, Normocephaly, atraumatic. Mucus Membranes Moist. No jaundice noted. Conjunctiva moist and clear, sclerae anicteric Neck: Present: Supple Neck, Midline Trachea, No Masses, No Bruit, No tenderness Cardiac: Present: Regular Rate and Rhythm, Systolic Murmur Lungs: Present: Clear to auscultation bilaterally, no wheeze, rhonchi, rales. Neuro: Present: Awake, alert, and oriented x3. Moves all extremities well without hemiparesis or paralysis. Grossly Intact. Absent: Resting Tremor, Essential Tremor Abdomen: Present: Soft, Active Bowel Sounds, No Masses, Non-Tender, nondistended. No abdominal bruit or thrill noted. Skin: Present: Clear. Absent: Rash, No skin breakdown. Back: Normal inspection, no vertebral tenderness. Musculoskeletal: Present: No Fluid Collection, No Pain, Normal Range of Motion Extremities: Present: Normal Gait, No Clubbing, No Cyanosis, Upper Extr. Pulses 2+, Lower Extr. Pulses 2+, No edema. Capillary refill less than 3 seconds. Result/EKG - Labs CBC & BMP: 11/19/16 05:26 11/19/16 05:26 Lab Results: I have reviewed the past 24 hour labs Labs: Laboratory Results - last 24 hr 11/19/16 11/19/16 11/19/16 12:00 16:55 20:20 POC Glucose 136 H 137 H 243 H 11/20/16 07:35 POC Glucose 143 H - EKG EKG results: interpreted by me, sinus rhythm <Loi Gan - Last Filed: 11/20/16 14:28> Cardiology - PN: Subj Interval history: This patient has had a little relative hypotension today and I am going to stop her diuretic and liberalize her sodium intake. She appears to be mildly dehydrated to me. I think Florinef is a reasonable idea but will see if we can hold her diuretics and see how we do with her pressures. She has been hypertensives at times as well Exam (Progress Note) - Constitutional Vitals: Period Temp Pulse Resp BP Sys/Saleh Pulse Ox Last 24 Hr 97.6 F-98.5 F 60-68 16-20 108-189/54-83 94-99 Result/EKG - Labs CBC & BMP: 11/19/16 05:26 11/19/16 05:26 Labs: Laboratory Results - last 24 hr 11/19/16 11/19/16 11/20/16 16:55 20:20 07:35 POC Glucose 137 H 243 H 143 H 11/20/16 11:29 POC Glucose 104
[2016-11-20] MEDS: ENOXAPARIN 40 MG/0.4 ML SYRINGE SUBCUT SCH (14:37)
[2016-11-20] MEDS: SIMVASTATIN 10 MG TABLET PO SCH (18:11)
[2016-11-20] MEDS: INSULIN GLARGINE 100 UNIT/ML SUBCUT SCH (21:18)
[2016-11-21] MEDS: oxyCODONE/ACETAMINOPHEN 5-325 MG TABLET PO PRN ×2 (03:26→14:19)
--- NOTE | 2016-11-21 07:57 | Discharge Summary ---
Hospital Course - Hospital Course Hospital Course: Patient 81-year-old white female admitted to the hospital after having 2 syncopal episodes at home. Patient appears to have orthostatic hypotension. No other abnormality was evident and she was started on Florinef. Patient denies any chest pain or shortness of breath and is anxious for discharge. Patient recently had a permanent pacemaker placed and it seems to be functioning quite well. Dr. Goncalves was consult concerning her analgesic regimen. If he does not see her before discharge she can certainly see her as an outpatient. Diagnosis - Discharge Diagnosis (1) Syncope Status: Acute Discharge Plan - Discharge Data Disposition: Disch To Home/Self Care Condition at Discharge: Stable Discharge Diet: advance to your usual diet Activity: resume usual activities as tolerated Hygiene: no restrictions Weight Bearing at Discharge: full weight bearing Contact your physician if you experience:: fever over 101 - Discharge Medications New Fludrocortisone [Florinef] 0.1 mg PO BID #60 tablet Acetaminophen Tab [Tylenol Tab] 650 mg PO Q4H PRN tablet PRN Reason: Fever, Headache, Mild Pain Losartan [Cozaar] 50 mg PO BID tablet Continue Omeprazole [Prilosec] 20 mg PO DAILY Morphine Sulfate [Morphine Sulfate ER] 15 mg PO DAILY Estradiol Tab [Estrace Tab] 2 mg PO DAILY Simvastatin [Zocor] 10 mg PO QPM HYDROcodone/ACETAMIN 10-325 [Bridgeton 10-325] 1 tablet PO TID PRN tablet PRN Reason: Pain Glimepiride 4 mg PO DAILY cephALEXin [Keflex] 500 mg PO QID #15 Insulin Aspart [NovoLOG FlexPen] 15 mg SUBCUT BID Clopidogrel [Plavix] 75 mg PO DAILY Insulin Glargine,Hum.rec.anlog [Toujeo SoloStar] 0 unit SUBCUT BEDTIME dilTIAZem HCl [Cartia XT] 120 mg PO DAILY Losartan [Cozaar] 25 mg PO DAILY Discontinued hydroCHLOROthiazide [Hydrochlorothiazide] 25 mg PO DAILY PRN PRN Reason: FLUID - Follow Up or Referral - Forms/Instructions Exam - Constitutional Vitals: Period Temp Pulse Resp BP Sys/Saleh Pulse Ox Last 24 Hr 97.6 F-98.7 F 60-66 16-20 108-189/54-91 92-99 Exam: Objectively well-developed white female no acute distress is able give good history and has a very clear sensorium. Patient was noted to have near syncope yesterday with physical therapy got her up to help her walk. Cardiovascular: Heart rates regular with no murmurs or gallops. Respiratory: The lungs clear to auscultation bilaterally. Abdomen: Abdomen soft and nontender to palpation. Discharge Results Labs on day of discharge: Labs from last 24 hours 11/21/16 11/20/16 11/20/16 07:27 20:35 15:36 POC Glucose 142 H 205 H 223 H 11/20/16 11:29 POC Glucose 104 Blood sugars well controlled. DS: Provider Date of admission: 11/20/16 14:48 Primary care physician: . No PCP Attending physician on admission: Gibson Nicole MD Consults: 11/17/16 13:58 Consult to Physical Therapy [CONS] Routine Reason for Physical Therapy: Weakness Evaluate and Treat 11/17/16 13:59 Consult to Physician [CONS] Routine Comment: Consulting Provider: Consult to Specialist Group: Pulmonology When should Consulting Provider be notified: Now Person Notified: Dr. Whaley Date Notified: 11/18/16 Time Notified: 07:39 11/19/16 10:52 Consult to Physician [CONS] Routine Comment: Consulting Provider: Lennox Lvoe When should Consulting Provider be notified: In am Discharging clinician: Lennox Love MD Expected date of discharge: 11/21/16
--- NOTE | 2016-11-21 08:22 | Pulmonology Progress Note ---
Pulmonary - PN: Subj Interval history: This 81-year-old white female has had multiple admissions over the last 3 months. She has had syncope and now has a pacemaker. 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 Also has mild aortic stenosis. Has diastolic dysfunction. She was hypoxemic when she was here about a month ago and was on oxygen. After being diuresed her oxygen saturations came up. She does not have any chronic lung disease. As long as her congestive heart failure is controlled I do not think she needs oxygen. We will check an oxygen level on room air at rest, asleep, and with exercise and see if oxygen is still required. 11/21/2016 oximeter is being removed now. Spot checks through the day and night and with exercise of all indicated oxygen levels acceptable. Again as long as she is not any active congestive heart failure she does not need oxygen. Agree with plans for discharge. Exam (Progress Note) - Constitutional Vitals: Period Temp Pulse Resp BP Sys/Saleh Pulse Ox Last 24 Hr 97.6 F-98.7 F 60-66 16-18 108-172/54-91 92-96 Exam: Patient is alert but somewhat demented. Vital signs normal. Pupils react to light. Throat is clear. Neck supple no bruits. Chest shows some minimal basilar crackles. Heart normal rate, irregular rhythm with a grade 1/6 systolic murmur at the right base. Abdomen soft nontender no masses. Extremities no clubbing or cyanosis. No edema. Calves nontender. Little change from yesterday. Results - Labs CBC & BMP: 11/19/16 05:26 11/19/16 05:26 Lab Results: I have reviewed the past 24 hour labs Assessment and Plan (1) Chronic diastolic (congestive) heart failure Status: Acute Assessment and plan: Previous echo has shown LVH mild aortic stenosis. She has atrial fibrillation. Has an enlarged left atrium. Pulmonary hypertension secondary to left heart disease. This is being managed by cardiology. I think this was the cause for her need for oxygen earlier. I do not think she has a chronic need for oxygen however we will check oximetry on room air. Need to check while she is asleep and exercising. 11/21/2016 heart failure under control. Current Visit: Yes (2) Syncope Status: Acute Assessment and plan: Do not feel this is secondary to hypoxemia. 11/21/2016 likely due to postural hypotension. Current Visit: Yes (3) A-fib Status: Acute Assessment and plan: Controlled rate. Managed by cardiology. 11/21/2016 controlled rate. Current Visit: No (4) Diabetes Status: Chronic Assessment and plan: Fair control of blood glucoses. Defer to primary care Current Visit: No Qualifiers: Diabetes mellitus type: type 2 Diabetes mellitus complication status: with kidney complications Diabetes mellitus complication detail: with chronic kidney disease Diabetes mellitus terminal worker insulin use: with custodial use Chronic kidney disease stage: stage 3 (moderate) Qualified Code(s): E11.22 - Type 2 diabetes mellitus with diabetic chronic kidney disease; N18.3 - Chronic kidney disease, stage 3 (moderate); Z79.4 - superintendent container terminal (current) use of insulin
[2016-11-21] MEDS: GLIMEPIRIDE 4 MG TABLET PO SCH (08:27)
[2016-11-21] MEDS: ESTRADIOL 2 MG TABLET PO SCH (08:27)
[2016-11-21] MEDS: LOSARTAN 50 MG TABLET PO SCH (08:27)
[2016-11-21] MEDS: DILTIAZEM CD 120 MG CAPSULE PO SCH (08:27)
[2016-11-21] MEDS: PANTOPRAZOLE 40 MG TABLET PO SCH (08:28)
[2016-11-21] MEDS: CLOPIDOGREL 75 MG TABLET PO SCH (08:28)
[2016-11-21] MEDS: MORPHINE ER 15 MG TABLET PO SCH (08:28)
[2016-11-21] MEDS: INSULIN LISPRO 100 UNIT/ML SUBCUT SCH (08:28)
[2016-11-21] MEDS: INSULIN REGULAR 100 UNIT/ML SUBCUT SCH ×2 (08:35→12:08)
--- NOTE | 2016-11-21 11:34 | Cardiology Progress Note ---
<Renée Christiansen E - Last Filed: 11/21/16 11:30> Assessment and Plan - Time spent with patient Time spent with patient: Less than 30 minutes (1) Syncope Status: Acute Assessment and plan: See plan of care listed below. Current Visit: Yes (2) History of PAT (paroxysmal atrial tachycardia) Status: Chronic Assessment and plan: See plan of care listed below. Current Visit: No (3) Status post cardiac pacemaker procedure Status: Chronic Assessment and plan: See plan of care listed below. Current Visit: No (4) Hypertension Status: Chronic Assessment and plan: See plan of care listed below. Current Visit: No (5) Diabetes Status: Chronic Assessment and plan: See plan of care listed below. 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 Current Visit: No (7) Dyspnea Status: Acute Assessment and plan: See plan of care listed below. Current Visit: No Cardiology - PN: Subj Interval history: Grey Washer: Dr. Vega PCP: Dr. Love SUMMARY: Ms. Barahona is a 81-year-old female who presented with syncope 4 days after dual-chamber pacemaker implantation for sick sinus syndrome , tachybradycardia. She has history of difficult to control hypertension, dementia, hyperlipidemia, diabetes mellitus, and COPD. She is on continuous home O2. Her pacemaker was interrogated and was found to be functioning appropriately. Most recent echocardiogram on 10/17/16 revealed EF 60-65%. NOVEMBER 21, 2016 UPDATE: Ms. Barahona reports she is feeling a little bit better; however, she has not been out of bed very much since admission. Physical therapy has been working with her. Her hydrochlorothiazide was stopped to see if we can improve her hypotension. She continues to have elevated blood pressures despite adjusting her medications. She has been started on Florinef. I have instructed the patient and her daughter to be sure to check her blood pressure daily at home and to call if it is consistently elevated (>150-160/90) . I have also instructed the patient that before getting up out of the bed, she needs to sit for 3-5 minutes prior to standing. Her pacemaker incision site is healing well. Her device was interrogated during this hospitalization. She will follow with Dr. Nicole in [address] Gan to follow with further plan and addendum. ASSESSMENT/ PLAN: 1. SYNCOPE - She is on numerous pain medications at home for chronic back pain. Dr. Goncalves has been consulted to see her to possibly try to wean her regimen. It's possible her high-dose opioid use is contributing or causing her persistent dizziness, orthostatic issues, and dizziness. Her daughter does express concern over weaning her mother from her pain medications and her being in constant pain. She will follow up with Dr. Goncalves as an outpatient. 2. HISTORY OF PAT - Currently in NSR with well controlled rate. 3. S/P PACEMAKER IMPLANT- This has been recently interrogated and found to be functioning appropriately. 4. HYPERTENSION - She has had numerous hypertensive episodes, but also has orthostasis. 5. DIABETES - Family medicine is now following. She is on accuchecks ACHS with sliding scale insulin. 6. ANEMIA 7. DYSPNEA - Pulmonology was consulted and she has been trialed without O2. Thus far, she has tolerated this well and has maintained SPO2 >94-95%. She will have O2 as needed at home but is no longer required to use it continuously. Exam (Progress Note) - Constitutional Vitals: Period Temp Pulse Resp BP Sys/Saleh Pulse Ox Last 24 Hr 97.6 F-98.7 F 60-66 16-18 108-172/58-91 92-96 Exam: General: Present: Appears Well, No Apparent Distress. Pleasant and cooperative. Appears comfortable. HEENT: Present: PERRL, Normocephaly, atraumatic. Mucus Membranes Moist. No jaundice noted. Conjunctiva moist and clear, sclerae anicteric Neck: Present: Supple Neck, Midline Trachea, No Masses, No Bruit, No tenderness Cardiac: Present: Regular Rate and Rhythm, Systolic Murmur Lungs: Present: Clear to auscultation bilaterally, no wheeze, rhonchi, rales. Neuro: Present: Awake, alert, and oriented x3. Moves all extremities well without hemiparesis or paralysis. Grossly Intact. Absent: Resting Tremor, Essential Tremor Abdomen: Present: Soft, Active Bowel Sounds, No Masses, Non-Tender, nondistended. No abdominal bruit or thrill noted. Skin: Present: Clear. Left chest wall pacemaker incision well approximated and healing well. Absent: Rash, No skin breakdown. Back: Normal inspection, no vertebral tenderness. Musculoskeletal: Present: No Fluid Collection, No Pain, Normal Range of Motion Extremities: Present: Normal Gait, No Clubbing, No Cyanosis, Upper Extr. Pulses 2+, Lower Extr. Pulses 2+, No edema. Capillary refill less than 3 seconds. Result/EKG - Labs CBC & BMP: 11/19/16 05:26 11/19/16 05:26 Lab Results: I have reviewed the past 24 hour labs Labs: Laboratory Results - last 24 hr 11/20/16 11/20/16 11/20/16 11:29 15:36 20:35 POC Glucose 104 223 H 205 H 11/21/16 07:27 POC Glucose 142 H - EKG EKG results: interpreted by me, sinus rhythm Specialty Discharge - Follow Up or Referrals Follow up with: Gibson Nicole MD [Physician] - 12/26/16 1:30 pm (Please cancel patient's appointment for 11/23/16 and have her follow up with Dr. Nicole in 1 month. ) <Loi Gan - Last Filed: 11/21/16 14:47> Cardiology - PN: Subj Interval history: She is ready for discharge. She has been instructed related activities and precautions with her pacemaker. She will be seeing Dr. Emanuel for follow-up in 1 month. I have discussed in detail the particulars of this case and I have examined the patient and reviewed the patient's chart both current and old. I was directly involved in the patient's evaluation and management and I completely agree with Renée Christiansen NP regarding this patient's evaluation and treatment plan. Exam (Progress Note) - Constitutional Vitals: Period Temp Pulse Resp BP Sys/Saleh Pulse Ox Last 24 Hr 98.0 F-98.7 F 60-66 16-18 113-172/58-91 92-96 Result/EKG - Labs CBC & BMP: 11/19/16 05:26 11/19/16 05:26 Labs: Laboratory Results - last 24 hr 11/20/16 11/20/16 11/21/16 15:36 20:35 07:27 POC Glucose 223 H 205 H 142 H 11/21/16 11/21/16 11:36 14:23 POC Glucose 69 L 141 H
[2016-11-21 11:46] VITALS: BP 147/67
== END 2016-11-21 15:32 | disposition home or self-care (01) | DRG 312 ==
LOC: N.ED 12:50 → N.EDINP 12:50 → N.TELES 15:17
PROVIDERS: ADMIT Internal Medicine Clinical Cardiac Electrophysiology; ATTEND Internal Medicine Clinical Cardiac Electrophysiology

== ENCOUNTER 2017-01-05 07:18 | Inpatient (IN) ==
[2017-01-05] MEDS ORDERED: SODIUM CHLORIDE 0.9% 500 ML IV STA (08:16)
[2017-01-05 08:24] LABS: Basophils % 0.3 % (0.0-0.8); Eosinophils # 0.1 10*3/uL (0.0-0.87); Eosinophils % 1.9 % (0.00-10.9); Hematocrit 28.9 VOL% (35.7-47.0); Hemoglobin 9.2 GM/DL (12.0-16.0); Immature Granulocytes % 0.5 %; Immature Granulocytes Absolute 0.03 #; Lymphocytes # 2.4 10*3/uL (1.4-4.0); Lymphocytes % 40.1 % (21.3-54.2); Mean Corpuscular HGB Conc 31.8 GM/DL (32-36); Mean Corpuscular Hemoglobin 26 PG (27-34); Mean Corpuscular Volume 81.2 FL (87-102); Mean Platelet Volume 10.5 FL (9.6-12.0); Monocytes # 0.6 10*3/uL (0.11-0.8); Monocytes % 9.3 % (1.7-12.7); NRBC # 0.02 10*3/uL; Neutrophils # 2.8 10*3/uL (1.4-7.4); Neutrophils % 47.9 % (38.7-73.9); Platelet Count 266 T/CUMM (130-400); Red Blood Count 3.56 MC/CUMM (3.8-5.5); Red Cell Distribution Width 16.9 % (9.3-17.3); White Blood Count 5.9 T/CUMM (4-12)
[2017-01-05 08:31] LABS: PT Patient Result 10.2 SECS
[2017-01-05 08:36] LABS: Albumin 2.9 G/DL (3.4-5.0); Bilirubin,Total 0.4 MG/DL (0.2-1.0); Calcium 8.5 MG/DL (8.5-10.1); Osmolality,Calculated 279.7 MOS/KG (273-304); Potassium 4.9 MMOL/L (3.5-5.1); Total Protein 6.1 G/DL (6.4-8.3)
--- NOTE | 2017-01-05 08:45 | XRay Report ---
History: Shortness of breath Date: 01/05/2017 Study: Chest x-ray AP portable Comparison exam: November 17, 2016 There is cardiomegaly. There is no overt pulmonary vascular engorgement. The mediastinal contours are unremarkable. There is mild aortic arch calcification. There is no pleural effusion. The lungs are well-expanded and generally clear. A left subclavian dual-lead transvenous pacemaker is in place. There is osteopenia and mild thoracic spondylosis. Surgical screw overlies the right humeral head. Impression: Cardiomegaly without overt CHF. No definite acute process. Pacemaker as before PROCEDURE INTERPRETED AT [facility] DEPARTMENT OF RADIOLOGY Final Report Signed by: Dr. Alexandra Perrin
--- NOTE | 2017-01-05 08:50 | EKG Report ---
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
--- NOTE | 2017-01-05 08:55 | Emergency Department Note ---
All Hayward Rolonda, am scribing for, and in the presence of, Sheldon Smith MD 08:30. Luis Hayward Phillip K, MD, personally performed the services described in this documentation, ascribed by Saira Carrizales in my presence, and it is both accurate and complete 855 . Arrival - Arrival Chief Complaint: GI Bleed/Rectal Stated Complaint: rectal bleed ED Nursing Triage Note: Patient to triage with c/o GI Bleed since last night. Patient has had 6 BM's with bright red blood. This morning she went in the bed and it had clots in it. Mode of Arrival: Wheelchair Limitations: No Limitations Source: Patient, Family (daughter), Old Records Reviewed, RN Notes Reviewed - History of Present Illness HPI Narrative: Pt is a 81 y/o female who presents to the ED with c/o rectal bleeding with an onset of hours. Pt has a PMHx of Diverticulitis, Hemorrhoids, Chronic constipation, and Recurring UTI. Daughter states that pt used the bathroom last night and noticed that there was red blood in the stool. She states that pt's last scope was 20 years ago and pt has not had a recent one. Daughter states that pt awakened this morning and the bed was full of blood and clots. Pt confirms abdominal tenderness, nausea, and generalized weakness. She states that she is currently on Plavix and had a pacemaker procedure November 13, 2016. No other complaint/pain in ED. Onset (ago): hour(s) Consistency: constant Severity: moderate, severe Severity scale (1-10): 5 Allergies/Adverse Reactions: Allergies Allergy/AdvReac Type Severity Reaction Status Date / Time Shrimp Allergy ITCHING Verified 01/05/17 07:29 sulfamethoxazole Allergy Confusion Verified 01/05/17 07:29 [From Bactrim] trimethoprim [From Bactrim] Allergy Confusion Verified 01/05/17 07:29 Home Medications: Home Medications Medication Instructions Recorded Confirmed Type Estradiol Tab [Estrace Tab] 2 mg PO DAILY 11/23/14 11/17/16 History Morphine Sulfate [Morphine Sulfate 15 mg PO DAILY 11/23/14 11/17/16 History ER] Omeprazole [Prilosec] 20 mg PO DAILY 11/23/14 11/17/16 History Simvastatin [Zocor] 10 mg PO QPM 11/23/14 11/17/16 History Insulin Aspart [NovoLOG FlexPen] 15 mg SUBCUT BID 10/14/16 11/17/16 History HYDROcodone/ACETAMIN 10-325 [[place] 1 tablet PO TID PRN tablet 10/20/16 Rx 10-325] Clopidogrel [Plavix] 75 mg PO DAILY 11/05/16 11/17/16 History Glimepiride 4 mg PO DAILY 11/12/16 11/17/16 History Insulin Glargine,Hum.rec.anlog 0 unit SUBCUT BEDTIME 11/12/16 11/19/16 History [[place] SoloStar] cephALEXin [Keflex] 500 mg PO QID #15 11/14/16 11/17/16 Rx Losartan [Cozaar] 25 mg PO DAILY 11/17/16 11/17/16 History dilTIAZem HCl [Cartia XT] 120 mg PO DAILY 11/17/16 11/17/16 History Acetaminophen Tab [Tylenol Tab] 650 mg PO Q4H PRN tablet 11/21/16 Rx Fludrocortisone [Florinef] 0.1 mg PO BID #60 tablet 11/21/16 Rx Losartan [Cozaar] 50 mg PO BID tablet 11/21/16 Rx Review of System - Review of System 12 point system: reviewed and no additional remarkable complaints except as stated - Review of System Constitutional: Present: weakness. Absent: chills Eyes: Absent: discharge Head/Ears/Nose/Throat: Absent: earache Respiratory: Absent: cough Cardiovascular: Absent: chest pain Gastrointestinal: Present: abdominal pain (tenderness; "felt swollen"), nausea. Absent: vomiting Genitourinary female: Present: other ("GI bleed"; "bright red blood") Musculoskeletal: Absent: arm pain, back pain Skin: Absent: rash Neurological: Absent: headache Psychiatric: Absent: anxiety Endocrine: Absent: cold intolerance Hematological/Lymphatic: Absent: easy bleeding Allergic/Immunologic: Absent: facial swelling Medical,Surgical,& Family Hx - Medical History Cardio: History of: Cardiac Dysrhythmia (PAT), Hypertension, Pacemaker (placed november 2016) No history of: CHF, MA Psychological: History of: Anxiety Disorders, Depression Neurology: History of: Cerebrovascular Accident No history of: Dementia, Seizures, TIA HEENT: History of: Eye Problem (cataract) Endocrine: History of: Diabetes Mellitus (IDDM), Dyslipidemia Respiratory: History of: Bronchitis No history of: Obstructive Sleep Apnea Genitourinary: History of: Recurring Urinary Tract Infections No history of: Kidney Stones Gastrointestinal: History of: Diverticulitis/ Diverticulosis, GERD, Hemorrhoids , GI Problems (Chronic constipation) No history of: Gastrointestinal Bleed Musculoskeletal: History of: Amputation (right toe), Back/Neck Problems, Musculoskeletal Problems Hematology: History of: Anemia Other: History of: MRSA - Surgical History Cardiac Surgeries: Patient Denies: Cardiac Catheterization HEENT Surgeries: Surgical HX of: Eye Surgery (cataracts) Patient denies: Tonsilectomy & Adenoidectomy Abdominal Surgeries: Surgical HX of: Abdominal Surgery, Appendectomy, Cholecystectomy, Colonoscopy, EGD Reproductive Surgeries: Surgical HX of;: Gynecologic Surgery, Hysterectomy Orthopedic Surgeries: Surgical HX of;: Total Hip Replacement (left) - Family History Family History: Reports;: Family Cancer (brother, sister), Family Diabetes ( mother), Family Heart Disease (mother and dad), Family Hypertension - Social History Smoking Status: Never smoker Frequency of Alcohol Use: None Type of Drug Use: None Exam Vital Signs: Vital Signs Temperature 98.5 F 01/05/17 08:06 Pulse Rate 76 01/05/17 08:06 Respiratory Rate 16 01/05/17 08:06 Blood Pressure 120/58 01/05/17 08:06 O2 Sat by Pulse Oximetry 100 01/05/17 08:40 - General General appearance: alert, in no apparent distress - Head Head exam: Present: atraumatic, normocephalic - Eye Eye exam: Present: PERRL, EOMI - ENT ENT exam: Present: mucous membranes moist. Absent: mucous membranes dry - Neck Neck exam: Present: full ROM. Absent: tenderness - Chest Chest inspection: Present: symmetric chest wall rise. Absent: tenderness - Respiratory Respiratory exam: Present: normal lung sounds bilaterally. Absent: wheezes - Cardiovascular Cardiovascular exam: Present: regular rate, normal rhythm, normal heart sounds. Absent: bradycardia - Abdominal Exam Abdominal exam: Present: soft, normal bowel sounds. Absent: tenderness - Rectal Exam Rectal exam: Present: heme (+) stool (gross blood), hemorrhoids - Extremities Exam Extremities exam: Present: full ROM. Absent: tenderness - Back Exam Back exam: Present: full ROM. Absent: tenderness - Neurological Exam Neurological exam: Present: alert, oriented X3 - Psychiatric Psychiatric exam: Present: normal affect, normal mood - Skin Skin exam: Present: warm, dry, intact, normal color. Absent: rash Course Course Narrative: Patient discussed with Dr. Ramirez. CT report is pending. Results - Labs CBC & BMP: 01/05/17 07:53 01/05/17 07:53 Lab Results: I have reviewed the patients labs - EKG EKG results: interpreted by HENRY, sinus rhythm (Nonspecific ST-T changes) Disposition Clinical Impression: Lower gastrointestinal hemorrhage, Hemorrhoids Case discussed with: patient Disposition: Still a Patient Condition: Guarded Additional Instructions: Admit to Dr. Love
[2017-01-05] MEDS ORDERED: ACETAMINOPHEN 325 MG TABLET PO PRN (09:02)
[2017-01-05] MEDS ORDERED: SODIUM CHLORIDE 0.9% 1,000 ML IV SCH (09:30)
--- NOTE | 2017-01-05 10:00 | CT Report ---
History: Abdominal bleeding. Abdominal pain Date: 01/05/2017 Study: CT abdomen and pelvis without contrast Comparison exam: October 13, 2016 Technique: Spiral CT sections were obtained from the lung bases to the pubic symphysis without contrast. Total DLP measures 416.4 mGy*cm. The CT exam was performed using one or more of the following dose reduction techniques: Automated exposure control, adjustment of the mA and/or kV according to patient size, or use of iterative reconstruction technique. CT abdomen: The partially visualized lung bases are generally unchanged. There is no acute infiltrate. There is a stable small pleural-based noncalcified nodule in the left lung base at 3 mm. There is no pleural or pericardial effusion. There is a large hiatal hernia. There is no evidence of pneumoperitoneum. There is some ill-defined low density posteriorly and superiorly in the right lobe the liver at 15.3 mm which was present on the previous study. This is nonspecific and could represent volume averaging of a cyst, though evaluation is limited without the benefit of contrast. The gallbladder is surgically absent. The spleen and adrenal glands are unremarkable. There is diffuse atrophy of the pancreas. There is no gross pancreatic mass, though evaluation is limited without IV contrast. There is a 26 mm rounded lesion at the lower pole left kidney compatible with renal cyst without change. There is no radiopaque renal or ureteral stone. There is diverticulosis without geronimo diverticulitis. There is no evidence of pneumoperitoneum. There is moderate calcification of the wall of the abdominal aorta. There is no evidence of appendicitis. There is no gross lymphadenopathy. There is prominent degenerative disc disease of the lower lumbar spine. There is grade 1 anterolisthesis at L4-L5. CT pelvis: There is no soft tissue mass within the pelvis. The uterus is not seen, suggesting prior hysterectomy. There is a moderate amount of retained stool in the rectum. There are some shotty inguinal lymph nodes bilaterally. There is metallic artifact from a left hip prosthesis Impression: No definite acute abdominal process compared to the recent comparison CT. Diverticulosis without geronimo diverticulitis. Moderate amount of retained stool in the rectum. Other nonacute findings discussed above, unchanged PROCEDURE INTERPRETED AT [facility] DEPARTMENT OF RADIOLOGY Final Report Signed by: Dr. Alexandra Perrin
--- NOTE | 2017-01-05 10:46 | Gastrointestinal Consult Note ---
<NehamadhuriSilvana Selina - Last Filed: 01/05/17 10:42> Assessment and Plan (1) Rectal bleed Status: Acute Assessment and plan: 01/05-sudden onset of bright red rectal bleeding with dark clots on last night with initial complaints of abdominal pain now resolved. No bleeding this morning. Last colonoscopy [address] ago [address] divert[address] of abdomen negative. H&H 02/08. Last dose of Plavix yesterday morning. Plavix currently held. Check serial H&H, start clear liquid diet. Plan an addendum to follow by Dr. Mancuso. Current Visit: Yes History of Present Illness Chief complaint: Rectal bleed History of present illness: Ms. Barahona is a 81 year old female who was admitted to the hospital early this morning with onset of rectal bleeding last night. Patient is accompanied by her daughters who contribute to her health history information. Information is also obtained from chart review. Patient was in her usual state of health until last night when this began. Earlier in the week, patient was dealing with some constipation issues and began taking some milk of magnesia which eventually helped resolve this. However on yesterday she took another large dose of milk of magnesia to help regulate her bowels and yesterday evening she had an onset of some lower abdominal cramping, described more as the urge to defecate, and went to have a bowel movement. Following this, she noted there to be a large amount of bright red blood in the commode. Patient's daughter states that she had another couple of bloody bowel movements with dark red clots mixed in. Throughout the night, patient for an adult brief and states that she had a moderate amount of rectal bleeding without a bowel movement as well. Patient denies any abdominal pain other than the initial episode. They then presented to the emergency room for further evaluation. Patient is noted to be on Plavix therapy, with last dose being on yesterday morning. She takes this for atrial fibrillation, and has recently had a pacemaker placed in November of this year. Patient states that she has never had rectal bleeding like this before. Her last colonoscopy was approximately [address] Urrutia however unable to locate these records. Patient's daughter does recall her having a history of diverticulosis. She has been seen by Dr. Mancuso in the past with complaints of dysphagia and was scheduled to return this month for a dilation however her dysphagia has resolved with assistance from speech therapy. She denies any other associated symptoms including nausea, vomiting, fever, or chills. She did have a CT of abdomen without contrast which was negative for acute findings. Her admitting H&H was 02/08. Patient was transfused in November during her pacemaker placement and does report a history of anemia with transfusions in the past. Her discharge H&H at that time was 04/12 2:06 units of packed red blood cells. Home Medications Medication Instructions Recorded Confirmed Type Estradiol Tab [Estrace Tab] 2 mg PO DAILY 11/23/14 01/05/17 History Morphine Sulfate [Morphine Sulfate 15 mg PO BID 11/23/14 01/05/17 History ER] Omeprazole [Prilosec] 20 mg PO DAILY 11/23/14 01/05/17 History Simvastatin [Zocor] 10 mg PO QPM 11/23/14 01/05/17 History Insulin Aspart [NovoLOG FlexPen] 10 units SUBCUT BID 10/14/16 01/05/17 History HYDROcodone/ACETAMIN 10-325 [[place] 1 tablet PO TID PRN tablet 10/20/16 Rx 10-325] Clopidogrel [Plavix] 75 mg PO DAILY 11/05/16 01/05/17 History Glimepiride 4 mg PO BID 11/12/16 01/05/17 History Insulin Glargine,Hum.rec.anlog 30 unit SUBCUT BEDTIME 11/12/16 01/05/17 History [[place]] Losartan [Cozaar] 25 mg PO DAILY 11/17/16 01/05/17 History dilTIAZem HCl [Cartia XT] 120 mg PO DAILY W/SUPPER 11/17/16 01/05/17 History Acetaminophen Tab [Tylenol Tab] 650 mg PO Q4H PRN tablet 11/21/16 01/05/17 Rx Acebutolol [Sectral] 400 mg PO DAILY 01/05/17 01/05/17 History Baclofen [Baclofen] 10 mg PO TID PRN 01/05/17 01/05/17 History Linaclotide [Linzess] 145 mcg PO DAILY 01/05/17 01/05/17 History dilTIAZem HCl [Cartia XT] 240 mg PO DAILY 01/05/17 01/05/17 History hydroCHLOROthiazide 25 mg PO DAILY PRN 01/05/17 01/05/17 History [Hydrochlorothiazide] Allergies Allergy/AdvReac Type Severity Reaction Status Date / Time Shrimp Allergy ITCHING Verified 01/05/17 07:29 sulfamethoxazole Allergy Confusion Verified 01/05/17 07:29 [From Bactrim] trimethoprim [From Bactrim] Allergy Confusion Verified 01/05/17 07:29 Medical,Surgical,& Family Hx - Medical History Cardio: History of: Cardiac Dysrhythmia (PAT), Hypertension, Pacemaker (placed november 2016) No history of: CHF, [place] Psychological: History of: Anxiety Disorders, Depression Neurology: History of: Cerebrovascular Accident No history of: Dementia, Seizures, TIA HEENT: History of: Eye Problem (cataract) Endocrine: History of: Diabetes Mellitus (IDDM), Dyslipidemia Respiratory: History of: Bronchitis No history of: Obstructive Sleep Apnea Genitourinary: History of: Recurring Urinary Tract Infections No history of: Kidney Stones Gastrointestinal: History of: Diverticulitis/ Diverticulosis, GERD, Hemorrhoids , GI Problems (Chronic constipation) No history of: Gastrointestinal Bleed Musculoskeletal: History of: Amputation (right toe), Back/Neck Problems, Musculoskeletal Problems Hematology: History of: Anemia Other: History of: MRSA - Surgical History Cardiac Surgeries: Patient Denies: Cardiac Catheterization HEENT Surgeries: Surgical HX of: Eye Surgery (cataracts) Patient denies: Tonsilectomy & Adenoidectomy Abdominal Surgeries: Surgical HX of: Abdominal Surgery, Appendectomy, Cholecystectomy, Colonoscopy, EGD Reproductive Surgeries: Surgical HX of;: Gynecologic Surgery, Hysterectomy Orthopedic Surgeries: Surgical HX of;: Total Hip Replacement (left) - Family History Family History: Reports;: Family Cancer (brother, sister), Family Diabetes ( mother), Family Heart Disease (mother and dad), Family Hypertension - Social History Smoking Status: Never smoker Frequency of Alcohol Use: None Type of Drug Use: None 12 point system: reviewed and no additional remarkable complaints except as stated - Constitutional Constitutional: Present: as per HPI - EENT Eyes: Present: as per HPI Ears: Present: as per HPI Nose, mouth and throat: Present: as per HPI - Cardiovascular Cardiovascular: Present: as per HPI - Respiratory Respiratory: Present: as per HPI - Gastrointestinal Gastrointestinal: Present: as per HPI, abdominal pain, hematochezia - Genitourinary Genitourinary: Present: as per HPI - Musculoskeletal Musculoskeletal: Present: as per HPI - Neurological Neurological: Present: as per HPI - Psychiatric Psychiatric: Present: as per HPI - Endocrine Endocrine: Present: as per HPI - Hematologic/Lymphatic Hematologic/Lymphatic: Present: as per HPI Exam - Constitutional Vitals: Period Temp Pulse Resp BP Sys/Saleh Pulse Ox Last 24 Hr 98.1 F-98.5 F 67-76 15-20 120-145/58-81 95-100 General appearance: normal weight, no acute distress - Head Head exam: Present: normal inspection, normocephalic - Eye Eye exam: Present: other (Lids and conjunctivae are unremarkable). Absent: scleral icterus - ENT ENT exam: Present: normal exam, normal oropharynx - Neck Neck exam: Present: normal inspection - Respiratory Respiratory exam: Present: clear to auscultation bilaterally. Absent: rales, rhonchi, wheezes - Cardiovascular Cardiovascular exam: Present: regular rate and rhythm. Absent: diastolic murmur , JVD, systolic murmur - GI/Abdominal GI/Abdominal exam: Present: normal bowel sounds, soft. Absent: ascites, distended, mass, organomegaly, tenderness - Extremities Exam Extremities exam: Present: normal inspection, full ROM - Back Exam Back exam: Present: normal inspection - Neurological Exam Neurological exam: Present: alert, oriented X3 - Psychiatric Psychiatric exam: Present: normal affect, normal mood - Skin Skin exam: Present: normal color, warm, dry Results - Labs CBC & BMP: 01/05/17 07:53 01/05/17 07:53 Lab Results: I have reviewed the past 24 hour labs <Jeff Mancuso - Last Filed: 01/05/17 14:38> History of Present Illness Chief complaint: 3030 History of present illness: Ms. Barahona is a 81 year old female Exam - Constitutional Vitals: Period Temp Pulse Resp BP Sys/Saleh Pulse Ox Last 24 Hr 98.1 F-98.5 F 67-84 15-20 120-191/58-85 93-100 Results - Labs CBC & BMP: 01/05/17 12:35 01/05/17 07:53
--- NOTE | 2017-01-05 12:18 | Internal Med History&Physical ---
Assessment and Plan (1) Rectal bleeding Status: Acute Assessment and plan: 81-year-old female admitted to acute care * Rectal bleeding. Patient has had history of anemia requiring transfusions in the past. She does have hemorrhoids. It is felt that this is more diverticular bleed. GI has been consulted. She has not had a colonoscopy in a long time but has had EGDs done in the past. Will transfuse her if her hematocrit drops below 27 * Hypertension. Blood pressure is stable. * Diabetes. Continue her on her medications and a sliding scale * Status post pacemaker placement. Patient has been on Plavix. 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 Barahona is a 81 year old female with history of multiple medical problems including diabetes, hypertension, anemia, paroxysmal atrial tachycardia, status post pacemaker placement for sick sinus syndrome, dementia who was brought to the emergency room by family members after started having rectal bleeding last night. She had several bowel movements which showed bright red blood and clots. She came to the emergency room and was evaluated. Patient has been admitted. She denies any previous episodes of rectal bleeding. She has history of hemorrhoids. She denied any melena or hematochezia prior to this episode. Patient has been on chronic Plavix therapy. She has not felt well for past 2 weeks according to her daughter who stays with her. She denies any nausea, vomiting, diarrhea. She denies any fever or chills. She does feel weak. Patient lives at home with her daughter. No history of smoking or alcohol use Home Medications Medication Instructions Recorded Confirmed Type Estradiol Tab [Estrace Tab] 2 mg PO DAILY 11/23/14 01/05/17 History Morphine Sulfate [Morphine Sulfate 15 mg PO BID 11/23/14 01/05/17 History ER] Omeprazole [Prilosec] 20 mg PO DAILY 11/23/14 01/05/17 History Simvastatin [Zocor] 10 mg PO QPM 11/23/14 01/05/17 History Insulin Aspart [NovoLOG FlexPen] 10 units SUBCUT BID 10/14/16 01/05/17 History HYDROcodone/ACETAMIN 10-325 [[place] 1 tablet PO TID PRN tablet 10/20/16 Rx 10-325] Clopidogrel [Plavix] 75 mg PO DAILY 11/05/16 01/05/17 History Glimepiride 4 mg PO BID 11/12/16 01/05/17 History Insulin Glargine,Hum.rec.anlog 30 unit SUBCUT BEDTIME 11/12/16 01/05/17 History [[place]] Losartan [Cozaar] 25 mg PO DAILY 11/17/16 01/05/17 History dilTIAZem HCl [Cartia XT] 120 mg PO DAILY W/SUPPER 11/17/16 01/05/17 History Acetaminophen Tab [Tylenol Tab] 650 mg PO Q4H PRN tablet 11/21/16 01/05/17 Rx Acebutolol [Sectral] 400 mg PO DAILY 01/05/17 01/05/17 History Baclofen [Baclofen] 10 mg PO TID PRN 01/05/17 01/05/17 History Linaclotide [Linzess] 145 mcg PO DAILY 01/05/17 01/05/17 History dilTIAZem HCl [Cartia XT] 240 mg PO DAILY 01/05/17 01/05/17 History hydroCHLOROthiazide 25 mg PO DAILY PRN 01/05/17 01/05/17 History [Hydrochlorothiazide] Allergies Allergy/AdvReac Type Severity Reaction Status Date / Time Shrimp Allergy ITCHING Verified 01/05/17 07:29 sulfamethoxazole Allergy Confusion Verified 01/05/17 07:29 [From Bactrim] trimethoprim [From Bactrim] Allergy Confusion Verified 01/05/17 07:29 Medical,Surgical,& Family Hx - Medical History Cardio: History of: Cardiac Dysrhythmia (PAT), Hypertension, Pacemaker (placed november 2016), Cardiovascular Problems (Orthostatic hypertension) No history of: CHF, [place] Psychological: History of: Anxiety Disorders, Depression Neurology: History of: Cerebrovascular Accident No history of: Dementia, Seizures, TIA HEENT: History of: Eye Problem (cataract) Endocrine: History of: Diabetes Mellitus (IDDM), Dyslipidemia Respiratory: History of: Bronchitis No history of: Obstructive Sleep Apnea Genitourinary: History of: Recurring Urinary Tract Infections No history of: Kidney Stones Gastrointestinal: History of: Diverticulitis/ Diverticulosis, GERD, Hemorrhoids , GI Problems (Chronic constipation) No history of: Gastrointestinal Bleed Musculoskeletal: History of: Amputation (right toe), Back/Neck Problems, Musculoskeletal Problems Hematology: History of: Anemia Other: History of: MRSA - Surgical History Cardiac Surgeries: Patient Denies: Cardiac Catheterization HEENT Surgeries: Surgical HX of: Eye Surgery (cataracts) Patient denies: Tonsilectomy & Adenoidectomy Abdominal Surgeries: Surgical HX of: Abdominal Surgery, Appendectomy, Cholecystectomy, Colonoscopy, EGD Reproductive Surgeries: Surgical HX of;: Gynecologic Surgery, Hysterectomy Orthopedic Surgeries: Surgical HX of;: Total Hip Replacement (left) - Family History Family History: Reports;: Family Cancer (brother, sister), Family Diabetes ( mother), Family Heart Disease (mother and dad), Family Hypertension - Social History Smoking Status: Never smoker Frequency of Alcohol Use: None Type of Drug Use: None Marital Status: Single Lives With:: Children (Daughter) Functional capacity: uses cane/walker 12 point system: reviewed and no additional remarkable complaints except as stated (As mentioned in HPI) Exam - Constitutional Vitals: Period Temp Pulse Resp BP Sys/Saleh Pulse Ox Last 24 Hr 98.1 F-98.5 F 67-76 15-20 120-145/58-81 95-100 Exam: Examination: GENERAL: NAD. HEENT: PERRLA. EOMI. Mucous membranes are moist. NECK: Neck is supple. No JVD. No carotid bruit. No thyromegaly. CVS: Regular rate and rhythm. S1 and S2 are normal. Systolic ejection murmur at left lower sternal border RESPIRATORY: Lungs are clear. No rales or rhonchi. ABDOMEN: Soft and nontender. Bowel sounds are present. No hepatosplenomegaly. EXT: No edema. Peripheral pulses are present. MECHANIC FOREMAN: Patient is awake, alert and oriented to time place and person. Cranial nerves II through XII are grossly intact. Motor strength is 4/5 SKIN: Warm and dry. MSK: No obvious deformity. Results - Labs CBC & BMP: 01/05/17 07:53 01/05/17 07:53 Lab Results: I have reviewed the past 24 hour labs
[2017-01-05] MEDS ORDERED: hydroCHLOROthiazide 25 MG TABLET PO PRN (12:28)
[2017-01-05] MEDS ORDERED: BACLOFEN 10 MG TABLET PO PRN (12:28)
[2017-01-05] MEDS ORDERED: GLUCAGON 1 MG VIAL IM PRN (12:30)
[2017-01-05] MEDS ORDERED: DEXTROSE 50% 25 GM/50 ML SYRINGE IV PRN (12:30)
[2017-01-05 12:48] LABS: Hematocrit 27.3 VOL% (35.7-47.0); Hemoglobin 8.6 GM/DL (12.0-16.0)
[2017-01-05 16:10] LABS: Hematocrit 25.6 VOL% (35.7-47.0); Hemoglobin 8.2 GM/DL (12.0-16.0)
[2017-01-05] MEDS: INSULIN LISPRO 100 UNIT/ML SUBCUT SCH ×3 (16:56→21:49)
[2017-01-05] MEDS: GLIMEPIRIDE 4 MG TABLET PO SCH (16:57)
[2017-01-05] MEDS: DILTIAZEM CD 120 MG CAPSULE PO SCH (16:57)
[2017-01-05] MEDS: DOCUSATE SODIUM 100 MG CAPSULE PO SCH (21:48)
[2017-01-05] MEDS: INSULIN GLARGINE 100 UNIT/ML SUBCUT SCH (21:49)
[2017-01-05] MEDS: SIMVASTATIN 10 MG TABLET PO SCH (21:49)
[2017-01-05] MEDS: MORPHINE ER 15 MG TABLET PO SCH (21:49)
[2017-01-05] MEDS: ONDANSETRON 4 MG/2 ML VIAL IV PRN (21:54)
[2017-01-05 22:05] LABS: Hematocrit 29.1 VOL% (35.7-47.0); Hemoglobin 9.5 GM/DL (12.0-16.0)
--- NOTE | 2017-01-06 08:27 | Internal Med Progress Note ---
Assessment and Plan (1) Rectal bleeding Status: Acute Assessment and plan: 81-year-old female admitted to acute care * Rectal bleeding. Patient transfused 2 units of packed RBCs. Continue monitoring H&H * Hypertension. Blood pressure is stable. * Diabetes. Continue her on her medications and a sliding scale * Status post pacemaker placement. 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 She denies any chest pain or shortness of breath. She denies any nausea vomiting or diarrhea. Exam (Progress Note) - Constitutional Vitals: Period Temp Pulse Resp BP Sys/Saleh Pulse Ox Last 24 Hr 96.9 F-99.3 F 64-98 15-20 131-191/63-91 92-100 Exam: Examination: GENERAL: NAD. NECK: Neck is supple. CVS: Regular rate and rhythm. Systolic ejection murmur at left lower sternal border RESPIRATORY: Lungs are clear. ABDOMEN: Soft and nontender. EXT: No edema. Peripheral pulses are present. PHYSICIAN OFFICE SPECIALIST: Patient is awake, alert and oriented to time place and person. Cranial nerves II through XII are grossly intact. Motor strength is 4/5 SKIN: Warm and dry. MSK: No obvious deformity. Results - Labs CBC & BMP: 01/05/17 21:31 01/05/17 07:53 Lab Results: I have reviewed the past 24 hour labs
[2017-01-06 08:51] LABS: Hematocrit 32.7 VOL% (35.7-47.0); Hemoglobin 10.9 GM/DL (12.0-16.0)
[2017-01-06] MEDS ORDERED: PANTOPRAZOLE 40 MG TABLET PO SCH (09:00)
[2017-01-06] MEDS ORDERED: NON-FORMULARY MEDICATION (Omeprazole [Prilosec] 20 MG) PO SCH (09:00)
[2017-01-06] MEDS: INSULIN LISPRO 100 UNIT/ML SUBCUT SCH ×6 (09:29→20:19)
[2017-01-06] MEDS: DOCUSATE SODIUM 100 MG CAPSULE PO SCH ×2 (09:30→20:20)
[2017-01-06] MEDS: MORPHINE ER 15 MG TABLET PO SCH ×2 (09:30→20:20)
[2017-01-06] MEDS: LOSARTAN 25 MG TABLET PO SCH (09:30)
[2017-01-06] MEDS: ESTRADIOL 2 MG TABLET PO SCH (09:30)
[2017-01-06] MEDS: ACEBUTOLOL 400 MG CAPSULE PO SCH (09:30)
[2017-01-06] MEDS: DILTIAZEM CD 240 MG CAPSULE PO SCH (09:31)
[2017-01-06] MEDS: SODIUM CHLORIDE 0.9% 1,000 ML IV SCH (09:31)
[2017-01-06] MEDS: GLIMEPIRIDE 4 MG TABLET PO SCH ×2 (09:32→16:47)
[2017-01-06] MEDS: LINACLOTIDE 145 MCG CAPSULE PO SCH (09:35)
[2017-01-06] MEDS: ONDANSETRON 4 MG/2 ML VIAL IV PRN (10:32)
[2017-01-06 16:39] LABS: Hematocrit 30.6 VOL% (35.7-47.0); Hemoglobin 10.1 GM/DL (12.0-16.0)
[2017-01-06] MEDS: DILTIAZEM CD 120 MG CAPSULE PO SCH (16:47)
--- NOTE | 2017-01-06 17:24 | Gastrointestinal Progress Note ---
Assessment and Plan - Time spent with patient Time spent with patient: Greater than 30 minutes (1) Lower gastrointestinal hemorrhage Status: Acute Current Visit: Yes (2) Other specified counseling Status: Acute Current Visit: Yes Exam (Progress Note) - Constitutional Vitals: Period Temp Pulse Resp BP Sys/Saleh Pulse Ox Last 24 Hr 96.9 F-99.3 F 64-98 16-20 128-183/59-91 91-99 Results - Labs CBC & BMP: 01/06/17 16:11 01/05/17 07:53 Note Addendum: PLEASE NOTE -- automatic citation of patient information is unavoidable in this electronic note. I have made a reasonable effort to review the information cited , but it is not a part of my evaluation, impression, or recommendation unless specifically discussed in the dictated text that follows. As well, voice recognition software was used in the creation of this clinical note. Reasonable effort was made to identify and correct gross errors. Despite proofreading, errors in rope silica machine operator may be present, including nonsense verbiage at times. If you encounter such an error, please contact me at [phone] for discussion and correction. -- Sayra Chief complaint: rectal bleeding Subjective: the patient is a 81-year-old female seen for follow-up of rectal bleeding. The patient got two units of packed red blood cells overnight with appropriate response. Per staff, she had a large bowel movement with blood today. She reports this was the last bowel movement she has had today and the third or fourth bloody bowel movement since this past . She had a cute crampy abdominal pain just before the bowel movement that resolved immediately after. She has not had any further abdominal pain since. She is comfortable at present, and hungry. Medications: Sectral, Tylenol, baclofen, diltiazem, Colace, estradiol, glimepiride, glucagon, hydrochlorothiazide, [place], Lantus, Humalog, Linzess, Cozaar, MS Contin, Zofran, Protonix, Zocor, normal saline infusion Review of Symptoms: 12 point review of symptoms was negative except as noted above Physical examination: Vital Signs: Current vital signs reviewed. General Appearance: lying in bed. Comfortable. No acute distress Head: Normocephalic. Eyes: no scleral icterus. No scleral injection. No conjunctival pallor. Oral Cavity: Odor of breath was normal. No drooling was observed. Lips showed no abnormalities. Lungs: Respiration rhythm and depth was normal. Cardiovascular: Heart rate and rhythm were normal. Abdomen: abdomen was not distended. Abdominal auscultation revealed no abnormalities. Ascites was not discovered. Abdominal palpation revealed no tenderness and no hepatosplenomegaly. Musculoskeletal System: musculoskeletal system was grossly normal. Neurological: level of consciousness was normal. Speech was normal. No coordination/cerebellum abnormalities were noted. Skin: Gen. appearance was normal. Color and pigmentation were normal. No skin lesions were appreciated. Laboratory: hemoglobin 9.5 --> two units of packed red blood cells --> 10.9 --> large bloody bowel movement today --> Radiology: reviewed with no pertinent changes noted. Impressions: 1. Hematochezia -- the differential diagnosis includes diverticular bleeding, infectious/inflammatory enterocolitis, arteriovenous malformation, hemorrhoidal bleeding, colon polyps (including cancer), and upper gastrointestinal bleeding. The fact that blood is getting darker and developing clots implies less brisk bleeding. I recommend serial hemoglobin and hematocrit monitoring with further transfusion as indicated. I recommend continued crystalloid resuscitation as indicated. I recommend intravenous proton pump inhibitor. Patient will need colonoscopy with timing dependent on clinical progress. If bleeding continues, this will likely need to be done during this admission. If not, we could consider outpatient colonoscopy once patient is adequately resuscitated and transfused. 2. Other specified counseling -- Patient seen for greater than 30 minutes. Greater than 50% of this time was spent counseling regarding differential diagnosis, likely diagnosis,, diagnostic and therapeutic options, risks, benefits, and alternatives to procedures and medications, informed consent, and plan of care generally. Patient has expressed understanding and wishes to proceed. Recommendations: -- continued volume management -- monitor blood counts and transfuse as indicated -- continue proton pump inhibitor -- colonoscopy with timing dependent on clinical progress -- continue holding antiplatelet agent -- we will continue to follow with you
[2017-01-06] MEDS: INSULIN GLARGINE 100 UNIT/ML SUBCUT SCH (20:20)
[2017-01-06] MEDS: SIMVASTATIN 10 MG TABLET PO SCH (20:20)
[2017-01-07] MEDS: SODIUM CHLORIDE 0.9% 1,000 ML IV SCH ×2 (01:02→12:33)
[2017-01-07 04:49] LABS: Basophils % 0.5 % (0.0-0.8); Eosinophils # 0.2 10*3/uL (0.0-0.87); Eosinophils % 3.2 % (0.00-10.9); Hematocrit 29.3 VOL% (35.7-47.0); Hemoglobin 9.4 GM/DL (12.0-16.0); Immature Granulocytes % 0.5 %; Immature Granulocytes Absolute 0.03 #; Lymphocytes # 2.8 10*3/uL (1.4-4.0); Lymphocytes % 48.8 % (21.3-54.2); Mean Corpuscular HGB Conc 32.1 GM/DL (32-36); Mean Corpuscular Hemoglobin 26 PG (27-34); Mean Corpuscular Volume 81.6 FL (87-102); Mean Platelet Volume 10.5 FL (9.6-12.0); Monocytes # 0.6 10*3/uL (0.11-0.8); Monocytes % 11.2 % (1.7-12.7); Neutrophils % 35.8 % (38.7-73.9); Platelet Count 213 T/CUMM (130-400); Red Blood Count 3.59 MC/CUMM (3.8-5.5); Red Cell Distribution Width 16.8 % (9.3-17.3); White Blood Count 5.7 T/CUMM (4-12)
[2017-01-07 05:18] LABS: Calcium 7.9 MG/DL (8.5-10.1); Osmolality,Calculated 282.8 MOS/KG (273-304)
[2017-01-07 06:58] LABS: Eosinophils 3 % (0-10); Lymphocytes 49 % (20-55); Segmented Neutrophils 41 % (50-85); Total Cells Counted 100
[2017-01-07 06:59] LABS: Hypochromasia 1+; Platelet Estimate Adequate; Polychromasia Slight
[2017-01-07] MEDS: INSULIN LISPRO 100 UNIT/ML SUBCUT SCH ×6 (08:54→22:52)
[2017-01-07] MEDS: LINACLOTIDE 145 MCG CAPSULE PO SCH (09:22)
[2017-01-07] MEDS: LOSARTAN 25 MG TABLET PO SCH (09:23)
[2017-01-07] MEDS: ACEBUTOLOL 400 MG CAPSULE PO SCH (09:23)
[2017-01-07] MEDS: GLIMEPIRIDE 4 MG TABLET PO SCH ×2 (09:23→17:22)
[2017-01-07] MEDS: ESTRADIOL 2 MG TABLET PO SCH (09:23)
[2017-01-07] MEDS: MORPHINE ER 15 MG TABLET PO SCH ×2 (09:23→20:39)
[2017-01-07] MEDS: PANTOPRAZOLE 40 MG VIAL IV SCH (09:24)
[2017-01-07] MEDS: DOCUSATE SODIUM 100 MG CAPSULE PO SCH ×2 (09:28→20:39)
--- NOTE | 2017-01-07 09:29 | Gastrointestinal Progress Note ---
Assessment and Plan (1) Lower gastrointestinal hemorrhage Status: Acute Current Visit: Yes (2) Other specified counseling Status: Acute Current Visit: Yes Exam (Progress Note) - Constitutional Vitals: Period Temp Pulse Resp BP Sys/Saleh Pulse Ox Last 24 Hr 96.7 F-97.8 F 62-91 18-20 112-179/59-79 91-100 Results - Labs CBC & BMP: 01/07/17 03:36 01/07/17 03:36 Note Addendum: PLEASE NOTE -- automatic citation of patient information is unavoidable in this electronic note. I have made a reasonable effort to review the information cited , but it is not a part of my evaluation, impression, or recommendation unless specifically discussed in the dictated text that follows. As well, voice recognition software was used in the creation of this clinical note. Reasonable effort was made to identify and correct gross errors. Despite proofreading, errors in mussel farmer may be present, including nonsense verbiage at times. If you encounter such an error, please contact me at for discussion and correction. -- Sayra Chief complaint: rectal bleeding Subjective: the patient is a 81-year-old female seen for follow-up of rectal bleeding. The patient required no additional transfusion overnight. She reports feeling reasonably well this morning but is having some aching abdominal pain, midline, without radiation. She is tolerating clear liquids. Our last bowel movement was this morning, loose, but with no blood Medications: Sectral, Tylenol, baclofen, diltiazem, Colace, estradiol, glimepiride, glucagon, hydrochlorothiazide, [place], Lantus, Humalog, Linzess, Cozaar, MS Contin, Zofran, Protonix, Zocor, normal saline infusion Review of Symptoms: 12 point review of symptoms was negative except as noted above Physical examination: Vital Signs: Current vital signs reviewed. General Appearance: lying in bed. Comfortable. No acute distress Head: Normocephalic. Eyes: no scleral icterus. No scleral injection. No conjunctival pallor. Oral Cavity: Odor of breath was normal. No drooling was observed. Lips showed no abnormalities. Lungs: Respiration rhythm and depth was normal. Cardiovascular: Heart rate and rhythm were normal. Abdomen: abdomen was not distended. Abdominal auscultation revealed no abnormalities. Ascites was not discovered. Abdominal palpation revealed minimal tenderness and no hepatosplenomegaly. Musculoskeletal System: musculoskeletal system was grossly normal. Neurological: level of consciousness was normal. Speech was normal. No coordination/cerebellum abnormalities were noted. Skin: Gen. appearance was normal. Color and pigmentation were normal. No skin lesions were appreciated. Laboratory: no leukocytosis, hemoglobin 9.5 --> two units of packed red blood cells --> 10.9 --> large bloody bowel movement yesterday --> 10.1 yesterday --> 9.4 today Radiology: reviewed with no pertinent changes noted. Impressions: 1. Hematochezia -- the differential diagnosis is unchanged. I recommend continued hemoglobin and hematocrit monitoring with further transfusion as indicated. I recommend continued crystalloid resuscitation as indicated. I recommend intravenous proton pump inhibitor. Patient will need colonoscopy with timing dependent on clinical progress. If bleeding continues, this will likely need to be done during this admission. If not, we could consider outpatient colonoscopy once patient is adequately resuscitated and transfused. 2. Other specified counseling -- Patient seen for less than 30 minutes. Greater than 50% of this time was spent counseling regarding differential diagnosis, likely diagnosis,, diagnostic and therapeutic options, risks, benefits, and alternatives to procedures and medications, informed consent, and plan of care generally. Patient has expressed understanding and wishes to proceed. Recommendations: -- continued volume management -- monitor blood counts and transfuse as indicated -- continue proton pump inhibitor -- colonoscopy with timing dependent on clinical progress -- continue holding antiplatelet agent -- we will continue to follow with you. Dr. Mancuso will resume G.I. care for this patient tomorrow.
[2017-01-07] MEDS: DILTIAZEM CD 240 MG CAPSULE PO SCH (09:40)
[2017-01-07] MEDS: ONDANSETRON 4 MG/2 ML VIAL IV PRN (10:55)
[2017-01-07] MEDS: DILTIAZEM CD 120 MG CAPSULE PO SCH ×2 (12:29→17:07)
[2017-01-07 14:10] LABS: Hematocrit 31.3 VOL% (35.7-47.0); Hemoglobin 10.2 GM/DL (12.0-16.0)
--- NOTE | 2017-01-07 14:24 | Family Practice Progress Note ---
Family Practice - PN: Subj Interval history: PCP: Dr. 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 Nurse present at the bedside giving the a.m. meds. lying in bed, feeling bit better, on IVF , on clear liquids oral diet. Had 2 bowel movements in the past 24 hours, last bowel movement, with no blood noted earlier this a.m., noticing abdominal pain and upper quadrant especially at the time of bowel movement. no fever , nausea, vomiting , chest pain , SOB , headaches or dizziness, No overnight events reported by the nurse, The caregiver mentions the patient has a mass in her private areas in the vagina region possibly prolapse, on inquiring patient mentions the blood is coming from the rectum, in the bowel movement only, not from vaginal area. Exam (Progress Note) - Constitutional Vitals: Period Temp Pulse Resp BP Sys/Saleh Pulse Ox Last 24 Hr 96.7 F-97.6 F 62-91 18-20 112-182/59-79 91-100 Exam: Examination: GENERAL: Alert, oriented, in no acute distress , elderly female pt, lying in the bed, HEENT: normal, hearing,PERRLA. EOMI. pale conjunctiva, oral mucosa NECK: Neck is supple. No JVD. No carotid bruit. No thyromegaly. CVS: Regular rate and rhythm. S1 and S2 are normal. RESPIRATORY: Clear to ausculation bilaterally , No wheezes, rales or rhonchi. ABDOMEN: Soft and nontender at the time of exam., Mild distention present, no guarding, no rigidity, no rebound tenderness, bowel sounds are present. No hepatosplenomegaly. EXT: No edema. INSURANCE RISK SURVEYOR: Patient is awake, alert and oriented, Cranial nerves 2-12 grossly intact. Results - Labs CBC & BMP: 01/07/17 14:04 01/07/17 03:36 Lab Results: I have reviewed the past 24 hour labs - Impressions CT abdomen, pelvis from 01/05/2017 Impression: No definite acute abdominal process compared to the recent comparison CT. Diverticulosis without geronimo diverticulitis. Moderate amount of retained stool in the rectum. Other nonacute findings discussed above, unchanged Chest x-ray from 01/05/2017. Impression: Cardiomegaly without overt CHF. No definite acute process. Pacemaker as before Assessment and Plan (1) Rectal bleed Status: Acute Assessment and plan: Improving, will get serial H&H, Continue IV fluids, clear liquid diet. 2. Continue IV Protonix, Zofran as needed, diverticulosis stable, hemorrhoids, follow GI recommendations, 3. CHF, A. fib status post pacemaker, presently not on blood thinners, due to GI bleed 4. hyperlipidemia, continue Zocor 5.HTN continue current antihypertensives, 6. DM, stable continue current regimen Current Visit: Yes (2) Hemorrhoids Status: Chronic Current Visit: Yes (3) A-fib Status: Chronic Current Visit: Yes (4) Chronic diastolic (congestive) heart failure Status: Chronic Current Visit: Yes (5) Hyperlipidemia Status: Chronic Current Visit: No (6) Hypertension Status: Chronic Current Visit: Yes (7) Diverticulosis Status: Chronic Current Visit: Yes (8) Status post cardiac pacemaker procedure Status: Chronic Current Visit: Yes (9) Type 2 diabetes mellitus Status: Chronic Current Visit: Yes Qualifiers: Diabetes mellitus complication status: with unspecified complications
[2017-01-07] MEDS: SIMVASTATIN 10 MG TABLET PO SCH (20:39)
[2017-01-07] MEDS: INSULIN GLARGINE 100 UNIT/ML SUBCUT SCH (20:43)
[2017-01-08] MEDS: SODIUM CHLORIDE 0.9% 1,000 ML IV SCH ×2 (03:35→13:59)
--- NOTE | 2017-01-08 08:20 | Family Practice Progress Note ---
Family Practice - PN: Subj Interval history: Patient states she is feeling better and is not had any further abdominal pain or bleeding in the last 24 hours. Hematocrit stabilized over the weekend. She apparently had quite a bit of bleeding on Sunday but she states none yesterday. GI is seeing her and she will certainly need colonoscopy at some point. Exam (Progress Note) - Constitutional Vitals: Period Temp Pulse Resp BP Sys/Saleh Pulse Ox Last 24 Hr 96.6 F-97.4 F 59-78 18-20 121-182/62-77 91-95 Exam: Objective a well-developed white female no acute distress. She is able give good history. Cardiovascular: Heart rates regular without murmurs or gallops. Respiratory: Lungs clear to auscultation bilaterally. Abdomen: Abdomen soft and nontender to palpation. Results - Labs CBC & BMP: 01/07/17 14:04 01/07/17 03:36 Lab Results: I have reviewed the past 24 hour labs Assessment and Plan (1) Rectal bleeding Status: Acute Assessment and plan: 01/08/2017: Patient has not bled in 24 hours. Patient will require colonoscopy at some point. Current Visit: Yes
[2017-01-08] MEDS: LINACLOTIDE 145 MCG CAPSULE PO SCH (09:00)
[2017-01-08] MEDS: ESTRADIOL 2 MG TABLET PO SCH (09:01)
[2017-01-08] MEDS: LOSARTAN 25 MG TABLET PO SCH (09:01)
[2017-01-08] MEDS: DILTIAZEM CD 240 MG CAPSULE PO SCH (09:02)
[2017-01-08] MEDS: ACEBUTOLOL 400 MG CAPSULE PO SCH (09:02)
[2017-01-08] MEDS: MORPHINE ER 15 MG TABLET PO SCH ×2 (09:02→21:13)
[2017-01-08] MEDS: DOCUSATE SODIUM 100 MG CAPSULE PO SCH ×2 (09:03→21:13)
[2017-01-08] MEDS: GLIMEPIRIDE 4 MG TABLET PO SCH ×2 (09:03→17:46)
[2017-01-08] MEDS: PANTOPRAZOLE 40 MG VIAL IV SCH (09:04)
[2017-01-08] MEDS: INSULIN LISPRO 100 UNIT/ML SUBCUT SCH ×6 (09:04→22:59)
[2017-01-08] MEDS: ONDANSETRON 4 MG/2 ML VIAL IV PRN ×2 (09:05→22:39)
--- NOTE | 2017-01-08 11:07 | Gastrointestinal Progress Note ---
<NehamadhuriSilvana Selina - Last Filed: 01/08/17 11:05> Assessment and Plan (1) Rectal bleed Status: Acute Assessment and plan: 01/08-no further rectal bleeding since Sunday. No repeat labs today however recheck H&H. No complaints of abdominal pain. Currently on clear liquid diet with continue discussion of possible colonoscopy on tomorrow. Plan an addendum to follow by Dr. Mancuso. 01/05-sudden onset of bright red rectal bleeding with dark clots on last night with initial complaints of abdominal pain now resolved. No bleeding this morning. Last colonoscopy [address] of abdomen negative. H&H 02/08. Last dose of Plavix yesterday morning. Plavix currently held. Check serial H&H, start clear liquid diet. Plan an addendum to follow by Dr. Mancuso. Current Visit: Yes Gastroenterology - PN: Subj Interval history: CC: Rectal bleeding Patient is seen, awake alert with family at bedside. States she had an uneventful weekend. Patient states last rectal bleeding she had was on Sunday morning and has not had any further since this time. Denies any abdominal pain, nausea vomiting. She Has not been transfused any further since admission. H&H not rechecked today but as of last check it was stabilized at 10 and 31. Discussed proceeding with colonoscopy with patient and daughter and at this time patient states that she possible to proceed with this however wishes to have further consideration. She is tolerating clear liquid diet at this time is wishing to advance this. Abdomen is soft, nontender. ROS: Denies shortness of breath or chest pain Exam (Progress Note) - Constitutional Vitals: Period Temp Pulse Resp BP Sys/Saleh Pulse Ox Last 24 Hr 96.6 F-97.4 F 59-78 18-20 121-182/62-77 91-95 General appearance: normal weight, no acute distress - Head Head exam: Present: normal inspection, normocephalic - Eye Eye exam: Present: other (Lids and conjunctive are unremarkable). Absent: scleral icterus - ENT ENT exam: Present: normal exam, normal oropharynx - Neck Neck exam: Present: normal inspection - Respiratory Respiratory exam: Present: clear to auscultation bilaterally. Absent: rales, rhonchi, wheezes - Cardiovascular Cardiovascular exam: Present: regular rate and rhythm. Absent: diastolic murmur , JVD, systolic murmur - GI/Abdominal GI/Abdominal exam: Present: normal bowel sounds, soft. Absent: ascites, distended, mass, organomegaly, tenderness - Extremities Exam Extremities exam: Present: normal inspection, full ROM - Back Exam Back exam: Present: normal inspection - Neurological Exam Neurological exam: Present: alert, oriented X3 - Psychiatric Psychiatric exam: Present: normal affect, normal mood - Skin Skin exam: Present: normal color, warm, dry Results - Labs CBC & BMP: 01/07/17 14:04 01/07/17 03:36 Lab Results: I have reviewed the past 24 hour labs <Jeff Mancuso - Last Filed: 01/08/17 17:29> Exam (Progress Note) - Constitutional Vitals: Period Temp Pulse Resp BP Sys/Saleh Pulse Ox Last 24 Hr 96.6 F-98.5 F 59-66 17-20 108-160/57-77 91-95 Results - Labs CBC & BMP: 01/07/17 14:04 01/07/17 03:36
[2017-01-08] MEDS ORDERED: BISACODYL 5 MG TABLET PO ONE (13:38)
[2017-01-08] MEDS ORDERED: POLYETHYLENE GLYCOL POWDER 255 GM BOTTLE PO ONE (14:00)
[2017-01-08] MEDS: DILTIAZEM CD 120 MG CAPSULE PO SCH (17:46)
[2017-01-08] MEDS ORDERED: MAGNESIUM CITRATE 300 ML BOTTLE PO ONE (21:00)
[2017-01-08] MEDS: SIMVASTATIN 10 MG TABLET PO SCH (21:13)
[2017-01-08] MEDS: INSULIN GLARGINE 100 UNIT/ML SUBCUT SCH (21:18)
[2017-01-09] MEDS: SODIUM CHLORIDE 0.9% 1,000 ML IV SCH ×3 (03:37→16:59)
[2017-01-09 06:04] LABS: Basophils % 0.5 % (0.0-0.8); Eosinophils # 0.1 10*3/uL (0.0-0.87); Eosinophils % 2.2 % (0.00-10.9); Hematocrit 32.3 VOL% (35.7-47.0); Hemoglobin 10.4 GM/DL (12.0-16.0); Immature Granulocytes % 0.3 %; Immature Granulocytes Absolute 0.02 #; Lymphocytes % 33.8 % (21.3-54.2); Mean Corpuscular HGB Conc 32.2 GM/DL (32-36); Mean Corpuscular Hemoglobin 27 PG (27-34); Mean Corpuscular Volume 82.4 FL (87-102); Mean Platelet Volume 10.2 FL (9.6-12.0); Monocytes # 0.6 10*3/uL (0.11-0.8); Monocytes % 9.4 % (1.7-12.7); Neutrophils # 3.1 10*3/uL (1.4-7.4); Neutrophils % 53.8 % (38.7-73.9); Platelet Count 233 T/CUMM (130-400); Red Blood Count 3.92 MC/CUMM (3.8-5.5); Red Cell Distribution Width 16.6 % (9.3-17.3); White Blood Count 5.8 T/CUMM (4-12)
--- NOTE | 2017-01-09 07:41 | Family Practice Progress Note ---
Family Practice - PN: Subj Interval history: Patient states she is feeling some better this morning but had difficulty getting up and down with her prep last night. She has not seen any more blood in her stool. She has agreed to proceeding with colonoscopy. Exam (Progress Note) - Constitutional Vitals: Period Temp Pulse Resp BP Sys/Saleh Pulse Ox Last 24 Hr 97.1 F-98.5 F 61-70 17-21 108-160/57-75 91-98 Exam: Objective a well-developed white female no acute distress. She states she is not having any abdominal tenderness Cardiovascular: Heart rates regular without murmurs or gallops. Respiratory: Lungs clear to auscultation bilaterally. Abdomen: Abdomen soft and nontender to palpation. Results - Labs CBC & BMP: 01/09/17 05:23 01/07/17 03:36 Lab Results: I have reviewed the past 24 hour labs Assessment and Plan (1) Rectal bleeding Status: Acute Assessment and plan: 01/08/2017: Patient has not bled in 24 hours. Patient will require colonoscopy at some point. 01/09/2017: Patient scheduled for colonoscopy today. Current Visit: Yes
[2017-01-09] MEDS: INSULIN LISPRO 100 UNIT/ML SUBCUT SCH ×6 (07:59→20:43)
[2017-01-09] MEDS: DILTIAZEM CD 240 MG CAPSULE PO SCH (08:33)
[2017-01-09] MEDS: PANTOPRAZOLE 40 MG VIAL IV SCH (08:34)
[2017-01-09] MEDS: MORPHINE ER 15 MG TABLET PO SCH ×2 (08:52→20:42)
[2017-01-09] MEDS: GLIMEPIRIDE 4 MG TABLET PO SCH ×3 (09:08→16:53)
[2017-01-09] MEDS: DOCUSATE SODIUM 100 MG CAPSULE PO SCH ×2 (09:09→20:42)
[2017-01-09] MEDS: LOSARTAN 25 MG TABLET PO SCH ×2 (09:09→13:03)
[2017-01-09] MEDS: LINACLOTIDE 145 MCG CAPSULE PO SCH ×2 (09:09→13:04)
[2017-01-09] MEDS: ESTRADIOL 2 MG TABLET PO SCH ×2 (09:09→13:03)
[2017-01-09] MEDS: ACEBUTOLOL 400 MG CAPSULE PO SCH (09:23)
[2017-01-09] MEDS ORDERED: PROPOFOL 200 MG/20 ML VIAL IV ONE (11:01)
[2017-01-09] MEDS ORDERED: LIDOCAINE 1% 5 ML VIAL ONE (11:01)
--- NOTE | 2017-01-09 11:03 | History and Physical Update ---
History and Physical Update - Physical Exam Mental Status: alert and oriented Heart: regular rate and rhythm Lung: clear to auscultation Abdomen: within normal limits Vitals: within normal limits
--- NOTE | 2017-01-09 11:28 | Operative Note ---
Date of procedure: 01/09/17 Pre-op diagnosis: Rectal bleeding Procedure: Colonoscopy with hot biopsy polypectomy 81-year-old female admitted with rectal bleeding now for colonoscopy to further evaluate. Informed symptoms obtained patient She was sedated with MAC anesthesia per anesthesia protocol. Patient placed in left lateral decubitus position the digital exam was normal no rectal masses were felt. The Olympus flexible video colonoscope [place] canal demonstrate vision level cecum and 5 ileocecal valve appendiceal orifice. Withdrawal time 11 minutes Prep fair to poor limited visibility due to retained prep. Findings: Cecum-normal identify the ileocecal valve appendiceal orifice. Exam limited by opaque fluid with some sediment. A ascending colon-normal with limited visibility due to prep. Transverse colon-normal limited visibility due to prep Descending colon-diverticulosis otherwise normal exam limited by prep Sigmoid colon-6 mm polyp mid sigmoid with excoriation with active bleeding hot biopsy forceps utilized for cautery. No other lesions seen. Rectum-5 mm polyp hot biopsy fulgurated otherwise normal to direct retroflexed views. Postop diagnosis: 1. Colon polyp 2 1 with erosion and bleeding now effectively coagulated. Suspect this may have been ongoing bleeding site in presence of Plavix. For now we will continue to observe H&H and follow-up polyp path. Anesthesia: MAC Surgeon / Physician: Jeff Mancuso Estimated blood loss: none Specimens: other (1. Sigmoid polyp #2 rectal polyp) Condition: stable Disposition: post procedure unit Results - Labs CBC & BMP: 01/09/17 05:23 01/07/17 03:36 Discharge Plan - Discharge Medications No Action Omeprazole [Prilosec] 20 mg PO DAILY Morphine Sulfate [Morphine Sulfate ER] 15 mg PO BID Estradiol Tab [Estrace Tab] 2 mg PO DAILY Simvastatin [Zocor] 10 mg PO QPM HYDROcodone/ACETAMIN 10-325 [[place] 10-325] 1 tablet PO TID PRN tablet PRN Reason: Pain Glimepiride 4 mg PO BID Acetaminophen Tab [Tylenol Tab] 650 mg PO Q4H PRN tablet PRN Reason: Fever, Headache, Mild Pain Linaclotide [Linzess] 145 mcg PO DAILY hydroCHLOROthiazide [Hydrochlorothiazide] 25 mg PO DAILY PRN PRN Reason: fluid volume overload Acebutolol [Sectral] 400 mg PO DAILY Insulin Aspart [NovoLOG FlexPen] 10 units SUBCUT BID Clopidogrel [Plavix] 75 mg PO DAILY Insulin Glargine,Hum.rec.anlog [[place]ren [place]] 30 unit SUBCUT BEDTIME dilTIAZem HCl [Cartia XT] 120 mg PO DAILY W/SUPPER Losartan [Cozaar] 25 mg PO DAILY dilTIAZem HCl [Cartia XT] 240 mg PO DAILY Baclofen [Baclofen] 10 mg PO TID PRN PRN Reason: Muscle Spasm - Follow Up or Referral - Forms/Instructions
--- NOTE | 2017-01-09 11:32 | Anesthesia Post-Op ---
Anesthesia Post OP - Post Ansesthetic Evaluation Patient seen in post op: Yes Resp: within normal limits CV: within normal limits Mental: within normal limits Temp: within normal limits [id number]: within normal limits Nausea and Vomiting: within normal limits Pain: within normal limits
[2017-01-09] MEDS: DILTIAZEM CD 120 MG CAPSULE PO SCH (16:53)
[2017-01-09] MEDS: SIMVASTATIN 10 MG TABLET PO SCH (20:42)
[2017-01-09] MEDS: INSULIN GLARGINE 100 UNIT/ML SUBCUT SCH (20:43)
--- NOTE | 2017-01-10 08:10 | Family Practice Progress Note ---
Family Practice - PN: Subj Interval history: Patient states she is feeling quite well and has not had any further rectal bleeding. She had a ulcerative colonic polyp that was removed and fulgurated. It was submitted for pathological analysis. Patient states she is ready to go home today and her daughter is comfortable taking her and she will be watching her closely at home. Exam (Progress Note) - Constitutional Vitals: Period Temp Pulse Resp BP Sys/Saleh Pulse Ox Last 24 Hr 96.6 F-98.4 F 60-90 13-20 114-184/50-95 90-98 Exam: Objective a well-developed white female no acute distress. She states she is not having any abdominal tenderness or bleeding and is ready to go home. Cardiovascular: Heart rates regular without murmurs or gallops. Respiratory: Lungs clear to auscultation bilaterally. Abdomen: Abdomen soft and nontender to palpation. Results - Labs CBC & BMP: 01/09/17 05:23 01/07/17 03:36 Lab Results: I have reviewed the past 24 hour labs Assessment and Plan (1) Rectal bleeding Status: Acute Assessment and plan: 01/08/2017: Patient has not bled in 24 hours. Patient will require colonoscopy at some point. 01/09/2017: Patient scheduled for colonoscopy today. 01/10/2017: Patient's had no further bleeding. She will be discharged today and follow-up with her biopsy results in the office. Current Visit: Yes
--- NOTE | 2017-01-10 08:14 | Discharge Summary ---
Hospital Course - Hospital Course Hospital Course: Patient 81-year-old white female admitted to the emergency room with rectal bleeding. Patient required transfusion. Patient had slight abdominal pain associated with this. Patient underwent colonoscopy on 01/09/2017 revealed her to have ulcerative colonic polyp that was removed and the base fulgurated. Patient's have no further bleeding and is anxious to go home. Diagnosis - Discharge Diagnosis (1) Rectal bleeding Status: Acute Discharge Plan - Discharge Data Disposition: Disch To Home/Self Care Condition at Discharge: Stable Discharge Diet: advance to your usual diet Activity: resume usual activities as tolerated Hygiene: no restrictions Weight Bearing at Discharge: full weight bearing Driving: no restrictions Contact your physician if you experience:: fever over 101, Bleeding - Discharge Medications Continue Omeprazole [Prilosec] 20 mg PO DAILY Morphine Sulfate [Morphine Sulfate ER] 15 mg PO BID Estradiol Tab [Estrace Tab] 2 mg PO DAILY Simvastatin [Zocor] 10 mg PO QPM HYDROcodone/ACETAMIN 10-325 [[place] 10-325] 1 tablet PO TID PRN tablet PRN Reason: Pain Glimepiride 4 mg PO BID Acetaminophen Tab [Tylenol Tab] 650 mg PO Q4H PRN tablet PRN Reason: Fever, Headache, Mild Pain Linaclotide [Linzess] 145 mcg PO DAILY hydroCHLOROthiazide [Hydrochlorothiazide] 25 mg PO DAILY PRN PRN Reason: fluid volume overload Acebutolol [Sectral] 400 mg PO DAILY Clopidogrel [Plavix] 75 mg PO DAILY #0 Insulin Aspart [NovoLOG FlexPen] 10 units SUBCUT BID Insulin Glargine,Hum.rec.anlog [[place]] 30 unit SUBCUT BEDTIME dilTIAZem HCl [Cartia XT] 120 mg PO DAILY W/SUPPER Losartan [Cozaar] 25 mg PO DAILY dilTIAZem HCl [Cartia XT] 240 mg PO DAILY Baclofen 10 mg PO TID PRN PRN Reason: Muscle Spasm - Follow Up or Referral Follow Up: Lennox Love MD [Physician] - 2 Weeks - Forms/Instructions Exam - Constitutional Vitals: Period Temp Pulse Resp BP Sys/Saleh Pulse Ox Last 24 Hr 96.6 F-98.4 F 60-90 13-20 114-184/50-95 90-98 Exam: Objective a well-developed white female no acute distress. She states she is not having any abdominal tenderness or bleeding and is ready to go home. Cardiovascular: Heart rates regular without murmurs or gallops. Respiratory: Lungs clear to auscultation bilaterally. Abdomen: Abdomen soft and nontender to palpation. Discharge Results Labs on day of discharge: Labs from last 24 hours 01/10/17 01/09/17 01/09/17 07:20 20:18 16:52 POC Glucose 188 H 105 227 H 01/09/17 12:07 POC Glucose 157 H DS: Provider Date of admission: 01/05/17 09:01 Primary care physician: . No PCP Attending physician on admission: Lennox Love MD Consults: 01/05/17 09:03 Consult to Case Mgmt/Social Srvs [CONS] Routine Reason for Case Mgmt/Social Srvs: Discharge Planning 01/05/17 09:04 Consult to Physician [CONS] Routine Comment: Lower GI hemorrhage Consulting Provider: Jeff Mancuso Person Notified: [email or web address] Date Notified: 01/05/17 Time Notified: 10:00 01/05/17 10:06 Consult to Pastoral Services [CONS] Routine Comment: Pastoral Screen: Request Assistant Corporate Secretary Visit Pastoral Screen Source of Request: Family 01/09/17 13:11 Consult to Physical Therapy [CONS] Routine Reason for Physical Therapy: Weakness Discharging clinician: Lennox Love MD Expected date of discharge: 01/10/17
[2017-01-10] MEDS: INSULIN LISPRO 100 UNIT/ML SUBCUT SCH ×3 (08:41→12:04)
[2017-01-10] MEDS: GLIMEPIRIDE 4 MG TABLET PO SCH (08:42)
[2017-01-10] MEDS: DOCUSATE SODIUM 100 MG CAPSULE PO SCH (08:43)
[2017-01-10] MEDS: ESTRADIOL 2 MG TABLET PO SCH (08:44)
[2017-01-10] MEDS: LINACLOTIDE 145 MCG CAPSULE PO SCH (08:44)
[2017-01-10] MEDS: MORPHINE ER 15 MG TABLET PO SCH (08:44)
[2017-01-10] MEDS: DILTIAZEM CD 240 MG CAPSULE PO SCH (08:46)
[2017-01-10] MEDS: LOSARTAN 25 MG TABLET PO SCH (08:46)
[2017-01-10] MEDS: ACEBUTOLOL 400 MG CAPSULE PO SCH (08:48)
[2017-01-10] MEDS: PANTOPRAZOLE 40 MG VIAL IV SCH (08:48)
[2017-01-10 09:31] VITALS: BP 161/80
[2017-01-10] MEDS: SODIUM CHLORIDE 0.9% 1,000 ML IV SCH (09:56)
--- NOTE | 2017-01-10 10:26 | Gastrointestinal Progress Note ---
<Silvana Ferrari Selina - Last Filed: 01/10/17 10:20> Assessment and Plan (1) Rectal bleed Status: Acute Assessment and plan: 01/10-no further overt bleeding with bowel movement yesterday. No repeat labs today. For discharge home today. Pathology still pending for polyp removal. Plan an addendum to followed by Dr. Mancuso. 01/08-no further rectal bleeding since Sunday. No repeat labs today however recheck H&H. No complaints of abdominal pain. Currently on clear liquid diet with continue discussion of possible colonoscopy on tomorrow. Plan an addendum to follow by Dr. Mancuso. 01/05-sudden onset of bright red rectal bleeding with dark clots on last night with initial complaints of abdominal pain now resolved. No bleeding this morning. Last colonoscopy [address] of abdomen negative. H&H 02/08. Last dose of Plavix yesterday morning. Plavix currently held. Check serial H&H, start clear liquid diet. Plan an addendum to follow by Dr. Mancuso. Gastroenterology - PN: Subj Interval history: CC: Rectal bleeding Pt is awake and alert with family at bedside. States that she is feeling much better today. She has had one small bowel movement this morning but denies any overt bleeding with this. Colonoscopy on yesterday results noted with polyp removal x 2 with erosion and bleeding that was treated. Path report is pending on this. HH was not repeated today however has remained stable. Tolerating regular diet well. Abdomen is soft, nontender. She is noted for discharge home today. ROS: Denies SOB or chest pain Exam (Progress Note) - Constitutional Vitals: Period Temp Pulse Resp BP Sys/Saleh Pulse Ox Last 24 Hr 96.6 F-98.4 F 60-90 13-20 114-184/50-95 90-98 General appearance: normal weight, no acute distress - Head Head exam: Present: normal inspection, normocephalic - Eye Eye exam: Present: other (lids and conjunctiva unremarkable). Absent: scleral icterus - ENT ENT exam: Present: normal exam, normal oropharynx - Neck Neck exam: Present: normal inspection - Respiratory Respiratory exam: Present: clear to auscultation bilaterally. Absent: rales, rhonchi, wheezes - Cardiovascular Cardiovascular exam: Present: regular rate and rhythm. Absent: diastolic murmur , JVD, systolic murmur - GI/Abdominal GI/Abdominal exam: Present: normal bowel sounds, soft. Absent: ascites, distended, mass, organomegaly, tenderness - Extremities Exam Extremities exam: Present: normal inspection, full ROM - Back Exam Back exam: Present: normal inspection - Neurological Exam Neurological exam: Present: alert, oriented X3 - Psychiatric Psychiatric exam: Present: normal affect, normal mood - Skin Skin exam: Present: normal color, warm, dry Results - Labs CBC & BMP: 01/09/17 05:23 01/07/17 03:36 Lab Results: I have reviewed the past 24 hour labs Specialty Discharge - Follow Up or Referrals Follow up with: Lennox Love MD [Physician] - 01/25/17 10:45 am () <Jeff Mancuso - Last Filed: 01/10/17 18:25> Exam (Progress Note) - Constitutional Vitals: Period Temp Pulse Resp BP Sys/Saleh Pulse Ox Last 24 Hr 96.6 F-98.4 F 60-74 14-20 118-184/63-84 94-98 Results - Labs CBC & BMP: 01/09/17 05:23 01/07/17 03:36
--- NOTE | 2017-01-10 14:27 | Pathology Report from [facility] ---
[facility] ACCESSION # : [id number] PATIENT NAME : Kwasi Bui ORDERING DR : TERRY SOLITARIO MD CLINICAL HX: Rectal bleed POST-OP DX: #1 Colon polyp sigmoid #2 Colon polyp rectum SPECIMEN INFO: #1 Colon polyp sigmoid #2 Colon polyp rectum GROSS DESCRIPTION: #1 Received in formalin labeled with the patients name KWASI BUI and #1 consists of a 0.2 x 0.1 cm victoria tissue fragment. Submitted in cassette #1.#2 Received in formalin labeled with the patients name KWASI BUI and #2 consists of a 0.2 x 0.2 cm victoria tissue fragment. Submitted in cassette #2. DIAGNOSIS FOR KWASI BUI: #1 SIGMOID COLON: Hyperplastic polyp with benign lymphoid follicle.#2 RECTUM, BIOPSY: Hyperplastic polyp. COLLECTED DATE: 01/09/2017 [facility] REPORT DATE: 01/10/2017 ELECTRONICALLY SIGNED BY: Umang Flowers III, M.D. 01/10/2017 - 9:31:36 [facility]
== END 2017-01-10 12:43 | disposition home or self-care (01) | DRG 394 ==
LOC: N.ED 07:18 → N.EDINP 09:01 → N.2E 09:33
PROVIDERS: ADMIT Family Medicine; ATTEND Family Medicine

== ENCOUNTER 2017-03-21 10:51 | Inpatient (IN) ==
[2017-03-21 12:53] LABS: Basophils # 0.1 10*3/uL (0.0-0.2); Basophils % 0.7 % (0.0-0.8); Eosinophils # 0.1 10*3/uL (0.0-0.87); Eosinophils % 1.3 % (0.00-10.9); Hematocrit 37.1 VOL% (35.7-47.0); Hemoglobin 11.6 GM/DL (12.0-16.0); Immature Granulocytes % 0.1 %; Immature Granulocytes Absolute 0.01 #; Lymphocytes # 2.2 10*3/uL (1.4-4.0); Lymphocytes % 33.3 % (21.3-54.2); Mean Corpuscular HGB Conc 31.3 GM/DL (32-36); Mean Corpuscular Hemoglobin 24 PG (27-34); Mean Corpuscular Volume 78.1 FL (87-102); Mean Platelet Volume 10.1 FL (9.6-12.0); Monocytes # 0.4 10*3/uL (0.11-0.8); Monocytes % 6.3 % (1.7-12.7); Neutrophils # 3.9 10*3/uL (1.4-7.4); Neutrophils % 58.3 % (38.7-73.9); Platelet Count 250 T/CUMM (130-400); Red Blood Count 4.75 MC/CUMM (3.8-5.5); Red Cell Distribution Width 15.7 % (9.3-17.3); White Blood Count 6.7 T/CUMM (4-12)
[2017-03-21 13:11] LABS: Albumin 3.3 G/DL (3.4-5.0); Bilirubin,Total 0.4 MG/DL (0.2-1.0); Calcium 8.8 MG/DL (8.5-10.1); Potassium 4.8 MMOL/L (3.5-5.1); Total Protein 7.4 G/DL (6.4-8.3)
[2017-03-21 13:45] LABS: Apearance,Urine Slightly Hazy (Clear); Bilirubin,Urine Negative (Negative); Blood, Urine Small mg/dL (Negative); Glucose,Urine (UA) >=500 mg/dL (Negative); Ketones,Urine 5 mg/dL (Negative); Nitrite,Urine Negative (Negative); Protein,Urine Negative; RBC,Urine 3 /HPF (0-4); Squamous Epithelial Cell,Urine Occasional /HPF (0-10); Urine Color Yellow (Yellow); Urine Urobilinogen < 2.0 EU/DL (0.2-1.0); WBC,Urine 1 /HPF (0-6)
[2017-03-21 14:03] LABS: Barbiturates Screen,Urine Negative (Negative); Benzodiazepines Screen,Urine Negative (Negative); Cannabinoid Screen,Urine Negative (Negative); Opiate Screen,Urine Positive (Negative); Phencyclidine Screen,Urine Negative (Negative)
[2017-03-21] MEDS ORDERED: ACETAMINOPHEN 325 MG TABLET PO PRN (16:41)
[2017-03-21] MEDS ORDERED: GLUCAGON 1 MG VIAL IM PRN (16:41)
[2017-03-21] MEDS ORDERED: ONDANSETRON 4 MG/2 ML VIAL IV PRN (16:41)
[2017-03-21] MEDS ORDERED: DEXTROSE 50% 25 GM/50 ML VIAL IV PRN (16:41)
[2017-03-21] MEDS ORDERED: INFLUENZA VIRUS VACCINE 0.5 ML SYRINGE IM ONE (16:55)
[2017-03-21] MEDS: INSULIN LISPRO 100 UNIT/ML SUBCUT SCH ×2 (17:25→21:41)
[2017-03-21] MEDS: SODIUM CHLORIDE 0.9% 1,000 ML IV SCH (17:26)
[2017-03-21] MEDS: ENOXAPARIN 40 MG/0.4 ML SYRINGE SUBCUT SCH (17:26)
[2017-03-21] MEDS ORDERED: BACLOFEN 10 MG TABLET PO PRN (18:26)
[2017-03-21] MEDS ORDERED: hydroCHLOROthiazide 25 MG TABLET PO PRN (18:26)
[2017-03-21] MEDS: SIMVASTATIN 10 MG TABLET PO SCH (21:41)
[2017-03-21] MEDS: MORPHINE ER 15 MG TABLET PO SCH (21:41)
[2017-03-21] MEDS: DOCUSATE SODIUM 100 MG CAPSULE PO SCH (21:43)
[2017-03-21] MEDS: CIPROFLOXACIN 250 MG TABLET PO SCH (21:43)
[2017-03-21] MEDS: GLIMEPIRIDE 4 MG TABLET PO SCH (21:43)
[2017-03-22] MEDS: SODIUM CHLORIDE 0.9% 1,000 ML IV SCH ×3 (01:41→17:25)
[2017-03-22] MEDS: DILTIAZEM CD 240 MG CAPSULE PO SCH (08:16)
[2017-03-22] MEDS: INSULIN LISPRO 100 UNIT/ML SUBCUT SCH ×6 (08:16→21:35)
[2017-03-22] MEDS: MORPHINE ER 15 MG TABLET PO SCH (08:17)
[2017-03-22] MEDS: PANTOPRAZOLE 40 MG TABLET PO SCH (08:17)
[2017-03-22] MEDS: GLIMEPIRIDE 4 MG TABLET PO SCH ×2 (08:17→21:35)
[2017-03-22] MEDS: LOSARTAN 25 MG TABLET PO SCH (08:17)
[2017-03-22] MEDS: CIPROFLOXACIN 250 MG TABLET PO SCH ×2 (08:17→21:36)
[2017-03-22] MEDS: METOPROLOL SUCCINATE XL 50 MG TABLET PO SCH (08:18)
[2017-03-22] MEDS: ESTRADIOL 2 MG TABLET PO SCH (08:18)
[2017-03-22] MEDS: DOCUSATE SODIUM 100 MG CAPSULE PO SCH ×2 (08:18→21:36)
[2017-03-22] MEDS: LINACLOTIDE 145 MCG CAPSULE PO SCH (08:19)
[2017-03-22] MEDS ORDERED: NON-FORMULARY MEDICATION (Omeprazole [Prilosec] 20 MG) PO SCH (09:00)
[2017-03-22] MEDS: ENOXAPARIN 40 MG/0.4 ML SYRINGE SUBCUT SCH (16:13)
[2017-03-22] MEDS ORDERED: INSULIN GLARGINE 100 UNIT/ML SUBCUT SCH (21:00)
[2017-03-22] MEDS: SIMVASTATIN 10 MG TABLET PO SCH (21:37)
[2017-03-23] MEDS: MORPHINE ER 15 MG TABLET PO SCH ×2 (00:55→08:06)
[2017-03-23] MEDS: SODIUM CHLORIDE 0.9% 1,000 ML IV SCH ×2 (01:11→09:40)
[2017-03-23 06:21] LABS: Basophils % 0.6 % (0.0-0.8); Eosinophils # 0.2 10*3/uL (0.0-0.87); Eosinophils % 3.7 % (0.00-10.9); Hematocrit 35.4 VOL% (35.7-47.0); Immature Granulocytes % 0.2 %; Immature Granulocytes Absolute 0.01 #; Lymphocytes # 2.9 10*3/uL (1.4-4.0); Lymphocytes % 47.1 % (21.3-54.2); Mean Corpuscular HGB Conc 31.1 GM/DL (32-36); Mean Corpuscular Hemoglobin 24 PG (27-34); Mean Corpuscular Volume 77.5 FL (87-102); Mean Platelet Volume 10.1 FL (9.6-12.0); Monocytes # 0.5 10*3/uL (0.11-0.8); Monocytes % 7.6 % (1.7-12.7); Neutrophils # 2.5 10*3/uL (1.4-7.4); Neutrophils % 40.8 % (38.7-73.9); Platelet Count 226 T/CUMM (130-400); Red Blood Count 4.57 MC/CUMM (3.8-5.5); Red Cell Distribution Width 15.4 % (9.3-17.3); White Blood Count 6.2 T/CUMM (4-12)
[2017-03-23 06:43] LABS: Calcium 8.1 MG/DL (8.5-10.1)
[2017-03-23 06:44] LABS: Osmolality,Calculated 280.7 MOS/KG (273-304); Potassium 4.3 MMOL/L (3.5-5.1)
[2017-03-23] MEDS: INSULIN LISPRO 100 UNIT/ML SUBCUT SCH ×3 (07:51→11:40)
[2017-03-23] MEDS: ESTRADIOL 2 MG TABLET PO SCH ×2 (07:52→08:01)
[2017-03-23] MEDS: CIPROFLOXACIN 250 MG TABLET PO SCH ×2 (07:53→08:00)
[2017-03-23] MEDS: GLIMEPIRIDE 4 MG TABLET PO SCH ×2 (07:53→08:00)
[2017-03-23] MEDS: DILTIAZEM CD 240 MG CAPSULE PO SCH ×2 (07:53→08:00)
[2017-03-23] MEDS: METOPROLOL SUCCINATE XL 50 MG TABLET PO SCH ×2 (07:53→08:01)
[2017-03-23] MEDS: DOCUSATE SODIUM 100 MG CAPSULE PO SCH ×2 (07:53→08:00)
[2017-03-23] MEDS: LOSARTAN 25 MG TABLET PO SCH ×2 (07:54→08:00)
[2017-03-23] MEDS: PANTOPRAZOLE 40 MG TABLET PO SCH ×2 (07:54→08:01)
[2017-03-23] MEDS: LINACLOTIDE 145 MCG CAPSULE PO SCH (08:01)
[2017-03-23] MEDS ORDERED: LORazepam 2 MG/1 ML VIAL IV ONE (09:00)
[2017-03-23 12:41] VITALS: BP 165/85
[2017-03-26] MEDS ORDERED: CLOPIDOGREL 75 MG TABLET PO SCH (09:00)
== END 2017-03-23 14:22 | disposition home health service (06) | DRG 74 ==
LOC: N.ED 10:51 → N.EDINP 14:31 → N.3E 16:14
PROVIDERS: ADMIT Family Medicine; ATTEND Family Medicine

== ENCOUNTER 2017-06-28 18:08 | Inpatient (IN) ==
[2017-06-28] MEDS ORDERED: cefTRIAXone 1,000 MG in SODIUM CHLORIDE 0.9% 100 ML IV STA (19:12)
[2017-06-28] MEDS ORDERED: SODIUM CHLORIDE 0.9% 500 ML IV STA (19:12)
[2017-06-28] MEDS ORDERED: SODIUM CHLORIDE 0.9% 100 ML IV ONE ×2 (19:38→20:58)
[2017-06-28] MEDS ORDERED: cefTRIAXone 1,000 MG VIAL ONE (19:38)
[2017-06-28 19:51] LABS: Basophils % 0.5 % (0.0-0.8); Eosinophils % 0.3 % (0.00-10.9); Hematocrit 35.5 VOL% (35.7-47.0); Hemoglobin 10.6 GM/DL (12.0-16.0); Immature Granulocytes % 0.3 %; Lymphocytes # 1.9 10*3/uL (1.4-4.0); Lymphocytes % 29.1 % (21.3-54.2); Mean Corpuscular HGB Conc 29.9 GM/DL (32-36); Mean Corpuscular Hemoglobin 23 PG (27-34); Mean Corpuscular Volume 77.7 FL (87-102); Mean Platelet Volume 10.8 FL (9.6-12.0); Monocytes # 0.8 10*3/uL (0.11-0.8); Monocytes % 12.7 % (1.7-12.7); Neutrophils # 3.7 10*3/uL (1.4-7.4); Neutrophils % 57.1 % (38.7-73.9); Platelet Count 207 T/CUMM (130-400); Red Blood Count 4.57 MC/CUMM (3.8-5.5); Red Cell Distribution Width 17.5 % (9.3-17.3); White Blood Count 6.5 T/CUMM (4-12)
[2017-06-28 19:52] LABS: Immature Granulocytes Absolute 0.02 #
[2017-06-28 20:15] LABS: Alanine Aminotransferase < 9 U/L (13-56); Albumin 2.8 G/DL (3.4-5.0); Alkaline Phosphatase 85 U/L (45-117); Aspartate Amino Transferase 13 U/L (0-37); Bilirubin,Total < 0.39 MG/DL (0.2-1.0); Blood Urea Nitrogen 19 MG/DL (7-18); Calcium 7.8 MG/DL (8.5-10.1); Glucose 360 MG/DL (74-106); Osmolality,Calculated 289.8 MOS/KG (273-304); Potassium 4.1 MMOL/L (3.5-5.1); Sodium 137 MMOL/L (136-145); Total Protein 6.2 G/DL (6.4-8.3)
[2017-06-28 20:17] LABS: Lactic Acid 3.7 MMOL/L (0.4-2.0)
[2017-06-28 20:46] LABS: INR 0.9; PT Patient Result 9.1 SECS; Partial Thromboplastin Time 21.9 SECS (0-40)
[2017-06-28 20:55] LABS: Apearance,Urine Slightly Hazy (Clear); Bilirubin,Urine Negative (Negative); Blood, Urine Negative (Negative); Glucose,Urine (UA) >=500 mg/dL (Negative); Ketones,Urine Negative (Negative); Nitrite,Urine Negative (Negative); Protein,Urine Negative; RBC,Urine 1 /HPF (0-4); Squamous Epithelial Cell,Urine Occasional /HPF (0-10); Urine Color Yellow (Yellow); WBC,Urine 1 /HPF (0-6)
[2017-06-28] MEDS ORDERED: PIPERACILLIN/TAZOBACTAM 3,375 MG VIAL IV ONE (20:58)
[2017-06-28] MEDS: PIPERACILLIN/TAZOBACTAM 3,375 MG in SODIUM CHLORIDE 0.9% 100 ML IV SCH (21:45)
[2017-06-28] MEDS ORDERED: DEXTROSE 50% 25 GM/50 ML VIAL IV PRN (22:56)
[2017-06-28] MEDS ORDERED: GLUCAGON 1 MG VIAL IM PRN (22:56)
[2017-06-28] MEDS ORDERED: ONDANSETRON 4 MG/2 ML VIAL IV PRN (22:56)
[2017-06-28] MEDS ORDERED: MORPHINE 2 MG/1 ML SYRINGE IV PRN (22:56)
[2017-06-28] MEDS ORDERED: ACETAMINOPHEN 325 MG TABLET PO PRN (22:56)
[2017-06-28] MEDS ORDERED: LACTULOSE 20 GM/30 ML UDCUP PO PRN (22:56)
[2017-06-28] MEDS: SODIUM CHLORIDE 0.9% 1,000 ML IV SCH (23:05)
[2017-06-29 01:43] LABS: Lactic Acid 2.3 MMOL/L (0.4-2.0)
[2017-06-29] MEDS: PIPERACILLIN/TAZOBACTAM 3,375 MG in SODIUM CHLORIDE 0.9% 100 ML IV SCH ×3 (04:54→21:11)
[2017-06-29 05:22] LABS: Basophils % 0.3 % (0.0-0.8); Eosinophils # 0.1 10*3/uL (0.0-0.87); Eosinophils % 1.2 % (0.00-10.9); Hematocrit 30.2 VOL% (35.7-47.0); Hemoglobin 9.7 GM/DL (12.0-16.0); Immature Granulocytes % 0.3 %; Immature Granulocytes Absolute 0.02 #; Lymphocytes # 2.1 10*3/uL (1.4-4.0); Lymphocytes % 31.3 % (21.3-54.2); Mean Corpuscular HGB Conc 32.1 GM/DL (32-36); Mean Corpuscular Hemoglobin 24 PG (27-34); Mean Corpuscular Volume 75.7 FL (87-102); Mean Platelet Volume 10.2 FL (9.6-12.0); Monocytes # 0.8 10*3/uL (0.11-0.8); Monocytes % 12.3 % (1.7-12.7); Neutrophils # 3.6 10*3/uL (1.4-7.4); Neutrophils % 54.6 % (38.7-73.9); Platelet Count 186 T/CUMM (130-400); Red Blood Count 3.99 MC/CUMM (3.8-5.5); Red Cell Distribution Width 17.5 % (9.3-17.3); White Blood Count 6.7 T/CUMM (4-12)
[2017-06-29 06:01] LABS: Alanine Aminotransferase < 6 U/L (13-56); Albumin 2.3 G/DL (3.4-5.0); Alkaline Phosphatase 72 U/L (45-117); Aspartate Amino Transferase 10 U/L (0-37); Blood Urea Nitrogen 14 MG/DL (7-18); Calcium 7.8 MG/DL (8.5-10.1); Glucose 149 MG/DL (74-106); Osmolality,Calculated 282.4 MOS/KG (273-304); Potassium 3.9 MMOL/L (3.5-5.1); Sodium 140 MMOL/L (136-145); Total Protein 5.5 G/DL (6.4-8.3)
[2017-06-29] MEDS: MORPHINE ER 15 MG TABLET PO SCH ×2 (06:01→09:56)
[2017-06-29 06:05] LABS: Magnesium 1.9 MG/DL (1.8-2.4); Risk Ratio 2.74; VLDL CHOLESTEROL 37.4 MG/DL
[2017-06-29 06:09] LABS: Apearance,Urine CLEAR (Clear); Bacteria,Urine Occasional /HPF (Few); Bilirubin,Urine Negative (Negative); Blood, Urine Negative (Negative); Glucose,Urine (UA) 150 mg/dL (Negative); Ketones,Urine Negative (Negative); Mucus,Urine Occasional /LPF (Occasional); Nitrite,Urine Negative (Negative); Protein,Urine Negative; RBC,Urine <1 /HPF (0-4); Squamous Epithelial Cell,Urine Occasional /HPF (0-10); Urine Color Yellow (Yellow); Urine Specific Gravity 1.012 (1.001-1.035); Urine Urobilinogen < 2.0 EU/DL (0.2-1.0); WBC,Urine <1 /HPF (0-6)
[2017-06-29] MEDS: CLOPIDOGREL 75 MG TABLET PO SCH (09:54)
[2017-06-29] MEDS: INSULIN LISPRO 100 UNIT/ML SUBCUT SCH ×2 (09:54→21:26)
[2017-06-29] MEDS: GLIMEPIRIDE 2 MG TABLET PO SCH ×2 (09:54→21:26)
[2017-06-29] MEDS: ESTRADIOL 2 MG TABLET PO SCH (09:54)
[2017-06-29] MEDS: DILTIAZEM CD 240 MG CAPSULE PO SCH (09:54)
[2017-06-29] MEDS: PANTOPRAZOLE 40 MG TABLET PO SCH (09:54)
[2017-06-29] MEDS: DOCUSATE SODIUM 100 MG CAPSULE PO SCH ×2 (09:54→21:26)
[2017-06-29] MEDS: INSULIN REGULAR 100 UNIT/ML SUBCUT SCH ×4 (09:55→21:25)
[2017-06-29] MEDS: LINACLOTIDE 145 MCG CAPSULE PO SCH (09:59)
[2017-06-29] MEDS: SODIUM CHLORIDE 0.9% 1,000 ML IV SCH (18:55)
[2017-06-29] MEDS: INSULIN GLARGINE 100 UNIT/ML SUBCUT SCH (21:25)
[2017-06-29] MEDS: SIMVASTATIN 10 MG TABLET PO SCH (21:26)
[2017-06-30] MEDS: PIPERACILLIN/TAZOBACTAM 3,375 MG in SODIUM CHLORIDE 0.9% 100 ML IV SCH ×3 (05:05→21:32)
[2017-06-30 06:09] LABS: Basophils % 0.6 % (0.0-0.8); Eosinophils # 0.1 10*3/uL (0.0-0.87); Eosinophils % 2.3 % (0.00-10.9); Hematocrit 33.6 VOL% (35.7-47.0); Hemoglobin 10.2 GM/DL (12.0-16.0); Immature Granulocytes % 0.5 %; Immature Granulocytes Absolute 0.03 #; Lymphocytes # 1.9 10*3/uL (1.4-4.0); Lymphocytes % 30.7 % (21.3-54.2); Mean Corpuscular HGB Conc 30.4 GM/DL (32-36); Mean Corpuscular Hemoglobin 23 PG (27-34); Mean Corpuscular Volume 76.9 FL (87-102); Mean Platelet Volume 10.1 FL (9.6-12.0); Monocytes # 0.7 10*3/uL (0.11-0.8); Neutrophils # 3.4 10*3/uL (1.4-7.4); Neutrophils % 54.9 % (38.7-73.9); Platelet Count 213 T/CUMM (130-400); Red Blood Count 4.37 MC/CUMM (3.8-5.5); Red Cell Distribution Width 17.3 % (9.3-17.3); White Blood Count 6.2 T/CUMM (4-12)
[2017-06-30 06:22] LABS: Lactic Acid 1.2 MMOL/L (0.4-2.0)
[2017-06-30 06:25] LABS: Calcium 8.3 MG/DL (8.5-10.1); Magnesium 1.8 MG/DL (1.8-2.4); Osmolality,Calculated 277.4 MOS/KG (273-304); Potassium 3.8 MMOL/L (3.5-5.1)
[2017-06-30] MEDS: INSULIN REGULAR 100 UNIT/ML SUBCUT SCH ×4 (08:38→21:32)
[2017-06-30] MEDS: INSULIN LISPRO 100 UNIT/ML SUBCUT SCH ×2 (09:04→21:43)
[2017-06-30] MEDS: ESTRADIOL 2 MG TABLET PO SCH (09:05)
[2017-06-30] MEDS: DILTIAZEM CD 240 MG CAPSULE PO SCH (09:05)
[2017-06-30] MEDS: CLOPIDOGREL 75 MG TABLET PO SCH (09:07)
[2017-06-30] MEDS: DOCUSATE SODIUM 100 MG CAPSULE PO SCH ×2 (09:07→21:36)
[2017-06-30] MEDS: GLIMEPIRIDE 2 MG TABLET PO SCH ×2 (09:07→21:33)
[2017-06-30] MEDS: MORPHINE ER 15 MG TABLET PO SCH (09:08)
[2017-06-30] MEDS: PANTOPRAZOLE 40 MG TABLET PO SCH (09:08)
[2017-06-30] MEDS: LINACLOTIDE 145 MCG CAPSULE PO SCH (09:12)
[2017-06-30] MEDS: IRBESARTAN 150 MG TABLET PO SCH (10:32)
[2017-06-30] MEDS: FLUCONAZOLE 150 MG TABLET PO SCH (10:33)
[2017-06-30] MEDS: SIMVASTATIN 10 MG TABLET PO SCH (18:13)
[2017-06-30] MEDS: INSULIN GLARGINE 100 UNIT/ML SUBCUT SCH (21:33)
[2017-07-01] MEDS: PIPERACILLIN/TAZOBACTAM 3,375 MG in SODIUM CHLORIDE 0.9% 100 ML IV SCH (05:06)
[2017-07-01 06:00] LABS: Basophils % 0.6 % (0.0-0.8); Eosinophils # 0.1 10*3/uL (0.0-0.87); Hematocrit 36.2 VOL% (35.7-47.0); Hemoglobin 11.1 GM/DL (12.0-16.0); Immature Granulocytes % 0.3 %; Immature Granulocytes Absolute 0.02 #; Lymphocytes # 2.7 10*3/uL (1.4-4.0); Lymphocytes % 40.5 % (21.3-54.2); Mean Corpuscular HGB Conc 30.7 GM/DL (32-36); Mean Corpuscular Hemoglobin 24 PG (27-34); Mean Corpuscular Volume 77.4 FL (87-102); Mean Platelet Volume 9.7 FL (9.6-12.0); Monocytes # 0.6 10*3/uL (0.11-0.8); Monocytes % 9.8 % (1.7-12.7); Neutrophils # 3.1 10*3/uL (1.4-7.4); Neutrophils % 46.8 % (38.7-73.9); Platelet Count 257 T/CUMM (130-400); Red Blood Count 4.68 MC/CUMM (3.8-5.5); Red Cell Distribution Width 17.5 % (9.3-17.3); White Blood Count 6.6 T/CUMM (4-12)
[2017-07-01] MEDS: SODIUM CHLORIDE 0.9% 1,000 ML IV SCH (06:17)
[2017-07-01 06:27] LABS: Calcium 8.6 MG/DL (8.5-10.1); Magnesium 1.9 MG/DL (1.8-2.4); Osmolality,Calculated 279.4 MOS/KG (273-304); Potassium 4.3 MMOL/L (3.5-5.1)
[2017-07-01 08:40] VITALS: BP 175/83
[2017-07-01] MEDS: INSULIN REGULAR 100 UNIT/ML SUBCUT SCH ×2 (08:42→11:58)
[2017-07-01] MEDS: LINACLOTIDE 145 MCG CAPSULE PO SCH (08:46)
[2017-07-01] MEDS: FLUCONAZOLE 150 MG TABLET PO SCH (08:46)
[2017-07-01] MEDS: DOCUSATE SODIUM 100 MG CAPSULE PO SCH (08:47)
[2017-07-01] MEDS: ESTRADIOL 2 MG TABLET PO SCH (08:47)
[2017-07-01] MEDS: DILTIAZEM CD 240 MG CAPSULE PO SCH (08:47)
[2017-07-01] MEDS: IRBESARTAN 150 MG TABLET PO SCH (08:47)
[2017-07-01] MEDS: GLIMEPIRIDE 2 MG TABLET PO SCH (08:47)
[2017-07-01] MEDS: PANTOPRAZOLE 40 MG TABLET PO SCH (08:48)
[2017-07-01] MEDS: MORPHINE ER 15 MG TABLET PO SCH (08:48)
[2017-07-01] MEDS: CLOPIDOGREL 75 MG TABLET PO SCH (08:48)
[2017-07-01] MEDS: INSULIN LISPRO 100 UNIT/ML SUBCUT SCH (10:19)
== END 2017-07-01 11:56 | disposition home health service (06) | DRG 948 ==
LOC: N.ED 18:08 → N.EDINP 22:08 → N.2E 22:26
PROVIDERS: ADMIT Family Medicine; ATTEND Family Medicine

== ENCOUNTER 2018-03-10 15:18 | Observation (INO) ==
[2018-03-10 16:11] LABS: Basophils # 0.1 10*3/uL (0.0-0.2); Basophils % 0.7 % (0.0-0.8); Eosinophils % 0.4 % (0.00-10.9); Hematocrit 33.6 VOL% (35.7-47.0); Immature Granulocytes % 0.3 %; Immature Granulocytes Absolute 0.02 #; Lymphocytes # 1.9 10*3/uL (1.4-4.0); Lymphocytes % 26.8 % (21.3-54.2); Mean Corpuscular HGB Conc 29.8 GM/DL (32-36); Mean Corpuscular Hemoglobin 23 PG (27-34); Mean Corpuscular Volume 78.7 FL (87-102); Mean Platelet Volume 9.9 FL (9.6-12.0); Monocytes # 0.5 10*3/uL (0.11-0.8); Monocytes % 6.8 % (1.7-12.7); Neutrophils # 4.5 10*3/uL (1.4-7.4); Platelet Count 276 T/CUMM (130-400); Red Blood Count 4.27 MC/CUMM (3.8-5.5); Red Cell Distribution Width 16.5 % (9.3-17.3); White Blood Count 6.9 T/CUMM (4-12)
[2018-03-10 16:34] LABS: Alanine Aminotransferase 19 U/L (13-56); Albumin 3.1 G/DL (3.4-5.0); Alkaline Phosphatase 56 U/L (45-117); Aspartate Amino Transferase 15 U/L (0-37); Bilirubin,Total < 0.39 MG/DL (0.2-1.0); Blood Urea Nitrogen 16 MG/DL (7-18); Calcium 8.2 MG/DL (8.5-10.1); Glucose 193 MG/DL (74-106); Osmolality,Calculated 278.8 MOS/KG (273-304); Potassium 4.5 MMOL/L (3.5-5.1); Sodium 137 MMOL/L (136-145); Total Protein 6.9 G/DL (6.4-8.3)
[2018-03-10 16:36] LABS: Lactic Acid 2.9 MMOL/L (0.4-2.0)
[2018-03-10] MEDS ORDERED: CEFEPIME 2,000 MG in SODIUM CHLORIDE 0.9% 100 ML IV STA (18:13)
[2018-03-10] MEDS ORDERED: SODIUM CHLORIDE 0.9% 1,000 ML IV STA (18:13)
[2018-03-10] MEDS ORDERED: VANCOMYCIN INJ 1,000 MG in SODIUM CHLORIDE 0.9% 250 ML IV STA (18:14)
[2018-03-10] MEDS ORDERED: DEXTROSE 50% 25 GM/50 ML VIAL IV PRN (18:22)
[2018-03-10] MEDS ORDERED: ONDANSETRON 4 MG/2 ML VIAL IV PRN ×2 (18:22→18:51)
[2018-03-10] MEDS ORDERED: ACETAMINOPHEN 325 MG TABLET PO PRN ×2 (18:22→18:51)
[2018-03-10] MEDS ORDERED: GLUCAGON 1 MG VIAL IM PRN (18:22)
[2018-03-10] MEDS ORDERED: DOCUSATE SODIUM 100 MG CAPSULE PO SCH (21:00)
[2018-03-10] MEDS: DOCUSATE SODIUM 100 MG CAPSULE PO SCH (21:52)
[2018-03-11] MEDS: CEFEPIME 2,000 MG in SYRINGE 1 EACH IV SCH ×2 (08:45→21:14)
[2018-03-11] MEDS: DOCUSATE SODIUM 100 MG CAPSULE PO SCH ×2 (08:45→21:13)
[2018-03-11] MEDS ORDERED: PANTOPRAZOLE 40 MG TABLET PO SCH ×2 (09:00)
[2018-03-11] MEDS ORDERED: INSULIN LISPRO 100 UNIT/ML SUBCUT PRN (09:30)
[2018-03-11] MEDS: METOPROLOL SUCCINATE XL 50 MG TABLET PO SCH (11:26)
[2018-03-11] MEDS: POTASSIUM CHLORIDE 10 MEQ TABLET PO SCH ×2 (11:26→16:05)
[2018-03-11] MEDS ORDERED: hydroCHLOROthiazide 25 MG TABLET PO PRN (12:00)
[2018-03-11] MEDS ORDERED: BACLOFEN 10 MG TABLET PO PRN (16:00)
[2018-03-11] MEDS: PANTOPRAZOLE 40 MG TABLET PO SCH (16:02)
[2018-03-11] MEDS: MORPHINE ER 15 MG TABLET PO SCH (16:02)
[2018-03-11] MEDS: GLIMEPIRIDE 4 MG TABLET PO SCH (16:03)
[2018-03-11] MEDS: CLOPIDOGREL 75 MG TABLET PO SCH (21:12)
[2018-03-11] MEDS: DILTIAZEM CD 120 MG CAPSULE PO SCH (21:12)
[2018-03-11] MEDS: ATORVASTATIN 10 MG TABLET PO SCH (21:13)
[2018-03-11] MEDS: INSULIN GLARGINE 100 UNIT/ML SUBCUT SCH (21:22)
[2018-03-12] MEDS: MORPHINE ER 15 MG TABLET PO SCH ×2 (05:53→17:29)
[2018-03-12] MEDS: DILTIAZEM CD 240 MG CAPSULE PO SCH (05:53)
[2018-03-12] MEDS: LOSARTAN 25 MG TABLET PO SCH (05:53)
[2018-03-12] MEDS: PANTOPRAZOLE 40 MG TABLET PO SCH ×2 (05:54→17:29)
[2018-03-12] MEDS: DOCUSATE SODIUM 100 MG CAPSULE PO SCH ×2 (09:44→21:17)
[2018-03-12] MEDS: GLIMEPIRIDE 4 MG TABLET PO SCH ×2 (09:44→17:29)
[2018-03-12] MEDS: CEFEPIME 2,000 MG in SYRINGE 1 EACH IV SCH (09:58)
[2018-03-12] MEDS: METOPROLOL SUCCINATE XL 50 MG TABLET PO SCH (12:57)
[2018-03-12] MEDS: POTASSIUM CHLORIDE 10 MEQ TABLET PO SCH ×2 (12:57→17:30)
[2018-03-12] MEDS: SKIN HEALING OINT (AQUAPHOR) 50 GM TUBE TOP SCH (15:58)
[2018-03-12] MEDS: ATORVASTATIN 10 MG TABLET PO SCH (21:17)
[2018-03-12] MEDS: DILTIAZEM CD 120 MG CAPSULE PO SCH (21:17)
[2018-03-12] MEDS: CLOPIDOGREL 75 MG TABLET PO SCH (21:17)
[2018-03-12] MEDS: INSULIN GLARGINE 100 UNIT/ML SUBCUT SCH (21:18)
[2018-03-13] MEDS: DILTIAZEM CD 240 MG CAPSULE PO SCH (06:29)
[2018-03-13] MEDS: PANTOPRAZOLE 40 MG TABLET PO SCH (06:30)
[2018-03-13] MEDS: MORPHINE ER 15 MG TABLET PO SCH (06:30)
[2018-03-13] MEDS: LOSARTAN 25 MG TABLET PO SCH (06:31)
[2018-03-13 07:59] VITALS: BP 167/74
[2018-03-13] MEDS: DOCUSATE SODIUM 100 MG CAPSULE PO SCH (09:10)
[2018-03-13] MEDS: SKIN HEALING OINT (AQUAPHOR) 50 GM TUBE TOP SCH (09:11)
[2018-03-13] MEDS: GLIMEPIRIDE 4 MG TABLET PO SCH (09:11)
[2018-03-13] MEDS: METOPROLOL SUCCINATE XL 50 MG TABLET PO SCH (09:12)
== END 2018-03-13 11:50 | disposition home or self-care (01) ==
LOC: N.ED 15:18 → N.EDINP 15:18 → N.2E 19:54
PROVIDERS: ADMIT Family Medicine; ATTEND Family Medicine

== ENCOUNTER 2019-06-29 14:04 | Inpatient (IN) ==
[2019-06-29 14:56] LABS: Albumin 2.8 G/DL (3.4-5.0); Bilirubin,Total 0.4 MG/DL (0.2-1.0); Calcium 8.1 MG/DL (8.5-10.1); Osmolality,Calculated 277.7 MOS/KG (273-304); Total Protein 6.3 G/DL (6.4-8.3)
[2019-06-29 15:12] LABS: Basophils # 0.1 10*3/uL (0.0-0.2); Basophils % 0.4 % (0.0-0.8); Eosinophils # 0.2 10*3/uL (0.0-0.87); Eosinophils % 1.2 % (0.00-10.9); Hematocrit 35.3 VOL% (35.7-47.0); Hemoglobin 10.2 GM/DL (12.0-16.0); Immature Granulocytes % 0.6 %; Immature Granulocytes Absolute 0.07 #; Lymphocytes # 2.4 10*3/uL (1.4-4.0); Lymphocytes % 19.6 % (21.3-54.2); Mean Corpuscular HGB Conc 28.9 GM/DL (32-36); Mean Corpuscular Volume 74.8 FL (87-102); Mean Platelet Volume 9.7 FL (9.6-12.0); Monocytes % 7.3 % (1.7-12.7); Neutrophils % 70.9 % (38.7-73.9); Platelet Count 264 T/CUMM (130-400); Red Blood Count 4.72 MC/CUMM (3.8-5.5); Red Cell Distribution Width 18.8 % (9.3-17.3); White Blood Count 12.2 T/CUMM (4-12)
[2019-06-29 15:17] LABS: Hypochromasia 1+; Polychromasia Few
[2019-06-29 15:18] LABS: Ovalocytes Few; Target Cells Few
[2019-06-29 15:20] LABS: Anisocytosis Slight; Microcytosis 1+
[2019-06-29 15:39] LABS: Apearance,Urine CLOUDY (Clear); Bilirubin,Urine Negative (Negative); Blood, Urine Small mg/dL (Negative); Glucose,Urine (UA) Negative (Negative); Ketones,Urine Negative (Negative); Nitrite,Urine Negative (Negative); Protein,Urine 30 MG/DL; RBC,Urine 54 /HPF (0-4); Urine Color Amber (Yellow); Urine Specific Gravity 1.017 (1.001-1.035); Urine Urobilinogen < 2.0 EU/DL (0.2-1.0); WBC,Urine 2099 /HPF (0-6)
[2019-06-29] MEDS ORDERED: cefTRIAXone 1,000 MG in SODIUM CHLORIDE 0.9% 100 ML IV STA (15:45)
[2019-06-29] MEDS ORDERED: ACETAMINOPHEN 325 MG TABLET PO PRN (15:48)
[2019-06-29] MEDS ORDERED: ONDANSETRON 4 MG/2 ML VIAL IV PRN (15:48)
[2019-06-29] MEDS ORDERED: GLUCAGON 1 MG VIAL IM PRN (15:48)
[2019-06-29] MEDS ORDERED: DEXTROSE 10% 25 GM/250 ML BAG IV PRN (15:48)
[2019-06-29] MEDS ORDERED: hydroCHLOROthiazide 25 MG TABLET PO PRN (15:51)
[2019-06-29] MEDS: INSULIN LISPRO 100 UNIT/ML SUBCUT SCH ×2 (17:46→22:01)
[2019-06-29] MEDS ORDERED: INFLUENZA VIRUS VACCINE 0.5 ML SYRINGE IM ONE (17:48)
[2019-06-29] MEDS: SODIUM CHLORIDE 0.45% 1,000 ML IV SCH (17:49)
[2019-06-29] MEDS: BACLOFEN 10 MG TABLET PO SCH ×2 (17:51→21:59)
[2019-06-29] MEDS: GLIMEPIRIDE 4 MG TABLET PO SCH (17:56)
[2019-06-29] MEDS ORDERED: cefTRIAXone 1,000 MG in SYRINGE 1 EACH IV SCH (18:00)
[2019-06-29] MEDS: MORPHINE ER 15 MG TABLET PO SCH (18:01)
[2019-06-29] MEDS: PANTOPRAZOLE 40 MG TABLET PO SCH (18:02)
[2019-06-29] MEDS: CLOPIDOGREL 75 MG TABLET PO SCH (18:02)
[2019-06-29] MEDS: ENOXAPARIN 30 MG/0.3 ML SYRINGE SUBCUT SCH (18:02)
[2019-06-29] MEDS: SIMVASTATIN 10 MG TABLET PO SCH (21:59)
[2019-06-29] MEDS: DOCUSATE SODIUM 100 MG CAPSULE PO SCH (22:00)
[2019-06-29] MEDS: GABAPENTIN 100 MG CAPSULE PO SCH (22:00)
[2019-06-29] MEDS: DILTIAZEM CD 120 MG CAPSULE PO SCH (22:00)
[2019-06-29] MEDS: INSULIN GLARGINE 100 UNIT/ML SUBCUT SCH (22:02)
[2019-06-30] MEDS ORDERED: FUROSEMIDE 40 MG TABLET PO SCH (06:00)
[2019-06-30] MEDS ORDERED: LOSARTAN 25 MG TABLET PO SCH (06:00)
[2019-06-30] MEDS ORDERED: POTASSIUM CHLORIDE 20 MEQ TABLET PO SCH (06:00)
[2019-06-30] MEDS ORDERED: LINACLOTIDE 145 MCG CAPSULE PO SCH (06:00)
[2019-06-30] MEDS: SODIUM CHLORIDE 0.45% 1,000 ML IV SCH ×2 (06:06→23:00)
[2019-06-30] MEDS: ESTRADIOL 1 MG TABLET PO SCH (06:07)
[2019-06-30] MEDS: MORPHINE ER 15 MG TABLET PO SCH ×2 (06:07→19:04)
[2019-06-30] MEDS: PANTOPRAZOLE 40 MG TABLET PO SCH ×2 (06:08→16:42)
[2019-06-30] MEDS: DILTIAZEM CD 240 MG CAPSULE PO SCH (06:08)
[2019-06-30] MEDS: BACLOFEN 10 MG TABLET PO SCH ×3 (06:09→22:16)
[2019-06-30] MEDS: INSULIN LISPRO 100 UNIT/ML SUBCUT SCH ×4 (08:42→22:20)
[2019-06-30] MEDS ORDERED: PANTOPRAZOLE 40 MG TABLET PO SCH (09:00)
[2019-06-30] MEDS: LOSARTAN 25 MG TABLET PO SCH (09:21)
[2019-06-30] MEDS: GLIMEPIRIDE 4 MG TABLET PO SCH ×2 (09:21→16:41)
[2019-06-30] MEDS: POTASSIUM CHLORIDE 20 MEQ TABLET PO SCH (09:21)
[2019-06-30] MEDS: DOCUSATE SODIUM 100 MG CAPSULE PO SCH ×2 (09:21→22:16)
[2019-06-30] MEDS: FUROSEMIDE 40 MG TABLET PO SCH (09:21)
[2019-06-30] MEDS: LINACLOTIDE 145 MCG CAPSULE PO SCH (09:21)
[2019-06-30] MEDS ORDERED: METOPROLOL SUCCINATE XL 50 MG TABLET PO SCH (12:00)
[2019-06-30] MEDS: CLOPIDOGREL 75 MG TABLET PO SCH (16:41)
[2019-06-30] MEDS: ENOXAPARIN 30 MG/0.3 ML SYRINGE SUBCUT SCH (19:03)
[2019-06-30] MEDS: GABAPENTIN 100 MG CAPSULE PO SCH (22:16)
[2019-06-30] MEDS: DILTIAZEM CD 120 MG CAPSULE PO SCH (22:19)
[2019-06-30] MEDS: SIMVASTATIN 10 MG TABLET PO SCH (22:19)
[2019-06-30] MEDS: INSULIN GLARGINE 100 UNIT/ML SUBCUT SCH (22:19)
[2019-07-01] MEDS: ESTRADIOL 1 MG TABLET PO SCH (05:26)
[2019-07-01] MEDS: BACLOFEN 10 MG TABLET PO SCH (05:26)
[2019-07-01] MEDS: PANTOPRAZOLE 40 MG TABLET PO SCH (05:27)
[2019-07-01] MEDS: DILTIAZEM CD 240 MG CAPSULE PO SCH (06:40)
[2019-07-01] MEDS: MORPHINE ER 15 MG TABLET PO SCH (06:40)
[2019-07-01] MEDS: INSULIN LISPRO 100 UNIT/ML SUBCUT SCH (07:27)
[2019-07-01 07:54] VITALS: BP 146/54
[2019-07-01] MEDS: SODIUM CHLORIDE 0.45% 1,000 ML IV SCH (08:34)
[2019-07-01] MEDS: FUROSEMIDE 40 MG TABLET PO SCH (08:36)
[2019-07-01] MEDS: DOCUSATE SODIUM 100 MG CAPSULE PO SCH (08:36)
[2019-07-01] MEDS: LOSARTAN 25 MG TABLET PO SCH (08:36)
[2019-07-01] MEDS: GLIMEPIRIDE 4 MG TABLET PO SCH (08:36)
[2019-07-01] MEDS: POTASSIUM CHLORIDE 20 MEQ TABLET PO SCH (08:36)
[2019-07-01] MEDS: LINACLOTIDE 145 MCG CAPSULE PO SCH (08:37)
[2019-07-01] MEDS ORDERED: FLUCONAZOLE 150 MG TABLET PO ONE (09:00)
== END 2019-07-01 10:33 | disposition home or self-care (01) | DRG 758 ==
LOC: N.ED 14:04 → N.EDINP 15:48 → N.2E 17:15
PROVIDERS: ADMIT Family Medicine; ATTEND Family Medicine

== ENCOUNTER 2019-10-10 14:35 | Observation (INO) ==
[2019-10-10 16:24] LABS: Basophils % 0.4 % (0.0-0.8); Eosinophils % 0.2 % (0.00-10.9); Immature Granulocytes % 0.6 %; Immature Granulocytes Absolute 0.07 #; Lymphocytes # 1.4 10*3/uL (1.4-4.0); Lymphocytes % 12.9 % (21.3-54.2); Mean Corpuscular HGB Conc 29.2 GM/DL (32-36); Mean Corpuscular Volume 75.8 FL (87-102); Mean Platelet Volume 9.9 FL (9.6-12.0); Monocytes % 5.9 % (1.7-12.7); Platelet Count 263 T/CUMM (130-400); Red Blood Count 5.16 MC/CUMM (3.8-5.5); White Blood Count 10.8 T/CUMM (4-12)
[2019-10-10 16:25] LABS: Hemoglobin 11.4 GM/DL (12.0-16.0)
[2019-10-10 16:26] LABS: Hematocrit 39.1 VOL% (35.7-47.0)
[2019-10-10 16:30] LABS: Albumin 2.5 G/DL (3.4-5.0); Bilirubin,Total 0.5 MG/DL (0.2-1.0); Calcium 8.6 MG/DL (8.5-10.1); Osmolality,Calculated 277.4 MOS/KG (273-304); Total Protein 6.6 G/DL (6.4-8.3)
[2019-10-10] MEDS ORDERED: DEXTROSE 50% 25 GM/50 ML VIAL IV PRN (16:38)
[2019-10-10] MEDS ORDERED: GLUCAGON 1 MG VIAL IM PRN (16:38)
[2019-10-10] MEDS ORDERED: ACETAMINOPHEN 325 MG TABLET PO PRN (16:38)
[2019-10-10] MEDS ORDERED: CLOPIDOGREL 75 MG TABLET PO SCH (17:00)
[2019-10-10 18:20] LABS: Apearance,Urine CLOUDY (Clear); Bilirubin,Urine Negative (Negative); Blood, Urine Moderate mg/dL (Negative); Glucose,Urine (UA) >=500 mg/dL (Negative); Ketones,Urine 5 mg/dL (Negative); Nitrite,Urine Negative (Negative); Protein,Urine 100 MG/DL; RBC,Urine 113 /HPF (0-4); Urine Color Yellow (Yellow); Urine Specific Gravity 1.018 (1.001-1.035); Urine Urobilinogen < 2.0 EU/DL (0.2-1.0); WBC,Urine 1359 /HPF (0-6)
[2019-10-10] MEDS ORDERED: DILTIAZEM CD 120 MG CAPSULE PO SCH (19:00)
[2019-10-10] MEDS ORDERED: ATORVASTATIN 10 MG TABLET PO SCH (21:00)
[2019-10-10] MEDS ORDERED: INSULIN GLARGINE 100 UNIT/ML SUBCUT SCH (21:00)
[2019-10-10] MEDS ORDERED: ENOXAPARIN 30 MG/0.3 ML SYRINGE SUBCUT SCH (21:00)
[2019-10-10] MEDS: MORPHINE ER 15 MG TABLET PO SCH (22:01)
[2019-10-10] MEDS: BACLOFEN 10 MG TABLET PO SCH (22:02)
[2019-10-10] MEDS: PANTOPRAZOLE 40 MG TABLET PO SCH (22:02)
[2019-10-10] MEDS: INSULIN LISPRO 100 UNIT/ML SUBCUT SCH (22:03)
[2019-10-10] MEDS: SODIUM CHLORIDE 0.9% 1,000 ML IV SCH (22:03)
[2019-10-10] MEDS: GLIMEPIRIDE 4 MG TABLET PO SCH (22:07)
[2019-10-10] MEDS: ONDANSETRON 4 MG/2 ML VIAL IV PRN (22:41)
[2019-10-11] MEDS ORDERED: LINACLOTIDE 145 MCG CAPSULE PO SCH (07:30)
[2019-10-11] MEDS: BACLOFEN 10 MG TABLET PO SCH ×2 (08:50→15:08)
[2019-10-11] MEDS: INSULIN LISPRO 100 UNIT/ML SUBCUT SCH ×3 (08:50→16:30)
[2019-10-11] MEDS: SODIUM CHLORIDE 0.9% 1,000 ML IV SCH (08:50)
[2019-10-11] MEDS: GLIMEPIRIDE 4 MG TABLET PO SCH (08:51)
[2019-10-11] MEDS: PANTOPRAZOLE 40 MG TABLET PO SCH (08:52)
[2019-10-11] MEDS ORDERED: ESTRADIOL 2 MG TABLET PO SCH (09:00)
[2019-10-11] MEDS ORDERED: FUROSEMIDE 40 MG TABLET PO SCH (09:00)
[2019-10-11] MEDS ORDERED: PANTOPRAZOLE 40 MG TABLET PO SCH (09:00)
[2019-10-11] MEDS ORDERED: DILTIAZEM CD 240 MG CAPSULE PO SCH (09:00)
[2019-10-11] MEDS ORDERED: LOSARTAN 25 MG TABLET PO SCH (09:00)
[2019-10-11] MEDS ORDERED: POTASSIUM CHLORIDE 20 MEQ TABLET PO SCH (09:00)
[2019-10-11] MEDS: MORPHINE ER 15 MG TABLET PO SCH (09:51)
[2019-10-11] MEDS ORDERED: METOPROLOL SUCCINATE XL 50 MG TABLET PO SCH (12:00)
[2019-10-11] MEDS: ONDANSETRON 4 MG/2 ML VIAL IV PRN (15:08)
[2019-10-11 17:25] VITALS: BP 99/83
== END 2019-10-11 16:28 | disposition home or self-care (01) ==
LOC: EDBD → EDUNIT# → N.EDINP 14:35 → N.ED 14:35 → N.3E 17:57
PROVIDERS: ADMIT Family Medicine; ATTEND Family Medicine

== ENCOUNTER 2019-10-24 10:41 | Inpatient (IN) ==
[2019-10-24 11:42] LABS: Basophils % 0.4 % (0.0-0.8); Eosinophils # 0.2 10*3/uL (0.0-0.87); Eosinophils % 1.8 % (0.00-10.9); Hematocrit 35.5 VOL% (35.7-47.0); Hemoglobin 10.3 GM/DL (12.0-16.0); Immature Granulocytes % 0.5 %; Immature Granulocytes Absolute 0.04 #; Lymphocytes # 2.5 10*3/uL (1.4-4.0); Lymphocytes % 30.2 % (21.3-54.2); Mean Corpuscular Volume 76.5 FL (87-102); Mean Platelet Volume 9.8 FL (9.6-12.0); Monocytes % 6.7 % (1.7-12.7); Neutrophils % 60.4 % (38.7-73.9); Platelet Count 212 T/CUMM (130-400); Red Blood Count 4.64 MC/CUMM (3.8-5.5); Red Cell Distribution Width 19.1 % (9.3-17.3); White Blood Count 8.1 T/CUMM (4-12)
[2019-10-24 11:48] LABS: Albumin 2.4 G/DL (3.4-5.0); Bilirubin,Total 0.4 MG/DL (0.2-1.0); Calcium 8.3 MG/DL (8.5-10.1); Osmolality,Calculated 284.4 MOS/KG (273-304); Total Protein 5.9 G/DL (6.4-8.3)
[2019-10-24 12:37] LABS: Apearance,Urine CLOUDY (Clear); Bacteria,Urine Many /HPF (Few); Bilirubin,Urine Negative (Negative); Blood, Urine Moderate mg/dL (Negative); Glucose,Urine (UA) 150 mg/dL (Negative); Ketones,Urine Negative (Negative); Nitrite,Urine Negative (Negative); Protein,Urine 100 MG/DL; RBC,Urine 499 /HPF (0-4); Urine Color Amber (Yellow); Urine Specific Gravity 1.024 (1.001-1.035); WBC,Urine 10960 /HPF (0-6)
[2019-10-24] MEDS ORDERED: GLUCAGON 1 MG VIAL IM PRN (12:47)
[2019-10-24] MEDS ORDERED: DEXTROSE 10% 250 ML BAG IV PRN (12:47)
[2019-10-24] MEDS: BACLOFEN 10 MG TABLET PO SCH ×2 (15:22→21:06)
[2019-10-24] MEDS: APIXABAN 5 MG TABLET PO SCH ×2 (15:22→23:04)
[2019-10-24] MEDS: SODIUM CHLORIDE 0.45% 1,000 ML IV SCH (15:22)
[2019-10-24] MEDS: INSULIN LISPRO 100 UNIT/ML SUBCUT SCH ×2 (17:16→21:05)
[2019-10-24] MEDS: GLIMEPIRIDE 4 MG TABLET PO SCH (17:16)
[2019-10-24] MEDS: DILTIAZEM CD 120 MG CAPSULE PO SCH (21:06)
[2019-10-24] MEDS: MORPHINE ER 15 MG TABLET PO SCH (21:06)
[2019-10-24] MEDS: SIMVASTATIN 10 MG TABLET PO SCH (21:06)
[2019-10-24] MEDS: DOCUSATE SODIUM 100 MG CAPSULE PO SCH (21:06)
[2019-10-24] MEDS: INSULIN GLARGINE 100 UNIT/ML SUBCUT SCH (21:08)
[2019-10-25 06:19] LABS: Osmolality,Calculated 272.7 MOS/KG (273-304)
[2019-10-25] MEDS: cefTRIAXone 1,000 MG in SYRINGE 1 EACH IV SCH (07:04)
[2019-10-25 07:27] LABS: Basophils % 0.5 % (0.0-0.8); Eosinophils # 0.2 10*3/uL (0.0-0.87); Eosinophils % 2.2 % (0.00-10.9); Hematocrit 33.3 VOL% (35.7-47.0); Immature Granulocytes % 0.3 %; Immature Granulocytes Absolute 0.02 #; Lymphocytes # 3.5 10*3/uL (1.4-4.0); Lymphocytes % 44.8 % (21.3-54.2); Mean Corpuscular HGB Conc 28.8 GM/DL (32-36); Mean Corpuscular Volume 77.3 FL (87-102); Mean Platelet Volume 9.5 FL (9.6-12.0); Monocytes % 9.2 % (1.7-12.7); Platelet Count 207 T/CUMM (130-400); Red Blood Count 4.31 MC/CUMM (3.8-5.5); Red Cell Distribution Width 18.9 % (9.3-17.3); White Blood Count 7.8 T/CUMM (4-12)
[2019-10-25 07:53] LABS: Hemoglobin 9.6 GM/DL (12.0-16.0)
[2019-10-25] MEDS: INSULIN LISPRO 100 UNIT/ML SUBCUT SCH ×4 (07:58→20:49)
[2019-10-25] MEDS: LINACLOTIDE 145 MCG CAPSULE PO SCH (08:10)
[2019-10-25] MEDS: DOCUSATE SODIUM 100 MG CAPSULE PO SCH ×2 (08:11→20:48)
[2019-10-25] MEDS: APIXABAN 5 MG TABLET PO SCH ×2 (08:11→20:48)
[2019-10-25] MEDS: BACLOFEN 10 MG TABLET PO SCH ×3 (08:11→20:49)
[2019-10-25] MEDS: ESTRADIOL 2 MG TABLET PO SCH (08:11)
[2019-10-25] MEDS: LOSARTAN 25 MG TABLET PO SCH (08:11)
[2019-10-25] MEDS: GLIMEPIRIDE 4 MG TABLET PO SCH ×2 (08:12→17:00)
[2019-10-25] MEDS: POTASSIUM CHLORIDE 20 MEQ TABLET PO SCH (08:12)
[2019-10-25] MEDS: DILTIAZEM CD 120 MG CAPSULE PO SCH (08:12)
[2019-10-25] MEDS: FUROSEMIDE 40 MG TABLET PO SCH (08:13)
[2019-10-25] MEDS: MORPHINE ER 15 MG TABLET PO SCH ×3 (08:13→19:25)
[2019-10-25] MEDS: PANTOPRAZOLE 40 MG TABLET PO SCH (08:13)
[2019-10-25 08:23] LABS: Hypochromasia 1+; Microcytosis 1+; Ovalocytes Slight
[2019-10-25 08:24] LABS: Platelet Estimate Normal
[2019-10-25] MEDS ORDERED: METOPROLOL SUCCINATE XL 50 MG TABLET PO SCH (12:00)
[2019-10-25] MEDS: SODIUM CHLORIDE 0.45% 1,000 ML IV SCH (13:58)
[2019-10-25] MEDS: ONDANSETRON 4 MG/2 ML VIAL IV PRN (14:27)
[2019-10-25] MEDS ORDERED: SODIUM CHLORIDE 0.45% 500 ML IV ONE (15:49)
[2019-10-25] MEDS ORDERED: DOPamine 800 MG/250 ML PREMIX IV PRN (16:59)
[2019-10-25] MEDS ORDERED: PHENYLEPHRINE DRIP 40 MG/250 ML PREMIX IV PRN (18:10)
[2019-10-25] MEDS ORDERED: PHENYLEPHRINE DRIP 40 MG/250 ML PREMIX IV ONE (18:16)
[2019-10-25] MEDS: SIMVASTATIN 10 MG TABLET PO SCH (20:48)
[2019-10-25] MEDS: INSULIN GLARGINE 100 UNIT/ML SUBCUT SCH (20:49)
[2019-10-26] MEDS: ACETAMINOPHEN 325 MG TABLET PO PRN (04:28)
[2019-10-26] MEDS: cefTRIAXone 1,000 MG in SYRINGE 1 EACH IV SCH (06:00)
[2019-10-26] MEDS: SODIUM CHLORIDE 0.45% 1,000 ML IV SCH (07:13)
[2019-10-26] MEDS: INSULIN LISPRO 100 UNIT/ML SUBCUT SCH ×4 (08:12→20:31)
[2019-10-26] MEDS: PANTOPRAZOLE 40 MG TABLET PO SCH (08:13)
[2019-10-26] MEDS: POTASSIUM CHLORIDE 20 MEQ TABLET PO SCH (08:13)
[2019-10-26] MEDS: ESTRADIOL 2 MG TABLET PO SCH (08:13)
[2019-10-26] MEDS: FUROSEMIDE 40 MG TABLET PO SCH (08:13)
[2019-10-26] MEDS: APIXABAN 5 MG TABLET PO SCH ×2 (08:13→20:31)
[2019-10-26] MEDS: BACLOFEN 10 MG TABLET PO SCH ×3 (08:13→20:32)
[2019-10-26] MEDS: GLIMEPIRIDE 4 MG TABLET PO SCH ×2 (08:13→18:28)
[2019-10-26] MEDS: DOCUSATE SODIUM 100 MG CAPSULE PO SCH ×2 (08:13→20:31)
[2019-10-26] MEDS: LOSARTAN 25 MG TABLET PO SCH (08:32)
[2019-10-26] MEDS: LINACLOTIDE 145 MCG CAPSULE PO SCH (08:32)
[2019-10-26] MEDS: MORPHINE ER 15 MG TABLET PO SCH ×2 (12:08→18:28)
[2019-10-26] MEDS: INSULIN GLARGINE 100 UNIT/ML SUBCUT SCH (20:32)
[2019-10-26] MEDS: SIMVASTATIN 10 MG TABLET PO SCH (20:32)
[2019-10-27] MEDS: SODIUM CHLORIDE 0.45% 1,000 ML IV SCH ×2 (06:25→15:03)
[2019-10-27] MEDS: cefTRIAXone 1,000 MG in SYRINGE 1 EACH IV SCH (06:25)
[2019-10-27 09:22] LABS: Basophils % 0.6 % (0.0-0.8); Eosinophils # 0.2 10*3/uL (0.0-0.87); Eosinophils % 2.5 % (0.00-10.9); Hematocrit 33.5 VOL% (35.7-47.0); Hemoglobin 9.7 GM/DL (12.0-16.0); Immature Granulocytes % 0.5 %; Immature Granulocytes Absolute 0.03 #; Lymphocytes # 2.3 10*3/uL (1.4-4.0); Lymphocytes % 36.1 % (21.3-54.2); Mean Corpuscular Volume 76.3 FL (87-102); Mean Platelet Volume 9.3 FL (9.6-12.0); Monocytes % 9.5 % (1.7-12.7); Neutrophils % 50.8 % (38.7-73.9); Platelet Count 214 T/CUMM (130-400); Red Blood Count 4.39 MC/CUMM (3.8-5.5); White Blood Count 6.3 T/CUMM (4-12)
[2019-10-27 09:27] LABS: Osmolality,Calculated 274.8 MOS/KG (273-304)
[2019-10-27] MEDS: INSULIN LISPRO 100 UNIT/ML SUBCUT SCH ×4 (09:27→20:47)
[2019-10-27] MEDS: LINACLOTIDE 145 MCG CAPSULE PO SCH (09:28)
[2019-10-27] MEDS: LOSARTAN 25 MG TABLET PO SCH (09:29)
[2019-10-27] MEDS: ESTRADIOL 2 MG TABLET PO SCH (09:29)
[2019-10-27] MEDS: FUROSEMIDE 40 MG TABLET PO SCH (09:29)
[2019-10-27] MEDS: SOTALOL 80 MG TABLET PO SCH ×2 (09:29→20:47)
[2019-10-27] MEDS: GLIMEPIRIDE 4 MG TABLET PO SCH ×2 (09:29→17:15)
[2019-10-27] MEDS: PANTOPRAZOLE 40 MG TABLET PO SCH (09:29)
[2019-10-27] MEDS: BACLOFEN 10 MG TABLET PO SCH ×3 (09:29→20:47)
[2019-10-27] MEDS: APIXABAN 5 MG TABLET PO SCH ×2 (09:29→20:47)
[2019-10-27] MEDS: POTASSIUM CHLORIDE 20 MEQ TABLET PO SCH (09:30)
[2019-10-27] MEDS: DOCUSATE SODIUM 100 MG CAPSULE PO SCH ×2 (09:30→20:47)
[2019-10-27] MEDS ORDERED: MAGNESIUM SULF RIDER 2 GM in PREMIX 1 EACH IV ONE (09:31)
[2019-10-27] MEDS: MORPHINE ER 15 MG TABLET PO SCH ×2 (13:18→17:15)
[2019-10-27] MEDS: ONDANSETRON 4 MG/2 ML VIAL IV PRN (16:15)
[2019-10-27] MEDS: INSULIN GLARGINE 100 UNIT/ML SUBCUT SCH (20:47)
[2019-10-27] MEDS: SIMVASTATIN 10 MG TABLET PO SCH (20:48)
[2019-10-27] MEDS: NYSTATIN 500,000 UNIT/5 ML UDCUP SWISH/SWAL SCH (22:23)
[2019-10-28 03:17] LABS: Calcium 7.6 MG/DL (8.5-10.1); Osmolality,Calculated 273.8 MOS/KG (273-304)
[2019-10-28 03:33] LABS: Basophils % 0.8 % (0.0-0.8); Eosinophils # 0.1 10*3/uL (0.0-0.87); Eosinophils % 2.3 % (0.00-10.9); Hematocrit 29.3 VOL% (35.7-47.0); Hemoglobin 8.4 GM/DL (12.0-16.0); Immature Granulocytes % 0.2 %; Immature Granulocytes Absolute 0.01 #; Lymphocytes # 2.3 10*3/uL (1.4-4.0); Lymphocytes % 44.7 % (21.3-54.2); Mean Corpuscular HGB Conc 28.7 GM/DL (32-36); Mean Corpuscular Volume 77.3 FL (87-102); Mean Platelet Volume 9.5 FL (9.6-12.0); Monocytes % 7.6 % (1.7-12.7); Neutrophils % 44.4 % (38.7-73.9); Platelet Count 209 T/CUMM (130-400); Red Blood Count 3.79 MC/CUMM (3.8-5.5); Red Cell Distribution Width 18.9 % (9.3-17.3); White Blood Count 5.1 T/CUMM (4-12)
[2019-10-28 04:21] LABS: Hypochromasia 1+; Platelet Estimate Adequate
[2019-10-28 04:22] LABS: Microcytosis Slight
[2019-10-28] MEDS: cefTRIAXone 1,000 MG in SYRINGE 1 EACH IV SCH ×2 (05:28→05:30)
[2019-10-28] MEDS: ONDANSETRON 4 MG/2 ML VIAL IV PRN ×3 (07:31→20:53)
[2019-10-28] MEDS: LINACLOTIDE 145 MCG CAPSULE PO SCH (10:01)
[2019-10-28] MEDS: GLIMEPIRIDE 4 MG TABLET PO SCH ×2 (10:01→17:33)
[2019-10-28] MEDS: DOCUSATE SODIUM 100 MG CAPSULE PO SCH ×2 (10:02→20:52)
[2019-10-28] MEDS: ESTRADIOL 2 MG TABLET PO SCH (10:02)
[2019-10-28] MEDS: SOTALOL 80 MG TABLET PO SCH ×2 (10:02→20:51)
[2019-10-28] MEDS: LOSARTAN 25 MG TABLET PO SCH (10:02)
[2019-10-28] MEDS: APIXABAN 5 MG TABLET PO SCH ×2 (10:02→20:51)
[2019-10-28] MEDS: POTASSIUM CHLORIDE 20 MEQ TABLET PO SCH (10:02)
[2019-10-28] MEDS: INSULIN LISPRO 100 UNIT/ML SUBCUT SCH ×4 (10:03→20:52)
[2019-10-28] MEDS: PANTOPRAZOLE 40 MG TABLET PO SCH (10:03)
[2019-10-28] MEDS: NYSTATIN 500,000 UNIT/5 ML UDCUP SWISH/SWAL SCH ×4 (10:03→20:52)
[2019-10-28] MEDS: FUROSEMIDE 40 MG TABLET PO SCH (10:03)
[2019-10-28] MEDS: BACLOFEN 10 MG TABLET PO SCH ×3 (10:03→20:52)
[2019-10-28] MEDS: MORPHINE ER 15 MG TABLET PO SCH ×2 (12:58→18:15)
[2019-10-28] MEDS: INSULIN GLARGINE 100 UNIT/ML SUBCUT SCH (20:52)
[2019-10-28] MEDS: SIMVASTATIN 10 MG TABLET PO SCH (20:52)
[2019-10-29] MEDS: ONDANSETRON 4 MG/2 ML VIAL IV PRN ×2 (03:26→14:32)
[2019-10-29 04:35] LABS: Calcium 8.1 MG/DL (8.5-10.1); Osmolality,Calculated 279.5 MOS/KG (273-304)
[2019-10-29 04:52] LABS: Basophils % 0.6 % (0.0-0.8); Eosinophils # 0.1 10*3/uL (0.0-0.87); Eosinophils % 2.1 % (0.00-10.9); Hematocrit 32.8 VOL% (35.7-47.0); Hemoglobin 9.5 GM/DL (12.0-16.0); Immature Granulocytes % 0.6 %; Immature Granulocytes Absolute 0.03 #; Lymphocytes # 2.1 10*3/uL (1.4-4.0); Lymphocytes % 44.5 % (21.3-54.2); Mean Corpuscular Volume 75.9 FL (87-102); Mean Platelet Volume 9.6 FL (9.6-12.0); Monocytes % 7.6 % (1.7-12.7); Neutrophils % 44.6 % (38.7-73.9); Platelet Count 267 T/CUMM (130-400); Red Blood Count 4.32 MC/CUMM (3.8-5.5); Red Cell Distribution Width 18.9 % (9.3-17.3); White Blood Count 4.7 T/CUMM (4-12)
[2019-10-29 04:58] LABS: Hypochromasia 1+; Platelet Estimate Adequate
[2019-10-29 04:59] LABS: Microcytosis Slight
[2019-10-29] MEDS ORDERED: PROMETHAZINE 25 MG/1 ML VIAL IM PRN (07:48)
[2019-10-29] MEDS ORDERED: METOCLOPRAMIDE 10 MG/2 ML VIAL IV ONE (07:53)
[2019-10-29] MEDS ORDERED: DEXAMETHASONE 4 MG/1 ML VIAL IV ONE (07:54)
[2019-10-29] MEDS: INSULIN LISPRO 100 UNIT/ML SUBCUT SCH ×4 (08:43→20:51)
[2019-10-29] MEDS: FUROSEMIDE 40 MG TABLET PO SCH (08:44)
[2019-10-29] MEDS: APIXABAN 5 MG TABLET PO SCH ×2 (08:44→20:44)
[2019-10-29] MEDS: SOTALOL 80 MG TABLET PO SCH ×2 (08:45→20:43)
[2019-10-29] MEDS: LINACLOTIDE 145 MCG CAPSULE PO SCH (08:45)
[2019-10-29] MEDS: ESTRADIOL 2 MG TABLET PO SCH (08:45)
[2019-10-29] MEDS: cefTRIAXone 1,000 MG in SYRINGE 1 EACH IV SCH (08:46)
[2019-10-29] MEDS: DOCUSATE SODIUM 100 MG CAPSULE PO SCH ×2 (08:46→20:46)
[2019-10-29] MEDS: POTASSIUM CHLORIDE 20 MEQ TABLET PO SCH (08:54)
[2019-10-29] MEDS: GLIMEPIRIDE 4 MG TABLET PO SCH ×2 (08:54→16:59)
[2019-10-29] MEDS: PANTOPRAZOLE 40 MG TABLET PO SCH (08:54)
[2019-10-29] MEDS: LOSARTAN 25 MG TABLET PO SCH (08:54)
[2019-10-29] MEDS: NYSTATIN 500,000 UNIT/5 ML UDCUP SWISH/SWAL SCH ×4 (08:55→20:45)
[2019-10-29] MEDS: BACLOFEN 10 MG TABLET PO SCH ×3 (08:55→20:44)
[2019-10-29] MEDS: MORPHINE ER 15 MG TABLET PO SCH ×2 (12:05→18:44)
[2019-10-29] MEDS: POLYETHYLENE GLYCOL POWDER 17 GM PACK PO SCH (14:23)
[2019-10-29] MEDS: SODIUM CHLORIDE 0.45% 1,000 ML IV SCH (16:13)
[2019-10-29] MEDS: SIMVASTATIN 10 MG TABLET PO SCH (20:44)
[2019-10-29] MEDS: INSULIN GLARGINE 100 UNIT/ML SUBCUT SCH (20:47)
[2019-10-30] MEDS: cefTRIAXone 1,000 MG in SYRINGE 1 EACH IV SCH (06:28)
[2019-10-30] MEDS: LINACLOTIDE 145 MCG CAPSULE PO SCH (08:20)
[2019-10-30] MEDS: SODIUM CHLORIDE 0.45% 1,000 ML IV SCH (08:21)
[2019-10-30 08:56] LABS: Basophils % 0.4 % (0.0-0.8); Eosinophils % 0.2 % (0.00-10.9); Hematocrit 30.5 VOL% (35.7-47.0); Hemoglobin 8.9 GM/DL (12.0-16.0); Immature Granulocytes % 0.5 %; Immature Granulocytes Absolute 0.03 #; Lymphocytes % 35.6 % (21.3-54.2); Mean Corpuscular HGB Conc 29.2 GM/DL (32-36); Mean Corpuscular Volume 76.4 FL (87-102); Mean Platelet Volume 9.9 FL (9.6-12.0); Monocytes % 9.3 % (1.7-12.7); Platelet Count 254 T/CUMM (130-400); Red Blood Count 3.99 MC/CUMM (3.8-5.5); Red Cell Distribution Width 18.9 % (9.3-17.3); White Blood Count 5.7 T/CUMM (4-12)
[2019-10-30 09:17] LABS: Calcium 8.1 MG/DL (8.5-10.1); Osmolality,Calculated 277.5 MOS/KG (273-304)
[2019-10-30] MEDS: DOCUSATE SODIUM 100 MG CAPSULE PO SCH ×2 (09:29→20:52)
[2019-10-30] MEDS: GLIMEPIRIDE 4 MG TABLET PO SCH ×2 (09:29→18:18)
[2019-10-30] MEDS: POLYETHYLENE GLYCOL POWDER 17 GM PACK PO SCH (09:29)
[2019-10-30] MEDS: ESTRADIOL 2 MG TABLET PO SCH (09:29)
[2019-10-30] MEDS: FUROSEMIDE 40 MG TABLET PO SCH (09:29)
[2019-10-30] MEDS: SOTALOL 80 MG TABLET PO SCH ×2 (09:29→20:51)
[2019-10-30] MEDS: NYSTATIN 500,000 UNIT/5 ML UDCUP SWISH/SWAL SCH ×4 (09:30→20:53)
[2019-10-30] MEDS: BACLOFEN 10 MG TABLET PO SCH ×3 (09:30→20:51)
[2019-10-30] MEDS: PANTOPRAZOLE 40 MG TABLET PO SCH (09:30)
[2019-10-30] MEDS: APIXABAN 5 MG TABLET PO SCH ×2 (09:30→20:51)
[2019-10-30] MEDS: LOSARTAN 25 MG TABLET PO SCH (09:30)
[2019-10-30] MEDS: POTASSIUM CHLORIDE 20 MEQ TABLET PO SCH (09:31)
[2019-10-30] MEDS: INSULIN LISPRO 100 UNIT/ML SUBCUT SCH ×4 (09:31→22:28)
[2019-10-30] MEDS: MORPHINE ER 15 MG TABLET PO SCH ×2 (11:28→18:18)
[2019-10-30] MEDS ORDERED: MAGNESIUM SULF RIDER 2 GM in PREMIX 1 EACH IV ONE (12:02)
[2019-10-30] MEDS: VANCOMYCIN INJ 1,000 MG in SODIUM CHLORIDE 0.9% 250 ML IV SCH ×2 (14:48→22:30)
[2019-10-30] MEDS: SIMVASTATIN 10 MG TABLET PO SCH (20:51)
[2019-10-30] MEDS: INSULIN GLARGINE 100 UNIT/ML SUBCUT SCH (20:52)
[2019-10-31] MEDS: ACETAMINOPHEN 325 MG TABLET PO PRN (04:20)
[2019-10-31] MEDS: VANCOMYCIN INJ 1,000 MG in SODIUM CHLORIDE 0.9% 250 ML IV SCH (06:05)
[2019-10-31] MEDS: cefTRIAXone 1,000 MG in SYRINGE 1 EACH IV SCH (06:05)
[2019-10-31 08:08] VITALS: BP 137/55
[2019-10-31] MEDS: SOTALOL 80 MG TABLET PO SCH (09:03)
[2019-10-31] MEDS: NYSTATIN 500,000 UNIT/5 ML UDCUP SWISH/SWAL SCH (09:03)
[2019-10-31] MEDS: ESTRADIOL 2 MG TABLET PO SCH (09:03)
[2019-10-31] MEDS: POTASSIUM CHLORIDE 20 MEQ TABLET PO SCH (09:04)
[2019-10-31] MEDS: LOSARTAN 25 MG TABLET PO SCH (09:04)
[2019-10-31] MEDS: GLIMEPIRIDE 4 MG TABLET PO SCH (09:04)
[2019-10-31] MEDS: APIXABAN 5 MG TABLET PO SCH (09:04)
[2019-10-31] MEDS: PANTOPRAZOLE 40 MG TABLET PO SCH (09:04)
[2019-10-31] MEDS: FUROSEMIDE 40 MG TABLET PO SCH (09:04)
[2019-10-31] MEDS: BACLOFEN 10 MG TABLET PO SCH (09:04)
[2019-10-31] MEDS: DOCUSATE SODIUM 100 MG CAPSULE PO SCH (09:05)
[2019-10-31] MEDS: LINACLOTIDE 145 MCG CAPSULE PO SCH (09:05)
[2019-10-31] MEDS: POLYETHYLENE GLYCOL POWDER 17 GM PACK PO SCH (09:06)
[2019-10-31] MEDS: INSULIN LISPRO 100 UNIT/ML SUBCUT SCH (09:06)
[2019-10-31] MEDS: SODIUM CHLORIDE 0.45% 1,000 ML IV SCH (10:51)
== END 2019-10-31 11:10 | disposition hospice, home (50) | DRG 176 ==
LOC: EDBD → EDUNIT# → N.ED 10:41 → SUATTDRO 12:47 → N.EDINP 12:47 → N.TELEN 13:51 → N.ICU 10-25 17:00 → N.TELEN 10-26 11:44
PROVIDERS: ADMIT Family Medicine; ATTEND Family Medicine